=== PATIENT | male | born 1935 | race Caucasian/White ===

== ENCOUNTER → 2017-04-24 | Outpatient (CLI) | payer OTHER, MEDICARE ==
[~2017-04-24] MED LIST: ASPI325T45 PO; ATOR-14 PO; CHOL100027 PO; CIPR-255 PO; CYAN100T PO; INSDGI SC; KETO2CRE14 TOP; LIRA18IN INJ; LISI2.5T5 PO; METF1000 PO; OMEP20CA59 PO; TRAM-10 PO
[2017-04-24 12:31] LABS: ESTIMATED AVERAGE GLUCOSE 174 mg/dl; HA1C FLAG Normal (Normal)
[2017-04-24 12:44] LABS: BLOOD UREA NITROGEN 27 mg/dl (7-18); BUN/CREATININE RATIO 25.2 (10-20); CALCIUM 9.1 mg/dl (8.5-10.1); CARBON DIOXIDE 25 mmol/L (21-32); CHLORIDE 106 mmol/L (98-107); CREATININE 1.08 mg/dl (0.60-1.40); GLUCOSE,FASTING 133 mg/dl (70-99); POTASSIUM 4.3 mmol/L (3.5-5.1); SODIUM 139 mmol/L (136-145)
[2017-04-24 12:48] LABS: CHOLESTEROL 100 mg/dl (0-200); CHOLESTEROL/HDL RATIO 2.5; HDL CHOLESTEROL 40 mg/dl; LDL CHOLESTEROL CALCULATED 36 mg/dl; TRIGLYCERIDES 122 mg/dl (0-150); VERY LOW DENSITY LIPOPROT CALC 24 mg/dl
== END | disposition home or self-care (01) ==
LOC: C.LABPBG 09:49
PROVIDERS: ATTEND Internal Medicine Endocrinology, Diabetes & Metabolism
DX: E11.40 Type 2 diabetes mellitus with diabetic neuropathy, unspecified (principal); E11.22 Type 2 diabetes mellitus with diabetic chronic kidney disease; N18.3 Chronic kidney disease, stage 3 (moderate); Z79.4 Long term (current) use of insulin; E78.5 Hyperlipidemia, unspecified; I12.9 Hypertensive chronic kidney disease with stage 1 through stage 4 chronic kidney disease, or unspecified chronic kidney disease; E87.5 Hyperkalemia

== ENCOUNTER → 2017-07-26 | Outpatient (CLI) | payer OTHER, MEDICARE ==
[2017-07-26 13:10] LABS: HEMOGLOBIN A1C 8.9 % (4.5-5.6)
[2017-07-26 13:14] LABS: BLOOD UREA NITROGEN 16 mg/dl (7-18); CALCIUM 9.1 mg/dl (8.5-10.1); CARBON DIOXIDE 25 mmol/L (21-32); CREATININE 1.15 mg/dl (0.60-1.40); GLUCOSE 133 mg/dl (70-99); POTASSIUM 4.6 mmol/L (3.5-5.1); SODIUM 137 mmol/L (136-145)
== END | disposition home or self-care (01) ==
LOC: C.LABPBG 09:24
PROVIDERS: ATTEND Nurse Practitioner Family
DX: E11.22 Type 2 diabetes mellitus with diabetic chronic kidney disease (principal); N18.3 Chronic kidney disease, stage 3 (moderate); Z79.4 Long term (current) use of insulin; E78.5 Hyperlipidemia, unspecified; I12.9 Hypertensive chronic kidney disease with stage 1 through stage 4 chronic kidney disease, or unspecified chronic kidney disease

== ENCOUNTER → 2018-01-09 | Outpatient (CLI) | payer OTHER, MEDICARE ==
[~2018-01-09] MED LIST changes: +ASPECOTC PO; -ASPI325T45 PO; +LISI-1116 PO; -LISI2.5T5 PO
[2018-01-09 14:15] LABS: BLOOD UREA NITROGEN 17 mg/dl (7-18); CALCIUM 8.7 mg/dl (8.5-10.1); CARBON DIOXIDE 25 mmol/L (21-32); CREATININE 1.09 mg/dl (0.60-1.40); GLUCOSE 116 mg/dl (70-99); POTASSIUM 4.6 mmol/L (3.5-5.1); SODIUM 136 mmol/L (136-145)
[2018-01-09 14:27] LABS: HEMOGLOBIN A1C 8.3 % (4.5-5.6)
== END | disposition home or self-care (01) ==
LOC: C.LABPBG 09:00
PROVIDERS: ATTEND Internal Medicine Endocrinology, Diabetes & Metabolism
DX: E11.40 Type 2 diabetes mellitus with diabetic neuropathy, unspecified (principal)

== ENCOUNTER 2020-11-22 17:30 | Inpatient (IN) ==
[2020-11-22] MEDS ORDERED: ONDANSETRON INJ 2 MG/ML 2 ML VIAL IV STA (18:03)
[2020-11-22] MEDS ORDERED: SODIUM CHLORIDE 0.9% 1000ML 500 ML IV ONE (18:03)
[2020-11-22] MEDS ORDERED: HYDROmorphone INJ 0.5 MG/0.5 ML SYR IV STA (18:03)
--- NOTE | 2020-11-22 18:07 | Emergency Department Note ---
Impression & Plan Severe back pain, Bilateral leg weakness, Failure of outpatient treatment ED Provider Note NAME: PRICE DICKENS AGE: 85 SEX: M : 1935 ARRIVES VIA: Walk-In INFORMANT: [Patient][family] ED PROVIDER(S): [Russ Garcia MD] CHIEF COMPLAINT: Back pain HISTORY OF PRESENT ILLNESS: The patient is a 85-year-old male with chronic back pain. The patient states that about 2 and half weeks ago, he was walking with his walker when he developed severe lower back pain that caused him to fall down the stairs. Since this time frame, he has not been able to use his walker. He states that his legs are too weak to support his weight. He has been in a wheelchair. He has a hard time getting to the bathroom even. The patient states that his legs feel numb and he admits that he is having increased urinary frequency although there is no burning. No abdominal pain. Patient states that lying down causes his back pain to worsen and cause pain radiating down the right leg. There has been no cough or fever. No chest pain or shortness of breath. He did see his doctor's office yesterday, they recommended outpatient x-rays however, the patient could not tolerate lying down for the films. REVIEW OF SYSTEMS: See HPI for pertinent positives and negatives. A total of ten systems were reviewed and were otherwise negative. PMHx/PSHx: See Below SOCIAL HISTORY: See Below. PHYSICAL EXAM: GENERAL: Patient is in no acute distress. HEENT: No acute trauma, normocephalic atraumatic, mucous membranes moist, no nasal congestion, no scleral icterus. NECK: No stridor, no adenopathy, no meningismus, trachea is midline. LUNGS: Clear to auscultation bilaterally, no wheeze, no rhonchi, breath sounds equal. HEART: 2/6 systolic murmur, regular rate and rhythm. ABDOMEN: Soft, nontender, bowel sounds positive, no hernias, no peritonitis. Some mild abdominal distention noted. EXTREMITIES: No cyanosis, moderate bilateral pedal edema, full range of motion o f all the joints without pain or difficulty, no signs for acute trauma. NEUROLOGIC: Oriented x 3. The patient does have decent strength with dorsi flexion and plantar flexion of his feet bilaterally. He cannot lift either leg off the bed and uses his arms to cause knee flexion. He has no reflexes to the patellar or Achilles tendon. SKIN: No rash, no jaundice, no diaphoresis. DIFFERENTIAL DIAGNOSIS: Spinal stenosis, lumbar or thoracic fracture, nerve impingement, disc her niation, malignancy, epidural hematoma, cauda equina syndrome, sciatica, urinary retention, among others. EMERGENCY DEPARTMENT COURSE/PROCEDURES: MEDICAL DECISION MAKING: There is no leukocytosis. The patient is anemic but he has a history of the same. There is a normal platelet count. No significant electrolyte abnormality or kidney failure. No concerning liver enzyme elevation. Urinalysis does not show infection. Covid testing returned negative. The patient unfortunately, was in too much pain to undergo his CT imaging. He refused the studies despite the pain medication given. He was able to undergo a bedside lumbar spine se siddhartha. There was significant arthritis seen per my review. There was some slippage of L4 on L5 anteriorly. There was a potential compression fracture of L1 and L2. On exam, the patient's legs were weak bilaterally. He did seem uncomfortable especially, when we tried to lay him flat. The patient received IV saline, he was given IV Dilaudid for pain. He received IV Zofran. The patient requires a hospital stay. He is no longer able to function at home. He cannot walk on his own. This has been going on for weeks. He will likely require orthopedic/spine consults. He is going to require pain management. He is going to require imaging, possibly under sedation through anesthesia. At th is point, the cause for his severe back pain is not completely clear, further work-up in the hospital is warranted. I spoke with case management, I talked to the patient about his findings, the on-call hospitalist was consulted. Past Med/Surg History Medical History Arthritis BPH associated with nocturia Carotid artery stenosis Chronic lumbar pain GERD without esophagitis Hearing difficulty Hematuria High prostate specific antigen (PSA) (~12/2018) History of amputation of finger (~2002) History of neck pain Hyperlipidemia Hypertension Lumbar back pain Pancreatic lesion 03/31/2020-2.1 x 1.0 x 1.7 cm bilobed cystic lesion of the pancreatic body/tail junction demonstrates mild marginal calcifications with a thin central enhancing septation. Differential considerations would include a mucinous cystadenoma versus complex singular or two subadjacent IPMN's. 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 neuropathy & tingling in hands Surgical History Amputation finger 2003 History of carpal tunnel release 2007 History of hernia repair 2003 History of neck surgery [id number] Family History Grandfather (Maternal) Stomach cancer Aunt , This was who raised me, I do not know my mother & father Stomach cancer MATERNAL Brother , 50's of an [facility] Myocardial infarction Alcohol abuse Diabetes Mother Heart disease Diabetes Gallbladder disease Kidney stones Denies family history of Ovarian cancer Prostate cancer Breast cancer Colorectal cancer Social History Smoking Status: Never smoker Tobacco Type: Cigarettes Age Started Using Tobacco: 16; Age Quit Using Tobacco: 29; packs per day: 10; Years Smoked: 13; Second Hand Exposure: No; Do You Dip or Chew Tobacco: No; Hx Alcohol Use: No Hx Substance Use: No Preferred Language: Turkish Communication Ability: Effective Visual Impairment: No Limitations Hearing Ability: Hard of Hearing Delinquency Prevention Social Worker Required: No Beliefs That Will Affect Care: None marital status: / marital status details: PASSED IN 2016 D/T LUNG CANCER Current Living Situation: Alone current occupational status: retired Other Information That Helps Us Care for You: No Feels Safe at Home: Yes Safety Concerns: Feels Safe At This Time Childhood Exposure to Second-Hand Smoke: Yes Diet Comment: regular caffeine: Yes (coffee about 5 times a day) during the past year weight has: remained stable Dental Care, Regularly: Yes Physical Activity Frequency: Does not Exercise Physical Activity Frequency Comment: EXERCISE LIMITED BY PHYSICAL CONDITION Seatbelt Use: always Sunscreen Use: No Assistive Devices: Glasses, Hearing Aid - Left and Hearing Aid - Right Assistive Devices Comment: glasses and hearing aids at bedside. batteries replaced Allergies Allergies Allergy/AdvReac Type Severity Reaction Status Date / Time codeine AdvReac Unknown severe Verified 11/22/20 17:55 vomiting Home Meds Home Medications Medication Instructions Recorded Confirmed tamsulosin 0.4 mg capsule 0.4 mg PO BID cap 02/09/20 11/22/20 cholecalciferol (vitamin D3) 50 2,000 unit PO DAILY tab 07/26/20 11/22/20 mcg (2,000 unit) tablet insulin glargine [Basaglar KwikPen 30 unit SQ DAILY 11/22/20 11/22/20 U-100 Insulin] Previous Rx's Medication Instructions Recorded blood-glucose meter #1 ea 06/11/19 atorvastatin 10 mg tablet 10 mg PO DAILY #90 tab 04/14/20 lancets 33 gauge #100 ea 04/21/20 metformin 1,000 mg tablet 1,000 mg PO BID #180 tab 07/06/20 blood-glucose meter #1 ea 07/26/20 omeprazole 20 mg capsule,delayed 20 mg PO DAILY #90 cap 08/17/20 release cyanocobalamin (vitamin B-12) 1,000 mcg PO DAILY #90 tab 09/05/20 1,000 mcg tablet pen needle, diabetic 32 gauge x #100 ea 11/01/20" lisinopril 2.5 mg tablet 2.5 mg PO DAILY #90 tab 11/16/20 Results & Data (ED) Vital Signs Vital Signs - 24 hr 11/22/20 17:34 11/22/20 19:00 11/22/20 19:05 Temperature 36.8 C Temperature Source Temporal Artery Scan Pulse Rate 65 69 72 Pulse Rate from SpO2 Sensor Respiratory Rate 18 22 21 Respiratory Effort / Characteristics Non-Labored Spontaneous Respiratory Depth Normal Respiratory Pattern Regular Blood Pressure 185/78 H 188/96 H Blood Pressure Mean 113 126 Blood Pressure Position Sitting Pulse Oximetry 99 96 95 Oxygen Delivery Method Room Air Sepsis Recent Fever Within 48 Hours No Sepsis New/Unexplained Change in Mental Status N/A Sepsis Action Taken by Nursing No Action Required 11/22/20 19:32 11/22/20 20:00 11/22/20 20:49 Temperature Temperature Source Pulse Rate 63 60 71 Pulse Rate from SpO2 Sensor Respiratory Rate 12 14 17 Respiratory Effort / Characteristics Respiratory Depth Respiratory Pattern Blood Pressure 140/87 Blood Pressure Mean 104 Blood Pressure Position Pulse Oximetry 95 Oxygen Delivery Method Sepsis Recent Fever Within 48 Hours Sepsis New/Unexplained Change in Mental Status Sepsis Action Taken by Nursing 11/22/20 20:58 11/22/20 21:00 11/22/20 21:01 Temperature Temperature Source Pulse Rate 57 L 56 L Pulse Rate from SpO2 Sensor 56 L 58 L Respiratory Rate 14 12 Respiratory Effort / Characteristics Respiratory Depth Respiratory Pattern Blood Pressure 197/71 H Blood Pressure Mean 113 Blood Pressure Position Pulse Oximetry 95 96 96 Oxygen Delivery Method Room Air Sepsis Recent Fever Within 48 Hours Sepsis New/Unexplained Change in Mental Status Sepsis Action Taken by Nursing 11/22/20 21:02 11/22/20 21:30 11/22/20 22:00 Temperature Temperature Source Pulse Rate 60 74 58 L Pulse Rate from SpO2 Sensor 60 65 60 Respiratory Rate 12 14 16 Respiratory Effort / Characteristics Respiratory Depth Respiratory Pattern Blood Pressure Blood Pressure Mean Blood Pressure Position Pulse Oximetry 92 92 93 Oxygen Delivery Method Sepsis Recent Fever Within 48 Hours Sepsis New/Unexplained Change in Mental Status Sepsis Action Taken by Nursing 11/22/20 22:01 11/22/20 22:30 11/22/20 22:34 Temperature Temperature Source Pulse Rate 64 70 61 Pulse Rate from SpO2 Sensor 65 62 Respiratory Rate 18 8 L 15 Respiratory Effort / Characteristics Respiratory Depth Respiratory Pattern Blood Pressure 211/91 H 153/89 H Blood Pressure Mean 131 110 Blood Pressure Position Pulse Oximetry 90 95 Oxygen Delivery Method Sepsis Recent Fever Within 48 Hours Sepsis New/Unexplained Change in Mental Status Sepsis Action Taken by Nursing 11/22/20 22:35 Temperature Temperature Source Pulse Rate 70 Pulse Rate from SpO2 Sensor Respiratory Rate 17 Respiratory Effort / Characteristics Respiratory Depth Respiratory Pattern Blood Pressure Blood Pressure Mean Blood Pressure Position Pulse Oximetry Oxygen Delivery Method Sepsis Recent Fever Within 48 Hours Sepsis New/Unexplained Change in Mental Status Sepsis Action Taken by [facility] Medications Current Medication List: was personally reviewed by me Laboratory Data Attestation: I reviewed the patient's lab results. Result diagrams: 11/22/20 18:29 11/22/20 18:29 Lab Results 11/22/20 11/22/20 11/22/20 Range/Units 18:29 18:29 19:05 WBC 4.09 L (4.8-10.8) K/uL RBC 3.93 L (4.7-6.1) M/uL Hgb 11.5 L (14.0-18.0) g/dL Hct 34.2 L (42-52) % MCV 87.0 (80-100) fL MCH 29.3 (25-34) pg MCHC 33.6 (32-36) g/dL RDW Std Deviation 42.3 (36.4-46.3) fL RDW Coeff of Addis 13.2 (11.5-14.5) % Plt Count 220 (130-400) K/uL MPV 9.0 (7.4-10.4) fL Immature Gran % (Auto) 1.5 % Neut % (Auto) 59.9 % Lymph % (Auto) 22.0 % Sully % (Auto) 13.0 % Eos % (Auto) 3.4 % Baso % (Auto) 0.2 % Neut # (Auto) 2.45 (1.4-6.5) K/uL Lymph # (Auto) 0.90 L (1.2-3.4) K/uL Sully # (Auto) 0.53 (0.11-0.59) K/uL Eos # (Auto) 0.14 (0-0.5) K/uL Baso # (Auto) 0.01 (0-0.2) K/uL Immature Gran # (Auto) 0.06 H (0.00-0.02) K/uL Sodium 138 (136-145) mmol/L Potassium 4.3 (3.5-5.1) mmol/L Chloride 106 (98-107) mmol/L Carbon Dioxide 28 (21-32) mmol/L Anion Gap 4.0 (3-11) BUN 16 (7-18) mg/dl Creatinine 0.77 (0.6-1.4) mg/dl Est Cr Clr Drug Dosing Not Reportable Est GFR ( Amer) 97.3 ml/min Est GFR (Non-Af Amer) 83.9 ml/min BUN/Creatinine Ratio 21.1 H (10-20) Glucose 120 H (70-99) mg/dl Calcium 8.9 (8.5-10.1) mg/dl Magnesium 1.8 (1.8-2.4) mg/dl Total Bilirubin 0.4 (0.2-1) mg/dl AST 19 (15-37) U/L ALT 25 (12-78) U/L Alkaline Phosphatase 97 (45-117) U/L Total Protein 7.0 (6.4-8.2) gm/dl Albumin 3.6 (3.4-5.0) gm/dl Globulin 3.4 (2.5-4.0) gm/dl Albumin/Globulin Ratio 1.1 (0.9-2) Urine Color Yellow Urine Appearance Clear (Clear) Urine pH 6.5 (4.5-7.5) Ur Specific [place] 1.020 (1.000-1.030) Urine Protein Negative (Negative) Urine Glucose (UA) Negative (Negative) Urine Ketones Negative (Negative) Urine Blood Negative (Negative) Urine Nitrite Negative (Negative) Urine Bilirubin Negative (Negative) Urine Urobilinogen Negative (Negative) Ur Leukocyte Esterase Trace H (Negative) Urine RBC 0-4 (0-4) /hpf Urine WBC 0-5 (0-5) /hpf Ur Epithelial Cells 0-5 (0-5) /lpf Urine Bacteria Negative (Negative) COVID-19 Eval Order SARS-CoV-2 (PCR) (Negative) 11/22/20 11/22/20 Range/Units 19:45 19:45 WBC (4.8-10.8) K/uL RBC (4.7-6.1) M/uL Hgb (14.0-18.0) g/dL Hct (42-52) % MCV (80-100) fL MCH (25-34) pg MCHC (32-36) g/dL RDW Std Deviation (36.4-46.3) fL RDW Coeff of Addis (11.5-14.5) % Plt Count (130-400) K/uL MPV (7.4-10.4) fL Immature Gran % (Auto) % Neut % (Auto) % Lymph % (Auto) % Sully % (Auto) % Eos % (Auto) % Baso % (Auto) % Neut # (Auto) (1.4-6.5) K/uL Lymph # (Auto) (1.2-3.4) K/uL Sully # (Auto) (0.11-0.59) K/uL Eos # (Auto) (0-0.5) K/uL Baso # (Auto) (0-0.2) K/uL Immature Gran # (Auto) (0.00-0.02) K/uL Sodium (136-145) mmol/L Potassium (3.5-5.1) mmol/L Chloride (98-107) mmol/L Carbon Dioxide (21-32) mmol/L Anion Gap (3-11) BUN (7-18) mg/dl Creatinine (0.6-1.4) mg/dl Est Cr Clr Drug Dosing Est GFR ( Amer) ml/min Est GFR (Non-Af Amer) ml/min BUN/Creatinine Ratio (10-20) Glucose (70-99) mg/dl Calcium (8.5-10.1) mg/dl Magnesium (1.8-2.4) mg/dl Total Bilirubin (0.2-1) mg/dl AST (15-37) U/L ALT (12-78) U/L Alkaline Phosphatase (45-117) U/L Total Protein (6.4-8.2) gm/dl Albumin (3.4-5.0) gm/dl Globulin (2.5-4.0) gm/dl Albumin/Globulin Ratio (0.9-2) Urine Color Urine Appearance (Clear) Urine pH (4.5-7.5) Ur Specific [place] (1.000-1.030) Urine Protein (Negative) Urine Glucose (UA) (Negative) Urine Ketones (Negative) Urine Blood (Negative) Urine Nitrite (Negative) Urine Bilirubin (Negative) Urine Urobilinogen (Negative) Ur Leukocyte Esterase (Negative) Urine RBC (0-4) /hpf Urine WBC (0-5) /hpf Ur Epithelial Cells (0-5) /lpf Urine Bacteria (Negative) COVID-19 Eval Order Covid19 at [facility] SARS-CoV-2 (PCR) NEGATIVE (Negative) Administered Medications Discontinued Medications Hydromorphone HCl (Hydromorphone Inj 0.5 Mg/0.5 Ml Syr) 0.5 mg IV NOW STA Stop: 11/22/20 18:04 Last Admin: 11/22/20 18:41 Dose: 0.5 mg Documented by: [id number] Hydromorphone HCl (Hydromorphone Inj 0.5 Mg/0.5 Ml Syr) 0.5 mg IV Q30M PRN PRN Reason: Pain Stop: 12/06/20 18:02 Last Admin: 11/22/20 21:47 Dose: 0.5 mg Documented by: [id number] Admin: 11/22/20 20:14 Dose: 0.5 mg Documented by: [id number] Admin: 11/22/20 19:39 Dose: 0.5 mg Documented by: [id number] Sodium Chloride (Nss 1000ml) 500 mls @ 999 mls/hr IV .Q31M ONE Stop: 11/22/20 18:33 Last Infusion: 11/22/20 19:18 Dose: 0 mls/hr Documented by: [id number] Admin: 11/22/20 18:46 Dose: 999 mls/hr Documented by: [id number] Ondansetron HCl (Ondansetron Inj 2 Mg/Ml 2 Ml Vial) 4 mg IV NOW STA Stop: 11/22/20 18:04 Last Admin: 11/22/20 18:41 Dose: 4 mg Documented by: [id number] Imaging Data Attestation: I personally reviewed and interpreted this imaging study as follows: My Impression: Portable lumbar spine series: There is some slippage of L4 on L5 anteriorly. There is significant spurring and arthritis. There is a potential compression fracture of L1 and L2. Discharge Plan Visit Data Chief Complaint: Back Injury/Pain Stated Complaint: SEVERE BACK PAIN & LACK OF MOVEMENT ED Provider: Russ Garcia Discharge Problem: Severe back pain, Bilateral leg weakness, Failure of outpatient treatment Patient Disposition: Admitted As Inpatient Condition: Fair Discharge Instructions Interventions: ED Discharge Assessment Last Done: 11/22/20 23:07
[2020-11-22 18:50] LABS: Basophils # (auto) 0.01 K/uL (0-0.2); Basophils % (auto) 0.2 %; Eosinophils # (auto) 0.14 K/uL (0-0.5); Eosinophils % (auto) 3.4 %; Hematocrit (blood only) 34.2 % (42-52); Hemoglobin 11.5 g/dL (14.0-18.0); Immature Granulocytes # (auto) 0.06 K/uL (0.00-0.02); Immature Granulocytes % (auto) 1.5 %; Mean Corpuscular Hemoglobin 29.3 pg (25-34); Mean Corpuscular Hgb Conc 33.6 g/dL (32-36); Monocytes # (auto) 0.53 K/uL (0.11-0.59); Neutrophils # (auto) 2.45 K/uL (1.4-6.5); Neutrophils % (auto) 59.9 %; Platelet Count 220 K/uL (130-400); RDW Coefficient of Variation 13.2 % (11.5-14.5); RDW Standard Deviation 42.3 fL (36.4-46.3); Red Blood Count 3.93 M/uL (4.7-6.1); White Blood Count 4.09 K/uL (4.8-10.8)
[2020-11-22 19:08] LABS: Alanine Aminotransferase 25 U/L (12-78); Albumin Level 3.6 gm/dl (3.4-5.0); Aspartate Aminotransferase 19 U/L (15-37); BUN Creatinine Ratio 21.1 (10-20); Blood Urea Nitrogen 16 mg/dl (7-18); Calcium 8.9 mg/dl (8.5-10.1); Carbon Dioxide 28 mmol/L (21-32); Chloride 106 mmol/L (98-107); Est GFR (African American) 97.3 ml/min; Est GFR (Non-African American) 83.9 ml/min; Glucose 120 mg/dl (70-99); Magnesium 1.8 mg/dl (1.8-2.4); Potassium 4.3 mmol/L (3.5-5.1); Sodium 138 mmol/L (136-145)
[2020-11-22 19:10] LABS: Albumin Globulin Ratio 1.1 (0.9-2); Alkaline Phosphatase 97 U/L (45-117); Bilirubin,Total 0.4 mg/dl (0.2-1); Globulin 3.4 gm/dl (2.5-4.0)
[2020-11-22 19:26] LABS: Appearance Urine Clear (Clear); Bilirubin Urine Negative (Negative); Blood Urine Negative (Negative); Color Urine Yellow; Glucose Urine UA Negative (Negative); Ketones Urine Negative (Negative); Leukocyte Esterase Urine Trace (Negative); Nitrite Urine Negative (Negative); Protein Urine Negative (Negative); Urobilinogen Urine Negative (Negative); pH Urine 6.5 (4.5-7.5)
[2020-11-22] MEDS: HYDROmorphone INJ 0.5 MG/0.5 ML SYR IV PRN ×3 (19:39→21:47)
[2020-11-22 20:15] LABS: Bacteria Urine Negative (Negative); Epithelial Cell Urine 0-5 /lpf (0-5); RBC Urine 0-4 /hpf (0-4); WBC Urine 0-5 /hpf (0-5)
--- NOTE | 2020-11-22 22:39 | History & Physical Report ---
Date of Service November 22, 2020 Assessment & Plan (1) Severe back pain: Acute worsening of chronic low back pain- Patient unable to lay flat for imaging in the emergency department, even after administration of IV Dilaudid Admit for pain control Consult pain management. Patient may require sedation to undergo appropriate imaging. Acetaminophen 650 mg p.o. every 6 hours as needed mild pain or fever Dilaudid 0.25 mg IV every 3 hours as needed moderate pain Dilaudid 0.5 mg IV every 3 hours as needed severe pain [place] 5/325, 1 p.o. every 4 as needed moderate pain [place] 5/325, 2 p.o. every 4 hours as needed severe pain Present on Admission?: Yes (2) Type 2 diabetes mellitus with diabetic neuropathy: Hold Metformin Continue Lantus insulin 30 units subcu daily Placed on Accu-Cheks before meals and at bedtime with NovoLog coverage per scale Present on Admission?: Yes (3) Hypertension: Hold lisinopril Present on Admission?: Yes (4) Hyperlipidemia: Continue atorvastatin 10 mg daily Present on Admission?: Yes (5) GERD without esophagitis: Continue omeprazole 40 mg daily Present on Admission?: Yes (6) BPH associated with nocturia: Continue tamsulosin 0.4 mg twice daily Present on Admission?: Yes History of Present Illness Chief Complaint: The patient presents to the emergency department with acute worsening of chronic low back pain, that initially caused him to fall about 2 weeks or so ago, and then worsened considerably today, that he presents to the ED for further assessment Primary Care Provider: Caroline Damon DO The patient is an 85-year-old male with a past medical history including carotid artery stenosis, pancreatic lesion, diabetes mellitus type 2 with diabetic neuropathy, renal cyst, prostate cancer, hypertension, hyperlipidemia, GERD without esophagitis, and chronic lumbar pain. The patient's pain has become so severe when lying down, that he is not able to sleep in the supine position. He was unable to lay flat for x-rays in the emergency department due to his the severity of the pain. The patient will be admitted for pain control, and may require sedation with anesthesia to perform appropriate imaging testing. He did have imaging testing ordered by his outpatient physician, but was unable to tolerate that as well Allergies Allergy/AdvReac Type Severity Reaction Status Date / Time codeine AdvReac Unknown severe Verified 11/22/20 17:55 vomiting Home Medications Medication Instructions Recorded Confirmed Type blood-glucose meter #1 ea 06/11/19 11/21/20 Rx tamsulosin 0.4 mg capsule 0.4 mg PO BID cap 02/09/20 11/22/20 History atorvastatin 10 mg tablet 10 mg PO DAILY #90 tab 04/14/20 11/22/20 Rx lancets 33 gauge #100 ea 04/21/20 11/21/20 Rx metformin 1,000 mg tablet 1,000 mg PO BID #180 tab 07/06/20 11/22/20 Rx blood-glucose meter #1 ea 07/26/20 11/21/20 Rx cholecalciferol (vitamin D3) 50 2,000 unit PO DAILY tab 07/26/20 11/22/20 History mcg (2,000 unit) tablet omeprazole 20 mg capsule,delayed 20 mg PO DAILY #90 cap 08/17/20 11/22/20 Rx release cyanocobalamin (vitamin B-12) 1,000 mcg PO DAILY #90 tab 09/05/20 11/22/20 Rx 1,000 mcg tablet pen needle, diabetic 32 gauge x #100 ea 11/01/20 11/21/20 Rx 5/32" lisinopril 2.5 mg tablet 2.5 mg PO DAILY #90 tab 11/16/20 11/22/20 Rx insulin glargine [Basaglar KwikPen 30 unit SQ DAILY 11/22/20 11/22/20 History U-100 Insulin] Past Med/Surg History Medical History Arthritis BPH associated with nocturia Carotid artery stenosis Chronic lumbar pain GERD without esophagitis Hearing difficulty Hematuria High prostate specific antigen (PSA) (~12/2018) History of amputation of finger (~2002) History of neck pain Hyperlipidemia Hypertension Lumbar back pain Pancreatic lesion 03/31/2020-2.1 x 1.0 x 1.7 cm bilobed cystic lesion of the pancreatic body/tail junction demonstrates mild marginal calcifications with a thin central enhancing septation. Differential considerations would include a mucinous cystadenoma versus complex singular or two subadjacent IPMN's. 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 neuropathy & tingling in hands Surgical History Amputation finger 2002 History of carpal tunnel release 2006 History of hernia repair 2002 History of neck surgery [id number] Family History Grandfather (Maternal) Stomach cancer Aunt , This was who raised me, I do not know my mother & father Stomach cancer MATERNAL Brother , 50's of an [place] Myocardial infarction Alcohol abuse Diabetes Mother Heart disease Diabetes Gallbladder disease Kidney stones Denies family history of Ovarian cancer Prostate cancer Breast cancer Colorectal cancer Social History Smoking Status: Never smoker Tobacco Type: Cigarettes Age Started Using Tobacco: 16; Age Quit Using Tobacco: 29; packs per day: 10; Years Smoked: 13; Second Hand Exposure: No; Do You Dip or Chew Tobacco: No; Hx Alcohol Use: No Hx Substance Use: No Preferred Language: Cambodian Communication Ability: Effective Visual Impairment: No Limitations Hearing Ability: Hard of Hearing Affiliate Marketing Coordinator Required: No Beliefs That Will Affect Care: None marital status: / marital status details: PASSED IN 2016 D/T LUNG CANCER Current Living Situation: Alone current occupational status: retired Other Information That Helps Us Care for You: No Feels Safe at Home: Yes Safety Concerns: Feels Safe At This Time Childhood Exposure to Second-Hand Smoke: Yes Diet Comment: regular caffeine: Yes (coffee about 5 times a day) during the past year weight has: remained stable Dental Care, Regularly: Yes Physical Activity Frequency: Does not Exercise Physical Activity Frequency Comment: EXERCISE LIMITED BY PHYSICAL CONDITION Seatbelt Use: always Sunscreen Use: No Assistive Devices: Glasses, Hearing Aid - Left and Hearing Aid - Right Assistive Devices Comment: glasses and hearing aids at bedside. batteries replaced Review of Systems Review of Systems: The patient denies chest pain, palpitations, shortness of breath, dyspnea on exertion, cough, lower extremity swelling, sore throat, fevers, chills, sweats, nausea, vomiting, diarrhea , constipation, abdominal pain, pelvic pain, blood in urine or stool, dysuria, urinary frequency or urgency, lightheadedness, dizziness, headache, memory loss, loss of consciousness, rash, abnormal bruising or bleeding, focal or generalized weakness, numbness or tingling in arms, generalized arthralgias or myalgias, neck pain, or night sweats. The review of systems is otherwise negative other than for that already noted above, and at least 10 systems have been reviewed. Physical Exam Physical Exam: The patient is awake, alert and oriented 3, normocephalic and atraumatic, sitting upright on the edge of the bed and in no acute distress. HEENT--PERRL, EOMI, mucous membranes and oropharynx dry. Neck--supple. No JVD. No bruits. Thyroid normal, trachea midline, no adenopathy. Heart--normal S1 and S2. No murmurs, rubs or gallops. Lungs--clear bilaterally, no respiratory distress, no accessory muscle use. Abdomen--normal bowel sounds and soft. Nontender. Nondistended Extremities--no cyanosis or clubbing. No edema. Dermatologic--skin is mildly dry Neurologic--cranial nerves II through XII grossly intact. Rheumatologic--limited due to back pain Psychiatric--normal affect. Results & Data Results & Data ([facility]) Vital Signs (Past 12 Hours) Vital Signs Temp Pulse Resp BP Pulse Ox 11/22/20 22:30 70 8 L 11/22/20 22:01 64 18 211/91 H 90 11/22/20 22:00 58 L 16 93 11/22/20 21:30 74 14 92 11/22/20 21:02 60 12 92 11/22/20 21:01 56 L 12 197/71 H 96 11/22/20 21:00 57 L 14 96 11/22/20 20:58 95 11/22/20 20:49 71 17 140/87 11/22/20 20:00 60 14 11/22/20 19:32 63 12 95 11/22/20 19:05 72 21 95 11/22/20 19:00 69 22 188/96 H 96 11/22/20 17:34 98.2 F 65 18 185/78 H 99 Laboratory Results Laboratory Results WBC 4.09 K/uL (4.8-10.8) L 11/22/20 18:29 RBC 3.93 M/uL (4.7-6.1) L 11/22/20 18:29 Hgb 11.5 g/dL (14.0-18.0) L 11/22/20 18: Hct 34.2 % (42-52) L 11/22/20: MCV 87.0 fL (80-100) 11/22/20 18: MCH 29.3 pg (25-34) 11/22/20: MCHC 33.6 g/dL (32-36) 11/22/20: RDW Std Deviation 42.3 fL (36.4-46.3) 11/22/20 18: RDW Coeff of [place] 13.2 % (11.5-14.5) 11/22/20 Plt Count 220 K/uL (130-400) 11/22/20 MPV 9.0 fL (7.4-10.4) 11/22/20 Immature Gran % (Auto) 1.5 % 11/22/20: Neut % (Auto) 59.9 % 11/22/20: Lymph % (Auto) 22.0 % 11/22/20: [place] % (Auto) 13.0 % 11/22/20: Eos % (Auto) 3.4 % 11/22/20: Baso % (Auto) 0.2 % 11/22/20 Neut # (Auto) 2.45 K/uL (1.4-6.5) 11/22/20: Lymph # (Auto) 0.90 K/uL (1.2-3.4) L 11/22/20: [place] # (Auto) 0.53 K/uL (0.11-0.59) 11/22/20: Eos # (Auto) 0.14 K/uL (0-0.5) 11/22/20: Baso # (Auto) 0.01 K/uL (0-0.2) 11/22/20: Immature Gran # (Auto) 0.06 K/uL (0.00-0.02) H 11/22/20 18: Sodium 138 mmol/L (136-145) 11/22/20 18: Potassium 4.3 mmol/L (3.5-5.1) 11/22/20 18: Chloride 106 mmol/L (98-107) 11/22/20 18: Carbon Dioxide 28 mmol/L (21-32) 11/22/20 18: Anion Gap 4.0 (3-11) 11/22/20 18: BUN 16 mg/dl (7-18) 11/22/20 18: Creatinine 0.77 mg/dl (0.6-1.4) 11/22/20: Est Cr Clr Drug Dosing Not Reportable 11/22/20 18: Est GFR ( Amer) 97.3 ml/min 11/22/20 18: Est GFR (Non-Af Amer) 83.9 ml/min 11/22/20 18 BUN/Creatinine Ratio 21.1 (10-20) H 11/22/20 18: Glucose 120 mg/dl (70-99) H 11/22/20 18: Calcium 8.9 mg/dl (8.5-10.1) 11/22/20: Magnesium 1.8 mg/dl (1.8-2.4) 11/22/20: Total Bilirubin 0.4 mg/dl (0.2-1) 11/22/20 18: AST 19 U/L (15-37) 11/22/20: ALT 25 U/L (12-78) 11/22/20 18: Alkaline Phosphatase 97 U/L (45-117) 11/22/20: Total Protein 7.0 gm/dl (6.4-8.2) 11/22/20: Albumin 3.6 gm/dl (3.4-5.0) 11/22/20: Globulin 3.4 gm/dl (2.5-4.0) 11/22/20: Albumin/Globulin Ratio 1.1 (0.9-2) 11/22/20: Urine Color Yellow 11/22/20 19:05 Urine Appearance Clear (Clear) 11/22/20 19: Urine pH 6.5 (4.5-7.5) 11/22/20 19:05 Ur Specific [place] 1.020 (1.000-1.030) 11/22/20 19:05 Urine Protein Negative (Negative) 11/22/20 19:05 Urine Glucose (UA) Negative (Negative) 11/22/20 19:05 Urine Ketones Negative (Negative) 11/22/20 19:05 Urine Blood Negative (Negative) 11/22/20 19:05 Urine Nitrite Negative (Negative) 11/22/20 19:05 Urine Bilirubin Negative (Negative) 11/22/20 19:05 Urine Urobilinogen Negative (Negative) 11/22/20 19:05 Ur Leukocyte Esterase Trace (Negative) H 11/22/20 19:05 Urine RBC 0-4 /hpf (0-4) 11/22/20 19:05 Urine WBC 0-5 /hpf (0-5) 11/22/20 19:05 Ur Epithelial Cells 0-5 /lpf (0-5) 11/22/20 19:05 Urine Bacteria Negative (Negative) 11/22/20 19:05 COVID-19 Eval Order Covid19 at [facility] 11/22/20 19:45 SARS-CoV-2 (PCR) NEGATIVE (Negative) 11/22/20 19:45 Code Status & VTE Plan Code Status Full code VTE Prophylaxis Plan VTE Prophylaxis will be ordered: Yes PG Care Time/CCT Total # of Minutes Spent Total Time Spent with Patient: Total time spent is greater than 50% in coordination of care (as documented) at patient's floor/unit and/or counseling patient: Coding Level of Care Code 32642 Initial Inpt Care Lvl 3 Diagnoses Severe back pain M54.9 Type 2 diabetes mellitus with diabetic neuropathy E11.40 Hypertension I10 Hyperlipidemia E78.5 GERD without esophagitis K21.9 BPH associated with nocturia N40.1; R35.1
[2020-11-23] MEDS ORDERED: GLUCAGON FOR INJ 1 MG VIAL SQ PRN (00:13)
[2020-11-23] MEDS ORDERED: GLUCOSE 40% GEL 15 GM TUBE PO PRN (00:13)
[2020-11-23] MEDS ORDERED: GLUCOSE 10 TABS/TUBE PO PRN (00:13)
[2020-11-23] MEDS ORDERED: HYDROmorphone INJ 0.5 MG/0.5 ML SYR IV PRN (00:13)
[2020-11-23] MEDS ORDERED: CARBOHYDRATES FOR HYPOGLYCEMIA PO PRN (00:13)
[2020-11-23] MEDS ORDERED: DEXTROSE 50% 50 ML SYRINGE IV PRN (00:13)
[2020-11-23] MEDS ORDERED: HYDROCODONE/ACETAMOPHEN 5/325MG TAB PO PRN (01:23)
[2020-11-23] MEDS: TAMSULOSIN HCL 0.4 MG CAP PO SCH ×4 (01:34→21:36)
[2020-11-23] MEDS: HYDROCODONE/ACETAMOPHEN 5/325MG TAB PO PRN ×2 (03:06→09:16)
[2020-11-23 05:47] LABS: Basophils # (auto) 0.01 K/uL (0-0.2); Basophils % (auto) 0.3 %; Eosinophils # (auto) 0.13 K/uL (0-0.5); Eosinophils % (auto) 3.6 %; Hematocrit (blood only) 34.2 % (42-52); Hemoglobin 11.2 g/dL (14.0-18.0); Immature Granulocytes # (auto) 0.04 K/uL (0.00-0.02); Immature Granulocytes % (auto) 1.1 %; Lymphocytes # (auto) 0.67 K/uL (1.2-3.4); Lymphocytes % (auto) 18.5 %; Mean Corpuscular Hemoglobin 29.1 pg (25-34); Mean Corpuscular Hgb Conc 32.7 g/dL (32-36); Mean Corpuscular Volume 88.8 fL (80-100); Mean Platelet Volume 8.6 fL (7.4-10.4); Monocytes # (auto) 0.51 K/uL (0.11-0.59); Neutrophils # (auto) 2.27 K/uL (1.4-6.5); Neutrophils % (auto) 62.5 %; Platelet Count 211 K/uL (130-400); RDW Coefficient of Variation 13.3 % (11.5-14.5); RDW Standard Deviation 43.1 fL (36.4-46.3); Red Blood Count 3.85 M/uL (4.7-6.1); White Blood Count 3.63 K/uL (4.8-10.8)
[2020-11-23 05:59] LABS: Partial Thromboplastin Time 25.4 Seconds (21.0-31.0); Prothrombin Time 10.2 Seconds (9.0-12.0)
[2020-11-23 06:06] LABS: Estimated Average Glucose 154 mg/dl
[2020-11-23 06:30] LABS: Albumin Level 3.4 gm/dl (3.4-5.0); BUN Creatinine Ratio 22.9 (10-20); Calcium 8.7 mg/dl (8.5-10.1); Creatinine Clr Calc Pharmacy 90.3 ml/min; Est GFR (African American) 106.3 ml/min; Est GFR (Non-African American) 91.7 ml/min; Magnesium 1.7 mg/dl (1.8-2.4)
[2020-11-23 06:34] LABS: Albumin Globulin Ratio 1.1 (0.9-2); Bilirubin,Total 0.5 mg/dl (0.2-1); Total Protein 6.4 gm/dl (6.4-8.2)
[2020-11-23] MEDS: HYDROmorphone INJ 0.5 MG/0.5 ML SYR IV PRN (07:51)
--- NOTE | 2020-11-23 07:52 | XRay Report ---
XR lumbar spine 2-3V CLINICAL HISTORY: Back pain COMPARISON STUDY: 11/16/2012 FINDINGS: The study was performed in a portable fashion. There is a minimal spinal curvature convex t o the right. This may be positional. No definite acute fractures are visualized. Minor superior endpl ate deformities at the L1 and L2 levels are statistically chronic There are moderate multilevel degen erative changes. There is a stable grade 1 spondylolisthesis of L5 on S1. IMPRESSION: 1. Technically limited portable study 2. No definite acute fractures 3. Moderate multilevel degenerative change 4. Stable grade 1 spondylolisthesis of L4 on L5 5. Mild superior endplate deformities at the L1 and L2 levels, likely chronic. ACT 112: Negative or not required by law. Electronically signed by: Kamar Hilario M.D. 11/23/2020 7:51 AM
--- NOTE | 2020-11-23 08:20 | Pain Management Consultation ---
Date of Consultation November 23, 2020 Assessment & Plan (1) Severe back pain: Recommend Lumbar MRI under sedation as the patient is unable to lay flat due to increased pain I have added Lidocaine patch onto his current regimen Continue Hydrocodone PRN breakthrough pain Consider oral steroids pending lumbar MRI results (2) Bilateral leg weakness: History of Present Illness Attending Physician: Manny Hawkins, History of Present Illness Mr. Neely is an 85-year-old male that has been admitted to the [facility] for intractable low back pain and lower extremity weakness. States that low back pain originated 20 years ago when he jumped out of a plane and to the parachute pulled his back. Over the last several weeks he has been experiencing lower extremity weakness and falling frequently. About 3 weeks ago he did have a fall that worsened to the low back pain. Pain is mostly located along the right low back. He denies any radicular symptoms. Pain is slightly relieved with sitting up and increased with laying supine or walking. He has been unable to have further imaging than an x-ray as he has not been able to lay supine. He was using a cane to help with ambulation until 3 weeks ago when the pain worsened. He has been using a walker or wheelchair at home. To lift up his legs he needs to pull his socks. He does report mild pain relief with the hydrocodone 5/325 mg 2 tablets that he took this morning. He has been working towards laying supine and has only been able to get to 45 degrees. No bowel/bladder incontinence, saddle anesthesia, foot drop. Pain Assessment Full Body Front + Back: 1. [facility] Combined Pain Scale: 7-Severe - Pain prevents productive activity. Impossible to tolerate. Allergies Allergy/AdvReac Type Severity Reaction Status Date / Time codeine AdvReac Unknown severe Verified 11/22/20 17:55 vomiting Home Medications Medication Instructions Recorded Confirmed Type blood-glucose meter #1 ea 06/11/19 11/21/20 Rx tamsulosin 0.4 mg capsule 0.4 mg PO BID cap 02/09/20 11/22/20 History atorvastatin 10 mg tablet 10 mg PO DAILY #90 tab 04/14/20 11/22/20 Rx lancets 33 gauge #100 ea 04/21/20 11/21/20 Rx metformin 1,000 mg tablet 1,000 mg PO BID #180 tab 07/06/20 11/22/20 Rx blood-glucose meter #1 ea 07/26/20 11/21/20 Rx cholecalciferol (vitamin D3) 50 2,000 unit PO DAILY tab 07/26/20 11/22/20 History mcg (2,000 unit) tablet omeprazole 20 mg capsule,delayed 20 mg PO DAILY #90 cap 08/17/20 11/22/20 Rx release cyanocobalamin (vitamin B-12) 1,000 mcg PO DAILY #90 tab 09/05/20 11/22/20 Rx 1,000 mcg tablet pen needle, diabetic 32 gauge x #100 ea 11/01/20 11/21/20 Rx 32" lisinopril 2.5 mg tablet 2.5 mg PO DAILY #90 tab 11/16/20 11/22/20 Rx insulin glargine [Basaglar KwikPen 30 unit SQ DAILY 11/22/20 11/22/20 History U-100 Insulin] Patient History Medical History Arthritis BPH associated with nocturia Carotid artery stenosis Chronic lumbar pain GERD without esophagitis Hearing difficulty Hematuria High prostate specific antigen (PSA) (~12/2018) History of amputation of finger (~2002) History of neck pain Hyperlipidemia Hypertension Lumbar back pain Pancreatic lesion 03/31/2020-2.1 x 1.0 x 1.7 cm bilobed cystic lesion of the pancreatic body/tail junction demonstrates mild marginal calcifications with a thin central enhancing septation. Differential considerations would include a mucinous cystadenoma versus complex singular or two subadjacent IPMN's. 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 neuropathy & tingling in hands Surgical History Amputation finger 2002 History of carpal tunnel release 2007 History of hernia repair 2003 History of neck surgery [id number] Family History Grandfather (Maternal) Stomach cancer Aunt , This was who raised me, I do not know my mother & father Stomach cancer MATERNAL Brother , 50's of an [place] Myocardial infarction Alcohol abuse Diabetes Mother Heart disease Diabetes Gallbladder disease Kidney stones Denies family history of Ovarian cancer Prostate cancer Breast cancer Colorectal cancer Social History Smoking Status: Never smoker Tobacco Type: Cigarettes Age Started Using Tobacco: 16; Age Quit Using Tobacco: 29; packs per day: 10; Years Smoked: 13; Second Hand Exposure: No; Do You Dip or Chew Tobacco: No; Hx Alcohol Use: No Hx Substance Use: No Preferred Language: Czech Communication Ability: Effective Visual Impairment: No Limitations Hearing Ability: Hard of Hearing Assistant Corporate Secretary Required: No Beliefs That Will Affect Care: None marital status: / marital status details: PASSED IN 2016 D/T LUNG CANCER Current Living Situation: Alone current occupational status: retired Other Information That Helps Us Care for You: No Feels Safe at Home: Yes Safety Concerns: Feels Safe At This Time Childhood Exposure to Second-Hand Smoke: Yes Diet Comment: regular caffeine: Yes (coffee about 5 times a day) during the past year weight has: remained stable Dental Care, Regularly: Yes Physical Activity Frequency: Does not Exercise Physical Activity Frequency Comment: EXERCISE LIMITED BY PHYSICAL CONDITION Seatbelt Use: always Sunscreen Use: No Assistive Devices: Hearing Aid - Bilateral and Wheelchair Assistive Devices Comment: glasses and hearing aids at bedside. batteries replaced Physical Exam Physical Exam: GENERAL: Speech and cognition is intact. Mood and affect is appropriate. Appears in moderate pain with movement. HEAD: Normocephalic; atraumatic. EYES: No conjunctival injection. EOM intact. ENT: No external ear discharge or lesions. No rhinorrhea or epistaxis. Dry oral mucosa. CHEST: Regular chest respiration and excursion. EXTREMITIES: There is 2/5 strength with hip flexion, hip extension, knee flexion and knee extension. There is 4/5 dorsiflexion and plantarflexion. Negative straight leg raise. BACK: Loss of lumbar lordosis. There is mild tenderness along the lumbosacral junction. There is no facet joint tenderness. There is moderate tenderness along the right SI joint. Patient is wearing a back brace. No myofascial spasm or trigger points noted. NEURO: CN II-XII grossly intact with no focal deficits noted. Normal gait. SKIN: No lesions, erythema, or rashes noted. Results ([facility]) Diagnostic Review MRI Findings: Most recent lumbar MRI is 12/06/2012 that shows degenerative disc disease, facet arthropathy, spondylolisthesis of L4 on L5, and moderate stenosis at L3-L4 and L4-L5
[2020-11-23] MEDS: INSULIN ASPART 100 UNITS/ML 3 ML PEN SC SCH ×4 (09:02→21:36)
[2020-11-23] MEDS: INSULIN GLARGINE SOLOSTAR 100 UNITS/ML 3 ML PEN SQ SCH (09:03)
[2020-11-23] MEDS: lisinopril 2.5 MG TAB PO SCH (09:09)
[2020-11-23] MEDS: PANTOprazole 40 MG TAB PO SCH (09:09)
[2020-11-23] MEDS: CYANOCOBALAMIN 500 MCG TABLET (VITAMIN B-12) PO SCH (09:09)
[2020-11-23] MEDS: CHOLECALCIFEROL 1,000 UNITS 25 MCG TAB PO SCH (09:10)
[2020-11-23] MEDS: ATORVASTATIN 10 MG TAB PO SCH (09:10)
[2020-11-23] MEDS: LIDOCAINE 5% 1 PATCH TD SCH (10:18)
[2020-11-23] MEDS ORDERED: diazePAM 5 MG TABLET PO PRN (12:29)
[2020-11-23] MEDS ORDERED: dexAMETHasone 8 MG in SYRINGE 0 ML IV ONE (13:00)
[2020-11-23] MEDS: MAGNESIUM OXIDE 400 MG TAB PO SCH (13:13)
--- NOTE | 2020-11-23 14:34 | Hospitalist Progress Note ---
Date of Service November 23, 2020 Assessment & Plan (1) Severe back pain: * Acute on chronic * Given trauma (fall down the steps) which has exacerbated his pain, ideally would like an MRI. Patient refusing (due to claustrophobia) despite premedication with Valium. CT scan ordered. If inconclusive, can consider anesthesia consult for conscious sedation for MRI * Pain management consulted. Appreciate their recommendations * Continue [place] with Dilaudid for breakthrough pain. Given radicular symptoms, will add steroids. Will give IV Decadron today followed by prednisone daily to start tomorrow * Consult PT/OT * Plan of care discussed with Dr. Hawkins. Further orders as warranted. (2) Hypomagnesemia: * Supplement with oral Mag-Ox (3) Type 2 diabetes mellitus with diabetic neuropathy: * Metformin held upfront. We will resume this as no contraindication. CT scan ordered without contrast * Continue Lantus at 30 units * Continue sliding scale with increased correction dosing (4) Hypertension: * Resume home lisinopril as prior to hospitalization * Blood pressure has been labile. May need continued up titration in his lisinopril. Accelerated BP may have been related to back pain/uncontrolled pain. We will continue to monitor (5) Hyperlipidemia: * Continue atorvastatin 10 mg daily (6) GERD without esophagitis: * Continue omeprazole 40 mg daily (7) BPH associated with nocturia: * Continue tamsulosin 0.4 mg twice daily Admission and Anticipated Discharge Date Admission Date: November 22, 2020 Subjective Patient seen on daily rounds today. He is an 85-year-old white male with a PMHx of chronic lumbago, HTN, HLD, H/O prostate CA, known pancreatic lesion, insulin- dependent diabetes mellitus with diabetic neuropathy. He was admitted overnight with intractable low back pain and radiculopathy. Patient with chronic lumbago. Approximately 2 weeks ago, fell down 13 steps as he claims his "back caught while lifting his leg" ambulation. Was unable to stand following this incident. Did not lose consciousness. Back pain has been severe since. Using [id number] analgesics without improvement. X-ray done yesterday showing no acute pathology. Patient unable to actively flex legs or ambulate indepe ndently which prompted his admission. Pain Mgmt on board for pain control. Currently on [place], Dilaudid and lidoderm patch (as per pain mgmt) - no pain at rest. does have continued pain with ambulation. No current adverse reaction to pain regimen. Review of Systems Respiratory: no chest congestion Cardiovascular: no chest pain, no dyspnea and no edema Gastrointestinal: no abdominal pain, no nausea, no vomiting and no fecal incontinence Genitourinary: no urinary incontinence Musculoskeletal: + back pain and + radicular pain Ambulatory dysfunction Neurologic: + gait abnormality, + localized weakness (Bilateral legs), + numbness (Right > Left leg) and + radiating pain (Right leg); no loss of sensation and no paresthesia (Denies saddle anesthesia) Physical Exam Constitutional: Patient resting comfortably in his hospital bed. Excessively somnolent but arousable. Does not appear ill or toxic. In no acute distress. Respiratory: Breathing comfortably on ambient air. Good air exchange thro ughout. CTA without W/R/R Cardiovascular: RRR, no murmur, no edema Gastrointestinal (Abdomen): normal bowel sounds, soft, nontender, no hepatosplenomegaly Musculoskeletal: Patient examined while sitting at the side of the bed. Unable to actively flex legs to maneuver them over the bedside but was able to passively do this. No gross deformity noted. No tenderness at either SI joint. Tenderness noted in the posterior sacral region. Active flexion of the bilateral hips is limited but passive flexion intact. Does have reproduced paresthesias down the right leg with passive flexion. Peripheral pulses intact. Results & Data Results & Data ([facility]) Vital Signs (Past 12 Hours) Vital Signs Temp Pulse Resp BP Pulse Ox 11/23/20 05:35 36.5 C 70 16 136/74 95 Laboratory Results 11/23/20 05:37 11/23/20 05:37 Diagnostic Findings MRI ordered; however, patient refusing due to claustrophobia. Trial of sedation with Valium prior to procedure. Patient still refused. Will attempt CT PG Care Time/CCT Total # of Minutes Spent Total Time Spent with Patient: Total time spent is greater than 50% in coordination of care (as documented) at patient's floor/unit and/or counseling patient: 45 min Coding Level of Care Code 61070 Subseq Hosp Care Lvl 2 History Expanded Problem Focused Exam Expanded Problem Focused Medical Decision Making Moderate Complexity Diagnoses Severe back pain M54.9 Hypomagnesemia E83.42 Type 2 diabetes mellitus with diabetic neuropathy E11.40 Diabetes mellitus predatory animal exterminator insulin use: unspecified alf insulin use status Hypertension I10 Hypertension type: essential hypertension Hyperlipidemia E78.5 Hyperlipidemia type: unspecified GERD without esophagitis K21.9 BPH associated with nocturia N40.1; R35.1 (1) Type 2 diabetes mellitus with diabetic neuropathy Diabetes mellitus alf insulin use: unspecified predatory animal exterminator insulin use status Qualified Code(s): E11.40 - Type 2 diabetes mellitus with diabetic neuropathy, unspecified (2) Hyperlipidemia Hyperlipidemia type: unspecified Qualified Code(s): E78.5 - Hyperlipidemia, unspecified (3) Hypertension Hypertension type: essential hypertension Qualified Code(s): I10 - Essential (primary) hypertension
[2020-11-23] MEDS ORDERED: HYDROmorphone INJ 1 MG/ML SYRINGE IV ONE (15:33)
--- NOTE | 2020-11-23 16:02 | CT Scan Report ---
CT lumbar spine wo con CT DOSE: 635.31 mGy.cm CLINICAL HISTORY: low back pain- post traumatic TECHNIQUE: Helical images were acquired in transverse plane. Reformatted sagittal and coronal images were reviewed. A dose lowering technique was utilized adhering to the principles of ALARA. CONTRAST: No contrast was administered COMPARISON STUDY: X-ray study dated 11/22/2020, MRI dated 12/06/2012 FINDINGS: L1-2 level: There is a mild circumferential disc bulge. There are endplate erosive changes, likely on a discogenic basis. There is no evidence for significant spinal or foraminal stenosis L2-3 level: There is a circumferential disc bulge. There is ligamentous hypertrophy. There is moderat e to severe spinal stenosis. There are endplate erosive changes, likely on a discogenic basis. L3-4 level: There is a circumferential disc bulge. There is moderate to severe spinal stenosis. There is ligament hypertrophy. There are endplate erosive changes likely discogenic basis. L4-5 level: There is a grade 1 spondylolisthesis of L4 and L5. There are endplate erosive changes. Th ere is moderate spinal stenosis. There is facet joint arthropathy. L5-S1 level: There is minimal retrolisthesis of L5 on S1. There are degenerative changes within the d isc. There is no evidence of significant spinal stenosis. There is mild foraminal narrowing. No acute vertebral body fractures are visualized. There is an age-indeterminate right L1 transverse p rocess fracture. There is no evidence for a paraspinal hematoma.. The bones are osteopenic. IMPRESSION: 1. No acute vertebral body fractures or traumatic subluxations identified 2. Age-indeterminate right L1 transverse process fracture 3. Advanced multilevel spondylytic changes with multilevel spinal stenosis 4. Multilevel endplate erosive change, likely on a degenerative discogenic basis. ACT 112: Negative or not required by law. Electronically signed by: Kamar Hilario M.D. 11/23/2020 4:01 PM
[2020-11-23] MEDS: metFORMIN HCL 500 MG TAB PO SCH (18:15)
[2020-11-24 06:23] LABS: Basophils # (auto) 0.01 K/uL (0-0.2); Basophils % (auto) 0.2 %; Eosinophils # (auto) 0.01 K/uL (0-0.5); Eosinophils % (auto) 0.2 %; Hematocrit (blood only) 36.3 % (42-52); Hemoglobin 11.8 g/dL (14.0-18.0); Immature Granulocytes # (auto) 0.08 K/uL (0.00-0.02); Immature Granulocytes % (auto) 1.6 %; Lymphocytes # (auto) 1.14 K/uL (1.2-3.4); Lymphocytes % (auto) 22.7 %; Mean Corpuscular Hemoglobin 28.7 pg (25-34); Mean Corpuscular Hgb Conc 32.5 g/dL (32-36); Mean Corpuscular Volume 88.3 fL (80-100); Mean Platelet Volume 9.4 fL (7.4-10.4); Monocytes # (auto) 0.56 K/uL (0.11-0.59); Monocytes % (auto) 11.1 %; Neutrophils # (auto) 3.23 K/uL (1.4-6.5); Neutrophils % (auto) 64.2 %; Platelet Count 282 K/uL (130-400); RDW Coefficient of Variation 13.3 % (11.5-14.5); RDW Standard Deviation 42.7 fL (36.4-46.3); Red Blood Count 4.11 M/uL (4.7-6.1); White Blood Count 5.03 K/uL (4.8-10.8)
[2020-11-24 06:34] LABS: Partial Thromboplastin Time 25.1 Seconds (21.0-31.0); Prothrombin Time 9.9 Seconds (9.0-12.0)
[2020-11-24 06:56] LABS: Albumin Level 3.7 gm/dl (3.4-5.0); BUN Creatinine Ratio 23.1 (10-20); Calcium 9.5 mg/dl (8.5-10.1); Creatinine Clr Calc Pharmacy 64.3 ml/min; Est GFR (African American) 92.5 ml/min; Est GFR (Non-African American) 79.8 ml/min; Potassium 4.4 mmol/L (3.5-5.1)
[2020-11-24 06:57] LABS: Bilirubin,Total 0.4 mg/dl (0.2-1); Globulin 3.7 gm/dl (2.5-4.0); Total Protein 7.4 gm/dl (6.4-8.2)
[2020-11-24] MEDS: HYDROmorphone INJ 0.5 MG/0.5 ML SYR IV PRN (07:19)
[2020-11-24] MEDS: metFORMIN HCL 500 MG TAB PO SCH ×2 (07:25→16:23)
[2020-11-24] MEDS ORDERED: lisinopril 2.5 MG TAB PO SCH (09:00)
[2020-11-24] MEDS: lisinopril 2.5 MG TAB PO SCH (09:21)
[2020-11-24] MEDS: CHOLECALCIFEROL 1,000 UNITS 25 MCG TAB PO SCH (09:21)
[2020-11-24] MEDS: MAGNESIUM OXIDE 400 MG TAB PO SCH (09:21)
[2020-11-24] MEDS: TAMSULOSIN HCL 0.4 MG CAP PO SCH ×2 (09:21→21:12)
[2020-11-24] MEDS: ATORVASTATIN 10 MG TAB PO SCH (09:21)
[2020-11-24] MEDS: PANTOprazole 40 MG TAB PO SCH (09:21)
[2020-11-24] MEDS: predniSONE 20 MG TAB PO SCH (09:21)
[2020-11-24] MEDS: INSULIN ASPART 100 UNITS/ML 3 ML PEN SC SCH ×4 (09:24→21:12)
[2020-11-24] MEDS: INSULIN GLARGINE SOLOSTAR 100 UNITS/ML 3 ML PEN SQ SCH (09:26)
[2020-11-24] MEDS: LIDOCAINE 5% 1 PATCH TD SCH (09:30)
[2020-11-24] MEDS ORDERED: HYDROCODONE/ACETAMOPHEN 5/325MG TAB PO PRN (10:05)
--- NOTE | 2020-11-24 10:17 | Hospitalist Progress Note ---
Date of Service November 24, 2020 Assessment & Plan (1) Bulging lumbar disc: * MRI initially ordered; however, patient refused given his severe claustrophobia. CT done showing multilevel bulging discs. Consult Ortho/Spine. appreciate recommendations (2) Severe back pain: * Acute on chronic with radiculopathy * overall, pain significantly improved * PT/OT assessment pending- appreciate recommendations to help with disposition planning. Patient resides in a 2 story home with all accommodations on the first floor; however, does have 1 stop going into the home and 3 steps into the kitchen. Lengthy D/W patient regarding safety in d/c planning and that he needs to be able to safely ambulate independently (using an assistive device) and walk up and down at least 3 steps. I did discuss possible placement to SNF for acute rehab/strength training, which patient is extremely reluctant about. Also, briefly D/W daughter yesterday. * Patient agreeable to consider pending PT/OT assessment. * need to find a pain regimen that works for patient in controlling his pain. Was on Tramadol as an OP (so he claims). Nothing reported in the PDMP. Adjusted pain medications orders to use norco 5/325 1 tab for pain 1-5 and 2 tabs for pain 6-10. Encouraged use of dilaudid for breakthough pain only. Will uptitrate pain regimen in this in ineffective. * continue prednisone (with plan for 40mg daily x total of 5 days) (3) Accelerated essential hypertension: * on lisinopril as prior to hospitalization; however, only on 2.5mg which is likely for nephro-protection and NOT for BP control * Pt has been >/=148 systolic. Given his chronic comorbidities (DM, HLD), will increase lisinopril to 10mg for added BP control (4) Hypomagnesemia: * replaced and resolved. * continue supplemenation x7 days (5) Type 2 diabetes mellitus with diabetic neuropathy: * on metformin as prior to hospitalization * on lantus. Increase to 36U for added glycemic control * A1C 7.0 * hyperglycemia likely prednisone induced * Continue sliding scale with increased correction dosing (6) Hypertension: * see above (7) Hyperlipidemia: * Continue atorvastatin 10 mg daily (8) GERD without esophagitis: * Continue omeprazole 40 mg daily (9) BPH associated with nocturia: * Continue tamsulosin 0.4 mg twice daily Admission and Anticipated Discharge Date Admission Date: November 22, 2020 Subjective Patient seen on daily rounds today. Overall, his pain is better. Seems like the radiculopathy has resolved with the addition of steroids; however, still with right sided low back pain. Is controlled but still using dilaudid. Has yet to be assessed by PT. Again, live alone in a 2 story home with all accommodations on the first floor. He does have 3 steps to get into the kitchen. Reluctant for placement to SNF. Denies F/C, CP, SOB, abd pain, N/V, GI/ symptoms. Nursing voices no c/c. Review of Systems Constitutional: no fever, no chills and no sweats Respiratory: no cough and no dyspnea Cardiovascular: no chest pain, no dyspnea and no edema Gastrointestinal: no abdominal pain, no nausea and no vomiting Genitourinary: no dysuria and no urinary frequency Musculoskeletal: + back pain (improving) and + muscle weakness (B/L legs); no radicular pain (resolved) Physical Exam Constitutional: sitting at bedside. A&O, NAD. Respiratory: CTA without W/R/R Cardiovascular: RRR without M/G/R Gastrointestinal (Abdomen): normal bowel sounds, soft, nontender, no hepatosplenomegaly Musculoskeletal: still with tenderness in the right lumbosacral region. Today, is able to actively flex hips (lift legs). Did not attempt to stand patient along given fall risk Results & Data Results & Data ([facility]) Vital Signs (Past 12 Hours) Vital Signs Temp Pulse Resp BP Pulse Ox 11/24/20 07:09 36.7 C 72 18 143/68 H 99 11/23/20 22:31 36.7 C 77 18 149/68 H 95 Laboratory Results 11/24/20 05:29 11/24/20 05:[address] of the lumbar spine: IMPRESSION: 1. No acute vertebral body fractures or traumatic subluxations identified 2. Age-indeterminate right L1 transverse process fracture 3. Advanced multilevel spondylytic changes with multilevel spinal stenosis 4. Multilevel endplate erosive change, likely on a degenerative discogenic basis. 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: unspecified snf insulin use status Hypertension I10 Hypertension type: essential hypertension Hyperlipidemia E78.5 Hyperlipidemia type: unspecified GERD without esophagitis K21.9 BPH associated with nocturia N40.1; R35.1 (1) Type 2 diabetes mellitus with diabetic neuropathy Diabetes mellitus snf insulin use: unspecified snf insulin use status Qualified Code(s): E11.40 - Type 2 diabetes mellitus with diabetic neuropathy, unspecified (2) Hyperlipidemia Hyperlipidemia type: unspecified Qualified Code(s): E78.5 - Hyperlipidemia, unspecified (3) Hypertension Hypertension type: essential hypertension Qualified Code(s): I10 - Essential (primary) hypertension
--- NOTE | 2020-11-24 10:24 | Pain Management Progress Note ---
Date of Service November 24, 2020 Assessment & Plan Admission and Anticipated Discharge Date Admission Date: November 22, 2020 Continue with oral steroids. Recommend physical therapy work on leg strengthening. Will sign off on the patient. Please call with any questions or concerns. Subjective Mr. Neely is an 85 year old male that has been admitted for intractable low back pain, leg weakness, and frequent falls. He refused a lumbar MRI as there is significant pain with laying supine. He was agreeable to a lumbar CT and was able to tolerate. The pain remains in the right low back. No radiation of pain. He is reporting moderate pain relief with the Hydrocodone and IV Dilaudid for breakthrough. He will have physical therapy come to the home three days a week to focus on leg strengthening. His pain has slightly improved since yesterday. Physical Exam Physical Exam: GENERAL: This is an 85 year old male that does not appear in any acute distress. HEAD/FACE: Normocephalic and atraumatic. EYES: No drainage or conjunctival injection. ENT: Nose without bleeding or discharge. Oral mucosa moist. NECK: Full ROM without apparent pain. No swelling or masses noted. RESPIRATORY: Patient with unlabored breathing. No signs of respiratory distress. CHEST/AXILLA: Chest movement symmetrical. No deformities noted. ABDOMEN/GI: No distension BACK: Able to make better movements without assistance compared to yesterday. SKIN: [place], warm and dry. No rash noted. MS/EXTREMITY: No swelling, no deformities. NEURO: Alert and appears oriented. Speech is fluent. Cranial Nerves are grossly intact. PSYCH: Alert, pleasant, affect is calm
[2020-11-24] MEDS: CYANOCOBALAMIN 500 MCG TABLET (VITAMIN B-12) PO SCH (10:30)
[2020-11-24] MEDS: lisinopril 10 MG TAB PO SCH (12:09)
[2020-11-24] MEDS: HYDROCODONE/ACETAMOPHEN 5/325MG TAB PO PRN (15:27)
[2020-11-25] MEDS: HYDROCODONE/ACETAMOPHEN 5/325MG TAB PO PRN ×2 (02:48→08:53)
[2020-11-25] MEDS: HYDROmorphone INJ 0.5 MG/0.5 ML SYR IV PRN ×3 (03:32→23:24)
[2020-11-25 06:42] LABS: Basophils # (auto) 0.02 K/uL (0-0.2); Basophils % (auto) 0.3 %; Eosinophils # (auto) 0.05 K/uL (0-0.5); Eosinophils % (auto) 0.7 %; Hematocrit (blood only) 36.6 % (42-52); Hemoglobin 12.1 g/dL (14.0-18.0); Immature Granulocytes # (auto) 0.14 K/uL (0.00-0.02); Immature Granulocytes % (auto) 1.9 %; Lymphocytes # (auto) 1.69 K/uL (1.2-3.4); Lymphocytes % (auto) 22.7 %; Mean Corpuscular Hemoglobin 29.2 pg (25-34); Mean Corpuscular Hgb Conc 33.1 g/dL (32-36); Mean Corpuscular Volume 88.4 fL (80-100); Mean Platelet Volume 9.2 fL (7.4-10.4); Monocytes # (auto) 0.96 K/uL (0.11-0.59); Monocytes % (auto) 12.9 %; Neutrophils # (auto) 4.57 K/uL (1.4-6.5); Neutrophils % (auto) 61.5 %; Platelet Count 303 K/uL (130-400); RDW Coefficient of Variation 13.5 % (11.5-14.5); RDW Standard Deviation 43.5 fL (36.4-46.3); Red Blood Count 4.14 M/uL (4.7-6.1); White Blood Count 7.43 K/uL (4.8-10.8)
[2020-11-25 06:56] LABS: Partial Thromboplastin Ratio 0.9; Partial Thromboplastin Time 23.7 Seconds (21.0-31.0); Prothrombin Time 9.8 Seconds (9.0-12.0)
[2020-11-25 07:21] LABS: Albumin Level 3.9 gm/dl (3.4-5.0); BUN Creatinine Ratio 28.2 (10-20); Calcium 9.5 mg/dl (8.5-10.1); Creatinine Clr Calc Pharmacy 53.8 ml/min; Est GFR (African American) 76.6 ml/min; Est GFR (Non-African American) 66.1 ml/min; Magnesium 2.1 mg/dl (1.8-2.4)
[2020-11-25 07:23] LABS: Albumin Globulin Ratio 1.2 (0.9-2); Bilirubin,Total 0.4 mg/dl (0.2-1); Globulin 3.2 gm/dl (2.5-4.0); Total Protein 7.1 gm/dl (6.4-8.2)
[2020-11-25] MEDS: CYANOCOBALAMIN 500 MCG TABLET (VITAMIN B-12) PO SCH (08:38)
[2020-11-25] MEDS: MAGNESIUM OXIDE 400 MG TAB PO SCH (08:38)
[2020-11-25] MEDS: lisinopril 10 MG TAB PO SCH (08:38)
[2020-11-25] MEDS: TAMSULOSIN HCL 0.4 MG CAP PO SCH ×2 (08:38→20:13)
[2020-11-25] MEDS: PANTOprazole 40 MG TAB PO SCH (08:38)
[2020-11-25] MEDS: ATORVASTATIN 10 MG TAB PO SCH (08:38)
[2020-11-25] MEDS: metFORMIN HCL 500 MG TAB PO SCH ×2 (08:38→18:16)
[2020-11-25] MEDS: predniSONE 20 MG TAB PO SCH (08:38)
[2020-11-25] MEDS: CHOLECALCIFEROL 1,000 UNITS 25 MCG TAB PO SCH (08:38)
[2020-11-25] MEDS: LIDOCAINE 5% 1 PATCH TD SCH (08:41)
[2020-11-25] MEDS: INSULIN GLARGINE SOLOSTAR 100 UNITS/ML 3 ML PEN SQ SCH (08:43)
[2020-11-25] MEDS: INSULIN ASPART 100 UNITS/ML 3 ML PEN SC SCH ×4 (08:46→20:28)
--- NOTE | 2020-11-25 12:59 | Hospitalist Progress Note ---
Date of Service November 25, 2020 Assessment & Plan (1) Severe back pain: * Continue 5-day course of prednisone for radicular symptoms. Radiculopathy seems to have improved; however, still with persistent low back pain * Severity of symptoms seems to wax and wane. Currently uncontrolled with N orco. Will transition to Percocet with continue Dilaudid for breakthrough pain. Continue Lidoderm patch * Given severity of pain, patient having ambulatory dysfunctionsee below (2) Bulging lumbar disc: * Dr. Connolly on board for comanagement. Appreciate recommendations. We will proceed with MRI with conscious sedation. (3) Ambulatory dysfunction: * Lengthy discussion with patient and his daughter regarding my concerns for safety. Patient lives alone. He has 3 steps leading into the kitchen. He is an extremely high fall risk to discharge in his current condition. It appears as if most of his issues are chronic; however, there is an acute component. The fall that occurred 2 weeks prior to hospitalization has only since intensified his pain. He has been unable to ambulate since. This has only led to further deconditioning. CT imaging showed no evidence of obvious fracture. MRI orderedsee above * Patient and daughter refusing skilled nurse met placement for rehab. Agreeable to [facility]. Case management on board. (4) Accelerated essential hypertension: * Lisinopril has been increased to 10 mg daily * Continue blood pressure monitoring (5) Hypomagnesemia: * replaced and resolved. * continue supplemenation x7 days (6) Type 2 diabetes mellitus with diabetic neuropathy: * BS acceptable (7) Hypertension: * see above (8) Hyperlipidemia: * Continue atorvastatin 10 mg daily (9) GERD without esophagitis: * Continue omeprazole 40 mg daily (10) BPH associated with nocturia: * Continue tamsulosin 0.4 mg twice daily Admission and Anticipated Discharge Date Admission Date: November 22, 2020 Subjective Patient seen on daily rounds today. Seen by Ortho/Spine today who agrees that M RI may be beneficial (was not done previously d/t patient refusal given his severe claustrophobia). Pain at rest is completely controlled; however, still having severe pain with any and all movement. [place] seems to be ineffective. Received Dilaudid this am which did lessen his pain to a 2/10 (was 8/10 with 10mg of Hydrocodone). Seen by pain mgmt today. NO further recommendations. Attempted to stand with therapy today and "legs got weak" and he was lowered to the ground. No injuries reported. PT/OT have documented that he is able to be D/C'ed to home with home PT/OT; however, patient lives alone. As previously mentioned, does have a 2 story home wit all accommodations on the first floor bu t dose have 3 steps to get into his kitchen. Family is in the process of installing a floor to floor lift. Daughter willing to stay with him during the day but unable at night. Attempting to find help for the overnight hours. 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 Review of Systems Constitutional: no fever and no chills Cardiovascular: no chest pain, no dyspnea, no palpitations and no edema Gastrointestinal: no abdominal pain, no nausea and no vomiting Genitourinary: no dysuria, no nocturia and no hematuria Musculoskeletal: + back pain and + limited range of motion Neurologic: + gait abnormality, + unsteadiness, + falls and + localized weakness; no tingling Physical Exam Constitutional: sitting comfortably at bedside. A&O. NAD Respiratory: normal respiratory effort, lungs clear to auscultation Cardiovascular: RRR, no murmur, no edema Gastrointestinal (Abdomen): normal bowel sounds, soft, nontender, no hepatosplenomegaly Musculoskeletal: no reproducible pain noted upon palpitation. Today his weakness seems to be slightly worse than yesterday. Was able to actively flex at the hip but unable today. Does have pain reproduced in the lower back with flexion of the right leg. Peripheral pulses are intact. Skin: Patient with some small skin breakdown in the right gluteal cleft near the coccyx. Linear excoriations noted without surrounding erythema. No drainage. Less than a stage I Results & Data Results & Data ([facility]) Vital Signs (Past 12 Hours) Vital Signs Temp Pulse Resp BP Pulse Ox 11/25/20 07:31 36.6 C 79 16 143/66 H 97 Laboratory Results 11/25/20 06:18 11/25/20 06:18 PG Care Time/CCT Total # of Minutes Spent Total Time Spent with Patient: Total time spent is greater than 50% in coordination of care (as documented) at patient's floor/unit and/or counseling patient: Coding [place] [address] Subseq Hosp Care Lv 3 Patient Type Established History Detailed Exam Detailed Medical Decision Making Moderate Complexity Diagnoses Severe back pain M54.9 Bulging lumbar disc M51.26 Ambulatory dysfunction R26.2 Accelerated essential hypertension I10 Hypomagnesemia E83.42 Type 2 diabetes mellitus with diabetic neuropathy E11.40 Diabetes mellitus prison insulin use: 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 Hypertension I10 Hypertension type: essential hypertension Hyperlipidemia E78.5 Hyperlipidemia type: unspecified GERD without esophagitis K21.9 BPH associated with nocturia N40.1; R35.1 Time Spent (min) 60 (1) Type 2 diabetes mellitus with diabetic neuropathy Diabetes mellitus prison insulin use: unspecified prison insulin use status Qualified Code(s): E11.40 - Type 2 diabetes mellitus with diabetic neuropathy, unspecified (2) Hyperlipidemia Hyperlipidemia type: unspecified Qualified Code(s): E78.5 - Hyperlipidemia, unspecified (3) Hypertension Hypertension type: essential hypertension Qualified Code(s): I10 - Essential (primary) hypertension
--- NOTE | 2020-11-25 13:33 | Orthopedic Consultation ---
Date of Consultation November 25, 2020 Assessment & Plan (1) Neurogenic claudication due to lumbar spinal stenosis: At the opportunity review the patient's CAT scan is as well as his x-rays. Demonstrate spondylolisthesis L4-5 with significant multilevel spondylosis. CAT scan does demonstrate severe spinal stenosis from L2-L5 with marked facet hypertrophy as well as intermittent neural foraminal disease. I had a lengthy session with the with the patient regarding his clinical presentation and imaging. I would very much like to obtain an MRI of lumbar spine for further definitive findings particularly regarding attention to the right nerve roots. He states he is willing to have an MRI as long as he is undergoing sedation. We will try to have this arranged. This would allow us to make further recommendations. Patient understands and agrees. Present on Admission?: Yes History of Present Illness Reason for Consultation: Back pain with leg weakness Attending Physician: Manny Hawkins, DO History of Present Illness This is a very pleasant 85-year-old male presents with marked decline in status. He is noted significant weakness of specifically affecting the right lower extremity the past 3 weeks. He denies any specific trauma fall or event. He states prior to this time he has had a steady decline in status over the past several years requiring a walker to ambulate. He does live alone and seems to be able to manage his activities well until this recent onset of weakness. He does describe shooting pain involving the right buttock down the anterior lateral right thigh but does not extend below the knee. Left lower extremity is weak but to lesser degree and without pain. Denies any loss of bowel bladder function. He has been able to manage himself at home transferring into a wheelchair. Allergies Allergy/AdvReac Type Severity Reaction Status Date / Time codeine AdvReac Unknown severe Verified 11/22/20 17:55 vomiting Home Medications Medication Instructions Recorded Confirmed Type blood-glucose meter #1 ea 06/11/19 11/21/20 Rx tamsulosin 0.4 mg capsule 0.4 mg PO BID cap 02/09/20 11/22/20 History atorvastatin 10 mg tablet 10 mg PO DAILY #90 tab 04/14/20 11/22/20 Rx lancets 33 gauge #100 ea 04/21/20 11/21/20 Rx metformin 1,000 mg tablet 1,000 mg PO BID #180 tab 07/06/20 11/22/20 Rx blood-glucose meter #1 ea 07/26/20 11/21/20 Rx cholecalciferol (vitamin D3) 50 2,000 unit PO DAILY tab 07/26/20 11/22/20 History mcg (2,000 unit) tablet omeprazole 20 mg capsule,delayed 20 mg PO DAILY #90 cap 08/17/20 11/22/20 Rx release cyanocobalamin (vitamin B-12) 1,000 mcg PO DAILY #90 tab 09/05/20 11/22/20 Rx 1,000 mcg tablet pen needle, diabetic 32 gauge x #100 ea 11/01/20 11/21/20 Rx 5/32" lisinopril 2.5 mg tablet 2.5 mg PO DAILY #90 tab 11/16/20 11/22/20 Rx insulin glargine [Basaglar KwikPen 30 unit SQ DAILY 11/22/20 11/22/20 History U-100 Insulin] miscellaneous medical supply #1 ea 11/23/20 11/23/20 Rx Patient History Medical History (Updated 11/25/20 @ 13:32 by Garrett Connolly DO) Arthritis BPH associated with nocturia Bulging lumbar disc Carotid artery stenosis Chronic lumbar pain GERD without esophagitis Hearing difficulty Hematuria High prostate specific antigen (PSA) (~12/2018) History of amputation of finger (~2002) History of neck pain Hyperlipidemia Hypertension Lumbar back pain Pancreatic lesion 03/31/2020-2.1 x 1.0 x 1.7 cm bilobed cystic lesion of the pancreatic body/tail junction demonstrates mild marginal calcifications with a thin central enhancing septation. Differential considerations would include a mucinous cystadenoma versus complex singular or two subadjacent IPMN's. 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 neuropathy & tingling in hands Surgical History Amputation finger 2002 History of carpal tunnel release 2007 History of hernia repair 2003 History of neck surgery [id number] Family History Grandfather (Maternal) Stomach cancer Aunt , This was who raised me, I do not know my mother & father Stomach cancer MATERNAL Brother , 50's of an [place] Myocardial infarction Alcohol abuse Diabetes Mother Heart disease Diabetes Gallbladder disease Kidney stones Denies family history of Ovarian cancer Prostate cancer Breast cancer Colorectal cancer Social History Smoking Status: Never smoker Tobacco Type: Cigarettes Age Started Using Tobacco: 16; Age Quit Using Tobacco: 29; packs per day: 10; Years Smoked: 13; Second Hand Exposure: No; Do You Dip or Chew Tobacco: No; Hx Alcohol Use: No Hx Substance Use: No Preferred Language: Grenadian Communication Ability: Effective Visual Impairment: No Limitations Hearing Ability: Hard of Hearing 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 Clerical Required: No Beliefs That Will Affect Care: None marital status: / marital status details: PASSED IN 2016 D/T LUNG CANCER Current Living Situation: Alone current occupational status: retired Other Information That Helps Us Care for You: No Feels Safe at Home: Yes Safety Concerns: Feels Safe At This Time Childhood Exposure to Second-Hand Smoke: Yes Diet Comment: regular caffeine: Yes (coffee about 5 times a day) during the past year weight has: remained stable Dental Care, Regularly: Yes Physical Activity Frequency: Does not Exercise Physical Activity Frequency Comment: EXERCISE LIMITED BY PHYSICAL CONDITION Seatbelt Use: always Sunscreen Use: No Assistive Devices: Denture - Upper, Denture - Lower and Glasses Assistive Devices Comment: glasses and hearing aids at bedside. batteries replaced Physical Exam Physical Exam: On exam he does exhibit good strength testing the upper extremities. Is able to sit up on the side of the bed on his own volition. He does demonstrate significant deficits to the right lower extremity with quadriceps plantar flexion dorsiflexion at a 3+/5. Left lower extremity is a 4/5 the detailed testing appears to have sensory intact. There is tension signs with straight leg raising on the right none on the left. Results & Data ([facility]) Vital Signs (Past 12 Hours) Vital Signs Temp Pulse Resp BP Pulse Ox 11/25/20 07:31 36.6 C 79 16 143/66 H 97
[2020-11-25] MEDS: oxyCODONE/ACETAMINOPHEN 5mg/325mg TAB PO PRN (20:13)
[2020-11-26] MEDS: oxyCODONE/ACETAMINOPHEN 5mg/325mg TAB PO PRN ×3 (01:58→20:54)
[2020-11-26] MEDS ORDERED: SODIUM CHLORIDE 0.9% 1000ML 500 ML IV ONE (07:28)
[2020-11-26] MEDS: HYDROmorphone INJ 0.5 MG/0.5 ML SYR IV PRN (08:31)
[2020-11-26] MEDS: CHOLECALCIFEROL 1,000 UNITS 25 MCG TAB PO SCH (08:34)
[2020-11-26] MEDS: TAMSULOSIN HCL 0.4 MG CAP PO SCH ×2 (08:34→20:23)
[2020-11-26] MEDS: ATORVASTATIN 10 MG TAB PO SCH (08:34)
[2020-11-26] MEDS: metFORMIN HCL 500 MG TAB PO SCH ×2 (08:34→17:00)
[2020-11-26] MEDS: CYANOCOBALAMIN 500 MCG TABLET (VITAMIN B-12) PO SCH (08:34)
[2020-11-26] MEDS: LIDOCAINE 5% 1 PATCH TD SCH (08:35)
[2020-11-26] MEDS: PANTOprazole 40 MG TAB PO SCH (08:35)
[2020-11-26] MEDS: MAGNESIUM OXIDE 400 MG TAB PO SCH (08:35)
[2020-11-26] MEDS: INSULIN GLARGINE SOLOSTAR 100 UNITS/ML 3 ML PEN SQ SCH (08:36)
[2020-11-26] MEDS: predniSONE 20 MG TAB PO SCH (08:38)
[2020-11-26] MEDS: INSULIN ASPART 100 UNITS/ML 3 ML PEN SC SCH ×4 (08:40→20:23)
[2020-11-26] MEDS: fentaNYL 25 MCG/HR TDSY TD SCH (11:55)
--- NOTE | 2020-11-26 12:47 | Hospitalist Progress Note ---
Date of Service November 26, 2020 Assessment & Plan (1) Hypotension: * asymptomatic. * Treated with NSS fluid bolus. Since resolved. 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 Will withhold this for now. * BP has since improved (and is actually slightly high as of right now- 170's systolic). * Will continue to monitor * pain regimen being adjusted (see below). Dilaudid stopped * would need to consider withholding flomax is persistent; however, FU BP stable (actually high) at 170's systolic (2) Severe back pain: * ? Neurogenic claudication due to severe lumbar spinal stenosis * At this point, pain remains uncontrolled with oral percocet and lidoderm patch requiring continued use of IV dilaudid. 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 This is presumably the best option as patient does not necessarily have pain when resting still/without movement; however, with little movement (such as sitting up in bed) the pain intensifies. * can titrate the fentanyl patch accordingly. I have started him on 25mcg given the patient (rather than 12.5mcg) as he has been IV dilaudid/percocet * plan is for hopeful D/C to [facility] if they will accept him, otherwise will strongly need to consider SNF (which patient currently refuses this). Case mgmt on board. I have reached out to case mgmt. Awaiting approval. (3) Bulging lumbar disc: * Dr. Connolly on board for comanagement. Appreciate recommendations. We will proceed with MRI with conscious sedation but unfortunately can not be performed until Saturday (4) Ambulatory dysfunction: * Lengthy discussion with patient and his daughter regarding my concerns for safety. Patient lives alone. He has 3 steps leading into the kitchen. He is an extremely high fall risk to discharge in his current condition. It appears as if most of his issues are chronic; however, there is an acute component. The fall that occurred 2 weeks prior to hospitalization has only since intensified his pain. He has been unable to ambulate since. This has only led to further deconditioning. CT imaging showed no evidence of obvious fracture. MRI orderedsee above * Patient and daughter refusing skilled nurse met placement for rehab. [facility]. Case management on board. (5) Accelerated essential hypertension: * patient actually hypotensive this am. * Lisinopril initially increased; however, patient intolerant. May be in part from the IV dilaudid. Patient previously on Lisinopril 2.5mg. Will hold this for now. (6) Hypomagnesemia: * replaced and resolved. * continue supplemenation x7 days (7) Type 2 diabetes mellitus with diabetic neuropathy: * BS acceptable * continue Lantus/Log with close BS monitoring. (8) Hypertension: * see above (9) Hyperlipidemia: * Continue atorvastatin 10 mg daily (10) GERD without esophagitis: * Continue omeprazole 40 mg daily (11) BPH associated with nocturia: * Continue tamsulosin 0.4 mg twice daily Admission and Anticipated Discharge Date Admission Date: November 22, 2020 Subjective Patient seen on daily rounds today. Still having significant amounts of pain. Issue that he is noticing is that he doesn't seem to have pain without movement. He then attempts therapy, or even getting out to the chair/bedside, and then the pain intensifies. He is then unable to get pain control despite the percocet- then requiring dilaudid. Did have Percocet in the overnight hours (~0100). When he awoke this am, was having pain so intense (10/10). When nursing staff assessed him, he was moderately hypotensive (82/45). His BP had actually been running high since admission (211/91 initially, then primarily 150's systolic). He takes Lisinopril 2.5mg daily (which was thought to be a nephroprotective dose given his underlying DM) and does have a documented h/o HTN- was not on any other meds for. His Lisinopril was subsequently increased to 10mg (TX dose for HTN). He denied symptoms associated with hypotensive episode (dizziness, lightheadedness, CP, palpitations). I was notified by nursing staff. I held his pain medications and ordered a fluid bolus. His BP responded and in FU was 170/77. Pain uncontrolled with percocet/lidoderm patch/perdnisone (although the radicular pain that he was having upfront has since resolved with prednisone). He has had pain mgmt on board (who has since signed off) and Ortho/spine given a n abnormal CT showing multiple dice bulge with intermittent neural foraminal disease and marked facet hypertrophy. MRI ordered initially but patient refused despite being ordered valium. Ortho/Spine recommend MRI with conscious sedation. This was ordered but unfortionately can not be facilitated until Saturday (per anesthesia team). Ortho considering Neurogenic Claudication. Unfortunately, given degree of pain- this has been affecting patient's ability to ambulate. He lives alone. PT/OT have been working with patient. He is an unsafe D/C to home given his inability to independently perform ADL's. He is agreeable to [facility]. Case mgmt is on board to help facilitate. Review of Systems Review of Systems: + Right lower back pain/right hip pain. Denies fevers, chills, dizziness/lightheadedness/near syncope/syncope, headache, nasal congestion, sore throat, cough, chest pain, shortness of breath, abdominal pain, nausea, vomiting, GI/ symptomatology. Physical Exam Physical Exam: Constitutional: sitting comfortably at bedside. A&O. NAD Respiratory: normal respiratory effort, lungs clear to auscultation Cardiovascular: RRR, no murmur, no edema Gastrointestinal: normal bowel sounds, soft, nontender, no hepatosplenomegaly Musculoskeletal: no reproducible pain noted upon palpitation. Unable to actively flex at the hip joint bilaterally. does have pain reproduced in the lower back with flexion of the right leg. Peripheral pulses are intact. Results & Data Results & Data ([facility]) Vital Signs (Past 12 Hours) Vital Signs Temp Pulse Resp BP BP Pulse Ox 11/26/20 07:12 36.5 C 90 16 82/45 L 68/51 L 96 PG Care Time/CCT Total # of Minutes Spent Total Time Spent with Patient: Total time spent is greater than 50% in coordination of care (as documented) at patient's floor/unit and/or counseling patient: 60 min C[place] [address] Subseq Hosp Care Lvl 2 Patient Type Established History Expanded Problem Focused Exam Expanded Problem Focused Medical Decision Making Moderate Complexity Diagnoses Hypotension I95.2 Hypotension type: hypotension due to drug Severe back pain M54.9 Bulging lumbar disc M51.26 Ambulatory dysfunction R26.2 Accelerated essential hypertension I10 Hypomagnesemia E83.42 Type 2 diabetes mellitus with diabetic neuropathy E11.40 Diabetes mellitus nursing home insulin use: unspecified student teacher insulin use status Hypertension I10 Hypertension type: essential hypertension Hyperlipidemia E78.5 Hyperlipidemia type: unspecified GERD without esophagitis K21.9 BPH associated with nocturia N40.1; R35.1 Time Spent (min) 60 (1) Type 2 diabetes mellitus with diabetic neuropathy Diabetes mellitus student teacher insulin use: unspecified student teacher insulin use status Qualified Code(s): E11.40 - Type 2 diabetes mellitus with diabetic neuropathy, unspecified (2) Hyperlipidemia Hyperlipidemia type: unspecified Qualified Code(s): E78.5 - Hyperlipidemia, unspecified (3) Hypertension Hypertension type: essential hypertension Qualified Code(s): I10 - Essential (primary) hypertension (4) Hypotension Hypotension type: hypotension due to drug Qualified Code(s): I95.2 - Hypotension due to drugs
[2020-11-26] MEDS: CHECK fentaNYL PATCH PLACEMENT SCH ×2 (17:00→23:39)
[2020-11-27] MEDS: oxyCODONE/ACETAMINOPHEN 5mg/325mg TAB PO PRN ×3 (02:36→20:06)
[2020-11-27] MEDS: CHOLECALCIFEROL 1,000 UNITS 25 MCG TAB PO SCH (08:41)
[2020-11-27] MEDS: ATORVASTATIN 10 MG TAB PO SCH (08:41)
[2020-11-27] MEDS: CHECK fentaNYL PATCH PLACEMENT SCH ×3 (08:41→23:38)
[2020-11-27] MEDS: CYANOCOBALAMIN 500 MCG TABLET (VITAMIN B-12) PO SCH (08:41)
[2020-11-27] MEDS: predniSONE 20 MG TAB PO SCH (08:41)
[2020-11-27] MEDS: INSULIN GLARGINE SOLOSTAR 100 UNITS/ML 3 ML PEN SQ SCH (08:42)
[2020-11-27] MEDS: metFORMIN HCL 500 MG TAB PO SCH ×2 (08:42→17:28)
[2020-11-27] MEDS: TAMSULOSIN HCL 0.4 MG CAP PO SCH ×2 (08:42→20:07)
[2020-11-27] MEDS: PANTOprazole 40 MG TAB PO SCH (08:42)
[2020-11-27] MEDS: MAGNESIUM OXIDE 400 MG TAB PO SCH (08:42)
[2020-11-27] MEDS: LIDOCAINE 5% 1 PATCH TD SCH (08:43)
[2020-11-27] MEDS: MENTHOL-ZINC OXIDE 360 APPLN/120 GM TUBE EXT SCH (08:43)
[2020-11-27] MEDS: INSULIN ASPART 100 UNITS/ML 3 ML PEN SC SCH ×4 (08:44→21:07)
--- NOTE | 2020-11-27 10:15 | Hospitalist Progress Note ---
Date of Service November 27, 2020 Assessment & Plan (1) Hypotension: * Resolved with discontinuation of the Diladud. * Continue to hold Lisinopril (2) Severe back pain: * ? Neurogenic claudication due to severe lumbar spinal stenosis * for MRI of the Lumbar spine tomorrow with conscious sedation (Ortho on board-- appreciate recommendations) * Still with some pain today; however, overall improved with fentanyl. Continue this. Will uptitrate if needed * plan is for D/C (likely tomorrow after MRI) to [facility] for inpatient PT/OT. Case mgmt on board. (3) Bulging lumbar disc: * Dr. Connolly on board for comanagement. Appreciate recommendations. We will proceed with MRI with conscious sedation but unfortunately can not be performed until Saturday (4) Ambulatory dysfunction: * Lengthy discussion with patient and his daughter regarding my concerns for safety. Patient lives alone. He has 3 steps leading into the kitchen. He is an extremely high fall risk to discharge in his current condition. It appears as if most of his issues are chronic; however, there is an acute component. The fall that occurred 2 weeks prior to hospitalization has only since intensified his pain. He has been unable to ambulate since. This has only led to further deconditioning. CT imaging showed no evidence of obvious fracture. MRI orderedsee above * Patient and daughter refusing SNF for rehab. [facility]. Case management on board. (5) Hypomagnesemia: * replaced and resolved. * continue supplemenation x7 days (6) Type 2 diabetes mellitus with diabetic neuropathy: * BS acceptable * continue Lantus/Log with close BS monitoring. (7) Hypertension: * patient actually had a hypotensive episode (related to Dilaudid). Since resolved. * lisinopril remains on hold (8) Hyperlipidemia: * Continue atorvastatin 10 mg daily (9) GERD without esophagitis: * Continue omeprazole 40 mg daily (10) BPH associated with nocturia: * Continue tamsulosin 0.4 mg twice daily Admission and Anticipated Discharge Date Admission Date: November 22, 2020 Subjective Patient seen on daily rounds today. Started on a Fentanyl patch yesterday. Reports pain is significantly improved with this; however, still requiring prn Percocet. Pain is tolerable- at it's worst a 4/10. Is moving his bowel/bladder without difficulty. Denies D/C, CP, SOB, abd pain, N/V. Nursing reports that patient was able to transfer this am with less pain; however, still required great assistance. No further episodes of hypotension sice dilaudid discontinued. Lisinopril remains on hold. For MRI of the lumbar spine tomorrow with conscious sedation. Case mgmt on board with plan for D/C tomorrow to [facility] after MRI. Review of Systems Review of Systems: Denies F/C, CP, SOB, abd pain, N/V, abd pain, GI/ symptoms Physical Exam Physical Exam: Genl: sitting upright at the bedside. In NAD. A&O. Appears comfortable. Heart: RRR without M/G/R Lungs: CTA without W/R/R Abd: normaoctive x4, soft and NT M/S: appears very comfortable at rest at the bedside. No tenderness upon palpation of the lower lumbar region. Still with reproduced pain with flexion of the right leg at the hip (elicits pain in the lower pain). Ext: no c/c/e Results & Data Results & Data ([facility]) Vital Signs (Past 12 Hours) Vital Signs Temp Pulse Resp BP Pulse Ox 11/27/20 07:13 36.6 C 87 16 108/67 95 PG Care Time/CCT Total # of Minutes Spent Total Time Spent with Patient: Total time spent is greater than 50% in coordination of care (as documented) at patient's floor/unit and/or counseling patient: 30 Coding [place] [address] Subseq Hosp Care Lvl 1 Patient Type Established History Problem Focused Exam Problem Focused Medical Decision Making Low Complexity Diagnoses Hypotension I95.2 Hypotension type: hypotension due to drug Severe back pain M54.9 Bulging lumbar disc M51.26 Ambulatory dysfunction R26.2 Hypomagnesemia E83.42 Type 2 diabetes mellitus with diabetic neuropathy E11.40 Diabetes mellitus skilled nursing insulin use: 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 Hypertension I10 Hypertension type: essential hypertension Hyperlipidemia E78.5 Hyperlipidemia type: unspecified GERD without esophagitis K21.9 BPH associated with nocturia N40.1; R35.1 Time Spent (min) 30 (1) Type 2 diabetes mellitus with diabetic neuropathy Diabetes mellitus skilled nursing insulin use: 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 Qualified Code(s): E11.40 - Type 2 diabetes mellitus with diabetic neuropathy, unspecified (2) Hyperlipidemia Hyperlipidemia type: unspecified Qualified Code(s): E78.5 - Hyperlipidemia, unspecified (3) Hypertension Hypertension type: essential hypertension Qualified Code(s): I10 - Essential (primary) hypertension (4) Hypotension Hypotension type: hypotension due to drug Qualified Code(s): I95.2 - Hypo tension due to drugs
[2020-11-27] MEDS: DOCUSATE SODIUM 100 MG CAP PO SCH (20:07)
[2020-11-27] MEDS ORDERED: KETOROLAC TROMETHAMINE 15 MG/ML VIAL IV ONE (23:30)
[2020-11-27] MEDS: ACETAMINOPHEN 1,000 MG/100 ML VIAL IV PRN (23:38)
[2020-11-27] MEDS ORDERED: Nursing to Pharmacy Communication SCH (23:45)
[2020-11-28] MEDS: INSULIN ASPART 100 UNITS/ML 3 ML PEN SC SCH ×5 (00:02→20:55)
[2020-11-28] MEDS: CHECK fentaNYL PATCH PLACEMENT SCH ×3 (08:54→23:32)
[2020-11-28] MEDS: ACETAMINOPHEN 1,000 MG/100 ML VIAL IV PRN ×2 (09:00→20:01)
[2020-11-28] MEDS: DOCUSATE SODIUM 100 MG CAP PO SCH ×2 (09:04→20:05)
[2020-11-28] MEDS: CHOLECALCIFEROL 1,000 UNITS 25 MCG TAB PO SCH (09:04)
[2020-11-28] MEDS: TAMSULOSIN HCL 0.4 MG CAP PO SCH ×2 (09:05→20:04)
[2020-11-28] MEDS: MAGNESIUM OXIDE 400 MG TAB PO SCH (09:05)
[2020-11-28] MEDS: PANTOprazole 40 MG TAB PO SCH (09:05)
[2020-11-28] MEDS: LIDOCAINE 5% 1 PATCH TD SCH (09:05)
[2020-11-28] MEDS: predniSONE 20 MG TAB PO SCH (09:05)
[2020-11-28] MEDS: ATORVASTATIN 10 MG TAB PO SCH (09:05)
[2020-11-28] MEDS: CYANOCOBALAMIN 500 MCG TABLET (VITAMIN B-12) PO SCH (09:05)
[2020-11-28] MEDS: INSULIN GLARGINE SOLOSTAR 100 UNITS/ML 3 ML PEN SQ SCH (09:06)
[2020-11-28] MEDS: metFORMIN HCL 500 MG TAB PO SCH ×2 (09:08→16:32)
--- NOTE | 2020-11-28 11:01 | Hospitalist Progress Note ---
Date of Service November 28, 2020 Assessment & Plan (1) Neurogenic claudication due to lumbar spinal stenosis: Mr. Onofre is an 85 year old male with a history of Type 2 DM, Hypertension, Dyslipidemia, and Lumbar Spinal Stenosis with Ambulatory Dysfunction secondary to progressive right leg weakness and a fall about 3 weeks ago. -- Dr. Connolly is co-managing this patient. -- MRI of L-spine will be done today. -- CT Scan and X-ray of lumbar spine demonstrate spondylolisthesis L4-5 with significant multilevel spondylosis. CAT scan does demonstrate severe spinal stenosis from L2-L5 marked facet hypertrophy,intermittent neural foraminal disease. -- Pain is controlled currently. -- Continue Fentanyl patch, Lidocaine patch, Oxycodone as needed. -- Patient refusing SNF for rehab. Agreeable to [facility]. -- Case management on board. (2) Ambulatory dysfunction: -- As outlined above. (3) Hypotension: -- Resolved after Dilaudid was discontinued. (4) Hypertension: -- Continue Lisinopril 2.5 daily. (5) Type 2 diabetes mellitus: -- Patient is currently NPO for his MRI with sedation. -- Insulin held this morning. -- BSG 84 mg/dl this morning. -- Continue Insulin Glargine 30 units SQ daily. -- Metformin is currently on hold. Admission and Anticipated Discharge Date Admission Date: November 22, 2020 Daughter Brenda cell phone [phone] Subjective Mr. Neely states his pain is tolerable, he rates his back pain at 3/10 currently. Patient denies any radiating pain into his legs. He is unable to stand up. He is upset because he is NPO for an MRI today that will be done with sedation. Insulin held this morning. Patient offers no other complaints. Review of Systems Review of Systems: All systems reviewed & are unremarkable except as noted in Subjective Physical Exam Physical Exam: GENERAL: Patient is sitting at the bedside. HEENT: Head is atraumatic, normocephalic. EOM's intact. Facies symmetric. No perioral cyanosis. NECK: No JVD. JVP is not elevated. CHEST/LUNGS: Clear to auscultation throughout all lung pham. No wheezes, rales, or crackles. CVS: S1 and S2 are regular without obvious murmurs, gallops, or rubs. PMI is nondisplaced. No lifts, heaves, or thrills. No abdominal aortic or renal bruits. ABDOMINAL EXAM: Bowel sounds are present. No masses, organomegaly, or tenderness. EXTREMITIES: No clubbing or cyanosis. No edema. Intact radial pulses bilaterally. NEUROLOGIC EXAM: Patient is awake, alert, and oriented. Answers questions appropriately. Speech is clear. Gait pattern was not assessed. MRI of L-Spine is pending. Results & Data Results & Data ([facility]) Vital Signs (Past 12 Hours) Vital Signs Temp Pulse Resp BP Pulse Ox 11/28/20 07:16 36.5 C 72 16 142/63 H 98 Laboratory Results Laboratory Results - last 24 hr 11/27/20 11/27/20 11/27/20 11:56 17:12 21:02 POC Glucose 88 207 H 125 H 11/27/20 11/28/20 23:58 05:59 POC Glucose 99 84 Medications Administered Medications blood-glucose meter #1 ea 06/11/19 [Rx Confirmed 11/21/20] tamsulosin 0.4 mg capsule 0.4 mg PO BID cap 02/09/20 [History Confirmed 11/22/20] atorvastatin 10 mg tablet 10 mg PO DAILY #90 tab 04/14/20 [Rx Confirmed 11/22/20] lancets 33 gauge #100 ea 04/21/20 [Rx Confirmed 11/21/20] metformin 1,000 mg tablet 1,000 mg PO BID #180 tab 07/06/20 [Rx Confirmed 11/22/20] blood-glucose meter #1 ea 07/26/20 [Rx Confirmed 11/21/20] cholecalciferol (vitamin D3) 50 mcg (2,000 unit) tablet 2,000 unit PO DAILY tab 07/26/20 [History Confirmed 11/22/20] omeprazole 20 mg capsule,delayed release 20 mg PO DAILY #90 cap 08/17/20 [Rx Confirmed 11/22/20] cyanocobalamin (vitamin B-12) 1,000 mcg tablet 1,000 mcg PO DAILY #90 tab 09/05/20 [Rx Confirmed 11/22/20] pen needle, diabetic 32 gauge x 5/32" #100 ea 11/01/20 [Rx Confirmed 11/21/20] lisinopril 2.5 mg tablet 2.5 mg PO DAILY #90 tab 11/16/20 [Rx Confirmed 11/22/20] insulin glargine [Basaglar KwikPen U-100 Insulin] 30 unit SQ DAILY 11/22/20 [History Confirmed 11/22/20] miscellaneous medical supply #1 ea 11/23/20 [Rx Confirmed 11/23/20] Home Medications Atorvastatin Calcium (Atorvastatin 10 Mg Tab) 10 mg PO DAILY [facility] Stop: 12/23/20 08:59 Last Admin: 11/28/20 09:05 Dose: 10 mg Documented by: Calamine/Phenol (Menthol-Zinc Oxide 360 Appln/120 Gm Tube) 1 appln EXT UD [facility] Stop: 12/25/20 12:59 Last Admin: 11/27/20 08:43 Dose: 1 appln Documented by: Cyanocobalamin (Cyanocobalamin 500 Mcg Tablet (Vitamin B-12)) 1,000 mcg PO DAILY [facility] Stop: 12/23/20 08:59 Last Admin: 11/28/20 09:05 Dose: 1,000 mcg Documented by: Dextrose (Dextrose 50% 50 Ml Syringe) 25 - 50 ml IV UD PRN; Protocol PRN Reason: Hypoglycemia Protocol Stop: 12/23/20 00:12 Diazepam (Diazepam 5 Mg Tablet) 5 mg PO ONE PRN PRN Reason: prior to MRI Docusate Sodium (Docusate Sodium 100 Mg Cap) 100 mg PO BID [facility] Stop: 12/27/20 20:59 Last Admin: 11/28/20 09:04 Dose: 100 mg Documented by: Fentanyl (Fentanyl 25 Mcg/Hr Tdsy) 25 mcg TD Q3D [facility] Stop: 12/10/20 11:59 Last Admin: 11/26/20 11:55 Dose: 25 mcg Documented by: Glucagon (Glucagon For Inj 1 Mg Vial) 1 mg SQ UD PRN; Protocol PRN Reason: Hypoglycemia Protocol Stop: 12/23/20 00:12 Glucose (Glucose 10 Tabs/Tube) 4 - 8 tabs PO UD PRN; Protocol PRN Reason: Hypoglycemia Protocol Stop: 12/23/20 00:12 Glucose (Glucose 40% Gel 15 Gm Tube) 15 - 30 gm PO UD PRN; Protocol PRN Reason: Hypoglycemia Protocol Stop: 12/23/20 00:12 Acetaminophen (Ofirmev) 1,000 mg in 100 mls @ 400 mls/hr IV Q8H PRN PRN Reason: Pain Stop: 11/30/20 23:29 Last Infusion: 11/28/20 09:15 Dose: Infused Documented by: Insulin Aspart (Insulin Aspart 100 Units/Ml 3 Ml Pen) 0 units SC Q6 [facility] Stop: 12/28/20 00:00 Last Admin: 11/28/20 06:13 Dose: Not Given Documented by: Insulin Glargine (Insulin Glargine Solostar 100 Units/Ml 3 Ml Pen) 36 units SQ DAILY [facility] Stop: 12/25/20 08:59 Last Admin: 11/28/20 09:06 Dose: Not Given Documented by: Lidocaine (Lidocaine 5% 1 Patch) 1 patch TD [facility] Stop: 12/23/20 08:59 Last Admin: 11/28/20 09:05 Dose: 1 patch Documented by: Magnesium Oxide (Magnesium Oxide 400 Mg Tab) 400 mg PO QAM [facility] Stop: 12/23/20 12:59 Last Admin: 11/28/20 09:05 Dose: 400 mg Documented by: Metformin HCl (Metformin Hcl 500 Mg Tab) 1,000 mg PO BIDM [facility] Stop: 12/23/20 16:59 Last Admin: 11/28/20 09:08 Dose: Not Given Documented by: Miscellaneous (Carbohydrates For Hypoglycemia ) 15 - 30 gm PO UD PRN PRN Reason: Hypoglycemia Protocol Stop: 12/23/20 00:12 Miscellaneous (Remove Lidoderm Patch) 1 ea N/A DAILY@2100 [facility] Stop: 12/23/20 20:59 Last Admin: 11/27/20 20:07 Dose: 1 ea Documented by: Miscellaneous (Fentanyl Patch Remove & Waste) 1 ea N/A Q3D [facility] Stop: 12/26/20 11:58 Last Admin: 11/26/20 11:55 Dose: Not Given Documented by: Miscellaneous (Check Fentanyl Patch Placement) 1 ea N/A QS [facility] Stop: 12/26/20 15:59 Last Admin: 11/28/20 08:54 Dose: 1 ea Documented by: Oxycodone/Acetaminophen (Oxycodone/Acetaminophen 5mg/325mg Tab) 1 tab PO Q6H PRN PRN Reason: Pain Stop: 12/09/20 12:46 Last Admin: 11/27/20 20:06 Dose: 1 tab Documented by: Pantoprazole Sodium (Pantoprazole 40 Mg Tab) 40 mg PO DAILY [facility] Stop: 12/23/20 08:59 Last Admin: 11/28/20 09:05 Dose: 40 mg Documented by: Prednisone (Prednisone 20 Mg Tab) 40 mg PO DAILY [facility] Stop: 11/28/20 23:59 Last Admin: 11/28/20 09:05 Dose: 40 mg Documented by: Tamsulosin HCl (Tamsulosin Hcl 0.4 Mg Cap) 0.4 mg PO BID [facility] Stop: 12/23/20 00:12 Last Admin: 11/28/20 09:05 Dose: 0.4 mg Documented by: Vitamin D (Cholecalciferol 1,000 Units 25 Mcg Tab) 2,000 units PO DAILY [facility] Stop: 12/23/20 08:59 Last Admin: 11/28/20 09:04 Dose: 2,000 units Documented by: PG Care Time/CCT Total # of Minutes Spent Total Time Spent with Patient: Total time spent is greater than 50% in coordination of care (as documented) at patient's floor/unit and/or counseling patient:30 Coding Level of Care Code 96883 Subseq Hosp Care Lvl 3 Diagnoses Neurogenic claudication due to lumbar spinal stenosis M48.062 Ambulatory dysfunction R26.2 Hypotension I95.2 Hypotension type: hypotension due to drug Hypertension I10 Hypertension type: essential hypertension Type 2 diabetes mellitus E11.9 Time Spent (min) 45 (1) Hypertension Hypertension type: essential hypertension Qualified Code(s): I10 - Essential (primary) hypertension (2) Hypotension Hypotension type: hypotension due to drug Qualified Code(s): I95.2 - Hypotension due to drugs
[2020-11-28] MEDS ORDERED: MIDAZOLAM HCL 1 MG/ML 2ML VIAL ONE ×2 (11:36)
--- NOTE | 2020-11-28 11:41 | Anesthesiology Consultation ---
Date of Service November 28, 2020 Assessment & Plan (1) Encounter for pre-operative examination: Chart Review Chart Review: Acceptable Risk for Surgery and Patient NOT seen in Pre Admission Testing Consults Requested none History Surgery Operation Date: 11/28/20 12:00 Proposed Procedures p MRI with Anesthesia Sedation - Garrett Cnonolly DO Height/Weight Height: 5 ft 9 in Weight: 84.8 kg Allergies Allergy/AdvReac Type Severity Reaction Status Date / Time codeine AdvReac Unknown severe Verified 11/22/20 17:55 vomiting Medications Home Medications Medication Instructions Recorded Confirmed Last Taken blood-glucose meter #1 ea 06/11/19 11/21/20 Unknown tamsulosin 0.4 mg capsule 0.4 mg PO BID cap 02/09/20 11/22/20 Unknown atorvastatin 10 mg tablet 10 mg PO DAILY #90 tab 04/14/20 11/22/20 Unknown lancets 33 gauge #100 ea 04/21/20 11/21/20 Unknown metformin 1,000 mg tablet 1,000 mg PO BID #180 tab 07/06/20 11/22/20 Unknown blood-glucose meter #1 ea 07/26/20 11/21/20 Unknown cholecalciferol (vitamin D3) 50 2,000 unit PO DAILY tab 07/26/20 11/22/20 Unknown mcg (2,000 unit) tablet omeprazole 20 mg capsule,delayed 20 mg PO DAILY #90 cap 08/17/20 11/22/20 Unknown release cyanocobalamin (vitamin B-12) 1,000 mcg PO DAILY #90 tab 09/05/20 11/22/20 Unknown 1,000 mcg tablet pen needle, diabetic 32 gauge x #100 ea 11/01/20 11/21/20 Unknown 5/32" lisinopril 2.5 mg tablet 2.5 mg PO DAILY #90 tab 11/16/20 11/22/20 Unknown insulin glargine [Basaglar KwikPen 30 unit SQ DAILY 11/22/20 11/22/20 Unknown U-100 Insulin] miscellaneous medical supply #1 ea 11/23/20 11/23/20 Unknown Active Medications Generic Name Dose Route Start Last Admin Trade Name Freq PRN Reason Stop Dose Admin Atorvastatin Calcium 10 mg 11/23/20 09:00 11/28/20 09:05 Atorvastatin 10 Mg Tab PO 12/23/20 08:59 10 mg DAILY [facility] Administration Calamine/Phenol 1 appln 11/25/20 13:00 11/27/20 08:43 Menthol-Zinc Oxide 360 Appln/120 Gm Tube EXT 12/25/20 12:59 1 appln UD [facility] Administration Cyanocobalamin 1,000 mcg 11/23/20 09:00 11/28/20 09:05 Cyanocobalamin 500 Mcg Tablet (Vitamin B-12) PO 12/23/20 08:59 1,000 mcg DAILY [facility] Administration Docusate Sodium 100 mg 11/27/20 21:00 11/28/20 09:04 Docusate Sodium 100 Mg Cap PO 12/27/20 20:59 100 mg BID [facility] Administration Fentanyl 25 mcg 11/26/20 12:00 11/26/20 11:55 Fentanyl 25 Mcg/Hr Tdsy TD 12/10/20 11:59 25 mcg Q3D [facility] Administration Acetaminophen 1,000 mg in 100 mls @ 400 mls/hr 11/27/20 23:30 11/28/20 09:15 Ofirmev IV 11/30/20 23:29 Infused Q8H PRN Infusion Pain Insulin Aspart 0 units 11/28/20 00:00 11/28/20 06:13 Insulin Aspart 100 Units/Ml 3 Ml Pen SC 12/28/20 00:00 Not Given Q6 [facility] Insulin Glargine 36 units 11/25/20 09:00 11/28/20 09:06 Insulin Glargine Solostar 100 Units/Ml 3 Ml Pen SQ 12/25/20 08:59 Not Given DAILY [facility] Lidocaine 1 patch 11/23/20 09:00 11/28/20 09:05 Lidocaine 5% 1 Patch TD 12/23/20 08:59 1 patch QAM [facility] Administration Magnesium Oxide 400 mg 11/23/20 13:00 11/28/20 09:05 Magnesium Oxide 400 Mg Tab PO 12/23/20 12:59 400 mg QAM [facility] Administration Metformin HCl 1,000 mg 11/23/20 17:00 11/28/20 09:08 Metformin Hcl 500 Mg Tab PO 12/23/20 16:59 Not Given BIDM [facility] Miscellaneous 1 ea 11/23/20 21:00 11/27/20 20:07 Remove Lidoderm Patch N/A 12/23/20 20:59 1 ea DAILY@2100 [facility] Administration Miscellaneous 1 ea 11/26/20 11:59 11/26/20 11:55 Fentanyl Patch Remove & Waste N/A 12/26/20 11:58 Not Given Q3D [facility] Miscellaneous 1 ea 11/26/20 16:00 11/28/20 08:54 Check Fentanyl Patch Placement N/A 12/26/20 15:59 1 ea QS [facility] Administration Oxycodone/Acetaminophen 1 tab 11/25/20 12:47 11/27/20 20:06 Oxycodone/Acetaminophen 5mg/325mg Tab PO 12/09/20 12:46 1 tab Q6H PRN Administration Pain Pantoprazole Sodium 40 mg 11/23/20 09:00 11/28/20 09:05 Pantoprazole 40 Mg Tab PO 12/23/20 08:59 40 mg DAILY [facility] Administration Prednisone 40 mg 11/24/20 09:00 11/28/20 09:05 Prednisone 20 Mg Tab PO 11/28/20 23:59 40 mg DAILY [facility] Administration Tamsulosin HCl 0.4 mg 11/23/20 00:13 11/28/20 09:05 Tamsulosin Hcl 0.4 Mg Cap PO 12/23/20 00:12 0.4 mg BID [facility] Administration Vitamin D 2,000 units 11/23/20 09:00 11/28/20 09:04 Cholecalciferol 1,000 Units 25 Mcg Tab PO 12/23/20 08:59 2,000 units DAILY [facility] Administration NPO Date Last Intake of Fluids: 11/27/20 Time Last Intake of Fluids: 23:50 Date Last Intake of Solids: 11/27/20 Time Last Intake of Solids: 23:45 Past Medical History Medical History Arthritis BPH associated with nocturia Bulging lumbar disc Carotid artery stenosis Chronic lumbar pain GERD without esophagitis Hearing difficulty Hematuria High prostate specific antigen (PSA) (~12/2018) History of amputation of finger (~2002) History of neck pain Hyperlipidemia Hypertension Lumbar back pain Pancreatic lesion 03/31/2020-2.1 x 1.0 x 1.7 cm bilobed cystic lesion of the pancreatic body/tail junction demonstrates mild marginal calcifications with a thin central enhancing septation. Differential considerations would include a mucinous cystadenoma versus complex singular or two subadjacent IPMN's. 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 neuropathy & tingling in hands Past Family History Family History Grandfather (Maternal) Stomach cancer Aunt , This was who raised me, I do not know my mother & father Stomach cancer MATERNAL Brother , 50's of an [place] Myocardial infarction Alcohol abuse Diabetes Mother Heart disease Diabetes Gallbladder disease Kidney stones Denies family history of Ovarian cancer Prostate cancer Breast cancer Colorectal cancer Past Surgical History Surgical History Amputation finger 2002 History of carpal tunnel release 2006 History of hernia repair 2003 History of neck surgery History of PONV No Hx of PONV and No Hx of Motion Sickness Social History Smoking Status: Never smoker Do You Dip or Chew Tobacco: No Hx Alcohol Use: No Hx Substance Use: No substance use type: does not use Physical Exam Vital Signs Last Vital Signs Temp 36.5 C 11/28/20 07:16 Pulse 72 11/28/20 07:16 Resp 16 11/28/20 07:16 BP 142/63 H 11/28/20 07:16 Pulse Ox 98 11/28/20 07:16 Testing Laboratory Results 11/25/20 06:18 11/25/20 06:18 PT 9.8 Seconds (9.0-12.0) 11/25/20 06:18 INR 1.0 (0.9-1.1) 11/25/20 06:18 APTT 23.7 Seconds (21.0-31.0) 11/25/20 06:18 Hemoglobin A1c 7.0 % (4.5-5.6) H 11/23/20 05:37 Urine Color Yellow 11/22/20 19:05 Urine Appearance Clear (Clear) 11/22/20 19:05 Urine pH 6.5 (4.5-7.5) 11/22/20 19:05 Ur Specific [place] 1.020 (1.000-1.030) 11/22/20 19:05 Urine Protein Negative (Negative) 11/22/20 19:05 Urine Glucose (UA) Negative (Negative) 11/22/20 19:05 Urine Ketones Negative (Negative) 11/22/20 19:05 Urine Nitrite Negative (Negative) 11/22/20 19:05 Ur Leukocyte Esterase Trace (Negative) H 11/22/20 19:05 Urine RBC 0-4 /hpf (0-4) 11/22/20 19:05 Urine WBC 0-5 /hpf (0-5) 11/22/20 19:05 Ur Epithelial Cells 0-5 /lpf (0-5) 11/22/20 19:05 11/28/20 11/27/20 05:59 23:58 POC Glucose 84 99
[2020-11-28] MEDS ORDERED: LABETALOL HCL IV 5 MG/ML 20ML IV PRN (12:55)
[2020-11-28] MEDS ORDERED: PHENYLEPHRINE 100MCG/ML 5ML SYR IV PRN (12:55)
[2020-11-28] MEDS ORDERED: ATROPINE SULFATE 0.1 MG/ML 10ML SYR IV PRN (12:55)
[2020-11-28] MEDS ORDERED: fentaNYL citrate 100 MCG/2 ML VIAL IV PRN (12:55)
[2020-11-28] MEDS ORDERED: ONDANSETRON INJ 2 MG/ML 2 ML VIAL IV PRN (12:55)
[2020-11-28] MEDS ORDERED: ePHEDrine sulfate 50 MG/ML AMP IV PRN (12:55)
[2020-11-28] MEDS ORDERED: ESMOLOL HCL INJ 10 MG/ML 10ML VIAL IV ONE (13:01)
--- NOTE | 2020-11-28 13:25 | Magnetic Resonance Report ---
MR lumbar spine wo con CLINICAL HISTORY: back pain leg weakness, with sedation TRAUMA TECHNIQUE: Sagittal and axial T1, T2 and STIR images were obtained. COMPARISON STUDY: CT scan dated 11/23/2020 OBSERVATIONS: There is endplate marrow edema at the L2-3 level with marked increased T2 signal involving the disc. L1-2: There is circumferential disc bulge with mild spinal stenosis. There is no significant foramina l narrowing L2-3: There is endplate marrow edema and increased T2 signal within the disc. There is a diffuse circ umferential disc bulge and left posterocentral disc protrusion. There is moderate to severe spinal st enosis. Discitis and osteomyelitis is favored, although severe degenerative changes with cystic degen eration of the disc erosive endplate changes could appear similar L3-4: There is a circumferential disc bulge and moderate to severe spinal stenosis. There is facet samuel int arthropathy. There is mild bilateral foraminal narrowing L4-5: There is a grade 1 spinal listhesis of L4 and L5. There is a circumferential disc bulge. There is moderate spinal stenosis. The facet joint arthropathy. Is mild bilateral foraminal narrowing L5-S1: There is a small central disc osteophyte complex. There is minimal effacement the anterior the maru sac. There is no significant foraminal narrowing. There is mild bilateral foraminal narrowing The conus medullaris and cauda equina appear normal. IMPRESSION: 1. L2-3 endplate marrow edema with increased T2 signal within the disc. Diagnostic considerations inc lude discitis osteomyelitis versus severe degenerative changes with cystic degeneration of the disc w ith degenerative endplate marrow edema. It should be noted that on the CT scan performed 11/23/2020, t here was gas present within the L2-3 disc. While this finding usually confirms the diagnosis of degen erative disease, there have been case reports of gas within the disc in the presence of a discitis an d osteomyelitis. Clinical correlation and/or biopsy recommended in follow-up 2. Disc bulge and left posterior central disc protrusion at the L2-3 level. Moderate to severe spinal stenosis 3. Moderate to severe spinal stenosis at the L3-4 level. 4. Moderate spinal stenosis the L4-5 level. 5. Mild multilevel foraminal narrowing ACT 112: Negative or not required by law. Electronically signed by: Kamar Hilario M.D. 11/28/2020 1:23 PM
[2020-11-28] MEDS ORDERED: METOPROLOL TARTRATE 1 MG/ML VIAL IV STA ×2 (13:29→13:58)
[2020-11-28] MEDS ORDERED: METOPROLOL TARTRATE 1 MG/ML VIAL IV ONE (13:30)
[2020-11-28] MEDS: METOPROLOL TARTRATE 1 MG/ML VIAL IV STA ×2 (13:32→14:40)
--- NOTE | 2020-11-28 14:09 | Anesthesiology Progress Note ---
Date of Service November 28, 2020 Anesthesia Post Procedure Vital Signs Vital Signs: Temp Pulse Pulse Pulse Resp BP BP 11/28/20 14:00 36.0 C L 132 H 82 22 125/74 11/28/20 13:50 70 15 11/28/20 13:40 132 H 17 11/28/20 13:32 140 H 127/80 11/28/20 13:30 140 H 14 11/28/20 13:20 154 H 23 11/28/20 13:11 36.0 C L 121 H 13 11/28/20 07:16 36.5 C 72 16 142/63 H 11/27/20 22:55 36.8 C 78 18 125/58 L 11/27/20 15:03 36.7 C 83 16 128/63 BP Pulse Ox 11/28/20 14:00 131/78 99 11/28/20 13:50 129/78 100 11/28/20 13:40 125/74 100 11/28/20 13:32 11/28/20 13:30 127/80 100 11/28/20 13:20 128/82 99 11/28/20 13:11 115/70 99 11/28/20 07:16 98 11/27/20 22:55 98 11/27/20 15:03 94 Pain Intensity Lower Back: Pain Intensity: 7 Right Posterior Hip: Pain Intensity: 4 Transfer of Care Handoff Completed per policy Notes Mental Status: alert / awake / arousable and participated in evaluation Patient Amnestic to Procedure: Yes Nausea / Vomiting: adequately controlled Pain: adequately controlled Airway Patency, RR, SpO2: stable & adequate BP & HR: stable & adequate Hydration State: stable & adequate Anesthetic Complications: no major complications apparent and Pt Satisfied with anesthetic care Notes: Patient became tachycardic mid MRI. He was given esmolol and after MRI taken to PACU for recovery. Patient was conversant and expressed desire to void. Primary team was called and ECG was done (sinus tach). He was given 2.5mg IV metoprolol and eventually his HR returned to normal (70's) and he voided and was much more comfortable. Primary team OK with taking him back to 3E.
[2020-11-28] MEDS ORDERED: Nursing to Pharmacy Communication SCH (16:30)
[2020-11-28] MEDS: oxyCODONE/ACETAMINOPHEN 5mg/325mg TAB PO PRN ×2 (18:00→23:32)
[2020-11-29] MEDS: oxyCODONE/ACETAMINOPHEN 5mg/325mg TAB PO PRN (06:22)
[2020-11-29] MEDS: LIDOCAINE 5% 1 PATCH TD SCH (07:46)
[2020-11-29] MEDS: CHECK fentaNYL PATCH PLACEMENT SCH ×2 (07:48→17:54)
[2020-11-29] MEDS ORDERED: oxyCODONE HCL IR 5 MG TAB (IMMEDIATE RELEASE) PO PRN ×2 (08:05→18:00)
[2020-11-29] MEDS ORDERED: Nursing to Pharmacy Communication SCH ×2 (08:15→19:30)
[2020-11-29] MEDS: metFORMIN HCL 500 MG TAB PO SCH ×2 (08:58→18:44)
[2020-11-29] MEDS: TAMSULOSIN HCL 0.4 MG CAP PO SCH ×2 (08:58→21:34)
[2020-11-29] MEDS: CHOLECALCIFEROL 1,000 UNITS 25 MCG TAB PO SCH (08:59)
[2020-11-29] MEDS: MAGNESIUM OXIDE 400 MG TAB PO SCH (08:59)
[2020-11-29] MEDS: ATORVASTATIN 10 MG TAB PO SCH (08:59)
[2020-11-29] MEDS: DOCUSATE SODIUM 100 MG CAP PO SCH ×2 (08:59→21:33)
[2020-11-29] MEDS: CYANOCOBALAMIN 500 MCG TABLET (VITAMIN B-12) PO SCH (08:59)
[2020-11-29] MEDS: PANTOprazole 40 MG TAB PO SCH (09:00)
[2020-11-29] MEDS ORDERED: INSULIN GLARGINE SOLOSTAR 100 UNITS/ML 3 ML PEN SC ONE (09:24)
--- NOTE | 2020-11-29 09:35 | Orthopedic Progress Note ---
Date of Service November 29, 2020 Assessment & Plan (1) Neurogenic claudication due to lumbar spinal stenosis: Admission and Anticipated Discharge Date Admission Date: November 22, 2020 At length yesterday with the patient regarding his MRI findings and clinical presentation. I suspect his strength deficits are entirely related to the severe spinal stenosis he has developed L2-L3. He may have concomitant endplate fracture as well as advanced degenerative change. I do not suspect this is osteomyelitis. We discussed surgical intervention. At this time it would require lumbar decompression and fusion L2-L3. I will acknowledge adjacent level stenosis and arthritis however it pales in comparison to the severe disease L2-L3. He would like to proceed with surgery. Risk benefits pros cons and alternatives were outlined in detail. Risk include but not limited to anesthesia blindness stroke paralysis nerve damage blood loss requiring transfusion infection requiring reoperation benefits of the marked improvement of his pain and with time in rehab improvement of his lower extremity strength. Patient understands and agrees. We will try to perform surgery soon as possible in light of his neurologic deficits. Subjective Back pain with leg pain and lower extremity weakness. Physical Exam Physical Exam: On exam he is able to sit up in the bedside. Is unable to stand secondary to extreme quadricep deficit right greater than left. He has pain shooting into his right buttock. He has no significant back pain to percussion or exam. He does demonstrate 3/5 right and left quadriceps with 4 - plantar flexion dorsiflexion. Sensory is diminished. Results & Data ([facility]) Vital Signs (Past 12 Hours) Vital Signs Temp Pulse Resp BP BP Pulse Ox 11/29/20 07:23 36.5 C 72 18 138/73 98 11/29/20 04:03 36.6 C 68 18 110/57 L 99 11/28/20 23:21 36.8 C 74 18 131/57 L 97
[2020-11-29] MEDS: INSULIN GLARGINE SOLOSTAR 100 UNITS/ML 3 ML PEN SQ SCH (10:23)
[2020-11-29] MEDS: INSULIN ASPART 100 UNITS/ML 3 ML PEN SC SCH ×5 (10:24→21:25)
--- NOTE | 2020-11-29 10:25 | Hospitalist Progress Note ---
Date of Service November 29, 2020 Assessment & Plan (1) Neurogenic claudication due to lumbar spinal stenosis: Mr. Onofre is an 85 year old male with a history of Type 2 DM, Hypertension, Dyslipidemia, and Lumbar Spinal Stenosis with Ambulatory Dysfunction secondary to progressive right leg weakness secondary to severe spinal stenosis at the level of L2-L3. -- MRI of L-spine 11/28/20 shows severe spinal stenosis at L2-L3. -- Dr. Connolly is taking to the OR today. -- Pain is controlled currently. -- Continue Fentanyl patch, Lidocaine patch, Oxycodone as needed. -- Patient is agreeable to [facility] following this surgery/hospitalization. -- Case management is involved with this patient. (2) Ambulatory dysfunction: -- As outlined above. -- MRI of L-spine 11/28/20 shows severe spinal stenosis at L2-L3. -- Dr. Connolly is taking to the OR today. (3) Hypotension: -- Resolved after Dilaudid was discontinued. (4) Hypertension: -- Continue Lisinopril 2.5 daily. (5) Type 2 diabetes mellitus: -- Patient is currently NPO for surgery today. -- Insulin held this morning. -- Metformin is currently on hold. -- Continue to monitor blood sugars. Admission and Anticipated Discharge Date Admission Date: November 22, 2020 Supervising Physician Co-Signing Physician Notes Attending attestation - Pt seen and examined, chart reviewed thoroughly. I agree w/ the perkins components of Mr Carreno's documentation. I was STAT paged by nursing staff following Mr Neely's surgery today. This was about 1730. After arriving from the PACU the patient was quite agitated, taking his clothes off, trying to get out of bed, etc. Upon arrival multiple staff members were present in the room. He was sitting on the side of the bed trying to drink a coffee. He was confused. He has severe hearing impairment. I had ordered 2.5mg of haldol IM x 1 STAT when the nurses first called me about his agitation. He received this about 5-10 min prior to my visit. Patient denied any pain in any location during my visit. BSG was apparently 120s down in PACU about 1 hour prior. Exam - gen - confused, mildly agitated, would be awake then fall asleep upright in the bed neck - no JVD heart - RRR, s1 s2 lungs - CTA b/l abd - soft NT musculo - blood-soaked dressings in place over lumbar spine region with drain; lipoma present right flank ext - no edema, pulses 2+ b/l neuro - moves all 4 limbs skin - fentanyl patch in place A/P: Toxic encephalopathy post-operatively. General anesthesia, perioperative steroids, fentanyl IV, fentanyl patch, etc all can contribute to his current state. Neuro exam - although limited because of his agitation - grossly normal. s/p haldol 2.5mg IM x 1 with good results. plan - * stop fentanyl patch; this is a new medication for him as of this admission (placed 11/26) * use PO tramadol as first line for pain, followed by oxycodone prn, followed by IV pain meds * stop IV ativan * stop vistaril, benadryl, phenergan, etc * avoid general use of benzos * haldol 1mg po x 1 at HS prn for severe, ongoing delirium/agitation * labs in am Recommended to staff that he be put on continuous pulse oximetry for the night. If he has apneas, VS instability, etc - transfer to telemetry. Avni Zhou MD Subjective Patient continues to have weakness of his right leg, and cannot stand up or walk. MRI yesterday showed severe lumbar spinal stenosis at the level L2-L3. Dr. Connolly taking him to the OR today. Review of Systems Review of Systems: All systems reviewed & are unremarkable except as noted in Subjective Physical Exam Physical Exam: GENERAL: Patient is sitting at the bedside. HEENT: Head is atraumatic, normocephalic. EOM's intact. Facies symmetric. No perioral cyanosis. NECK: No JVD. JVP is not elevated. CHEST/LUNGS: Clear to auscultation throughout all lung pham. No wheezes, rales, or crackles. CVS: S1 and S2 are regular without obvious murmurs, gallops, or rubs. PMI is nondisplaced. No lifts, heaves, or thrills. No abdominal aortic or renal bruits. ABDOMINAL EXAM: Bowel sounds are present. No masses, organomegaly, or tenderness. EXTREMITIES: No clubbing or cyanosis. No edema. Intact radial pulses bilaterally. NEUROLOGIC EXAM: Patient is awake, alert, and oriented. Answers questions appropriately. Speech is clear. Gait pattern was not assessed. MRI of L-Spine 11/28/20: There is endplate marrow edema at the L2-3 level with marked increased T2 signal involving the disc. L1-2: There is circumferential disc bulge with mild spinal stenosis. There is no significant foraminal narrowing L2-3: There is endplate marrow edema and increased T2 signal within the disc. There is a diffuse circumferential disc bulge and left posterocentral disc protrusion. There is moderate to severe spinal stenosis. Discitis and osteomyelitis is favored, although severe degenerative changes with cystic degeneration of the disc erosive endplate changes could appear similar L3-4: There is a circumferential disc bulge and moderate to severe spinal stenosis. There is facet joint arthropathy. There is mild bilateral foraminal narrowing L4-5: There is a grade 1 spinal listhesis of L4 and L5. There is a circu mferential disc bulge. There is moderate spinal stenosis. The facet joint arthropathy. Is mild bilateral foraminal narrowing L5-S1: There is a small central disc osteophyte complex. There is minimal e ffacement the anterior thecal sac. There is no significant foraminal narrowing. There is mild bilateral foraminal narrowing The conus medullaris and cauda equina appear normal. IMPRESSION: 1. L2-3 endplate marrow edema with increased T2 signal within the disc. Diagnostic considerations include discitis osteomyelitis versus severe degenerative changes with cystic degeneration of the disc with degenerative endplate marrow edema. It should be noted that on the CT scan performed 11/23/2020, there was gas present within the L2-3 disc. While this finding usually confirms the diagnosis of degenerative disease, there have been case reports of gas within the disc in the presence of a discitis and osteomyelitis. Clinical correlation and/or biopsy recommended in follow-up 2. Disc bulge and left posterior central disc protrusion at the L2-3 level. Moderate to severe spinal stenosis 3. Moderate to severe spinal stenosis at the L3-4 level. 4. Moderate spinal stenosis the L4-5 level. 5. Mild multilevel foraminal narrowing Results & Data Results & Data ([facility]) Vital Signs (Past 12 Hours) Vital Signs Temp Pulse Resp BP BP Pulse Ox 11/29/20 07:23 36.5 C 72 18 138/73 98 11/29/20 04:03 36.6 C 68 18 110/57 L 99 06/28/21 23:21 36.8 C 74 18 131/57 L 97 Laboratory Results Laboratory Results - last 24 hr 11/28/20 11/28/20 11/28/20 13:15 16:30 20:35 ESR POC Glucose 127 H 221 H 182 H C-Reactive Protein 11/29/20 11/29/20 11/29/20 05:46 05:46 08:53 ESR 10 POC Glucose 131 H C-Reactive Protein 0.82 H Diagnostic Findings MRI as described above. Medications Administered Medications blood-glucose meter #1 ea 06/11/19 [Rx Confirmed 11/21/20] tamsulosin 0.4 mg capsule 0.4 mg PO BID cap 02/09/20 [History Confirmed 11/22/20] atorvastatin 10 mg tablet 10 mg PO DAILY #90 tab 04/14/20 [Rx Confirmed 11/22/20] lancets 33 gauge #100 ea 04/21/20 [Rx Confirmed 11/21/20] metformin 1,000 mg tablet 1,000 mg PO BID #180 tab 07/06/20 [Rx Confirmed 11/22/20] blood-glucose meter #1 ea 07/26/20 [Rx Confirmed 11/21/20] cholecalciferol (vitamin D3) 50 mcg (2,000 unit) tablet 2,000 unit PO DAILY tab 07/26/20 [History Confirmed 11/22/20] omeprazole 20 mg capsule,delayed release 20 mg PO DAILY #90 cap 08/17/20 [Rx Co nfirmed 11/22/20] cyanocobalamin (vitamin B-12) 1,000 mcg tablet 1,000 mcg PO DAILY #90 tab 09/05/20 [Rx Confirmed 11/22/20] pen needle, diabetic 32 gauge x 5/32" #100 ea 11/01/20 [Rx Confirmed 11/21/20] lisinopril 2.5 mg tablet 2.5 mg PO DAILY #90 tab 11/16/20 [Rx Confirmed 11/22/20] insulin glargine [Basaglar KwikPen U-100 Insulin] 30 unit SQ DAILY 11/22/20 [History Confirmed 11/22/20] miscellaneous medical supply #1 ea 11/23/20 [Rx Confirmed 11/23/20] Home Medications Atorvastatin Calcium (Atorvastatin 10 Mg Tab) 10 mg PO DAILY ROCKY Stop: 07/23/21 08:59 Last Admin: 11/29/20 08:59 Dose: 10 mg Documented by: Calamine/Phenol (Menthol-Zinc Oxide 360 Appln/120 Gm Tube) 1 appln EXT UD ROCKY Stop: 12/25/20 12:59 Last Admin: 11/27/20 08:43 Dose: 1 appln Documented by: Cyanocobalamin (Cyanocobalamin 500 Mcg Tablet (Vitamin B-12)) 1,000 mcg PO DAILY ROCKY Stop: 12/23/20 08:59 Last Admin: 11/29/20 08:59 Dose: 1,000 mcg Documented by: Dextrose (Dextrose 50% 50 Ml Syringe) 25 - 50 ml IV UD PRN; Protocol PRN Reason: Hypoglycemia Protocol Stop: 12/23/20 00:12 Diazepam (Diazepam 5 Mg Tablet) 5 mg PO ONE PRN PRN Reason: prior to MRI Docusate Sodium (Docusate Sodium 100 Mg Cap) 100 mg PO BID ROCKY Stop: 12/27/20 20:59 Last Admin: 11/29/20 08:59 Dose: 100 mg Documented by: Fentanyl (Fentanyl 25 Mcg/Hr Tdsy) 25 mcg TD Q3D ROCKY Stop: 12/10/20 11:59 Last Admin: 11/26/20 11:55 Dose: 25 mcg Documented by: Glucagon (Glucagon For Inj 1 Mg Vial) 1 mg SQ UD PRN; Protocol PRN Reason: Hypoglycemia Protocol Stop: 12/23/20 00:12 Glucose (Glucose 10 Tabs/Tube) 4 - 8 tabs PO UD PRN; Protocol PRN Reason: Hypoglycemia Protocol Stop: 12/23/20 00:12 Glucose (Glucose 40% Gel 15 Gm Tube) 15 - 30 gm PO UD PRN; Protocol PRN Reason: Hypoglycemia Protocol Stop: 12/23/20 00:12 Acetaminophen (Ofirmev) 1,000 mg in 100 mls @ 400 mls/hr IV Q8H PRN PRN Reason: Pain Stop: 11/30/20 23:29 Last Infusion: 11/28/20 20:59 Dose: Infused Documented by: Insulin Aspart (Insulin Aspart 100 Units/Ml 3 Ml Pen) 0 units SC Q6 ROCKY Stop: 12/29/20 08:14 Last Admin: 11/29/20 10:24 Dose: Not Given Documented by: Insulin Glargine (Insulin Glargine Solostar 100 Units/Ml 3 Ml Pen) 36 units SQ DAILY [facility] Stop: 12/25/20 08:59 Last Admin: 11/29/20 10:23 Dose: Not Given Documented by: Lidocaine (Lidocaine 5% 1 Patch) 1 patch TD QAM [facility] Stop: 12/23/20 08:59 Last Admin: 11/29/20 07:46 Dose: 1 patch Documented by: Magnesium Oxide (Magnesium Oxide 400 Mg Tab) 400 mg PO QAM [facility] Stop: 12/23/20 12:59 Last Admin: 11/29/20 08:59 Dose: 400 mg Documented by: Metformin HCl (Metformin Hcl 500 Mg Tab) 1,000 mg PO BIDM [facility] Stop: 12/23/20 16:59 Last Admin: 11/29/20 08:58 Dose: 1,000 mg Documented by: Miscellaneous (Carbohydrates For Hypoglycemia ) 15 - 30 gm PO UD PRN PRN Reason: Hypoglycemia Protocol Stop: 12/23/20 00:12 Miscellaneous (Remove Lidoderm Patch) 1 ea N/A DAILY@2100 [facility] Stop: 12/23/20 20:59 Last Admin: 11/28/20 20:04 Dose: 1 ea Documented by: Miscellaneous (Fentanyl Patch Remove & Waste) 1 ea N/A Q3D [facility] Stop: 12/26/20 11:58 Last Admin: 11/26/20 11:55 Dose: Not Given Documented by: Miscellaneous (Check Fentanyl Patch Placement) 1 ea N/A QS [facility] Stop: 12/26/20 15:59 Last Admin: 11/29/20 07:48 Dose: 1 ea Documented by: Oxycodone HCl (Oxycodone Hcl Ir 5 Mg Tab (Immediate Release)) 10 mg PO Q6H PRN PRN Reason: Moderate Pain Stop: 12/13/20 08:04 Pantoprazole Sodium (Pantoprazole 40 Mg Tab) 40 mg PO DAILY [facility] Stop: 12/23/20 08:59 Last Admin: 11/29/20 09:00 Dose: 40 mg Documented by: Tamsulosin HCl (Tamsulosin Hcl 0.4 Mg Cap) 0.4 mg PO BID [facility] Stop: 12/23/20 00:12 Last Admin: 11/29/20 08:58 Dose: 0.4 mg Documented by: Vitamin D (Cholecalciferol 1,000 Units 25 Mcg Tab) 2,000 units PO DAILY ROCKY Stop: 12/23/20 08:59 Last Admin: 11/29/20 08:59 Dose: 2,000 units Documented by: PG Care Time/CCT Total # of Minutes Spent Total Time Spent with Patient: Total time spent is greater than 50% in coordination of care (as documented) at patient's floor/unit and/or counseling patient:30 Coding Level of Care Code 97409 Subseq Hosp Care Lvl 3 Diagnoses Neurogenic claudication due to lumbar spinal stenosis M48.062 Ambulatory dysfunction R26.2 Hypotension I95.2 Hypotension type: hypotension due to drug Hypertension I10 Hypertension type: essential hypertension Type 2 diabetes mellitus E11.9 Time Spent (min) 40 (1) Hypertension Hypertension type: essential hypertension Qualified Code(s): I10 - Essential (primary) hypertension (2) Hypotension Hypotension type: hypotension due to drug Qualified Code(s): I95.2 - Hypotension due to drugs
[2020-11-29] MEDS ORDERED: PROPOFOL IV EMULSION 10 MG/ML 20 ML VIAL IV ONE (12:18)
[2020-11-29] MEDS ORDERED: fentaNYL citrate 100 MCG/2 ML VIAL ONE ×2 (12:18)
[2020-11-29] MEDS ORDERED: DEXAMETHASONE SOD INJ 4 MG/ML VIAL ONE (12:18)
[2020-11-29] MEDS ORDERED: ONDANSETRON INJ 2 MG/ML 2 ML VIAL ONE (12:18)
[2020-11-29] MEDS ORDERED: LIDOCAINE 2% 2 ML VIAL/AMP(20MG/ML) INFIL ONE (12:18)
[2020-11-29] MEDS ORDERED: ROCURONIUM BROMIDE 10 MG/ML 5 ML VIAL IV ONE (12:18)
[2020-11-29] MEDS ORDERED: SUGAMMADEX SODIUM 200 MG/2 ML VIAL IV ONE (12:22)
[2020-11-29] MEDS: fentaNYL 25 MCG/HR TDSY TD SCH (12:25)
[2020-11-29] MEDS ORDERED: BUPIVACAINE/EPINEPHRINE 0.5% MPF 1:200,000 30 ML VIAL ONE (13:02)
--- NOTE | 2020-11-29 13:10 | History & Physical Bridge Note ---
Date of Service November 29, 2020 History & Physical Bridge Note I have examined the patient, reviewed the History & Physical and in the interval since the performance of the History & Physical I have noted the following changes of clinical significance: no changes noted Lumbar decompression fusion L2-L3
--- NOTE | 2020-11-29 13:31 | Anesthesiology Consultation ---
Date of Service November 29, 2020 The patient had an MRI yesterday and was noted to become tachycardic. He has since converted back to normal sinus rhythm. Assessment & Plan (1) Encounter for pre-operative examination: Chart Review Chart Review: Acceptable Risk for Surgery and Patient NOT seen in Pre Admission Testing Consults Requested none History Surgery Operation Date: 11/28/20 12:00 Proposed Procedures p MRI with Anesthesia Sedation - Garrett Connolly DO Operation Date: 11/29/20 09:45 Proposed Procedures p L2-L3 Lumbar Decompression Fusion - Garrett Connolly DO Height/Weight Height: 5 ft 9 in Weight: 84.8 kg Allergies Allergy/AdvReac Type Severity Reaction Status Date / Time codeine AdvReac Unknown severe Verified 11/22/20 17:55 vomiting Medications Home Medications Medication Instructions Recorded Confirmed Last Taken blood-glucose meter #1 ea 06/11/19 11/21/20 Unknown tamsulosin 0.4 mg capsule 0.4 mg PO BID cap 02/09/20 11/22/20 Unknown atorvastatin 10 mg tablet 10 mg PO DAILY #90 tab 04/14/20 11/22/20 Unknown lancets 33 gauge #100 ea 04/21/20 11/21/20 Unknown metformin 1,000 mg tablet 1,000 mg PO BID #180 tab 07/06/20 11/22/20 Unknown blood-glucose meter #1 ea 07/26/20 11/21/20 Unknown cholecalciferol (vitamin D3) 50 2,000 unit PO DAILY tab 07/26/20 11/22/20 Unknown mcg (2,000 unit) tablet omeprazole 20 mg capsule,delayed 20 mg PO DAILY #90 cap 08/17/20 11/22/20 Unknown release cyanocobalamin (vitamin B-12) 1,000 mcg PO DAILY #90 tab 09/05/20 11/22/20 Unknown 1,000 mcg tablet pen needle, diabetic 32 gauge x #100 ea 11/01/20 11/21/20 Unknown 32" lisinopril 2.5 mg tablet 2.5 mg PO DAILY #90 tab 11/16/20 11/22/20 Unknown insulin glargine [Basaglar KwikPen 30 unit SQ DAILY 11/22/20 11/22/20 Unknown U-100 Insulin] miscellaneous medical supply #1 ea 11/23/20 11/23/20 Unknown Active Medications Generic Name Dose Route Start Last Admin Trade Name Zohaib PRN Reason Stop Dose Admin Atorvastatin Calcium 10 mg 11/23/20 09:00 11/29/20 08:59 Atorvastatin 10 Mg Tab PO 12/23/20 08:59 10 mg DAILY ROCKY Administration Calamine/Phenol 1 appln 11/25/20 13:00 11/27/20 08:43 Menthol-Zinc Oxide 360 Appln/120 Gm Tube EXT 12/25/20 12:59 1 appln UD ROCKY Administration Cyanocobalamin 1,000 mcg 11/23/20 09:00 11/29/20 08:59 Cyanocobalamin 500 Mcg Tablet (Vitamin B-12) PO 12/23/20 08:59 1,000 mcg DAILY ROCKY Administration Docusate Sodium 100 mg 11/27/20 21:00 11/29/20 08:59 Docusate Sodium 100 Mg Cap PO 12/27/20 20:59 100 mg BID ROCKY Administration Fentanyl 25 mcg 11/26/20 12:00 11/29/20 12:25 Fentanyl 25 Mcg/Hr Tdsy TD 12/10/20 11:59 25 mcg Q3D ROCKY Administration Acetaminophen 1,000 mg in 100 mls @ 400 mls/hr 11/27/20 23:30 11/28/20 20:59 Ofirmev IV 11/30/20 23:29 Infused Q8H PRN Infusion Pain Insulin Aspart 0 units 11/29/20 08:15 11/29/20 12:16 Insulin Aspart 100 Units/Ml 3 Ml Pen SC 12/29/20 08:14 Not Given Q6 ROCKY Insulin Glargine 36 units 11/25/20 09:00 11/29/20 10:23 Insulin Glargine Solostar 100 Units/Ml 3 Ml Pen SQ 12/25/20 08:59 Not Given DAILY ROCKY Lidocaine 1 patch 11/23/20 09:00 11/29/20 07:46 Lidocaine 5% 1 Patch TD 12/23/20 08:59 1 patch QAM ROCKY Administration Magnesium Oxide 400 mg 11/23/20 13:00 11/29/20 08:59 Magnesium Oxide 400 Mg Tab PO 12/23/20 12:59 400 mg QAM ROCKY Administration Metformin HCl 1,000 mg 11/23/20 17:00 11/29/20 08:58 Metformin Hcl 500 Mg Tab PO 12/23/20 16:59 1,000 mg BIDM ROCKY Administration Miscellaneous 1 ea 11/23/20 21:00 11/28/20 20:04 Remove Lidoderm Patch N/A 12/23/20 20:59 1 ea DAILY@2100 ROCKY Administration Miscellaneous 1 ea 11/26/20 11:59 11/29/20 12:16 Fentanyl Patch Remove & Waste N/A 12/26/20 11:58 1 ea Q3D ROCKY Administration Miscellaneous 1 ea 11/26/20 16:00 11/29/20 07:48 Check Fentanyl Patch Placement N/A 12/26/20 15:59 1 ea QS ROCKY Administration Oxycodone HCl 10 mg 11/29/20 08:05 11/29/20 11:03 Oxycodone Hcl Ir 5 Mg Tab (Immediate Release) PO 12/13/20 08:04 10 mg Q6H PRN Administration Moderate Pain Pantoprazole Sodium 40 mg 11/23/20 09:00 11/29/20 09:00 Pantoprazole 40 Mg Tab PO 12/23/20 08:59 40 mg DAILY ROCKY Administration Tamsulosin HCl 0.4 mg 11/23/20 00:13 11/29/20 08:58 Tamsulosin Hcl 0.4 Mg Cap PO 12/23/20 00:12 0.4 mg BID ROCKY Administration Vitamin D 2,000 units 11/23/20 09:00 11/29/20 08:59 Cholecalciferol 1,000 Units 25 Mcg Tab PO 12/23/20 08:59 2,000 units DAILY ROCKY Administration NPO Date Last Intake of Fluids: 11/29/20 Time Last Intake of Fluids: 11:03 Last Intake of Fluids Comment: sip with med Date Last Intake of Solids: 11/28/20 Time Last Intake of Solids: 18:00 Past Medical History Medical History (Updated 11/29/20 @ 13:30 by Chaparro Easley MD) Anemia Arthritis BPH associated with nocturia Bulging lumbar disc Carotid artery stenosis Chronic lumbar pain GERD without esophagitis Hearing difficulty Hematuria High prostate specific antigen (PSA) (~12/2018) History of amputation of finger (~2002) History of neck pain Hyperlipidemia Hypertension Lumbar back pain Pancreatic lesion 03/31/2020-2.1 x 1.0 x 1.7 cm bilobed cystic lesion of the pancreatic body/tail junction demonstrates mild marginal calcifications with a thin central enhancing septation. Differential considerations would include a mucinous cystadenoma versus complex singular or two subadjacent IPMN's. 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 neuropathy & tingling in hands Past Family History Family History Grandfather (Maternal) Stomach cancer Aunt , This was who raised me, I do not know my mother & father Stomach cancer MATERNAL Brother , 50's of an CA Myocardial infarction Alcohol abuse Diabetes Mother Heart disease Diabetes Gallbladder disease Kidney stones Denies family history of Ovarian cancer Prostate cancer Breast cancer Colorectal cancer Past Surgical History Surgical History Amputation finger 2002 History of carpal tunnel release 2007 History of hernia repair 2002 History of neck surgery [id number] Social History Smoking Status: Never smoker Do You Dip or Chew Tobacco: No Hx Alcohol Use: No Hx Substance Use: No substance use type: does not use Physical Exam Vital Signs Last Vital Signs Temp 36.4 C L 11/29/20 12:36 Pulse 64 11/29/20 12:36 Resp 18 11/29/20 12:36 BP 122/49 L 11/29/20 12:36 Pulse Ox 99 11/29/20 12:36 Testing Laboratory Results 11/25/20 06:18 11/25/20 06:18 PT 9.8 Seconds (9.0-12.0) 11/25/20 06:18 INR 1.0 (0.9-1.1) 11/25/20 06:18 APTT 23.7 Seconds (21.0-31.0) 11/25/20 06:18 Hemoglobin A1c 7.0 % (4.5-5.6) H 11/23/20 05:37 Urine Color Yellow 11/22/20 19:05 Urine Appearance Clear (Clear) 11/22/20 19:05 Urine pH 6.5 (4.5-7.5) 11/22/20 19:05 Ur Specific [place] 1.020 (1.000-1.030) 11/22/20 19:05 Urine Protein Negative (Negative) 11/22/20 19:05 Urine Glucose (UA) Negative (Negative) 11/22/20 19:05 Urine Ketones Negative (Negative) 11/22/20 19:05 Urine Nitrite Negative (Negative) 11/22/20 19:05 Ur Leukocyte Esterase Trace (Negative) H 11/22/20 19:05 Urine RBC 0-4 /hpf (0-4) 11/22/20 19:05 Urine WBC 0-5 /hpf (0-5) 11/22/20 19:05 Ur Epithelial Cells 0-5 /lpf (0-5) 11/22/20 19:05 11/29/20 11/29/20 12:13 08:53 POC Glucose 116 H 131 H Electrocardiogram Date: 11/29/20 Findings: + NSR @ (80)
[2020-11-29] MEDS ORDERED: LABETALOL HCL IV 5 MG/ML 20ML IV PRN (13:37)
[2020-11-29] MEDS ORDERED: PHENYLEPHRINE 100MCG/ML 5ML SYR IV PRN (13:37)
[2020-11-29] MEDS ORDERED: ATROPINE SULFATE 0.1 MG/ML 10ML SYR IV PRN (13:37)
[2020-11-29] MEDS ORDERED: ONDANSETRON INJ 2 MG/ML 2 ML VIAL IV PRN ×2 (13:37→18:00)
[2020-11-29] MEDS ORDERED: ePHEDrine sulfate 50 MG/ML AMP IV PRN (13:37)
[2020-11-29] MEDS ORDERED: FLOSEAL HEMOSTATIC MATRIX 10ML TOP ONE (14:39)
[2020-11-29] MEDS ORDERED: PHENYLEPHRINE 100MCG/ML 5ML SYR ONE (14:39)
--- NOTE | 2020-11-29 15:20 | Operative Report ---
Post Operative Report Pre & Post Diagnosis Operation Date: 11/28/20 12:00 <No data on this case meets the specified criteria> Operation Date: 11/29/20 09:45 Pre-Op Diagnosis: Neurogenic Claudication due to Lumbar Spinal Stenosis Post-Op Diagnosis: Neurogenic Claudication due to Lumbar Spinal Stenosis I identified the patient and participated in the time-out.: Yes Procedure Operation Date: 11/28/20 12:00 <No data on this case meets the specified criteria> Operation Date: 11/29/20 09:45 Actual Procedures #1 lumbar decompression with bilateral medial facetectomies and foraminotomies L1-2 and L2-3. #2 posterior spinal fusion L2-3. #3 placement posterior instrumentation L2-3. #4 interbody fusion L2-3. #5 placement of peek cage 10 x 26 mm at L2-3. #6 placement locally harvested morselized autograft in the posterior gutters. #7 placement infuse collagen sponge bone mass graft in the posterior lateral gutters and I factor in the interbody space. Surgeon Garrett Connolly, DO Furnace Filler Jessica Garcia Estimated Blood Loss 100 Findings Consistent with Post-Op Diagnosis Specimens Culture from the L to L3 disc space Indications This is a C 85-year-old male who presents with marked decline in neurologic status and MRI was obtained demonstrating severe stenosis L2-L3 subsequently elected to undergo urgent decompression fusion. Description of Procedure Patient met with identified informed consent obtained. Patient was then taken to the operative suite underwent a patient placed in a prone position the [place] table top Steven frame. All bony prominences well-padded eyes inspected to ensure no external pressure placed upon the. This point the lumbar spine was prepped and draped in a sterile fashion. Sharp dissection with the assistance of Bovie cautery from down to and exposing the lamina and transverse processes of L2 and L3. From caudal to cephalad fashion complete laminectomy of L2 partial laminectomy L1 was performed including bilateral medial facetectomies and foraminotomies addressing severe spinal stenosis. Pedicle screws then placed in L2 and L3 bilaterally with assistance of fluoroscopy and the proper sized obed placed. By way of a transforaminal approach and left pleat discectomy of L2-3 was performed. No noted no evidence of any purulence within the disc space. Cultures were obtained within the L2-L3 disc space. There is evidence of eroded inferior endplate of L2. These fragments were removed. I placed I factor and a 10 x 26 mm peek cage filled with more I factor within the disc base of L2-L3. The rods were then locked in final position bilaterally. The transverse processes of L2 and L3 burred to subcortical bleeding bone. Infuse collagen sponge master graft and local autograft was placed in the posterior gutters. 15 round NAYANA drain inserted. The incision was then closed with 1 Vicryl the fascia 2-0 Vicryl subcutaneously and 4 Monocryl for final skin closure. Steri-Strips dressings placed. Patient will continue PACU stable condition. Please note spinal cord monitoring was utilized at the procedure no changes noted. Lastly Jessica Garcia was present at the procedure involved in patient positioning complex portions of the surgery. I attest to the content of the Intraoperative Record and any orders documented therein. Any exceptions are noted below.
--- NOTE | 2020-11-29 15:35 | Fluoroscopy Report ---
FL lumbar spine 2-3V CLINICAL HISTORY: L2-3 DECOMPRESSION/FUSION/INTERBODY COMPARISON STUDY: Lumbar spine MRI November 28, 2020. FLUOROSCOPY TIME: 20 seconds. FLUOROSCOPIC IMAGES: 3 FINDINGS: Exact localization is difficult given partial visualization of the lumbar spine. These imag es demonstrate a discectomy with posterior decompression and bilateral pedicle screw fusion, likely a t the L2 and L3 levels. IMPRESSION: Fluoroscopy provided during L2-L3 discectomy, posterior decompression and bilateral pedi alicia screw fusion. ACT 112: Negative or not required by law. Electronically signed by: Terell Guardado M.D. 11/29/2020 3:34 PM
[2020-11-29] MEDS: fentaNYL citrate 100 MCG/2 ML VIAL IV PRN ×2 (15:47→15:50)
[2020-11-29] MEDS ORDERED: METOPROLOL TARTRATE 1 MG/ML VIAL IV ONE ×2 (15:51→16:02)
[2020-11-29] MEDS ORDERED: HYDROmorphone INJ 1 MG/ML SYRINGE ONE (15:52)
--- NOTE | 2020-11-29 15:57 | Electrocardiogram Report ---
Test Reason : Blood Pressure : / mmHG Vent. Rate : 149 BPM Atrial Rate : 149 BPM P-R Int : 172 ms QRS Dur : 084 ms QT Int : 256 ms P-R-T Axes : 000 015 268 degrees QTc Int : 403 ms Poor data quality, interpretation may be adversely affected Low right atrial tachycardia with Fusion complexes ST depression, consider subendocardial injury Nonspecific T wave abnormality Abnormal ECG When compared with ECG of 05-DEC-2012 07:48, Fusion complexes are now Present Vent. rate has increased BY [address] now depressed in Anterolateral leads Confirmed by Cristhian Harrison ([id number]) on 11/29/2020 3:57:36 PM Referred By: Caroline Damon Confirmed By:Cristhian Harrison
[2020-11-29] MEDS ORDERED: MEPERIDINE HCL 50 MG/ML CARP ONE (16:00)
--- NOTE | 2020-11-29 16:35 | Anesthesiology Progress Note ---
Date of Service November 29, 2020 Anesthesia Post Procedure Vital Signs Vital Signs: Temp Pulse Pulse Pulse Resp BP BP 11/29/20 16:30 67 12 11/29/20 16:20 67 15 11/29/20 16:10 70 12 11/29/20 16:03 81 134/72 11/29/20 16:00 104 H 17 11/29/20 15:53 131 H 178/132 H 11/29/20 15:50 131 H 29 H 11/29/20 15:40 119 H 21 11/29/20 15:31 36.1 C L 115 H 22 11/29/20 12:36 36.4 C L 64 18 122/49 L 11/29/20 07:23 36.5 C 72 18 11/29/20 04:03 36.6 C 68 18 110/57 L 11/28/20 23:21 36.8 C 74 18 131/57 L 11/28/20 20:36 36.8 C 74 18 134/64 11/28/20 17:10 36.7 C 74 18 BP Pulse Ox 11/29/20 16:30 123/59 L 98 11/29/20 16:20 111/58 L 98 11/29/20 16:10 111/52 L 94 11/29/20 16:03 11/29/20 16:00 143/75 H 98 11/29/20 15:53 11/29/20 15:50 180/92 H 98 11/29/20 15:40 157/117 H 100 11/29/20 15:31 92 11/29/20 12:36 99 11/29/20 07:23 138/73 98 11/29/20 04:03 99 11/28/20 23:21 97 11/28/20 20:36 100 11/28/20 17:10 116/51 L 97 Pain Intensity Lower Back: Pain Intensity: 7 Right Posterior Hip: Pain Intensity: 8 Transfer of Care Handoff Completed per policy Notes Mental Status: alert / awake / arousable and participated in evaluation Patient Amnestic to Procedure: Yes Nausea / Vomiting: adequately controlled Pain: adequately controlled Airway Patency, RR, SpO2: stable & adequate BP & HR: stable & adequate Hydration State: stable & adequate Anesthetic Complications: no major complications apparent
[2020-11-29] MEDS ORDERED: MEPERIDINE HCL 25 MG/ML CARP/VIAL IV ONE (16:49)
[2020-11-29] MEDS ORDERED: METOPROLOL TARTRATE 1 MG/ML VIAL IV PRN (16:50)
[2020-11-29] MEDS ORDERED: HYDROmorphone INJ 0.5 MG/0.5 ML SYR IV STA (16:51)
--- NOTE | 2020-11-29 16:56 | Anesthesiology Progress Note ---
Date of Service November 29, 2020 Anesthesia Post Procedure Vital Signs Vital Signs: Temp Pulse Pulse Pulse Resp BP BP 11/29/20 16:40 36.4 C L 69 12 11/29/20 16:30 67 12 11/29/20 16:20 67 15 11/29/20 16:10 70 12 11/29/20 16:03 81 134/72 11/29/20 16:00 104 H 17 11/29/20 15:53 131 H 178/132 H 11/29/20 15:50 131 H 29 H 11/29/20 15:40 119 H 21 11/29/20 15:31 36.1 C L 115 H 22 11/29/20 12:36 36.4 C L 64 18 122/49 L 11/29/20 07:23 36.5 C 72 18 11/29/20 04:03 36.6 C 68 18 110/57 L 11/28/20 23:21 36.8 C 74 18 131/57 L 11/28/20 20:36 36.8 C 74 18 134/64 11/28/20 17:10 36.7 C 74 18 BP Pulse Ox 11/29/20 16:40 114/58 L 97 11/29/20 16:30 123/59 L 98 11/29/20 16:20 111/58 L 98 11/29/20 16:10 111/52 L 94 11/29/20 16:03 11/29/20 16:00 143/75 H 98 11/29/20 15:53 11/29/20 15:50 180/92 H 98 11/29/20 15:40 157/117 H 100 11/29/20 15:31 92 11/29/20 12:36 99 11/29/20 07:23 138/73 98 11/29/20 04:03 99 11/28/20 23:21 97 11/28/20 20:36 100 11/28/20 17:10 116/51 L 97 Pain Intensity Lower Back: Pain Intensity: 1 Right Posterior Hip: Pain Intensity: 2 Transfer of Care Handoff Completed per policy Notes Mental Status: alert / awake / arousable and see notes below Patient Amnestic to Procedure: Yes Nausea / Vomiting: adequately controlled Pain: adequately controlled and see Notes below Airway Patency, RR, SpO2: stable & adequate BP & HR: stable & adequate Hydration State: stable & adequate Anesthetic Complications: no major complications apparent and Pt Satisfied with anesthetic care Notes: The patient was noted to be sedated but arousable preoperatively. He answered questions when woken but would then close his eyes. He tolerated the surgery well and was extubated without incident. However upon arrival to the PACU, the patient was agitated and trying to get out of bed. Several nurses had to hold him down to prevent him from getting out of the bed. He shouted "let me go" as well as several profanities. He was able to state his name when asked. The patient was given metoprolol for tachycardia as well as Diluadid and Demerol for pain control. He calmed down and is now resting comfortably. His vital signs are stable. He will have continuos pulse oximetry on the floor.
[2020-11-29] MEDS ORDERED: HALOPERIDOL LACTATE 5 MG/ML 1 ML VIAL IM STA (17:42)
[2020-11-29] MEDS ORDERED: HALOPERIDOL LACTATE 5 MG/ML 1 ML VIAL ONE (17:44)
[2020-11-29] MEDS ORDERED: DO NOT ADMINISTER FLU VACCINE PRN (18:00)
[2020-11-29] MEDS ORDERED: diphenhydrAMINE Capsule 25 MG CAP PO PRN (18:00)
[2020-11-29] MEDS ORDERED: ONDANSETRON 4 MG OD TAB PO PRN (18:00)
[2020-11-29] MEDS ORDERED: LORazepam 0.5 MG/1 ML VIAL IV PRN (18:00)
[2020-11-29] MEDS ORDERED: PROMETHAZINE HCL 12.5 MG in SODIUM CHLORIDE 0.9% 50 ML IV PRN (18:00)
[2020-11-29] MEDS ORDERED: DO NOT ADMINISTER PNEUMOCOCCAL VACCINE PRN (18:00)
[2020-11-29] MEDS ORDERED: HYDROmorphone INJ 0.5 MG/0.5 ML SYR IV PRN (18:00)
[2020-11-29] MEDS ORDERED: METOCLOPRAMIDE HCL INJ 5 MG/ML 2 ML VIAL IV PRN (18:00)
[2020-11-29] MEDS ORDERED: FAMOTIDINE 20 MG TAB PO PRN (18:00)
[2020-11-29] MEDS ORDERED: hydrOXYzine HCl 25 MG TAB PO PRN (18:00)
[2020-11-29] MEDS ORDERED: MAGNESIUM HYDROXIDE SUSP 30 ML UDC PO PRN (18:00)
[2020-11-29] MEDS ORDERED: LORazepam 0.5 MG TAB PO PRN (18:00)
[2020-11-29] MEDS ORDERED: NALOXONE HCL 0.4 MG/1 ML VIAL/CARP IV PRN (18:00)
[2020-11-29] MEDS ORDERED: ALUMINUM/MAGNESIUM SUSP 30 ML UDC PO PRN (18:00)
[2020-11-29] MEDS ORDERED: HYDROmorphone INJ 1 MG/ML SYRINGE IV PRN (18:00)
[2020-11-29] MEDS ORDERED: SOD PHOSPHATE/SOD BIPHOSPHATE ENEMA 132 ML BTL PR PRN (18:00)
[2020-11-29] MEDS: SODIUM CHLORIDE 0.9% 1000ML 1,000 ML IV SCH (19:07)
[2020-11-29] MEDS: ACETAMINOPHEN 1,000 MG/100 ML VIAL IV PRN ×2 (21:24→21:33)
[2020-11-29] MEDS: traMADol HCL 50 MG TABLET PO PRN (21:33)
[2020-11-29] MEDS: DOCUSATE SODIUM/SENNA 50/8.6MG TAB PO SCH (21:34)
[2020-11-29] MEDS: ceFAZolin 2000MG 2,000 MG/15 ML SYR IV SCH (21:35)
[2020-11-30] MEDS ORDERED: Nursing to Pharmacy Communication SCH (04:30)
[2020-11-30] MEDS: SODIUM CHLORIDE 0.9% 1000ML 1,000 ML IV SCH (04:48)
[2020-11-30] MEDS: POLYETHYLENE (MIRALAX) 17 GM PACK PO SCH ×3 (05:32→17:52)
[2020-11-30] MEDS: ceFAZolin 2000MG 2,000 MG/15 ML SYR IV SCH (05:34)
[2020-11-30 06:11] LABS: Basophils # (auto) 0.01 K/uL (0-0.2); Basophils % (auto) 0.1 %; Hematocrit (blood only) 32.2 % (42-52); Hemoglobin 10.6 g/dL (14.0-18.0); Immature Granulocytes # (auto) 0.11 K/uL (0.00-0.02); Immature Granulocytes % (auto) 1.2 %; Lymphocytes # (auto) 0.73 K/uL (1.2-3.4); Lymphocytes % (auto) 7.9 %; Mean Corpuscular Hgb Conc 32.9 g/dL (32-36); Mean Corpuscular Volume 88.2 fL (80-100); Mean Platelet Volume 9.2 fL (7.4-10.4); Monocytes % (auto) 15.2 %; Neutrophils # (auto) 6.95 K/uL (1.4-6.5); Neutrophils % (auto) 75.6 %; Platelet Count 227 K/uL (130-400); RDW Coefficient of Variation 13.6 % (11.5-14.5); RDW Standard Deviation 43.7 fL (36.4-46.3); Red Blood Count 3.65 M/uL (4.7-6.1)
[2020-11-30 06:31] LABS: BUN Creatinine Ratio 23.2 (10-20); Calcium 8.5 mg/dl (8.5-10.1); Creatinine Clr Calc Pharmacy 53.8 ml/min; Est GFR (African American) 76.6 ml/min; Est GFR (Non-African American) 66.1 ml/min; Potassium 4.6 mmol/L (3.5-5.1)
[2020-11-30] MEDS: DOCUSATE SODIUM 100 MG CAP PO SCH ×2 (08:37→20:25)
[2020-11-30] MEDS: CYANOCOBALAMIN 500 MCG TABLET (VITAMIN B-12) PO SCH (08:37)
[2020-11-30] MEDS: MAGNESIUM OXIDE 400 MG TAB PO SCH (08:37)
[2020-11-30] MEDS: ATORVASTATIN 10 MG TAB PO SCH (08:37)
[2020-11-30] MEDS: TAMSULOSIN HCL 0.4 MG CAP PO SCH ×2 (08:37→20:25)
[2020-11-30] MEDS: PANTOprazole 40 MG TAB PO SCH (08:37)
[2020-11-30] MEDS: CHOLECALCIFEROL 1,000 UNITS 25 MCG TAB PO SCH (08:38)
[2020-11-30] MEDS: LIDOCAINE 5% 1 PATCH TD SCH ×2 (08:38→08:46)
[2020-11-30] MEDS: INSULIN ASPART 100 UNITS/ML 3 ML PEN SC SCH ×4 (08:40→20:53)
--- NOTE | 2020-11-30 09:31 | Hospitalist Progress Note ---
Date of Service November 30, 2020 Assessment & Plan (1) Neurogenic claudication due to lumbar spinal stenosis: Mr. Onofre is an 85 year old male with a history of Type 2 DM, Hypertension, Dyslipidemia, and Lumbar Spinal Stenosis who is now POD#1 from L2-L3 Decompression and Fusion. Following his surgery yesterday, patient became quite agitated and this was likely the result of medications, anesthesia, postoperative state, and his underlying vascular dementia. Fentanyl patch was discontinued, and several other medications which can cause [employer] side effects were discontinued as well. Patient received a dose of IM Haldol 2.5 mg yesterday and took oral Haldol 5 mg at bedtime. He states that he slept off and on overnight, but is feeling well today. -- Patient has improved strength and use of bilateral legs. -- Surgical pain is controlled currently. -- Tramadol first-line agent to treat surgical pain due to patient being agitated post-operatively -- Patient is agreeable to [facility] following this surgery/hospitalization. -- Case management is involved with this patient. (2) Ambulatory dysfunction: -- As outlined above. -- This should improve following spine surgery considering that his RLE strength has improved. (3) Hypotension: -- Resolved after Dilaudid was discontinued. (4) Hypertension: Blood pressure is controlled. -- Continue Lisinopril 2.5 daily. (5) Type 2 diabetes mellitus: -- Continue Insulin as ordered. -- Metformin is currently on hold. -- Continue to monitor blood sugars. Admission and Anticipated Discharge Date Admission Date: November 22, 2020 Supervising Physician Co-Signing Physician Notes Attending Attestation - Chart reviewed in detail, care plan d/w VITALY Carreno. I agree w/ the perkins components of his documentation. Notable additions - Mild acute blood loss anemia - 1.5gm drop from yesterday am. Trend. Hyperglycemia - likely 2nd to perioperative decadron and stress of surgery. Add lantus 10 units BID. Tighten novolog correction & carb coverage. Post-op toxic encephalopathy much improved today by report. Vitals/labs acceptable today. Avni Zhou MD Subjective Mr. Neely is now POD#1 from lumbar decompression and fusion. Following his surgery yesterday, patient became quite agitated and this was likely the result of medications, anesthesia, postoperative state, and his underlying vascular dementia. Fentanyl patch was discontinued, and several other medications which can cause [employer] side effects were discontinued as well. Patient received a dose of IM Haldol 2.5 mg yesterday and took oral Haldol 5 mg at bedtime. He states that he slept off and on overnight, but is feeling well today. He does recall being agitated following surgery yesterday. At this point, the patient is looking forward to going home. Patient is able to move his legs, and his right leg is not nearly as weak as it was. Patient denies any fecal incontinence. He does have a Crowley catheter in place. Review of Systems Review of Systems: All systems reviewed & are unremarkable except as noted in Subjective Physical Exam Physical Exam: GENERAL: Patient is sitting at the bedside. HEENT: Head is atraumatic, normocephalic. EOM's intact. Facies symmetric. No perioral cyanosis. NECK: No JVD. JVP is not elevated. CHEST/LUNGS: Clear to auscultation throughout all lung pham. No wheezes, rales, or crackles. CVS: S1 and S2 are regular without obvious murmurs, gallops, or rubs. PMI is nondisplaced. No lifts, heaves, or thrills. No abdominal aortic or renal bruits. ABDOMINAL EXAM: Bowel sounds are present. No masses, organomegaly, or tenderness. EXTREMITIES: No clubbing or cyanosis. No edema. Intact radial pulses bilaterally. NEUROLOGIC EXAM: Patient is awake, alert, and interactive. Answers questions appropriately. Affect is at baseline. Speech is clear. Normal movement in bilateral lower extremities. Surgical incision is dressed. Surgical drain in place with approximately 10 cc of bloody fluid. Results & Data Results & Data ([facility]) Vital Signs (Past 12 Hours) Vital Signs Temp Pulse Pulse Resp BP Pulse Ox 11/30/20 08:10 89 117/64 98 11/30/20 07:35 36.8 C 87 15 93/49 L 96 11/30/20 03:15 36.5 C 87 18 160/67 H 95 11/29/20 21:40 36.6 C 71 16 166/83 H 99 Laboratory Results Laboratory Results - last 24 hr 11/29/20 11/29/20 11/29/20 10:35 10:35 12:13 WBC RBC Hgb Hct MCV MCH MCHC RDW Std Deviation RDW Coeff of Addis Plt Count MPV Immature Gran % (Auto) Neut % (Auto) Lymph % (Auto) Cowley % (Auto) Eos % (Auto) Baso % (Auto) Neut # (Auto) Lymph # (Auto) Cowley # (Auto) Eos # (Auto) Baso # (Auto) Immature Gran # (Auto) Sodium Potassium Chloride Carbon Dioxide Anion Gap BUN Creatinine Est Cr Clr Drug Dosing Est GFR ( Amer) Est GFR (Non-Af Amer) BUN/Creatinine Ratio Glucose POC Glucose 116 H Calcium COVID-19 Eval Order Covid19 at [facility] SARS-CoV-2 (PCR) NEGATIVE 11/29/20 11/29/20 11/29/20 14:34 16:30 19:12 WBC RBC Hgb Hct MCV MCH MCHC RDW Std Deviation RDW Coeff of Addis Plt Count MPV Immature Gran % (Auto) Neut % (Auto) Lymph % (Auto) Cowley % (Auto) Eos % (Auto) Baso % (Auto) Neut # (Auto) Lymph # (Auto) Cowley # (Auto) Eos # (Auto) Baso # (Auto) Immature Gran # (Auto) Sodium Potassium Chloride Carbon Dioxide Anion Gap BUN Creatinine Est Cr Clr Drug Dosing Est GFR ( Amer) Est GFR (Non-Af Amer) BUN/Creatinine Ratio Glucose POC Glucose 117 H 155 H 209 H Calcium COVID-19 Eval Order SARS-CoV-2 (PCR) 11/29/20 11/30/20 11/30/20 20:31 05:46 05:46 WBC 9.20 RBC 3.65 L Hgb 10.6 L Hct 32.2 L MCV 88.2 MCH 29.0 MCHC 32.9 RDW Std Deviation 43.7 RDW Coeff of Addis 13.6 Plt Count 227 MPV 9.2 Immature Gran % (Auto) 1.2 Neut % (Auto) 75.6 Lymph % (Auto) 7.9 Cowley % (Auto) 15.2 Eos % (Auto) 0.0 Baso % (Auto) 0.1 Neut # (Auto) 6.95 H Lymph # (Auto) 0.73 L Cowley # (Auto) 1.40 H Eos # (Auto) 0.00 Baso # (Auto) 0.01 Immature Gran # (Auto) 0.11 H Sodium 131 L Potassium 4.6 Chloride 100 Carbon Dioxide 29 Anion Gap 2.0 L BUN 24 H Creatinine 1.04 Est Cr Clr Drug Dosing 53.8 Est GFR ( Amer) 76.6 Est GFR (Non-Af Amer) 66.1 BUN/Creatinine Ratio 23.2 H Glucose 227 H POC Glucose 199 H Calcium 8.5 COVID-19 Eval Order SARS-CoV-2 (PCR) 11/30/20 08:02 WBC RBC Hgb Hct MCV MCH MCHC RDW Std Deviation RDW Coeff of Addis Plt Count MPV Immature Gran % (Auto) Neut % (Auto) Lymph % (Auto) Cowley % (Auto) Eos % (Auto) Baso % (Auto) Neut # (Auto) Lymph # (Auto) Cowley # (Auto) Eos # (Auto) Baso # (Auto) Immature Gran # (Auto) Sodium Potassium Chloride Carbon Dioxide Anion Gap BUN Creatinine Est Cr Clr Drug Dosing Est GFR ( Amer) Est GFR (Non-Af Amer) BUN/Creatinine Ratio Glucose POC Glucose 265 H Calcium COVID-19 Eval Order SARS-CoV-2 (PCR) Diagnostic Findings FLUOROSCOPY L-SPINE 11/29/20: -- Exact localization is difficult given partial visualization of the lumbar spine. -- These images demonstrate a discectomy with posterior decompression and bilateral pedicle screw fusion, likely at the L2 and L3 levels. IMPRESSION: -- Fluoroscopy provided during L2-L3 discectomy, posterior decompression and bilateral pedicle screw fusion. Medications Administered Medications blood-glucose meter #1 ea 06/11/19 [Rx Confirmed 11/21/20] tamsulosin 0.4 mg capsule 0.4 mg PO BID cap 02/09/20 [History Confirmed 11/22/20] atorvastatin 10 mg tablet 10 mg PO DAILY #90 tab 04/14/20 [Rx Confirmed 11/22/20] lancets 33 gauge #100 ea 04/21/20 [Rx Confirmed 11/21/20] metformin 1,000 mg tablet 1,000 mg PO BID #180 tab 07/06/20 [Rx Confirmed 11/22/20] blood-glucose meter #1 ea 07/26/20 [Rx Confirmed 11/21/20] cholecalciferol (vitamin D3) 50 mcg (2,000 unit) tablet 2,000 unit PO DAILY tab 07/26/20 [History Confirmed 11/22/20] omeprazole 20 mg capsule,delayed release 20 mg PO DAILY #90 cap 08/17/20 [Rx Confirmed 11/22/20] cyanocobalamin (vitamin B-12) 1,000 mcg tablet 1,000 mcg PO DAILY #90 tab 09/05/20 [Rx Confirmed 11/22/20] pen needle, diabetic 32 gauge x 32" #100 ea 11/01/20 [Rx Confirmed 11/21/20] lisinopril 2.5 mg tablet 2.5 mg PO DAILY #90 tab 11/16/20 [Rx Confirmed 11/22/20] insulin glargine [Basaglar KwikPen U-100 Insulin] 30 unit SQ DAILY 11/22/20 [History Confirmed 11/22/20] miscellaneous medical supply #1 ea 11/23/20 [Rx Confirmed 11/23/20] Home Medications Acetaminophen (Acetaminophen 500 Mg Tab) 1,000 mg PO Q8H PRN PRN Reason: MILD Pain Scale 1,2,3 & Pre PT Stop: 12/29/20 17:59 Al Hydrox/Mg Hydrox/Simethicone (Aluminum/Magnesium Susp 30 Ml Udc) 30 ml PO Q6H PRN PRN Reason: Dyspepsia Stop: 12/29/20 17:59 Atorvastatin Calcium (Atorvastatin 10 Mg Tab) 10 mg PO DAILY ROCKY Stop: 12/23/20 08:59 Last Admin: 11/30/20 08:37 Dose: 10 mg Documented by: Bisacodyl (Bisacodyl 10 Mg Supp) 10 mg IL DAILY PRN PRN Reason: Constipation Stop: 12/31/20 07:59 Calamine/Phenol (Menthol-Zinc Oxide 360 Appln/120 Gm Tube) 1 appln EXT UD ROCKY Stop: 12/25/20 12:59 Last Admin: 11/27/20 08:43 Dose: 1 appln Documented by: Cyanocobalamin (Cyanocobalamin 500 Mcg Tablet (Vitamin B-12)) 1,000 mcg PO DAILY ROCKY Stop: 12/23/20 08:59 Last Admin: 11/30/20 08:37 Dose: 1,000 mcg Documented by: Dextrose (Dextrose 50% 50 Ml Syringe) 25 - 50 ml IV UD PRN; Protocol PRN Reason: Hypoglycemia Protocol Stop: 12/23/20 00:12 Docusate Sodium (Docusate Sodium 100 Mg Cap) 100 mg PO BID ROCKY Stop: 12/27/20 20:59 Last Admin: 11/30/20 08:37 Dose: 100 mg Documented by: Famotidine (Famotidine 20 Mg Tab) 20 mg PO Q12H PRN PRN Reason: Dyspepsia Stop: 12/29/20 17:59 Glucagon (Glucagon For Inj 1 Mg Vial) 1 mg SQ UD PRN; Protocol PRN Reason: Hypoglycemia Protocol Stop: 12/23/20 00:12 Glucose (Glucose 10 Tabs/Tube) 4 - 8 tabs PO UD PRN; Protocol PRN Reason: Hypoglycemia Protocol Stop: 12/23/20 00:12 Glucose (Glucose 40% Gel 15 Gm Tube) 15 - 30 gm PO UD PRN; Protocol PRN Reason: Hypoglycemia Protocol Stop: 12/23/20 00:12 Haloperidol (Haloperidol 1 Mg Tab) 1 mg PO HS PRN PRN Reason: delirium/agitation Stop: 12/29/20 20:55 Hydromorphone HCl (Hydromorphone Inj 0.5 Mg/0.5 Ml Syr) 0.5 mg IV Q3H PRN PRN Reason: MOD pain (scale 4-6) & Pre PT Stop: 12/13/20 17:59 Hydromorphone HCl (Hydromorphone Inj 1 Mg/Ml Syringe) 1 mg IV Q3H PRN PRN Reason: severe pain (scale 7-10) Stop: 12/13/20 17:59 Acetaminophen (Ofirmev) 1,000 mg in 100 mls @ 400 mls/hr IV Q8H PRN PRN Reason: Pain Rating 1-3 & Pre PT Stop: 11/30/20 15:21 Last Infusion: 11/29/20 22:02 Dose: Infused Documented by: Influenza Virus Vaccine Quadrival (Do Not Administer Flu Vaccine) 1 ea N/A PRN PRN PRN Reason: Notification Stop: 12/29/20 17:59 Insulin Aspart (Insulin Aspart 100 Units/Ml 3 Ml Pen) 0 units SC ACHS [facility] Stop: 12/29/20 20:59 Last Admin: 11/30/20 08:40 Dose: 5 units Documented by: Lidocaine (Lidocaine 5% 1 Patch) 1 patch TD QAM [facility] Stop: 12/23/20 08:59 Last Admin: 11/30/20 08:46 Dose: Not Given Documented by: Magnesium Hydroxide (Magnesium Hydroxide Susp 30 Ml Udc) 30 ml PO Q24H PRN PRN Reason: Constipation Stop: 12/29/20 17:59 Magnesium Oxide (Magnesium Oxide 400 Mg Tab) 400 mg PO QAM [facility] Stop: 12/23/20 12:59 Last Admin: 11/30/20 08:37 Dose: 400 mg Documented by: Metformin HCl (Metformin Hcl 500 Mg Tab) 1,000 mg PO BIDM [facility] Stop: 12/23/20 16:59 Last Admin: 11/29/20 18:44 Dose: Not Given Documented by: Miscellaneous (Carbohydrates For Hypoglycemia ) 15 - 30 gm PO UD PRN PRN Reason: Hypoglycemia Protocol Stop: 12/23/20 00:12 Miscellaneous (Remove Lidoderm Patch) 1 ea N/A DAILY@2100 [facility] Stop: 12/23/20 20:59 Last Admin: 11/29/20 21:34 Dose: 1 ea Documented by: Naloxone HCl (Naloxone Hcl 0.4 Mg/1 Ml Vial/Carp) 0.1 mg IV Q5M PRN PRN Reason: Oversedation/respiratory dep Stop: 12/29/20 17:59 Ondansetron HCl (Ondansetron Inj 2 Mg/Ml 2 Ml Vial) 4 mg IV Q6H PRN PRN Reason: Nausea &/or Vomiting Stop: 12/29/20 17:59 Ondansetron HCl (Ondansetron 4 Mg Od Tab) 4 mg PO Q6H PRN PRN Reason: Nausea Stop: 12/29/20 17:59 Oxycodone HCl (Oxycodone Hcl Ir 5 Mg Tab (Immediate Release)) 5 - 10 mg PO Q4H PRN PRN Reason: Pain & Pre PT Stop: 12/13/20 17:59 Pantoprazole Sodium (Pantoprazole 40 Mg Tab) 40 mg PO DAILY [facility] Stop: 12/23/20 08:59 Last Admin: 11/30/20 08:37 Dose: 40 mg Documented by: Pneumococcal Polyvalent Vaccine (Do Not Administer Pneumococcal Vaccine) 1 ea N/A PRN PRN PRN Reason: Notification Stop: 12/29/20 17:59 Polyethylene Glycol (Polyethylene (Miralax) 17 Gm Pack) 17 gm PO Q6 ROCKY Stop: 12/30/20 05:59 Last Admin: 11/30/20 05:32 Dose: 17 gm Documented by: Senna/Docusate Sodium (Docusate Sodium/Senna 50/8.6mg Tab) 2 tab PO HS ROCKY Stop: 12/29/20 20:59 Last Admin: 11/29/20 21:34 Dose: 2 tab Documented by: Sodium Biphosphate/Sodium Phosphate (Sod Phosphate/Sod Biphosphate Enema 132 Ml Btl) 132 ml IL ONE PRN PRN Reason: Constipation Stop: 12/29/20 17:59 Tamsulosin HCl (Tamsulosin Hcl 0.4 Mg Cap) 0.4 mg PO BID ROCKY Stop: 12/23/20 00:12 Last Admin: 11/30/20 08:37 Dose: 0.4 mg Documented by: Tramadol HCl (Tramadol Hcl 50 Mg Tablet) 50 - 100 mg PO Q4H PRN PRN Reason: Moderate-Severe pain & Pre PT Stop: 12/29/20 17:59 Last Admin: 11/29/20 21:33 Dose: 100 mg Documented by: Vitamin D (Cholecalciferol 1,000 Units 25 Mcg Tab) 2,000 units PO DAILY ROCKY Stop: 12/23/20 08:59 Last Admin: 11/30/20 08:38 Dose: 2,000 units Documented by: PG Care Time/CCT Total # of Minutes Spent Total Time Spent with Patient: Total time spent is greater than 50% in coordination of care (as documented) at patient's floor/unit and/or counseling patient:25 Coding Level of Care Code 07335 Subseq [facility] 3 Diagnoses Neurogenic claudication due to lumbar spinal stenosis M48.062 Ambulatory dysfunction R26.2 Hypotension I95.2 Hypotension type: hypotension due to drug Hypertension I10 Hypertension type: essential hypertension Type 2 diabetes mellitus E11.9 Time Spent (min) 30 (1) Hypertension Hypertension type: essential hypertension Qualified Code(s): I10 - Essential (primary) hypertension (2) Hypotension Hypotension type: hypotension due to drug Qualified Code(s): I95.2 - Hypotension due to drugs
--- NOTE | 2020-11-30 10:17 | Orthopedic Progress Note ---
Date of Service November 30, 2020 Assessment & Plan (1) Neurogenic claudication due to lumbar spinal stenosis: Admission and Anticipated Discharge Date Admission Date: November 22, 2020 We will initiate physical therapy today monitor his NAYANA output hopefully discharge to rehab in the next few days. Subjective Patient denies any still significant back or leg pain. Physical Exam Physical Exam: On physical exam he is sitting up at the side of the bed. He has continued deficits to quadricep strength bilaterally perhaps a bit improved today. He has not yet ambulated. Results & Data ([facility]) Vital Signs (Past 12 Hours) Vital Signs Temp Pulse Pulse Resp BP Pulse Ox 11/30/20 08:10 89 117/64 98 11/30/20 07:35 36.8 C 87 15 93/49 L 96 11/30/20 03:15 36.5 C 87 18 160/67 H 95
[2020-11-30] MEDS: traMADol HCL 50 MG TABLET PO PRN (18:14)
[2020-11-30] MEDS: DOCUSATE SODIUM/SENNA 50/8.6MG TAB PO SCH (20:24)
[2020-11-30] MEDS: INSULIN GLARGINE SOLOSTAR 100 UNITS/ML 3 ML PEN SC SCH (20:54)
[2020-12-01] MEDS: POLYETHYLENE (MIRALAX) 17 GM PACK PO SCH ×5 (00:10→23:07)
[2020-12-01] MEDS: haloperidoL 1 MG TAB PO PRN (03:29)
[2020-12-01] MEDS ORDERED: bisacodyL 10 MG SUPP PR PRN (08:00)
--- NOTE | 2020-12-01 08:26 | Orthopedic Progress Note ---
Date of Service December 01, 2020 Assessment & Plan (1) Neurogenic claudication due to lumbar spinal stenosis: Patient will continue with physical therapy. Continue with pain control. He is orthopedically stable for discharge to [facility] when medically stable. Admission and Anticipated Discharge Date Admission Date: November 22, 2020 Supervising Physician Co-Signing Physician Notes Dr. Garrett Connolly Subjective Patient is postoperative day two TLIF of L2-3. He is a bit combative this morning. He removed part of his NAYANA drain with a pair of nail clippers. Nurse remove the rest of the tubing without incident. He states he has no lower extremity pain. Has modest back pain. Yesterday in physical therapy he was ambulating roughly 8 feet. Review of Systems Review of Systems: All systems reviewed & are unremarkable except as noted in HPI & below Physical Exam Physical Exam: Sitting on the edge of the bed in no acute distress Dressing is clean, dry, intact Results & Data ([facility]) Vital Signs (Past 12 Hours) Vital Signs Temp Pulse Resp BP Pulse Ox 11/30/20 22:54 36.7 C 90 16 103/57 L 97
--- NOTE | 2020-12-01 09:03 | Electrocardiogram Report ---
Test Reason : Blood Pressure : / mmHG Vent. Rate : 076 BPM Atrial Rate : 076 BPM P-R Int : 156 ms QRS Dur : 094 ms QT Int : 390 ms P-R-T Axes : 035 027 003 degrees QTc Int : 438 ms Poor data quality, interpretation may be adversely affected Normal sinus rhythm Normal ECG When compared with ECG of 28-NOV-2020 13:26, (unconfirmed) Fusion complexes are no longer Present Vent. rate has decreased BY [address] less depressed in Anterior leads Nonspecific T wave abnormality no longer evident in Lateral leads Confirmed by Cristhian Harrison ([id number]) on 12/01/2020 9:02:46 AM Referred By: Caroline Damon Confirmed By:Cristhian Harrison
[2020-12-01] MEDS: INSULIN ASPART 100 UNITS/ML 3 ML PEN SC SCH ×4 (09:49→20:57)
[2020-12-01] MEDS: INSULIN GLARGINE SOLOSTAR 100 UNITS/ML 3 ML PEN SC SCH ×2 (09:50→20:57)
[2020-12-01] MEDS: CYANOCOBALAMIN 500 MCG TABLET (VITAMIN B-12) PO SCH (09:57)
[2020-12-01] MEDS: DOCUSATE SODIUM 100 MG CAP PO SCH ×2 (09:57→20:39)
[2020-12-01] MEDS: TAMSULOSIN HCL 0.4 MG CAP PO SCH ×2 (09:58→20:38)
[2020-12-01] MEDS: PANTOprazole 40 MG TAB PO SCH (09:58)
[2020-12-01] MEDS: CHOLECALCIFEROL 1,000 UNITS 25 MCG TAB PO SCH (09:58)
[2020-12-01] MEDS: ATORVASTATIN 10 MG TAB PO SCH (09:59)
[2020-12-01] MEDS: LIDOCAINE 5% 1 PATCH TD SCH (09:59)
[2020-12-01] MEDS: MAGNESIUM OXIDE 400 MG TAB PO SCH (09:59)
[2020-12-01] MEDS: ACETAMINOPHEN 500 MG TAB PO PRN (11:36)
[2020-12-01] MEDS: DOCUSATE SODIUM/SENNA 50/8.6MG TAB PO SCH (20:38)
--- NOTE | 2020-12-01 23:01 | Hospitalist Progress Note ---
Date of Service December 01, 2020 Assessment & Plan (1) Neurogenic claudication due to lumbar spinal stenosis: POD #2 s/p -- #1 lumbar decompression with bilateral medial facetectomies and foraminotomies L1-2 and L2-3. #2 posterior spinal fusion L2-3. #3 placement posterior instrumentation L2-3. #4 interbody fusion L2-3. #5 placement of peek cage 10 x 26 mm at L2-3. #6 placement locally harvested morselized autograft in the posterior gutters. #7 placement infuse collagen sponge bone mass graft in the posterior lateral gutters and I factor in the interbody space. Performed by Dr John Connolly. By report his LE weakness has improved following his surgery. Patient's post-op course complicated by severe encephalopathy (toxic & metabolic, hyperglycemia, constipation). (2) Ambulatory dysfunction: 2nd to severe lumbar spinal stenosis s/p surgical intervention, POD #2. Check B12 level to be complete. PT, OT. Needs rehab following this admission. (3) Hypertension: Cont to hold lisinopril. Flomax BID is for BPH. (4) Type 2 diabetes mellitus: Most recent Hb A1c was 7%. Metformin on hold. BSGs have been high and labile - suspect 2nd to perioperative stress, perioperative steroids, etc. Increase lantus to 15 units BID. Adjust novolog. (5) Encephalopathy acute: Started in the PACU post-surgery. Toxic from anesthesia, pain meds, etc. Patient, however, with ongoing delirium - much worse at night. Check B12 level in am. TSH level wnl. Consider u/a - r/o UTI. Haldol 1mg po hs prn. Agents that can make delirium worse such as benzos, anti-histamines, etc all d/c earlier this week. Will stop IV dilaudid 1mg dose. Ok with 0.5 mg dose prn. Would d/c oxycodone - this can make delirium worse. Would d/c tramadol. (6) GERD without esophagitis: Cont PPI once daily. (7) BPH associated with nocturia: Crowley now out. Remains on flomax BID. Prior h/o prostate cancer. (8) Snoring: Suspected NNEKA. Start NC O2 2 liters at HS. (9) Acute blood loss anemia: 1.5gm drop post-back surgery. repeat CBC am for stability. (10) Hyponatremia: repeat BMP am Admission and Anticipated Discharge Date Admission Date: November 22, 2020 Subjective patient resting in bed during my visit. he had just finished his meal - ate about 50% per staff. sitter at bedside. sitter states that he had mainly been fairly calm during the afternoon. falls asleep easily. during sleep he snores and has apneas. easily arousable. he stated he was in the hospital "because of my back - I had surgery" and could tell me what he had done for a living (lived and worked in [place], [place]), where he lives currently ([place]), etc. staff report, however, that he had severe sundowning last night. haldol 1mg po x 1 was given for such. patient had large BM earlier today. Review of Systems Respiratory: no cough and no dyspnea Cardiovascular: no chest pain Gastrointestinal: no abdominal pain, no nausea and no vomiting Musculoskeletal: + back pain Neurologic: + localized weakness (legs -- but improved ) Physical Exam Constitutional: + altered mental status (mild); no acute distress ENMT: external ear and nose normal, oropharynx normal Respiratory: normal respiratory effort, lungs clear to auscultation Cardiovascular: Rate/Rhythm: regular rate and regular rhythm Heart Sounds: normal S1 and normal S2; no murmur Vessels: posterior tibial pulses present and dorsalis pedis pulses present; no JVD Extremities: + edema (trace b/l ) Gastrointestinal (Abdomen): normal bowel sounds, soft, nontender, no hepatosplenomegaly Inspection/Auscultation: + abdomen distended (mild) Skin: + pallor Neurologic: strength about 4/5 b/l legs Psychiatric: Orientation: alert, oriented to person and oriented to place; + not oriented to time Results & Data Results & Data ([facility]) Vital Signs (Past 12 Hours) Vital Signs Temp Pulse Pulse Resp BP Pulse Ox 12/01/20 22:34 36.8 C 92 H 16 106/64 97 12/01/20 19:00 36.7 C 81 16 138/66 99 12/01/20 15:05 36.7 C 92 H 22 145/62 H 100 Laboratory Results Laboratory Results - last 24 hr 12/01/20 12/01/20 12/01/20 08:13 12:07 17:11 POC Glucose 196 H 222 H 211 H 12/01/20 20:53 POC Glucose 254 H PG Care Time/CCT Total # of Minutes Spent Total Time Spent with Patient: Total time spent is greater than 50% in coordination of care (as documented) at patient's floor/unit and/or counseling patient: Coding Level of Care Code 46162 Subseq Hosp Care Lvl 3 Diagnoses Neurogenic claudication due to lumbar spinal stenosis M48.062 Ambulatory dysfunction R26.2 Hypertension I10 Hypertension type: essential hypertension Type 2 diabetes mellitus E11.9 Encephalopathy acute G93.40 GERD without esophagitis K21.9 BPH associated with nocturia N40.1; R35.1 Snoring R06.83 Acute blood loss anemia D62 Hyponatremia E87.1 (1) Hypertension Hypertension type: essential hypertension Qualified Code(s): I10 - Essential (primary) hypertension
[2020-12-01] MEDS ORDERED: HYDROCODONE/ACETAMOPHEN 5/325MG TAB PO PRN (23:07)
--- NOTE | 2020-12-02 01:11 | Communication Note ---
Date of Service: December 02, 2020 Night team was paged by nursing regarding a swollen area to the right of patient's incision. Nurse reported no prior documentation of this mass. Patient was delirious and unable to provide any meaningful history - although he did report tenderness when it was palpated. The overlying erythema is thought to be from a previously placed topical lidocaine patch; it was not warm to the touch. The area is 12cm in diameter. I suspect this is a lipoma, but if it is in fact new (ie appearing after surgical procedure) there could be concern for a communication between mass and central spinal canal -- ie a collective of spinal fluid. I will hold off on ordering any imaging at this time - I recommend this be revisited with Dr. Connolly in the morning.
[2020-12-02] MEDS: POLYETHYLENE (MIRALAX) 17 GM PACK PO SCH ×3 (05:07→17:53)
[2020-12-02] MEDS: ACETAMINOPHEN 500 MG TAB PO PRN ×3 (05:13→19:58)
[2020-12-02 07:46] LABS: Hematocrit (blood only) 31.9 % (42-52); Hemoglobin 10.5 g/dL (14.0-18.0); Mean Corpuscular Hemoglobin 28.9 pg (25-34); Mean Corpuscular Hgb Conc 32.9 g/dL (32-36); Mean Corpuscular Volume 87.9 fL (80-100); Mean Platelet Volume 9.2 fL (7.4-10.4); Platelet Count 214 K/uL (130-400); RDW Coefficient of Variation 13.9 % (11.5-14.5); Red Blood Count 3.63 M/uL (4.7-6.1); White Blood Count 7.61 K/uL (4.8-10.8)
[2020-12-02 08:33] LABS: BUN Creatinine Ratio 20.2 (10-20); Creatinine Clr Calc Pharmacy 71.8 ml/min; Est GFR (African American) 96.7 ml/min; Est GFR (Non-African American) 83.5 ml/min; Magnesium 2.1 mg/dl (1.8-2.4); Potassium 4.2 mmol/L (3.5-5.1)
[2020-12-02] MEDS: PANTOprazole 40 MG TAB PO SCH (08:44)
[2020-12-02] MEDS: MAGNESIUM OXIDE 400 MG TAB PO SCH (08:44)
[2020-12-02] MEDS: TAMSULOSIN HCL 0.4 MG CAP PO SCH ×2 (08:44→19:59)
[2020-12-02] MEDS: CYANOCOBALAMIN 500 MCG TABLET (VITAMIN B-12) PO SCH (08:45)
[2020-12-02] MEDS: DOCUSATE SODIUM 100 MG CAP PO SCH ×2 (08:45→19:37)
[2020-12-02] MEDS: CHOLECALCIFEROL 1,000 UNITS 25 MCG TAB PO SCH (08:45)
[2020-12-02] MEDS: ATORVASTATIN 10 MG TAB PO SCH (08:46)
[2020-12-02] MEDS: LIDOCAINE 5% 1 PATCH TD SCH (08:47)
[2020-12-02] MEDS: INSULIN ASPART 100 UNITS/ML 3 ML PEN SC SCH ×4 (08:50→21:12)
[2020-12-02] MEDS ORDERED: INSULIN GLARGINE SOLOSTAR 100 UNITS/ML 3 ML PEN SC SCH (09:00)
[2020-12-02] MEDS: DOCUSATE SODIUM/SENNA 50/8.6MG TAB PO SCH (19:59)
--- NOTE | 2020-12-02 20:38 | Hospitalist Progress Note ---
Date of Service December 02, 2020 Assessment & Plan (1) Neurogenic claudication due to lumbar spinal stenosis: POD #3 s/p -- #1 lumbar decompression with bilateral medial facetectomies and foraminotomies L1-2 and L2-3. #2 posterior spinal fusion L2-3. #3 placement posterior instrumentation L2-3. #4 interbody fusion L2-3. #5 placement of peek cage 10 x 26 mm at L2-3. #6 placement locally harvested morselized autograft in the posterior gutters. #7 placement infuse collagen sponge bone mass graft in the posterior lateral gutters and I factor in the interbody space. Performed by Dr John Connolly. LE weakness has improved following his surgery. Patient's post-op course complicated by severe encephalopathy (toxic & metabolic, hyperglycemia, constipation all were factors). He continues with what sounds like neuropathic pain of legs. Will start gabapentin 100mg HS and titrate slowly as he is sensitive to meds (and given his recent severe encephalopathy). (2) Ambulatory dysfunction: 2nd to severe lumbar spinal stenosis s/p surgical intervention, POD #3. Leg weakness and walking are improving. Needs rehab to ensure full recovery. [facility] has accepted patient. B12 level wnl Continue PT, OT. (3) Encephalopathy acute: Started in the PACU post-surgery. Toxic from anesthesia, pain meds, steroids, etc. Had ongoing delirium - much worse at night - for the last 3 days. Finally improving with cutting back pain meds and other offending agents. AVOID benzos. Haldol 1mg HS prn. B12 level wnl. TSH wnl. No evidence of stroke process on examination. No evidence of an obvious infectious process. Have stopped all narcotics except norco prn. (4) Hypertension: Cont to hold lisinopril. Flomax BID is for BPH. (5) Type 2 diabetes mellitus: Most recent Hb A1c was 7%. Metformin on hold. BSGs have been high and labile - suspect 2nd to perioperative stress, perioperative steroids, etc. Now improved. Lower lantus to 12 units BID. Adjust novolog. (6) GERD without esophagitis: Cont PPI once daily. (7) BPH associated with nocturia: Crowley now out. Remains on flomax BID. Prior h/o prostate cancer. Voiding fine. (8) Snoring: Suspected NNEKA. He has had numerous episodes of witnessed apnea with sleeping. Started NC O2 2 liters at HS. Needs formal sleep study post-d/c. suspect this is long-standing. (9) Acute blood loss anemia: 1.5gm drop post-back surgery. CBC today acceptable. (10) Hyponatremia: pt appears euvolemic on exam. mild SIADH / reset osmostat post-surgery? would not hydrate at this time. serial BMPs. if any worsening - check serum osm, urine osm, urine Na. (11) Constipation: resolved cut back miralax to bid dosing (was on q6h) stop colace cont senna (12) Pancreatic lesion: seen on prior imaging needs repeat imaging studies this FALL (13) DVT prophylaxis: scds are we far out enough from surgery to start chemical DVT proph? daughter updated extensively by phone this evening Admission and Anticipated Discharge Date Admission Date: November 22, 2020 Subjective patient had better night last night was taken off 1:1 observation by a sitter this am as he has been alert, oriented, cooperative, and not agitated during my visit he was sitting in the chair answered all orientation questions correctly remote and recent recall back to normal - he knows he was admitted because of his back and that he had had surgery c/o b/l leg pain, worse on right neuropathic -stabbing, toothache like; comes/goes; no paresthesias eating well drinking well no other new issues Review of Systems Respiratory: no dyspnea and no dyspnea on exertion Cardiovascular: no chest pain Gastrointestinal: no abdominal pain, no nausea, no vomiting and no constipation Physical Exam Constitutional: no acute distress and no altered mental status ENMT: external ear and nose normal, oropharynx normal Respiratory: normal respiratory effort, lungs clear to auscultation Cardiovascular: Rate/Rhythm: regular rate and regular rhythm Heart Sounds: normal S1 and normal S2; no murmur Vessels: posterior tibial pulses present and dorsalis pedis pulses present; no JVD Extremities: no edema Gastrointestinal (Abdomen): normal bowel sounds, soft, nontender, no hepatosplenomegaly Skin: + pallor lipoma - right flank - unchanged; dressings intact midline lumbar region Neurologic: moves all extremities (Strength b/l legs 5/5 ); no focal motor deficits Psychiatric: Orientation: alert, oriented to person, oriented to place and oriented to time Results & Data Results & Data ([facility]) Vital Signs (Past 12 Hours) Vital Signs Temp Pulse Resp BP Pulse Ox 12/02/20 16:09 36.6 C 71 18 141/65 H 95 Laboratory Results Laboratory Results - last 24 hr 12/01/20 12/02/20 12/02/20 20:53 07:34 07:34 WBC 7.61 RBC 3.63 L Hgb 10.5 L Hct 31.9 L MCV 87.9 MCH 28.9 MCHC 32.9 RDW Std Deviation 45.0 RDW Coeff of Addis 13.9 Plt Count 214 MPV 9.2 Sodium Potassium Chloride Carbon Dioxide Anion Gap BUN Creatinine Est Cr Clr Drug Dosing Est GFR ( Amer) Est GFR (Non-Af Amer) BUN/Creatinine Ratio Glucose POC Glucose 254 H Calcium Magnesium Vitamin B12 1685 H 12/02/20 12/02/20 12/02/20 07:34 08:05 12:12 WBC RBC Hgb Hct MCV MCH MCHC RDW Std Deviation RDW Coeff of Addis Plt Count MPV Sodium 132 L Potassium 4.2 Chloride 100 Carbon Dioxide 26 Anion Gap 6.0 BUN 16 Creatinine 0.78 Est Cr Clr Drug Dosing 71.8 Est GFR ( Amer) 96.7 Est GFR (Non-Af Amer) 83.5 BUN/Creatinine Ratio 20.2 H Glucose 145 H POC Glucose 154 H 132 H Calcium 9.0 Magnesium 2.1 Vitamin B12 12/02/20 12/02/20 17:01 20:29 WBC RBC Hgb Hct MCV MCH MCHC RDW Std Deviation RDW Coeff of Addis Plt Count MPV Sodium Potassium Chloride Carbon Dioxide Anion Gap BUN Creatinine Est Cr Clr Drug Dosing Est GFR ( Amer) Est GFR (Non-Af Amer) BUN/Creatinine Ratio Glucose POC Glucose 123 H 155 H Calcium Magnesium Vitamin B12 PG Care Time/CCT Total # of Minutes Spent Total Time Spent with Patient: Total time spent is greater than 50% in coordi nation of care (as documented) at patient's floor/unit and/or counseling patient: Coding Level of Care Code 15164 Subseq Hosp Care Lvl 3 Diagnoses Neurogenic claudication due to lumbar spinal stenosis M48.062 Ambulatory dysfunction R26.2 Encephalopathy acute G93.40 Hypertension I10 Hypertension type: essential hypertension Type 2 diabetes mellitus E11.9 GERD without esophagitis K21.9 BPH associated with nocturia N40.1; R35.1 Snoring R06.83 Acute blood loss anemia D62 Hyponatremia E87.1 Constipation K59.00 Pancreatic lesion K86.9 DVT prophylaxis Z29.9 (1) Hypertension Hypertension type: essential hypertension Qualified Code(s): I10 - Essential (primary) hypertension
[2020-12-02] MEDS: INSULIN GLARGINE SOLOSTAR 100 UNITS/ML 3 ML PEN SC SCH (21:12)
[2020-12-02] MEDS: GABAPENTIN 100 MG CAP PO SCH (21:41)
[2020-12-02] MEDS: MENTHOL-ZINC OXIDE 360 APPLN/120 GM TUBE EXT SCH (23:16)
[2020-12-03] MEDS: ACETAMINOPHEN 500 MG TAB PO PRN ×2 (06:16→13:07)
[2020-12-03 06:24] LABS: BUN Creatinine Ratio 20.2 (10-20); Creatinine Clr Calc Pharmacy 77.7 ml/min; Est GFR (Non-African American) 86.3 ml/min; Potassium 3.9 mmol/L (3.5-5.1)
[2020-12-03] MEDS: INSULIN ASPART 100 UNITS/ML 3 ML PEN SC SCH ×4 (09:19→20:33)
[2020-12-03] MEDS: MAGNESIUM OXIDE 400 MG TAB PO SCH (09:25)
[2020-12-03] MEDS: CYANOCOBALAMIN 500 MCG TABLET (VITAMIN B-12) PO SCH (09:25)
[2020-12-03] MEDS: CHOLECALCIFEROL 1,000 UNITS 25 MCG TAB PO SCH (09:26)
[2020-12-03] MEDS: PANTOprazole 40 MG TAB PO SCH (09:26)
[2020-12-03] MEDS: TAMSULOSIN HCL 0.4 MG CAP PO SCH ×2 (09:26→20:11)
[2020-12-03] MEDS: ATORVASTATIN 10 MG TAB PO SCH (09:26)
[2020-12-03] MEDS: POLYETHYLENE (MIRALAX) 17 GM PACK PO SCH ×2 (09:27→19:57)
[2020-12-03] MEDS: LIDOCAINE 5% 1 PATCH TD SCH (09:28)
[2020-12-03] MEDS: INSULIN GLARGINE SOLOSTAR 100 UNITS/ML 3 ML PEN SC SCH ×2 (09:29→20:34)
--- NOTE | 2020-12-03 10:38 | Orthopedic Progress Note ---
Date of Service December 03, 2020 Assessment & Plan (1) Neurogenic claudication due to lumbar spinal stenosis: Admission and Anticipated Discharge Date Admission Date: November 22, 2020 This time we will continue with physical therapy and hopefully will make it to rehab this weekend. Subjective Patient's back pain is controlled he feels his leg symptoms are improved. Physical Exam Physical Exam: On exam he is at the chair in the bedside. He demonstrates a 4/5 right quadriceps which is improvement. Results & Data ([facility]) Vital Signs (Past 12 Hours) Vital Signs Temp Pulse Resp BP Pulse Ox 12/03/20 07:47 36.6 C 86 20 101/64 98
--- NOTE | 2020-12-03 15:20 | Hospitalist Progress Note ---
Date of Service December 03, 2020 Assessment & Plan (1) Neurogenic claudication due to lumbar spinal stenosis: POD #4 s/p -- #1 lumbar decompression with bilateral medial facetectomies and foraminotomies L1-2 and L2-3. #2 posterior spinal fusion L2-3. #3 placement posterior instrumentation L2-3. #4 interbody fusion L2-3. #5 placement of peek cage 10 x 26 mm at L2-3. #6 placement locally harvested morselized autograft in the posterior gutters. #7 placement infuse collagen sponge bone mass graft in the posterior lateral gutters and I factor in the interbody space. Performed by Dr John Connolly. LE weakness has improved following his surgery. Still has some pain in anterior thighs Patient's post-op course complicated by severe encephalopathy (toxic & metabolic, hyperglycemia, constipation all were factors). All now much improved He continues with what sounds like neuropathic pain of legs. Improved with starting gabapentin cont gabapentin 100mg HS and titrate slowly as he is sensitive to meds (and given his recent severe encephalopathy). dc hydrocodone to avoid encephalopathy -make APAP 1000mg po tid scheduled (2) Ambulatory dysfunction: 2nd to severe lumbar spinal stenosis s/p surgical intervention, POD #4. Leg weakness and walking are improving. Needs rehab to ensure full recovery. [facility] has accepted patient. B12 level wnl Continue PT, OT. (3) Encephalopathy acute: Started in the PACU post-surgery. Toxic from anesthesia, pain meds, steroids, etc. Had ongoing delirium - much worse at night - for 3 days. Finally improving with cutting back pain meds and other offending agents. Much improved still with occasional confusion on 7/3 Moving bowels, eating and drinking, avoiding opioids-dc hydrocodone AVOID benzos. Haldol 1mg HS prn. B12 level wnl. TSH wnl. No evidence of stroke process on examination. No evidence of an obvious infectious process. (4) Hypertension: Cont to hold lisinopril. Flomax BID is for BPH. BPs controlled (5) Type 2 diabetes mellitus: Most recent Hb A1c was 7%. Metformin on hold. BSGs have been high and labile - suspect 2nd to perioperative stress, pe rioperative steroids, etc. Now improved. Lower lantus to 12 units BID.Now glucose controlled Adjust novolog prn (6) GERD without esophagitis: Cont PPI once daily. (7) BPH associated with nocturia: Crowley now out. Remains on flomax BID. Prior h/o prostate cancer. Voiding fine. (8) Snoring: Suspected NNEKA. He has had numerous episodes of witnessed apnea with sleeping. Started NC O2 2 liters at HS. Needs formal sleep study post-d/c. suspect this is long-standing. Daughter reports he will most likely never be compliant with CPAP even if recommended (9) Acute blood loss anemia: 1.5gm drop post-back surgery. CBC stable (10) Hyponatremia: pt appears euvolemic on exam. mild SIADH / reset osmostat post-surgery? would not hydrate at this time. serial BMPs. if any worsening - check serum osm, urine osm, urine Na. (11) Constipation: resolved cont senna (12) Pancreatic lesion: seen on prior imaging needs repeat imaging studies this FALL (13) DVT prophylaxis: scds are we far out enough from surgery to start chemical DVT proph? daughter updated extensively at bedside Dispo-plan for dc to [facility] likely tomorrow Admission and Anticipated Discharge Date Admission Date: November 22, 2020 Subjective Pt feels pain is improved today. Daughter with pt at bedside and reports still some waxing and waning delirium, thought he was "in the terminal" today. But seems clear with me and knows plan for tomorrow and recalls what Dr. Connolly told him about his care. Denies SOB or CP. Is eating and drinking. Had large BM and some incontinence with it. Review of Systems Review of Systems: All systems reviewed & are unremarkable except as noted in HPI & below Physical Exam Constitutional: WD/WN, vitals as above Eyes: + anicteric sclerae Neck: trachea midline, no thyromegaly Respiratory: normal respiratory effort, lungs clear to auscultation Cardiovascular: Rate/Rhythm: regular rate and regular rhythm Heart Sounds: no murmur Extremities: + edema (trace pitting edema legs to knees bilat) Chest (Breasts): Chest: normal inspection of chest Gastrointestinal (Abdomen): normal bowel sounds, soft, nontender, no hepatosplenomegaly Musculoskeletal: Extremities: extremities normal to inspection; no cyanosis and no clubbing Skin: no rashes, warm and dry Neurologic: moves all extremities and awake; no focal motor deficits Results & Data Results & Data ([facility]) Vital Signs (Past 12 Hours) Vital Signs Temp Pulse Resp BP Pulse Ox 12/03/20 07:47 36.6 C 86 20 101/64 98 Laboratory Results 12/03/20 12/03/20 12/03/20 Range/Units 12:04 07:50 05:34 Sodium 131 L (136-145) mmol/L Potassium 3.9 (3.5-5.1) mmol/L Chloride 100 (98-107) mmol/L Carbon Dioxide 26 (21-32) mmol/L Anion Gap 5.0 (3-11) BUN 14 (7-18) mg/dl Creatinine 0.72 (0.6-1.4) mg/dl Est Cr Clr Drug Dosing 77.7 ml/min Est GFR ( Amer) 100.0 ml/min Est GFR (Non-Af Amer) 86.3 ml/min BUN/Creatinine Ratio 20.2 H (10-20) Glucose 101 H (70-99) mg/dl POC Glucose 213 H 111 H (70-99) mg/dl Calcium 9.0 (8.5-10.1) mg/dl 12/02/20 12/02/20 Range/Units 20:29 17:01 Sodium (136-145) mmol/L Potassium (3.5-5.1) mmol/L Chloride (98-107) mmol/L Carbon Dioxide (21-32) mmol/L Anion Gap (3-11) BUN (7-18) mg/dl Creatinine (0.6-1.4) mg/dl Est Cr Clr Drug Dosing ml/min Est GFR ( Amer) ml/min Est GFR (Non-Af Amer) ml/min BUN/Creatinine Ratio (10-20) Glucose (70-99) mg/dl POC Glucose 155 H 123 H (70-99) mg/dl Calcium (8.5-10.1) mg/dl PG Care Time/CCT Total # of Minutes Spent Total Time Spent with Patient: Total time spent is greater than 50% in coordination of care (as documented) at patient's floor/unit and/or counseling patient: Coding Level of Care Code 94491 Subseq Hosp Care Lvl 2 Diagnoses Neurogenic claudication due to lumbar spinal stenosis M48.062 Ambulatory dysfunction R26.2 Encephalopathy acute G93.40 Hypertension I10 Hypertension type: essential hypertension Type 2 diabetes mellitus E11.9 GERD without esophagitis K21.9 BPH associated with nocturia N40.1; R35.1 Snoring R06.83 Acute blood loss anemia D62 Hyponatremia E87.1 Constipation K59.00 Pancreatic lesion K86.9 DVT prophylaxis Z29.9 (1) Hypertension Hypertension type: essential hypertension Qualified Code(s): I10 - Essential (primary) hypertension
[2020-12-03] MEDS: ACETAMINOPHEN 500 MG TAB PO SCH ×2 (18:08→23:01)
[2020-12-03] MEDS: DOCUSATE SODIUM/SENNA 50/8.6MG TAB PO SCH (19:57)
[2020-12-03] MEDS ORDERED: Nursing to Pharmacy Communication SCH (20:00)
[2020-12-03] MEDS: GABAPENTIN 100 MG CAP PO SCH (20:11)
[2020-12-03] MEDS: haloperidoL 1 MG TAB PO PRN (23:00)
[2020-12-04] MEDS ORDERED: KETOROLAC TROMETHAMINE 15 MG/ML VIAL IV ONE (03:18)
[2020-12-04] MEDS ORDERED: MELATONIN 3 MG TAB PO PRN (03:20)
[2020-12-04] MEDS ORDERED: KETOROLAC TROMETHAMINE 10 MG TABLET PO STA (03:22)
[2020-12-04 06:34] VITALS: TEMP 97.5; O2SAT 99
[2020-12-04] MEDS: ACETAMINOPHEN 500 MG TAB PO SCH (08:46)
[2020-12-04] MEDS: CYANOCOBALAMIN 500 MCG TABLET (VITAMIN B-12) PO SCH (08:46)
[2020-12-04] MEDS: TAMSULOSIN HCL 0.4 MG CAP PO SCH (08:46)
[2020-12-04] MEDS: PANTOprazole 40 MG TAB PO SCH (08:47)
[2020-12-04] MEDS: LIDOCAINE 5% 1 PATCH TD SCH (08:47)
[2020-12-04] MEDS: CHOLECALCIFEROL 1,000 UNITS 25 MCG TAB PO SCH (08:47)
[2020-12-04] MEDS: MAGNESIUM OXIDE 400 MG TAB PO SCH (08:47)
[2020-12-04] MEDS: ATORVASTATIN 10 MG TAB PO SCH (08:49)
[2020-12-04] MEDS: INSULIN GLARGINE SOLOSTAR 100 UNITS/ML 3 ML PEN SC SCH (08:49)
[2020-12-04] MEDS: INSULIN ASPART 100 UNITS/ML 3 ML PEN SC SCH ×2 (08:51→12:49)
--- NOTE | 2020-12-04 10:12 | Discharge Summary ---
Date of Service December 04, 2020 Admission HPI Per Admitting Provider The patient is an 85-year-old male with a past medical history including carotid artery stenosis, pancreatic lesion, diabetes mellitus type 2 with diabetic neuropathy, renal cyst, prostate cancer, hypertension, hyperlipidemia, GERD without esophagitis, and chronic lumbar pain. The patient's pain has become so severe when lying down, that he is not able to sleep in the supine position. He was unable to lay flat for x-rays in the emergency department due to his the severity of the pain. The patient will be admitted for pain control, and may require sedation with anesthesia to perform appropriate imaging testing. He did have imaging testing ordered by his outpatient physician, but was unable to tolerate that as well Principal Diagnosis Severe neurogenic claudication with lumbar spinal stenosis, status post lumbar decompression and fusion, toxic encephalopathy Discharge Exam Constitutional WD/WN, vitals as above Eyes + anicteric sclerae Neck trachea midline, no thyromegaly Respiratory normal respiratory effort, lungs clear to auscultation Cardiovascular Rate/Rhythm: regular rate and regular rhythm Heart Sounds: no murmur Extremities: + edema (trace pitting edema legs to knees bilat) Chest (Breasts) Chest: normal inspection of chest Gastrointestinal (Abdomen) normal bowel sounds, soft, nontender, no hepatosplenomegaly Musculoskeletal Extremities: extremities normal to inspection; no cyanosis and no clubbing Skin no rashes, warm and dry Neurologic moves all extremities; no focal motor deficits Sleeps deeply, but does wake up with loud verbal stimulus and answers all questions appropriately, but then falls back asleep quite easily Discharge Data Allergies Allergy/AdvReac Type Severity Reaction Status Date / Time codeine AdvReac Unknown severe Verified 11/22/20 17:55 vomiting Consultations 11/22/20 21:17 ED Decision to Admit Stat 11/23/20 01:24 Consult Pain Management Routine 11/25/20 08:02 Consult Orthopedic Surgery Routine 11/25/20 12:43 Consult Anesthesiology Routine 11/25/20 13:34 Consult Anesthesiology Routine Procedures Performed Operation Date: 11/28/20 12:00 <No data on this case meets the specified criteria> Operation Date: 11/29/20 09:45 Actual Procedures p L2-L3 Decompression Fusion, Spinal Cord Monitoring(Not Applicable) - Garrett Connolly DO Ordered Studies 11/23/20 15:00 CT lumbar spine wo con Urgent 11/28/20 09:00 MR lumbar spine wo con Routine 11/29/20 13:00 FL lumbar spine 2-3V Routine Lumbar Spine X-Ray 11/22/20 21:43 XR lumbar spine 2-3V CLINICAL HISTORY: Back pain COMPARISON STUDY: 11/16/2012 FINDINGS: The study was performed in a portable fashion. There is a minimal spinal curvature convex to the right. This may be positional. No definite acute fractures are visualized. Minor superior endplate deformities at the L1 and L2 levels are statistically chronic There are moderate multilevel degenerative changes. There is a stable grade 1 spondylolisthesis of L5 on S1. IMPRESSION: 1. Technically limited portable study 2. No definite acute fractures 3. Moderate multilevel degenerative change 4. Stable grade 1 spondylolisthesis of L4 on L5 5. Mild superior endplate deformities at the L1 and L2 levels, likely chronic. ACT 112: Negative or not required by law. Electronically signed by: Kamar Hilario M.D. 11/23/2020 7:[address] 11/23/20 15:00 CT lumbar spine wo con CT DOSE: 635.31 mGy.cm CLINICAL HISTORY: low back pain- post traumatic TECHNIQUE: Helical images were acquired in transverse plane. Reformatted sa gittal and coronal images were reviewed. A dose lowering technique was utilized adhering to the principles of ALARA. CONTRAST: No contrast was administered COMPARISON STUDY: X-ray study dated 11/22/2020, MRI dated 12/06/2012 FINDINGS: L1-2 level: There is a mild circumferential disc bulge. There are endplate erosive changes, likely on a discogenic basis. There is no evidence for significant spinal or foraminal stenosis L2-3 level: There is a circumferential disc bulge. There is ligamentous hypertrophy. There is moderate to severe spinal stenosis. There are endplate erosive changes, likely on a discogenic basis. L3-4 level: There is a circumferential disc bulge. There is moderate to severe spinal stenosis. There is ligament hypertrophy. There are endplate erosive changes likely discogenic basis. L4-5 level: There is a grade 1 spondylolisthesis of L4 and L5. There are endplate erosive changes. There is moderate spinal stenosis. There is facet joint arthropathy. L5-S1 level: There is minimal retrolisthesis of L5 on S1. There are degenerative changes within the disc. There is no evidence of significant spinal stenosis. There is mild foraminal narrowing. No acute vertebral body fractures are visualized. There is an age-indeterminate right L1 transverse process fracture. There is no evidence for a paraspinal hematoma.. The bones are osteopenic. IMPRESSION: 1. No acute vertebral body fractures or traumatic subluxations identified 2. Age-indeterminate right L1 transverse process fracture 3. Advanced multilevel spondylytic changes with multilevel spinal stenosis 4. Multilevel endplate erosive change, likely on a degenerative discogenic basis. ACT 112: Negative or not required by law. Electronically signed by: Kamar Hilario M.D. 11/23/2020 4:01 PM Lumbar Spine MRI 11/28/20 09:00 MR lumbar spine wo con CLINICAL HISTORY: back pain leg weakness, with sedation TRAUMA TECHNIQUE: Sagittal and axial T1, T2 and STIR images were obtained. COMPARISON STUDY: CT scan dated 11/23/2020 OBSERVATIONS: There is endplate marrow edema at the L2-3 level with marked increased T2 signal involving the disc. L1-2: There is circumferential disc bulge with mild spinal stenosis. There is no significant foraminal narrowing L2-3: There is endplate marrow edema and increased T2 signal within the disc. There is a diffuse circumferential disc bulge and left posterocentral disc protrusion. There is moderate to severe spinal stenosis. Discitis and osteomyelitis is favored, although severe degenerative changes with cystic deg eneration of the disc erosive endplate changes could appear similar L3-4: There is a circumferential disc bulge and moderate to severe spinal stenosis. There is facet joint arthropathy. There is mild bilateral foraminal narrowing L4-5: There is a grade 1 spinal listhesis of L4 and L5. There is a circumferential disc bulge. There is moderate spinal stenosis. The facet joint arthropathy. Is mild bilateral foraminal narrowing L5-S1: There is a small central disc osteophyte complex. There is minimal effacement the anterior thecal sac. There is no significant foraminal narrowing. There is mild bilateral foraminal narrowing The conus medullaris and cauda equina appear normal. IMPRESSION: 1. L2-3 endplate marrow edema with increased T2 signal within the disc. Diagnostic considerations include discitis osteomyelitis versus severe degenerative changes with cystic degeneration of the disc with degenerative endplate marrow edema. It should be noted that on the CT scan performed 11/24/19, there was gas present within the L2-3 disc. While this finding usually confirms the diagnosis of degenerative disease, there have been case reports of gas within the disc in the presence of a discitis and osteomyelitis. Clinical correlation and/or biopsy recommended in follow-up 2. Disc bulge and left posterior central disc protrusion at the L2-3 level. Moderate to severe spinal stenosis 3. Moderate to severe spinal stenosis at the L3-4 level. 4. Moderate spinal stenosis the L4-5 level. 5. Mild multilevel foraminal narrowing ACT 112: Negative or not required by law. Electronically signed by: Kamar Hilario M.D. 11/28/2020 1:23 PM Lumbar Spine X-Ray 11/29/20 13:00 FL lumbar spine 2-3V CLINICAL HISTORY: L2-3 DECOMPRESSION/FUSION/INTERBODY COMPARISON STUDY: Lumbar spine MRI November 28, 2020. FLUOROSCOPY TIME: 20 seconds. FLUOROSCOPIC IMAGES: 3 FINDINGS: Exact localization is difficult given partial visualization of the lumbar spine. These images demonstrate a discectomy with posterior decompression and bilateral pedicle screw fusion, likely at the L2 and L3 levels. IMPRESSION: Fluoroscopy provided during L2-L3 discectomy, posterior decompression and bilateral pedicle screw fusion. ACT 112: Negative or not required by law. Electronically signed by: Terell Guardado M.D. 11/29/2020 3:34 PM Hospital Course (1) Neurogenic claudication due to lumbar spinal stenosis: POD #5 s/p -- #1 lumbar decompression with bilateral medial facetectomies and foraminotomies L1-2 and L2-3. #2 posterior spinal fusion L2-3. #3 placement posterior instrumentation L2-3. #4 interbody fusion L2-3. #5 placement of peek cage 10 x 26 mm at L2-3. #6 placement locally harvested morselized autograft in the posterior gutters. #7 placement infuse collagen sponge bone mass graft in the posterior lateral gutters and I factor in the interbody space. Performed by Dr John Connolly. LE weakness has improved following his surgery. Still has some pain in anterior thighs Patient's post-op course complicated by severe encephalopathy (toxic & metabolic, hyperglycemia, constipation all were factors). All now much improved He continues with what sounds like neuropathic pain of legs. Improved with starting gabapentin cont gabapentin 100mg HS and titrate slowly as he is sensitive to meds (and given his recent severe encephalopathy). dc hydrocodone to avoid encephalopathy -make APAP 1000mg po tid scheduled Stable for discharge to rehab (2) Ambulatory dysfunction: 2nd to severe lumbar spinal stenosis s/p surgical intervention, POD #5. Leg weakness and walking are improving. Needs rehab to ensure full recovery. [facility] has accepted patient. B12 level wnl Continue PT, OT. (3) Encephalopathy acute: Started in the PACU post-surgery. Toxic from anesthesia, pain meds, steroids, etc. Had ongoing delirium - much worse at night - for 3 days. Finally improving with cutting back pain meds and other offending agents. Moving bowels, eating and drinking, avoiding opioids-dc hydrocodone AVOID benzos. Haldol 1mg HS prn. B12 level wnl. TSH wnl. No evidence of stroke process on examination. No evidence of an obvious infectious process. (4) Hypertension: Discontinue lisinopril For now due to low normal blood pressures status post surgery-could restart down the road if needed Flomax BID is for BPH. BPs controlled (5) Type 2 diabetes mellitus: Most recent Hb A1c was 7%. Metformin on hold But can be restarted upon discharge BSGs have been high and labile - suspect 2nd to perioperative stress, perioperative steroids, etc. Now improved. Lower lantus to 12 units BID.Now glucose controlled Adjust novolog prn (6) GERD without esophagitis: Cont PPI once daily. (7) BPH associated with nocturia: Crowley now out. Remains on flomax BID. Prior h/o prostate cancer. Did require straight catheterization on the night of 12/03 Bladder scan as needed (8) Snoring: Suspected NNEKA.With severe daytime hypersomnia-Does wake up and answers questions appropriately immediately, but falls asleep quite easily. Question if needs mean sleep latency test as well as overnight sleep study Follow-up with sleep medicine as an outpatient if desires He has had numerous episodes of witnessed apnea with sleeping. Started NC O2 2 liters at HS. Needs formal sleep study post-d/c. suspect this is long-standing. Daughter reports he will most likely never be compliant with CPAP even if recommended (9) Acute blood loss anemia: 1.5gm drop post-back surgery. CBC stable (10) Hyponatremia: pt appears euvolemic on exam. mild SIADH / reset osmostat post-surgery? would not hydrate at this time. if any worsening - check serum osm, urine osm, urine Na. (11) Constipation: resolved Finally after fleets enema and many days of MiraLAX and senna (12) Pancreatic lesion: seen on prior imaging needs repeat imaging studies this FALL (13) DVT prophylaxis: scds Dispo-plan for dc to [facility] today Total Time Total Time Spent Total Time Spent (In Minutes): 35 min Total Time Includes: Examination of the Patient, Discharge Planning and Medication Reconciliation Discharge Plan Discharge Items Patient Disposition: Transfer Inpatient Rehab Fac Reason For Visit: INTRACTABLE LOW BACK PAIN Discharge Diagnosis: Lumbar spinal stenosis s/p lumbar decompression and fusion, Toxic encephalopathy Condition on Discharge: Fair Activity: As commented below Non-emergency contact: Primary Care Provider and Surgeon Call non-emergency contact if: you have any medication questions, your symptoms worsen, your pain is not controlled, your wound has increased redness, your wound has increased drainage and your wound pain has increased Follow-up/Referrals: Caroline Damon DO [Primary Care Provider] - Garrett Connolly DO [Surgeon] - Diet: Carb Consistent or DM2 Addtl Attending Provider Instructions: ACTIVITY RECOMMENDATIONS: SELF CARE INSTRUCTIONS AFTER THORACIC/LUMBAR FUSIONS 1. You may walk to your tolerance. It is good exercise for your legs and back. Expect some back and intermittent leg aches and pains. 2. You may perform "counter-top" level activities (make a sandwich, connie with a project, etc.). 3. No bending or lifting of more than 10 pounds or back twisting of any nature (roll like a log when turning in bed). 4. You may ride in a car for 20-30 minutes at a time. No driving until after your first visit with your doctor. 5. Frequent changes of position and restricting sitting to 30 minutes at a time will help limit the amount of back spasms and stiffness you may experience. 6. You may discontinue the use of ambulatory aids (cane, crutches, etc.) once your strength and confidence allow. 7. You may maintenance coordinator the shower and let water strike your incision when you arrive home at least once daily. Do not take a tub bath, sit in a hot tub or go into a swimming pool until after your first recheck in the office. SPECIAL CARE INSTRUCTIONS: VERY IMPORTANT TO READ AND REVIEW A. Your surgical incision has been closed with a cosmetic suture under the skin that will dissolve in about 6 weeks. In 14 days, you can use a pair of clean scissors and cut the suture that is left outside of the skin at the ends of your incision. 1. The small skin tapes can be removed 7 days after surgery if they have not fallen off by that point. 2. You may keep the wound open to air as much as possible to promote healing after post-op day number 5 unless told otherwise by your doctor. 3. If you think the wound looks like it is becoming infected (redness or worsening drainage) and/or you are experiencing fever, chill or worsening back pain and muscle spasms, contact the office so that we may evaluate you as soon as possible. B. Complications are uncommon, but please contact us if you have any signs or symptoms of: 1. wound infection (fever higher than 102.5 degrees F, redness, separation of wound, drainage, or increasing pain from the incision) 2. blood clots in legs (pain, swelling, redness and warmth in legs) 3. urinary tract infection (fever higher than 102.5 degrees F, burning upon urination or increased frequency of urination) 4. nerve problems (inability to walk on your toes or heels, numbness, loss of bowel or bladder control) 5. any other symptoms that concern you C. Please call the office at if you have any concerns or questions about your operation or recovery. D. No smoking! Smoking drastically decreases the chance of a solid fusion. E. Do not take any anti-inflammatory medications (Indocin, Advil, Motrin, Aspirin, Naprosyn, etc.) as these may inhibit the chance of a solid fusion. Tylenol is okay to take for pain. MANAGING PAIN AFTER SPINAL SURGERY 1. Narcotic medication is intended for short-term use and will be provided for surgical pain. Surgical pain usually lasts for a period of 4-6 weeks. Narcotic medication includes Percocet, Vicodin, Darvocet, Tylenol #3 or Lortab. 2. Longer-term pain is more appropriately treated with non-narcotic medication such as Tylenol ES. 3. Muscle spasm is not appropriately treated with narcotics. Muscle relaxers such as Soma, Flexeril or Skelaxin can be used along with Tylenol ES. 4. Remember that we all live with some "aches and pains". This is not unusual or uncommon after an injury or as we get older. a. Back pain is expected and may include muscle spasms for 4 to 6 weeks after surgery. The pain should gradually improve. If the pain worsens for no apparent reason, please contact the office. b. Intermittent leg pain may also be experienced and should not be concerned about unless it worsens for no apparent reason. If so, please contact the office. 5. We will provide appropriate medication within the normal guidelines of their prescribed use. We will also be very cautious and aware of potential abuse and extended duration of patients' medication needs. a. Pain medications are for your comfort and to assist with sleep and rest so that the tissue can heal. They are not provided in order to return to normal activity and should not be used through the day. To do so or worsening pain at night can result from ongoing tissue damage and development of tolerance to the prescribed medicine. 6. Please allow 2-3 days to process refills. Prescriptions will not be mailed but must be picked up at the office. FOLLOW UP VISIT: Keep your scheduled follow-up appointment. Any questions, please call the office at . 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 Patient suffered from significant toxic encephalopathy secondary to anesthesia and postoperative opioid management. This is now mostly resolved. All opioid analgesia should be avoided. Gabapentin is helping at bedtime and could be titrated upward. He also may suffer from obstructive sleep apnea and should have 2 L nasal cannula at nighttime and anytime while he is sleeping. He suffers from severe daytime hypersomnia as well. Pending Studies at Discharge: No Stand-Alone Forms: [facility] Patient informed of condition?: Yes DNR: No Discharge Level of Care: Acute rehab Communicable Disease: No Discharge Prognosis: Improving Lines: None Urinary Catheter: No Medications and DC Order Prescriptions: New acetaminophen 500 mg Tablet 1,000 mg PO Q8H Qty: 60 RF: 0 gabapentin 100 mg Capsule 100 mg PO HS Qty: 30 RF: 0 Lantus Solostar U-100 Insulin 100 unit/mL (3 mL) Insulin Pen 12 unit SC BID Qty: 3 RF: 0 melatonin 3 mg Tablet 3 mg PO HS PRN (Reason: sleep) Qty: 10 RF: 0 lidocaine 5 % Adhesive Patch,Medicated 1 patch transdermal QAM Qty: 1 RF: 0 Continued tamsulosin [Flomax] 0.4 mg capsule 0.4 mg PO BID RF: 0 (DME) blood-glucose meter [OneTouch Ultra2 Meter] Kit See Rx Instructions .ROUTE .MEDSUPPLY Qty: 1 RF: 0 atorvastatin 10 mg tablet 10 mg PO DAILY Qty: 90 RF: 1 (DME) lancets [OneTouch Delica Lancets] [facility] See Rx Instructions .ROUTE .MEDSUPPLY Qty: 100 RF: 2 metformin 1,000 mg tablet 1,000 mg PO BID Qty: 180 RF: 1 omeprazole 20 mg capsule,delayed release(DR/EC) 20 mg PO DAILY Qty: 90 RF: 1 cyanocobalamin (vitamin B-12) 1,000 mcg tablet 1,000 mcg PO DAILY Qty: 90 RF: 3 (DME) pen needle, diabetic [BD Ultra-Fine Joycelyn Pen Needle] 32 gauge x 5/32" needle See Rx Instructions .ROUTE .MEDSUPPLY Qty: 100 RF: 3 (DME) miscellaneous medical supply [facility] See Rx Instructions .ROUTE .MEDSUPPLY Qty: 1 RF: 0 (DME) blood-glucose meter [Prodigy Autocode Monitor Syst] [facility] See Rx Instructions .ROUTE .MEDSUPPLY Qty: 1 RF: 0 cholecalciferol (vitamin D3) 50 mcg (2,000 unit) tablet 2,000 unit PO DAILY RF: 0 Discontinued lisinopril 2.5 mg tablet 2.5 mg PO DAILY Qty: 90 RF: 1 Basaglar KwikPen U-100 Insulin 100 unit/mL (3 mL) insulin pen 30 unit SQ DAILY RF: 0 Discharge Orders: Discharge Order (Routine); Ordered 12/04/20 Ordered By: Carley Harper/Other Patient Handouts: Managing Type 2 Diabetes, A1C Admission Data Admit Date/Time: 11/22/20 22:36 Attending Provider: Carley Hunt Admit Provider: Cuate Cardona Primary Care Provider: Caroline Damon Other Providers: Dorian Buenrostro ; [facility] ; Cuate Cardona ; Garrett Connolly ; Viraj Moreira. Coding Level of Care Code D/C Day Management >30 mins Diagnoses Neurogenic claudication due to lumbar spinal stenosis M48.062 Ambulatory dysfunction R26.2 Encephalopathy acute G93.40 Hypertension I10 Hypertension type: essential hypertension Type 2 diabetes mellitus E11.9 GERD without esophagitis K21.9 BPH associated with nocturia N40.1; R35.1 Snoring R06.83 Acute blood loss anemia D62 Hyponatremia E87.1 Constipation K59.00 Pancreatic lesion K86.9 DVT prophylaxis Z29.9
[2020-12-04 11:13] VITALS: BP 119/70; PULSE 90
== END 2020-12-04 14:04 | DRG 453 ==
LOC: ED 17:30 → SUATTDRO 22:36 → 3E 22:36

== ENCOUNTER 2020-12-06 01:39 | Inpatient (IN) ==
[2020-12-06 02:15] LABS: Hemoglobin 10.6 g/dL (14.0-18.0); Immature Granulocytes # (auto) 0.07 K/uL (0.00-0.02); Immature Granulocytes % (auto) 1.4 %; Mean Corpuscular Hgb Conc 33.1 g/dL (32-36); Mean Corpuscular Volume 87.4 fL (80-100); Mean Platelet Volume 8.6 fL (7.4-10.4); Monocytes # (auto) 0.85 K/uL (0.11-0.59); Neutrophils # (auto) 3.09 K/uL (1.4-6.5); Neutrophils % (auto) 61.6 %; Platelet Count 285 K/uL (130-400); RDW Coefficient of Variation 13.4 % (11.5-14.5); RDW Standard Deviation 43.2 fL (36.4-46.3); Red Blood Count 3.66 M/uL (4.7-6.1); White Blood Count 5.01 K/uL (4.8-10.8)
[2020-12-06 02:16] LABS: Appearance Urine Clear (Clear); Bilirubin Urine Negative (Negative); Blood Urine Negative (Negative); Color Urine Yellow; Glucose Urine UA Negative (Negative); Ketones Urine Negative (Negative); Leukocyte Esterase Urine Negative (Negative); Nitrite Urine Negative (Negative); Protein Urine Negative (Negative); Specific Gravity Urine 1.007 (1.000-1.030); Urobilinogen Urine Negative (Negative); pH Urine 7.5 (4.5-7.5)
[2020-12-06 02:26] LABS: Alanine Aminotransferase 22 U/L (12-78); Albumin Level 2.8 gm/dl (3.4-5.0); Aspartate Aminotransferase 16 U/L (15-37); BUN Creatinine Ratio 15.6 (10-20); Blood Urea Nitrogen 13 mg/dl (7-18); Calcium 8.7 mg/dl (8.5-10.1); Carbon Dioxide 29 mmol/L (21-32); Chloride 105 mmol/L (98-107); Creatinine Clr Calc Pharmacy 72.3 ml/min; Est GFR (African American) 93.4 ml/min; Est GFR (Non-African American) 80.6 ml/min; Glucose 164 mg/dl (70-99); Potassium 4.5 mmol/L (3.5-5.1); Sodium 136 mmol/L (136-145)
[2020-12-06 02:28] LABS: INR 0.9 (0.9-1.1); Partial Thromboplastin Ratio 1.1; Partial Thromboplastin Time 27.7 Seconds (21.0-31.0); Prothrombin Time 9.4 Seconds (9.0-12.0)
[2020-12-06 02:31] LABS: Albumin Globulin Ratio 0.8 (0.9-2); Alkaline Phosphatase 81 U/L (45-117); Bilirubin,Total 0.3 mg/dl (0.2-1); Globulin 3.4 gm/dl (2.5-4.0); Total Protein 6.2 gm/dl (6.4-8.2); Troponin I < 0.015 ng/ml (0-0.045)
[2020-12-06] MEDS ORDERED: SODIUM CHLORIDE 0.9% 500 ML IV ONE ×2 (02:36→04:53)
[2020-12-06] MEDS ORDERED: HYDROmorphone INJ 0.5 MG/0.5 ML SYR IV STA (02:37)
[2020-12-06] MEDS ORDERED: ONDANSETRON INJ 2 MG/ML 2 ML VIAL IV STA (02:37)
[2020-12-06 03:10] LABS: D Dimer 2530 ug/L FEU (0-500)
[2020-12-06] MEDS ORDERED: OPTIRAY 320 125ml IV ONE (03:41)
--- NOTE | 2020-12-06 04:58 | Emergency Department Note ---
Impression & Plan Atrial tachycardia, Acute pain of left hip ED Provider Note NAME: PRICE DICKENS AGE: 85 SEX: M ARRIVES VIA: Ambulance INFORMANT: Patient ED PROVIDER(S): Liset Correa DO CHIEF COMPLAINT: Tachycardia PLAN: [facility] Guarded MEDICAL DECISION MAKING: This is an 85-year-old male patient from [facility] with tachycardia. The patient was just discharged from there after having lumbar decompression and fusion surgery here at this hospital. On routine vitals tonight, the patient was noted to be tachycardic. Patient was also complaining of left hip pain. We did a CT scan of the patient's left hip to rule out an occult fracture and this was negative. Patient was given IV analgesia which did control the discomfort in the hip but patient's heart rate still remained elevated. Patient was treated with IV crystalloid therapy as he did show some clinical signs of dehydration but again his heart rate still remained elevated. Troponin was negative. I did compare this EKG to previous EKGs and the patient's P waves appear to be inverted. Seems to be consistent with some sort of atrial tachycardia. [facility] and [facility] will evaluate for further management Triage Nursing notes reviewed and agree with them. Prior medical records reviewed Vital Signs: reviewed and remarkable for tachycardia Differential diagnosis: Dehydration, pain reaction, PE, primary cardiac dysrhythmia. ER treatment provided: IV normal saline bolus x2 IV Dilaudid Diagnostics interpreted by me: ECG: Sinus tachycardia at a rate of [address] segment elevation. There are P wave inversions in the inferior leads which is new compared to an EKG from November 29, 2020 Cardiac Monitoring: Sinus tachycardia at 156 Laboratory studies: See below Imaging studies: As per stat rad CT left hip: No acute fracture, dislocation or acute bony abnormality CTA chest: No evidence of pulmonary emboli. No acute cardiopulmonary process. 2.5 x 2.9 cm left adrenal nodule. Density measurements are not specific. HPI: 85/M arrives for evaluation of tachycardia. The patient presents here from [facility] for tachycardia. On routine vital signs at 11 PM this evening, the patient's heart rate was 155. The patient was complaining of left hip pain. He did suffer a fall at some point over the past couple of days but did not seek treatment. The patient did not complain of any shortness of breath, chest pain or any other symptoms. ROS: See above HPI for pertinent positives & negatives. A total of 10 systems reviewed and were otherwise negative. PAST MEDICAL HISTORY:See Below PAST SURGICAL HISTORY:See Below FAMILY HISTORY:See Below SOCIAL HISTORY:See Below HOME MEDICATIONS:See list ALLERGIES:See list VITALS:See Below PHYSICAL EXAMINATION: HEENT: Head - normocephalic and atraumatic Pupils are equal, round, and react lorin to light. Extraocular eye muscles are intact, and sclera are anicteric. Nose - moist nasal mucosa without discharge. Mouth - moist buccal mucosa. Oropharynx is nonerythematous and there is no tonsillar exudate or edema noted. Neck: Supple; no cervical lymphadenopathy or nuchal rigidity Heart: Tachycardic rate and regular rhythm. There is a normal S1 and S2 with no murmurs, clicks, or gallops appreciated. Lungs: Clear to auscultation bilaterally with no wheezes, rales, or rhonchi. Abdomen: Soft, completely nontender, nondistended, with good bowel sounds. There are no palpable pulsatile masses or hepatosplenomegaly. There is no guarding, rigidity, or rebound noted. Extremities: No evidence of cyanosis, clubbing, or edema. There are easily palpable peripheral pulses. Skin: warm and dry with good turgor and no rashes. ED COURSE: Times/Reassessments: 0225: The patient was evaluated in room C9. A complete history and physical was performed. An order was placed for continuous cardiac monitoring. The patient was in a sinus tachycardia at 156. Laboratory studies were drawn as above. Patient went for CT scan of the left hip and for a CTA of the chest to rule out PE as a cause of the patient's tachycardia. The patient was bolused with 500 cc of saline. The patient remains tachycardic despite managing his pain and bolusing him with fluid. The patient's heart rate remains elevated and he was bolused with a second bolus of 500 cc of saline. Liset Correa DO Past Med/Surg History Medical History (Updated 12/06/20 @ 07:12 by Liset Correa DO) Anemia Arthritis BPH associated with nocturia Carotid artery stenosis Chronic lumbar pain GERD without esophagitis Hearing difficulty Hematuria High prostate specific antigen (PSA) (~12/2018) History of amputation of finger (~2002) History of neck pain Hyperlipidemia Hypertension Pancreatic lesion 03/31/2020-2.1 x 1.0 x 1.7 cm bilobed cystic lesion of the pancreatic body/tail junction demonstrates mild marginal calcifications with a thin central enhancing septation. Differential considerations would include a mucinous cystadenoma versus complex singular or two subadjacent IPMN's. 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 neuropathy & tingling in hands Surgical History Amputation finger 2002 History of carpal tunnel release 2006 History of hernia repair 2003 History of neck surgery [id number] Family History Grandfather (Maternal) Stomach cancer Aunt , This was who raised me, I do not know my mother & father Stomach cancer MATERNAL Brother , 50's of an [place] Myocardial infarction Alcohol abuse Diabetes Mother Heart disease Diabetes Gallbladder disease Kidney stones Denies family history of Ovarian cancer Prostate cancer Breast cancer Colorectal cancer Social History Smoking Status: Former smoker Tobacco Type: Cigarettes Age Started Using Tobacco: 16; Age Quit Using Tobacco: 29; packs per day: 10; Years Smoked: 13; Second Hand Exposure: No; Hx Alcohol Use: No Hx Substance Use: No Preferred Language: Nepalese Communication Ability: Effective Visual Impairment: No Limitations 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 Airplane Required: No Beliefs That Will Affect Care: None marital status: / marital status details: PASSED IN 2016 D/T LUNG CANCER Current Living Situation: Alone current occupational status: retired Feels Safe at Home: Yes Childhood Exposure to Second-Hand Smoke: Yes Diet Comment: regular caffeine: Yes (coffee about 5 times a day) during the past year weight has: remained stable Dental Care, Regularly: Yes Physical Activity Frequency: Does not Exercise Physical Activity Frequency Comment: EXERCISE LIMITED BY PHYSICAL CONDITION Seatbelt Use: always Sunscreen Use: No Assistive Devices: Glasses, Hearing Aid - Bilateral and Walker Allergies Allergies Allergy/AdvReac Type Severity Reaction Status Date / Time codeine AdvReac Unknown severe Verified 12/06/20 03:13 vomiting Home Meds Home Medications Medication Instructions Recorded Confirmed tamsulosin 0.4 mg capsule 0.4 mg PO BID cap 02/09/20 12/06/20 cholecalciferol (vitamin D3) 50 2,000 unit PO DAILY tab 07/26/20 12/06/20 mcg (2,000 unit) tablet docusate sodium 100 mg PO BID 12/06/20 12/06/20 gabapentin 200 mg PO HS 12/06/20 12/06/20 heparin (bovine) 5,000 unit Q12 12/06/20 12/06/20 insulin regular human [Humulin R 1 sliding scale dose SUBCUT 12/06/20 12/06/20 Regular U-100 Insuln] USEASDIRECTD nystatin 1 applic TOPICAL BID 12/06/20 12/06/20 pantoprazole 40 mg PO DAILY 12/06/20 12/06/20 polyethylene glycol 3350 [Miralax] 17 g PO DAILY PRN 12/06/20 12/06/20 sennosides-docusate sodium 1 tab-cap PO DAILY PRN 12/06/20 12/06/20 [Senokot-S] Previous Rx's Medication Instructions Recorded blood-glucose meter #1 ea 06/11/19 atorvastatin 10 mg tablet 10 mg PO DAILY #90 tab 04/14/20 lancets 33 gauge #100 ea 04/21/20 blood-glucose meter #1 ea 07/26/20 cyanocobalamin (vitamin B-12) 1,000 mcg PO DAILY #90 tab 09/05/20 1,000 mcg tablet pen needle, diabetic 32 gauge x #100 ea 11/01/20" miscellaneous medical supply #1 ea 11/23/20 acetaminophen 1,000 mg PO Q8H #60 tab 12/04/20 insulin glargine [Lantus Solostar 12 unit SC BID #3 ml 12/04/20 U-100 Insulin] lidocaine 1 patch TRANSDERMAL QAM #1 ea 12/04/20 melatonin 3 mg PO HS PRN #10 tab 12/04/20 Results & Data (ED) Vital Signs Vital Signs - 24 hr 12/06/20 01:45 12/06/20 01:48 12/06/20 01:59 Temperature Temperature Source Pulse Rate 157 H 153 H 152 H Pulse Rate from SpO2 Sensor 155 H 155 H 153 H Pulse Rhythm Pulse Strength Respiratory Rate 30 H 24 21 Respiratory Effort / Characteristics Respiratory Depth Respiratory Pattern Blood Pressure 138/90 106/74 Blood Pressure Mean 106 84 Blood Pressure Position Pulse Oximetry 99 98 97 Oxygen Delivery Method Sepsis Recent Fever Within 48 Hours Sepsis New/Unexplained Change in Mental Status Sepsis Action Taken by Nursing 12/06/20 02:00 12/06/20 02:09 12/06/20 02:13 Temperature 37 C Temperature Source Oral Pulse Rate 154 H 160 H 160 H Pulse Rate from SpO2 Sensor 154 H Pulse Rhythm Regular Pulse Strength Normal Respiratory Rate 24 25 H 25 H Respiratory Effort / Characteristics Non-Labored Respiratory Depth Normal Respiratory Pattern Regular Blood Pressure 110/82 138/60 Blood Pressure Mean 91 86 Blood Pressure Position Lying Pulse Oximetry 97 99 98 Oxygen Delivery Method Room Air Room Air Sepsis Recent Fever Within 48 Hours No Sepsis New/Unexplained Change in Mental Status No Sepsis Action Taken by Nursing Physician Notified 12/06/20 02:15 12/06/20 02:16 12/06/20 02:30 Temperature Temperature Source Pulse Rate 155 H 160 H 161 H Pulse Rate from SpO2 Sensor 156 H 157 H 161 H Pulse Rhythm Pulse Strength Respiratory Rate 17 23 23 Respiratory Effort / Characteristics Respiratory Depth Respiratory Pattern Blood Pressure 93/72 L Blood Pressure Mean 79 Blood Pressure Position Pulse Oximetry 98 96 99 Oxygen Delivery Method Sepsis Recent Fever Within 48 Hours Sepsis New/Unexplained Change in Mental Status Sepsis Action Taken by Nursing 12/06/20 02:35 12/06/20 02:45 12/06/20 03:00 Temperature Temperature Source Pulse Rate 157 H 142 H 145 H Pulse Rate from SpO2 Sensor 155 H 142 H 146 H Pulse Rhythm Pulse Strength Respiratory Rate 20 27 H 18 Respiratory Effort / Characteristics Respiratory Depth Respiratory Pattern Blood Pressure 124/81 107/71 107/68 Blood Pressure Mean 95 83 81 Blood Pressure Position Pulse Oximetry 98 92 93 Oxygen Delivery Method Sepsis Recent Fever Within 48 Hours Sepsis New/Unexplained Change in Mental Status Sepsis Action Taken by Nursing 12/06/20 03:34 12/06/20 03:35 12/06/20 03:45 Temperature Temperature Source Pulse Rate 147 H 142 H Pulse Rate from SpO2 Sensor 148 H 147 H 142 H Pulse Rhythm Pulse Strength Respiratory Rate 18 16 Respiratory Effort / Characteristics Respiratory Depth Respiratory Pattern Blood Pressure 138/61 144/90 H Blood Pressure Mean 86 108 Blood Pressure Position Pulse Oximetry 95 86 L 97 Oxygen Delivery Method Sepsis Recent Fever Within 48 Hours Sepsis New/Unexplained Change in Mental Status Sepsis Action Taken by Nursing 12/06/20 04:00 12/06/20 04:15 12/06/20 04:30 Temperature Temperature Source Pulse Rate 143 H 147 H 142 H Pulse Rate from SpO2 Sensor 145 H 147 H 142 H Pulse Rhythm Pulse Strength Respiratory Rate 16 15 16 Respiratory Effort / Characteristics Respiratory Depth Respiratory Pattern Blood Pressure 136/71 124/56 L 129/77 Blood Pressure Mean 92 78 94 Blood Pressure Position Pulse Oximetry 100 97 98 Oxygen Delivery Method Sepsis Recent Fever Within 48 Hours Sepsis New/Unexplained Change in Mental Status Sepsis Action Taken by Nursing 12/06/20 04:45 12/06/20 05:00 12/06/20 05:15 Temperature Temperature Source Pulse Rate 146 H 158 H 156 H Pulse Rate from SpO2 Sensor 146 H 157 H 158 H Pulse Rhythm Pulse Strength Respiratory Rate 16 16 10 L Respiratory Effort / Characteristics Respiratory Depth Respiratory Pattern Blood Pressure 113/63 142/82 H Blood Pressure Mean 79 102 Blood Pressure Position Pulse Oximetry 98 98 100 Oxygen Delivery Method Sepsis Recent Fever Within 48 Hours Sepsis New/Unexplained Change in Mental Status Sepsis Action Taken by Nursing 12/06/20 05:17 12/06/20 05:30 12/06/20 05:45 Temperature Temperature Source Pulse Rate 164 H 150 H 141 H Pulse Rate from SpO2 Sensor 164 H 151 H 141 H Pulse Rhythm Pulse Strength Respiratory Rate 18 9 L 4 L Respiratory Effort / Characteristics Respiratory Depth Respiratory Pattern Blood Pressure 143/80 H 135/69 133/65 Blood Pressure Mean 101 91 87 Blood Pressure Position Pulse Oximetry 100 93 98 Oxygen Delivery Method Sepsis Recent Fever Within 48 Hours Sepsis New/Unexplained Change in Mental Status Sepsis Action Taken by Nursing 12/06/20 05:52 12/06/20 06:00 12/06/20 06:01 Temperature Temperature Source Pulse Rate 145 H 124 H 124 H Pulse Rate from SpO2 Sensor 120 H 121 H Pulse Rhythm Pulse Strength Respiratory Rate 3 L 6 L Respiratory Effort / Characteristics Respiratory Depth Respiratory Pattern Blood Pressure 133/65 84/47 L Blood Pressure Mean 59 Blood Pressure Position Pulse Oximetry 92 96 Oxygen Delivery Method Sepsis Recent Fever Within 48 Hours Sepsis New/Unexplained Change in Mental Status Sepsis Action Taken by Nursing 12/06/20 06:02 12/06/20 06:04 12/06/20 06:10 Temperature Temperature Source Pulse Rate 130 H 128 H 138 H Pulse Rate from SpO2 Sensor 129 H 130 H 135 H Pulse Rhythm Pulse Strength Respiratory Rate 9 L 8 L 16 Respiratory Effort / Characteristics Respiratory Depth Respiratory Pattern Blood Pressure 77/41 L 68/36 L 155/91 H Blood Pressure Mean 53 46 112 Blood Pressure Position Pulse Oximetry 98 96 100 Oxygen Delivery Method Sepsis Recent Fever Within 48 Hours Sepsis New/Unexplained Change in Mental Status Sepsis Action Taken by Nursing 12/06/20 06:15 12/06/20 06:17 12/06/20 06:19 Temperature Temperature Source Pulse Rate 141 H 140 H 142 H Pulse Rate from SpO2 Sensor Pulse Rhythm Pulse Strength Respiratory Rate 23 22 23 Respiratory Effort / Characteristics Respiratory Depth Respiratory Pattern Blood Pressure 161/119 H 166/106 H Blood Pressure Mean 133 126 Blood Pressure Position Pulse Oximetry Oxygen Delivery Method Sepsis Recent Fever Within 48 Hours Sepsis New/Unexplained Change in Mental Status Sepsis Action Taken by Nursing 12/06/20 06:21 12/06/20 06:30 12/06/20 06:31 Temperature Temperature Source Pulse Rate 137 H 128 H 141 H Pulse Rate from SpO2 Sensor Pulse Rhythm Pulse Strength Respiratory Rate 19 17 27 H Respiratory Effort / Characteristics Respiratory Depth Respiratory Pattern Blood Pressure 158/103 H 103/71 Blood Pressure Mean 121 81 Blood Pressure Position Pulse Oximetry Oxygen Delivery Method Sepsis Recent Fever Within 48 Hours Sepsis New/Unexplained Change in Mental Status Sepsis Action Taken by Nursing Laboratory Data Result diagrams: 12/06/20 02:00 12/06/20 02:00 Lab Results 12/06/20 12/06/20 12/06/20 Range/Units 02:00 02:00 02:00 WBC 5.01 (4.8-10.8) K/uL RBC 3.66 L (4.7-6.1) M/uL Hgb 10.6 L (14.0-18.0) g/dL Hct 32.0 L (42-52) % MCV 87.4 (80-100) fL MCH 29.0 (25-34) pg MCHC 33.1 (32-36) g/dL RDW Std Deviation 43.2 (36.4-46.3) fL RDW Coeff of Addis 13.4 (11.5-14.5) % Plt Count 285 (130-400) K/uL MPV 8.6 (7.4-10.4) fL Immature Gran % (Auto) 1.4 % Neut % (Auto) 61.6 % Lymph % (Auto) 18.0 % Morris % (Auto) 17.0 % Eos % (Auto) 2.0 % Baso % (Auto) 0.0 % Neut # (Auto) 3.09 (1.4-6.5) K/uL Lymph # (Auto) 0.90 L (1.2-3.4) K/uL Morris # (Auto) 0.85 H (0.11-0.59) K/uL Eos # (Auto) 0.10 (0-0.5) K/uL Baso # (Auto) 0.00 (0-0.2) K/uL Immature Gran # (Auto) 0.07 H (0.00-0.02) K/uL PT 9.4 (9.0-12.0) Seconds INR 0.9 (0.9-1.1) APTT 27.7 (21.0-31.0) Seconds PTT Ratio 1.1 D-Dimer (0-500) ug/L FEU Sodium 136 (136-145) mmol/L Potassium 4.5 (3.5-5.1) mmol/L Chloride 105 (98-107) mmol/L Carbon Dioxide 29 (21-32) mmol/L Anion Gap 2.0 L (3-11) BUN 13 (7-18) mg/dl Creatinine 0.85 (0.6-1.4) mg/dl Est Cr Clr Drug Dosing 72.3 ml/min Est GFR ( Amer) 93.4 ml/min Est GFR (Non-Af Amer) 80.6 ml/min BUN/Creatinine Ratio 15.6 (10-20) Glucose 164 H (70-99) mg/dl Calcium 8.7 (8.5-10.1) mg/dl Magnesium 2.0 (1.8-2.4) mg/dl Total Bilirubin 0.3 (0.2-1) mg/dl AST 16 (15-37) U/L ALT 22 (12-78) U/L Alkaline Phosphatase 81 (45-117) U/L Troponin I < 0.015 (0-0.045) ng/ml Total Protein 6.2 L (6.4-8.2) gm/dl Albumin 2.8 L (3.4-5.0) gm/dl Globulin 3.4 (2.5-4.0) gm/dl Albumin/Globulin Ratio 0.8 L (0.9-2) Urine Color Urine Appearance (Clear) Urine pH (4.5-7.5) Ur Specific Gruver (1.000-1.030) Urine Protein (Negative) Urine Glucose (UA) (Negative) Urine Ketones (Negative) Urine Blood (Negative) Urine Nitrite (Negative) Urine Bilirubin (Negative) Urine Urobilinogen (Negative) Ur Leukocyte Esterase (Negative) COVID-19 Eval Order SARS-CoV-2 (PCR) (Negative) 12/06/20 12/06/20 12/06/20 Range/Units 02:00 02:00 02:00 WBC (4.8-10.8) K/uL RBC (4.7-6.1) M/uL Hgb (14.0-18.0) g/dL Hct (42-52) % MCV (80-100) fL MCH (25-34) pg MCHC (32-36) g/dL RDW Std Deviation (36.4-46.3) fL RDW Coeff of Addis (11.5-14.5) % Plt Count (130-400) K/uL MPV (7.4-10.4) fL Immature Gran % (Auto) % Neut % (Auto) % Lymph % (Auto) % Morris % (Auto) % Eos % (Auto) % Baso % (Auto) % Neut # (Auto) (1.4-6.5) K/uL Lymph # (Auto) (1.2-3.4) K/uL Morris # (Auto) (0.11-0.59) K/uL Eos # (Auto) (0-0.5) K/uL Baso # (Auto) (0-0.2) K/uL Immature Gran # (Auto) (0.00-0.02) K/uL PT (9.0-12.0) Seconds INR (0.9-1.1) APTT (21.0-31.0) Seconds PTT Ratio D-Dimer 2530 H* (0-500) ug/L FEU Sodium (136-145) mmol/L Potassium (3.5-5.1) mmol/L Chloride (98-107) mmol/L Carbon Dioxide (21-32) mmol/L Anion Gap (3-11) BUN (7-18) mg/dl Creatinine (0.6-1.4) mg/dl Est Cr Clr Drug Dosing ml/min Est GFR ( Amer) ml/min Est GFR (Non-Af Amer) ml/min BUN/Creatinine Ratio (10-20) Glucose (70-99) mg/dl Calcium (8.5-10.1) mg/dl Magnesium (1.8-2.4) mg/dl Total Bilirubin (0.2-1) mg/dl AST (15-37) U/L ALT (12-78) U/L Alkaline Phosphatase (45-117) U/L Troponin I (0-0.045) ng/ml Total Protein (6.4-8.2) gm/dl Albumin (3.4-5.0) gm/dl Globulin (2.5-4.0) gm/dl Albumin/Globulin Ratio (0.9-2) Urine Color Yellow Urine Appearance Clear (Clear) Urine pH 7.5 (4.5-7.5) Ur Specific Gruver 1.007 (1.000-1.030) Urine Protein Negative (Negative) Urine Glucose (UA) Negative (Negative) Urine Ketones Negative (Negative) Urine Blood Negative (Negative) Urine Nitrite Negative (Negative) Urine Bilirubin Negative (Negative) Urine Urobilinogen Negative (Negative) Ur Leukocyte Esterase Negative (Negative) COVID-19 Eval Order Covid19 at [facility] SARS-CoV-2 (PCR) (Negative) 12/06/20 Range/Units 02:00 WBC (4.8-10.8) K/uL RBC (4.7-6.1) M/uL Hgb (14.0-18.0) g/dL Hct (42-52) % MCV (80-100) fL MCH (25-34) pg MCHC (32-36) g/dL RDW Std Deviation (36.4-46.3) fL RDW Coeff of Addis (11.5-14.5) % Plt Count (130-400) K/uL MPV (7.4-10.4) fL Immature Gran % (Auto) % Neut % (Auto) % Lymph % (Auto) % Morris % (Auto) % Eos % (Auto) % Baso % (Auto) % Neut # (Auto) (1.4-6.5) K/uL Lymph # (Auto) (1.2-3.4) K/uL Morris # (Auto) (0.11-0.59) K/uL Eos # (Auto) (0-0.5) K/uL Baso # (Auto) (0-0.2) K/uL Immature Gran # (Auto) (0.00-0.02) K/uL PT (9.0-12.0) Seconds INR (0.9-1.1) APTT (21.0-31.0) Seconds PTT Ratio D-Dimer (0-500) ug/L FEU Sodium (136-145) mmol/L Potassium (3.5-5.1) mmol/L Chloride (98-107) mmol/L Carbon Dioxide (21-32) mmol/L Anion Gap (3-11) BUN (7-18) mg/dl Creatinine (0.6-1.4) mg/dl Est Cr Clr Drug Dosing ml/min Est GFR ( Amer) ml/min Est GFR (Non-Af Amer) ml/min BUN/Creatinine Ratio (10-20) Glucose (70-99) mg/dl Calcium (8.5-10.1) mg/dl Magnesium (1.8-2.4) mg/dl Total Bilirubin (0.2-1) mg/dl AST (15-37) U/L ALT (12-78) U/L Alkaline Phosphatase (45-117) U/L Troponin I (0-0.045) ng/ml Total Protein (6.4-8.2) gm/dl Albumin (3.4-5.0) gm/dl Globulin (2.5-4.0) gm/dl Albumin/Globulin Ratio (0.9-2) Urine Color Urine Appearance (Clear) Urine pH (4.5-7.5) Ur Specific Gruver (1.000-1.030) Urine Protein (Negative) Urine Glucose (UA) (Negative) Urine Ketones (Negative) Urine Blood (Negative) Urine Nitrite (Negative) Urine Bilirubin (Negative) Urine Urobilinogen (Negative) Ur Leukocyte Esterase (Negative) COVID-19 Eval Order SARS-CoV-2 (PCR) NEGATIVE (Negative) Administered Medications Discontinued Medications Hydromorphone HCl (Hydromorphone Inj 0.5 Mg/0.5 Ml Syr) 0.5 mg IV NOW STA Stop: 12/06/20 02:38 Last Admin: 12/06/20 02:43 Dose: 0.5 mg Documented by: [id number] Sodium Chloride (Nss) 500 mls @ 999 mls/hr IV .Q31M ONE Stop: 12/06/20 03:06 Last Infusion: 12/06/20 03:36 Dose: 0 mls/hr Documented by: [id number] Admin: 12/06/20 02:42 Dose: 999 mls/hr Documented by: [id number] Sodium Chloride (Nss) 500 mls @ 999 mls/hr IV .Q31M ONE Stop: 12/06/20 05:23 Last Infusion: 12/06/20 05:36 Dose: 0 mls/hr Documented by: [id number] Admin: 12/06/20 05:00 Dose: 999 mls/hr Documented by: [id number] Ioversol (Optiray 320 125ml) 119 ml IV ONCE ONE Stop: 12/06/20 03:42 Last Admin: 12/06/20 03:42 Dose: 1 ml Documented by: [id number] Metoprolol Tartrate (Metoprolol Tartrate 1 Mg/Ml Vial) 5 mg IV NOW STA Stop: 12/06/20 05:47 Last Admin: 12/06/20 05:52 Dose: 5 mg Documented by: [id number] Metoprolol Tartrate (Metoprolol Tartrate 1 Mg/Ml Vial) Confirm Administered Dose 5 mg IV .STK-MED ONE Stop: 12/06/20 05:49 Last Admin: 12/06/20 05:51 Dose: Not Given Documented by: [id number] Ondansetron HCl (Ondansetron Inj 2 Mg/Ml 2 Ml Vial) 4 mg IV NOW STA Stop: 12/06/20 02:38 Last Admin: 12/06/20 02:42 Dose: 4 mg Documented by: [id number] Discharge Plan Visit Data Chief Complaint: Cardiac Assessment Stated Complaint: TACHYCARDIA ED Provider: Liset Correa Discharge Problem: Atrial tachycardia, Acute pain of left hip Forms Stand Alone Forms: [facility] [employer] Prescriptions Prescriptions: No Action tamsulosin [Flomax] 0.4 mg capsule 0.4 mg PO BID RF: 0 (DME) blood-glucose meter [Punch EntertainmentTouch Ultra2 Meter] Kit See Rx Instructions .ROUTE .MEDSUPPLY Qty: 1 RF: 0 atorvastatin 10 mg tablet 10 mg PO DAILY Qty: 90 RF: 1 (DME) lancets [OneTouch Delica Lancets] [facility] See Rx Instructions .ROUTE .MEDSUPPLY Qty: 100 RF: 2 cyanocobalamin (vitamin B-12) 1,000 mcg tablet 1,000 mcg PO DAILY Qty: 90 RF: 3 (DME) pen needle, diabetic [BD Ultra-Fine Joycelyn Pen Needle] 32 gauge x 5/32" needle See Rx Instructions .ROUTE .MEDSUPPLY Qty: 100 RF: 3 (DME) miscellaneous medical supply Mis See Rx Instructions .ROUTE .MEDSUPPLY Qty: 1 RF: 0 (DME) blood-glucose meter [Hyper Urban Level User Swedeny Autocode Monitor Syst] [facility] See Rx Instructions .ROUTE .MEDSUPPLY Qty: 1 RF: 0 cholecalciferol (vitamin D3) 50 mcg (2,000 unit) tablet 2,000 unit PO DAILY RF: 0 acetaminophen 500 mg Tablet 1,000 mg PO Q8H Qty: 60 RF: 0 Lantus Solostar U-100 Insulin 100 unit/mL (3 mL) Insulin Pen 12 unit SC BID Qty: 3 RF: 0 melatonin 3 mg Tablet 3 mg PO HS PRN (Reason: sleep) Qty: 10 RF: 0 lidocaine 5 % Adhesive Patch,Medicated 1 patch transdermal QAM Qty: 1 RF: 0 polyethylene glycol 3350 [Miralax] 17 gram Powder In Packet 17 g PO DAILY PRN (Reason: Constipation) RF: 0 sennosides-docusate sodium [Senokot-S] 8.6-50 mg Tablet 1 tab-cap PO DAILY PRN (Reason: Constipation) RF: 0 heparin (bovine) 5,000 unit/mL Solution 5,000 unit Q12 RF: 0 pantoprazole 40 mg Tablet,Delayed Release (Dr/Ec) 40 mg PO DAILY RF: 0 Humulin R Regular U-100 Insuln 100 unit/mL Solution 1 sliding scale dose SUBCUT USEASDIRECTD RF: 0 nystatin 100,000 unit/gram Powder 1 applic TOPICAL BID RF: 0 docusate sodium 100 mg Tablet 100 mg PO BID RF: 0 gabapentin 100 mg capsule 200 mg PO HS RF: 0
--- NOTE | 2020-12-06 05:33 | History & Physical Report ---
Date of Service December 06, 2020 Assessment & Plan (1) Atrial tachycardia: 85 yo M Hx lumbar spinal stenosis causing neurogenic claudication s/p lumbar decompression 11/29, ambulatory dysfunction, HTN, GERD, BPH admitted for observation for atrial tachycardia in 140s. Atrial tachycardia: - Noted at [facility] to have tachycardia today which prompted ER visit. - No complaints of SOB, chest pain, cannot feel heart racing. - In ER D-dimer of 2500, CTA Chest STAT Rad negative for PE, patient saturating well on room air. - Troponin negative. Electrolytes normal. - Several gambling monitor strips with P wave inversions; EKG with artifact however with atrial tachycardia. - Of note, last admission on 11/28 had episode of Atrial Tachycardia vs Sinus Tachycardia which did not resolve with esmolol 30mg and Lopressor 2.5mg, but did self-resolve after patient repositioned himself. No other noted tachycardia last admission. - Patient hemodynamically stable at this time. - [employer] for cardiac monitoring. - Looks clinically dry and asking for water; received 1L IVF in ER, will give another 1L bolus. - Lopressor IV 5mg given with significant hypotension 60/40, which rapidly improved to 120/70. Patient's HR normal 70s after this episode - Given recurrence of atrial tachycardia with unclear source will consult Cardiology. Lumbar spinal stenosis and neurogenic claudication s/p lumbar decompression: - Last admitted 11/22 for worsening low back pain and limb weakness. - Underwent lumbar decompression surgery on 11/[address] Connolly with subsequent improvement in his LE weakness and pain. - Continue PT/OT while admitted with eventual d/c back to [facility] to continue rehab. - Continue gabapentin, tylenol for pain. Avoid opiates if possible as patient had metabolic encephalopathy last admission partially contributed to opiates. Hypertension: - History of. Hold lisinopril as patient will be receiving Lopressor for tachycardia. Type 2 diabetes mellitus: - Most recent Hb A1c was 7%. - Hold metformin, resume on d/c. - Lantus 12u BID with SSI. GERD without esophagitis: - Continue PPI once daily. BPH associated with nocturia: - Continue Flomax. Apneic episodes: - Last admission had several witnessed apneic episodes. - Reticent to start CPAP as outpatient. Suspect NNEKA. - Can continue 2LNC qHS. Blood loss anemia: - 1.5gm drop post-back surgery. - Hgb stable today. Code Status: FULL CODE FEN: DM2 diet DVT ppx: Lovenox Dispo: Med Tele History of Present Illness Chief Complaint: tachycardia Primary Care Provider: [facility] 85 yo M Hx HTN, HLD, recent lumbar spinal decompression for lumbar spinal stenosis causing neurogenic claudication, DM2 presented from [facility] for tachycardia. Has had HR greater than 120 for several hours, though no complaints of CP, SOB, palpitations, dizziness, headache, nausea or vomiting. Allergies Allergy/AdvReac Type Severity Reaction Status Date / Time codeine AdvReac Unknown severe Verified 12/06/20 03:13 vomiting Home Medications Medication Instructions Recorded Confirmed Type blood-glucose meter #1 ea 06/11/19 12/06/20 Rx tamsulosin 0.4 mg capsule 0.4 mg PO BID cap 02/09/20 12/06/20 History atorvastatin 10 mg tablet 10 mg PO DAILY #90 tab 04/14/20 12/06/20 Rx lancets 33 gauge #100 ea 04/21/20 12/06/20 Rx blood-glucose meter #1 ea 07/26/20 12/06/20 Rx cholecalciferol (vitamin D3) 50 2,000 unit PO DAILY tab 07/26/20 12/06/20 History mcg (2,000 unit) tablet cyanocobalamin (vitamin B-12) 1,000 mcg PO DAILY #90 tab 09/05/20 12/06/20 Rx 1,000 mcg tablet pen needle, diabetic 32 gauge x #100 ea 11/01/20 12/06/20 Rx 5/32" miscellaneous medical supply #1 ea 11/23/20 12/06/20 Rx acetaminophen 1,000 mg PO Q8H #60 tab 12/04/20 12/06/20 Rx insulin glargine [Lantus Solostar 12 unit SC BID #3 ml 12/04/20 12/06/20 Rx U-100 Insulin] lidocaine 1 patch TRANSDERMAL QAM #1 ea 12/04/20 12/06/20 Rx melatonin 3 mg PO HS PRN #10 tab 12/04/20 12/06/20 Rx docusate sodium 100 mg PO BID 12/06/20 12/06/20 History gabapentin 200 mg PO HS 12/06/20 12/06/20 History heparin (bovine) 5,000 unit Q12 12/06/20 12/06/20 History insulin regular human [Humulin R 1 sliding scale dose SUBCUT 12/06/20 12/06/20 History Regular U-100 Insuln] USEASDIRECTD nystatin 1 applic TOPICAL BID 12/06/20 12/06/20 History pantoprazole 40 mg PO DAILY 12/06/20 12/06/20 History polyethylene glycol 3350 [Miralax] 17 g PO DAILY PRN 12/06/20 12/06/20 History sennosides-docusate sodium 1 tab-cap PO DAILY PRN 12/06/20 12/06/20 History [Senokot-S] Past Med/Surg History Medical History (Updated 12/06/20 @ 07:12 by Liset Correa DO) Anemia Arthritis BPH associated with nocturia Carotid artery stenosis Chronic lumbar pain GERD without esophagitis Hearing difficulty Hematuria High prostate specific antigen (PSA) (~12/2018) History of amputation of finger (~2002) History of neck pain Hyperlipidemia Hypertension Pancreatic lesion 03/31/2020-2.1 x 1.0 x 1.7 cm bilobed cystic lesion of the pancreatic body/tail junction demonstrates mild marginal calcifications with a thin central enhancing septation. Differential considerations would include a mucinous cystadenoma versus complex singular or two subadjacent IPMN's. 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 neuropathy & tingling in hands Surgical History Amputation finger 2002 History of carpal tunnel release 2006 History of hernia repair 2003 History of neck surgery [id number] Family History Grandfather (Maternal) Stomach cancer Aunt , This was who raised me, I do not know my mother & father Stomach cancer MATERNAL Brother , 50's of an [place] Myocardial infarction Alcohol abuse Diabetes Mother Heart disease Diabetes Gallbladder disease Kidney stones Denies family history of Ovarian cancer Prostate cancer Breast cancer Colorectal cancer Social History Smoking Status: Former smoker Tobacco Type: Cigarettes Age Started Using Tobacco: 16; Age Quit Using Tobacco: 29; packs per day: 10; Years Smoked: 13; Smoking End Date: >40yrs; Second Hand Exposure: No; Do You Dip or Chew Tobacco: No; Hx Alcohol Use: No Hx Substance Use: No Preferred Language: Khmer Communication Ability: Effective Visual Impairment: No Limitations Hearing Ability: Hard of Hearing Emergency Department Coordinator Required: No Beliefs That Will Affect Care: None marital status: / marital status details: PASSED IN 2016 D/T LUNG CANCER Current Living Situation: Alone current occupational status: retired Other Information That Helps Us Care for You: No Feels Safe at Home: Yes Safety Concerns: Feels Safe At This Time Childhood Exposure to Second-Hand Smoke: Yes Diet Comment: regular caffeine: Yes (coffee about 5 times a day) during the past year weight has: remained stable Dental Care, Regularly: Yes Physical Activity Frequency: Does not Exercise Physical Activity Frequency Comment: EXERCISE LIMITED BY PHYSICAL CONDITION Seatbelt Use: always Sunscreen Use: No Assistive Devices: Walker Review of Systems Review of Systems: All systems reviewed & are unremarkable except as noted in HPI & below Constitutional: no fever, no chills and no malaise Respiratory: no cough and no dyspnea Cardiovascular: no chest pain, no palpitations and no edema Gastrointestinal: no abdominal pain, no constipation and no diarrhea/loose stools Physical Exam Constitutional: WD/WN, vitals as above Eyes: PERRL, conjunctivae normal, anicteric sclerae ENMT: external ear and nose normal, oropharynx normal Neck: normal visual inspection Respiratory: normal respiratory effort, lungs clear to auscultation Cardiovascular: Rate/Rhythm: regular rhythm and + tachycardic Heart Sounds: no murmur Extremities: no edema Gastrointestinal (Abdomen): normal bowel sounds, soft, nontender, no hepatosplenomegaly Musculoskeletal: no cyanosis or clubbing, extremities motor strength 5/5 Skin: no rashes, warm and dry low back dressing in place, clean dry intact Psychiatric: A+Ox3, euthymic affect Results & Data Results & Data ([facility]) Vital Signs (Past 12 Hours) Vital Signs Temp Pulse Resp BP Pulse Ox 12/06/20 04:30 142 H 16 129/77 98 12/06/20 04:15 147 H 15 124/56 L 97 12/06/20 04:00 143 H 16 136/71 100 12/06/20 03:45 142 H 16 144/90 H 97 12/06/20 03:35 147 H 18 138/61 86 L 12/06/20 03:34 95 12/06/20 03:00 145 H 18 107/68 93 12/06/20 02:45 142 H 27 H 107/71 92 12/06/20 02:35 157 H 20 124/81 98 12/06/20 02:30 161 H 23 93/72 L 99 12/06/20 02:16 160 H 23 96 12/06/20 02:15 155 H 17 98 12/06/20 02:13 37 C 160 H 25 H 138/60 98 12/06/20 02:09 160 H 25 H 99 12/06/20 02:00 154 H 24 110/82 97 12/06/20 01:59 152 H 21 106/74 97 12/06/20 01:48 153 H 24 98 12/06/20 01:45 157 H 30 H 138/90 99 Supervising Physician Co-Signing Physician Notes Patient seen and examined, chart reviewed, case discussed with Dr. Brar and I agree with her assessment and plan as above. Briefly, patient is an 85yo male presenting with atrial tachycardia - HR 150's. Patient had similar episode during previous admission. Administered Metoprolol mg IV in ER which improved HR but caused transient hypotension which with IVF On exam he is afebrile, tachycaric, BP stable Skin - surgical site with dressing in place, c/d/i HEENT - NC/AT, PERRL, Neck supple Heart - +S1/S2, regular, tachycardic, no m/r/g Lungs - CTA Abd - +BS, soft, NT/ND Ext - no edema Labs and images reviewed. Assessment/Plan - -Monitor HR and BP -Consider low dose PO BB -Cardiology consultation appreciated -Remainder of plan as above Resident Activity Tracking Resident Involvement: Resident Care Provided Care Provided: Adult Hospital Medicine
[2020-12-06] MEDS ORDERED: METOPROLOL TARTRATE 1 MG/ML VIAL IV STA (05:46)
[2020-12-06] MEDS ORDERED: METOPROLOL TARTRATE 1 MG/ML VIAL IV ONE (05:48)
--- NOTE | 2020-12-06 07:39 | CT Scan Report ---
LEFT HIP CT CT DOSE: HISTORY: Left hip pain. eval for fracture TECHNIQUE: Multiaxial CT images of the left hip were performed and reformatted in the sagittal and co susana plane without the use of contrast. A dose lowering technique was utilized adhering to the prin ciples of GUILLAUME. COMPARISON: Abdomen and pelvis CT 03/31/2020. FINDINGS: No fracture or dislocation within the visualized pelvis or hips. The sacrum is intact. Subc utaneous edema within the left gluteal region may represent a small soft tissue contusion. No hematom a identified. Colonic diverticulosis. No evidence for acute diverticulitis. Trace gas within the left anterior abdominal wall may be due to prior medication injection. IMPRESSION: No fracture or dislocation within the left hip. ACT 112: Negative or not required by law. Electronically signed by: Chaparro Flowers M.D. 12/06/2020 7:38 AM
[2020-12-06] MEDS ORDERED: DEXTROSE 50% 50 ML SYRINGE IV PRN (09:03)
[2020-12-06] MEDS ORDERED: CARBOHYDRATES FOR HYPOGLYCEMIA PO PRN (09:03)
[2020-12-06] MEDS ORDERED: GLUCOSE 40% GEL 15 GM TUBE PO PRN (09:03)
[2020-12-06] MEDS ORDERED: KETOROLAC TROMETHAMINE 15 MG/ML VIAL IV PRN (09:03)
[2020-12-06] MEDS ORDERED: GLUCAGON FOR INJ 1 MG VIAL SQ PRN (09:03)
[2020-12-06] MEDS ORDERED: DOCUSATE SODIUM/SENNA 50/8.6MG TAB PO PRN (09:03)
[2020-12-06] MEDS ORDERED: POLYETHYLENE (MIRALAX) 17 GM PACK PO PRN (09:03)
[2020-12-06] MEDS ORDERED: MELATONIN 3 MG TAB PO PRN (09:03)
[2020-12-06] MEDS ORDERED: GLUCOSE 10 TABS/TUBE PO PRN (09:03)
[2020-12-06] MEDS ORDERED: LACTATED RINGER'S 1,000 ML IV SCH (09:03)
--- NOTE | 2020-12-06 09:22 | CT Scan Report ---
CT ANGIOGRAM OF THE CHEST CLINICAL HISTORY: PE COMPARISON STUDY: No previous studies for comparison. TECHNIQUE: Following the IV administration of mL of Optiray, CT angiogram of the thorax was performed from the thoracic inlet to the lung bases utilizing the pulmonary embolus protocol. Images are revie wed in the axial, sagittal, and coronal planes. IV contrast was administered without complication. AL P imaging was performed. A dose lowering technique was utilized adhering to the principles of ALARA. CT DOSE: 1377.39 mGy.cm FINDINGS: There is adequate opacification within main pulmonary artery. Evaluation of peripheral branches of th e pulmonary artery is limited due to respiratory motion artifact. No evidence of central pulmonary embolus is seen. No right heart strain or pulmonary artery dilatatio n seen. There is no axillary, supra clavicle or internal mammary lymphadenopathy seen. Mediastinal lymph node s are not enlarged. Visualized portion of thyroid gland shows no evidence of focal lesions. Small hiatal hernia is seen. Heart is normal in size without pericardial effusion. Severe coronary calcifications are seen. There was no evidence of thoracic aortic dilatation. Tracheobronchial tree is patent. No infiltrates or consolidative lesions are seen. Evaluation of pulmonary parenchyma is limited due t o motion artifact. Minimal atelectasis is seen at dependent portions of bilateral lower lobes. No pleural effusions are visualized. Limited evaluation of upper abdominal viscera shows no evidence of acute process. 2.6 cm left adrenal nodule is seen. Evaluation is limited on this nondedicated exam. Evaluation of osseous structures shows multilevel degenerative changes of the spine, most severe with in lower cervical region. IMPRESSION: 1. No evidence of central pulmonary embolus. Limited evaluation of peripheral branches of the pulmon artem artery due to motion artifact. No secondary signs of pulmonary embolus are seen. 2. No large infiltrates or consolidative lesions. 3. Small hiatal hernia. 4. Atherosclerosis. 5. Left adrenal nodule incompletely evaluated on this nondedicated exam. Please correlate above-ment ioned findings with prior history. Further evaluation with CT of the abdomen, adrenal protocol might be considered. ACT 112: Positive. There are findings on this exam that require communication between the performing entity and the patient following Patient Test Result Information Act ([place] Act 112) guidelines. The above report was generated using voice recognition software. It may contain grammatical, syntax o r spelling errors. Electronically signed by: Soraya Hart DO 12/06/2020 9:21 AM
[2020-12-06] MEDS: LIDOCAINE 5% 1 PATCH TD SCH (09:55)
[2020-12-06] MEDS: TAMSULOSIN HCL 0.4 MG CAP PO SCH ×2 (09:56→17:32)
[2020-12-06] MEDS: DOCUSATE SODIUM 100 MG CAP PO SCH ×2 (09:56→20:45)
[2020-12-06] MEDS: PANTOprazole 40 MG TAB PO SCH (09:56)
[2020-12-06] MEDS: ATORVASTATIN 10 MG TAB PO SCH (09:56)
[2020-12-06] MEDS: INSULIN GLARGINE SOLOSTAR 100 UNITS/ML 3 ML PEN SC SCH ×2 (10:01→20:48)
[2020-12-06] MEDS: INSULIN ASPART 100 UNITS/ML 3 ML PEN SC SCH ×4 (10:01→20:48)
[2020-12-06] MEDS: ACETAMINOPHEN 500 MG TAB PO SCH ×2 (12:30→21:35)
--- NOTE | 2020-12-06 16:06 | Billing Data ---
Date of Service December 06, 2020 Coding Level of Care Code 32118 OBS Care - Level 3
--- NOTE | 2020-12-06 18:58 | Cardiology Consultation ---
Date of Consultation December 06, 2020 Assessment & Plan (1) Atrial tachycardia: (2) Hypertension: ASSESSMENT/PLAN: 1. Possible atrial tachycardia (sustained): Had a arrhythmia during November 2020 hospitalization and presented with such today. No obvious cardiac symptoms during these sustained episodes. Will attempt to suppress the arrhythmia with p.o. beta-marion. Could also consider diltiazem if beta-marion is ineffective. Discussed with electrophysiology as well. If rate-controlling medications are not effective in suppressing the arrhythmia, could consider antiarrhythmic therapy versus EP study/ablation if felt to be viable option by EP. For now, metoprolol tartrate 25 mg twice daily. Recommend echocardiogram. 2. Hypertension: Blood pressure has been normotensive to hypertensive. Beta- marion as above. 3. Disposition: Cardiology will continue to follow. Please call with any other questions or concerns. Today's visit was 50 minutes in duration. This time includes greater than 50% [id number] time, counseling patient, coordinating care, reviewing records, r eviewing telemetry, and completing documentation. History of Present Illness Reason for Consultation: paroxysmal atrial tachycardia Requesting Physician: Avni Ramirez MD Attending Physician: Avni Ramirez MD History of Present Illness Mr. Neely is a pleasant 85-year-old gentleman with history significant for atrial tachycardia, hypertension, type 2 diabetes, and lumbar spinal stenosis s/p lumbar spinal decompression November 2020. He was seen today at approximately 1840. He was recently discharged on 12/04/2020 after being admitted for severe neurogenic claudication with lumbar spinal stenosis. He underwent lumbar decompression and fusion in November of 2020. During the hospital stay, he developed encephalopathy and also reportedly had atrial tachycardia which apparently did not respond to intravenous beta-blockers. He was discharged to [facility] and readmitted today after being found to have sustained tachycardia while at [facility]. He recalls being told that his heart rate was in the 150s before presentation today. He denies chest pain, shortness of breath, or palpitations during his tachycardic episode. He denies syncope or near-syncope. He states that he was having difficulty remembering his name, his phone number, or his daughter's phone number during such time. He was found to be in probable atrial tachycardia again today and was given metoprolol 5 mg IV and developed hypotension with reported blood pressure of 60/40mmHg, which rapidly improved to 120/70mmHg. His heart rate then reportedly also return to normal range, into the 70s. Unfortunately, telemetry was not available for review at the time of conversion. Available telemetry only includes sinus rhythm after such episode. He denies bleeding, edema, fevers, chills. Review of systems: As above. Review of systems otherwise negative/unremarkable. Family history: Brother in his 50s with HI. Social history: He quit smoking at the age of 29 after approximately 0.5 pack per day for approximately 13 years. No alcohol or drugs. He has been 4 times. First 3 marriages ended in divorce and his most recent spouse . Two daughters. He lives with his daughter and her family. He was unaccompanied today. Allergies Allergy/AdvReac Type Severity Reaction Status Date / Time codeine AdvReac Unknown severe Verified 12/06/20 03:13 vomiting Home Medications Medication Instructions Recorded Confirmed Type blood-glucose meter #1 ea 06/11/19 12/06/20 Rx tamsulosin 0.4 mg capsule 0.4 mg PO BID cap 02/09/20 12/06/20 History atorvastatin 10 mg tablet 10 mg PO DAILY #90 tab 04/14/20 12/06/20 Rx lancets 33 gauge #100 ea 04/21/20 12/06/20 Rx blood-glucose meter #1 ea 07/26/20 12/06/20 Rx cholecalciferol (vitamin D3) 50 2,000 unit PO DAILY tab 07/26/20 12/06/20 History mcg (2,000 unit) tablet cyanocobalamin (vitamin B-12) 1,000 mcg PO DAILY #90 tab 09/05/20 12/06/20 Rx 1,000 mcg tablet pen needle, diabetic 32 gauge x #100 ea 11/01/20 12/06/20 Rx 5/32" miscellaneous medical supply #1 ea 11/23/20 12/06/20 Rx acetaminophen 1,000 mg PO Q8H #60 tab 12/04/20 12/06/20 Rx insulin glargine [Lantus Solostar 12 unit SC BID #3 ml 12/04/20 12/06/20 Rx U-100 Insulin] lidocaine 1 patch TRANSDERMAL QAM #1 ea 12/04/20 12/06/20 Rx melatonin 3 mg PO HS PRN #10 tab 12/04/20 12/06/20 Rx docusate sodium 100 mg PO BID 12/06/20 12/06/20 History gabapentin 200 mg PO HS 12/06/20 12/06/20 History heparin (bovine) 5,000 unit Q12 12/06/20 12/06/20 History insulin regular human [Humulin R 1 sliding scale dose SUBCUT 12/06/20 12/06/20 History Regular U-100 Insuln] USEASDIRECTD nystatin 1 applic TOPICAL BID 12/06/20 12/06/20 History pantoprazole 40 mg PO DAILY 12/06/20 12/06/20 History polyethylene glycol 3350 [Miralax] 17 g PO DAILY PRN 12/06/20 12/06/20 History sennosides-docusate sodium 1 tab-cap PO DAILY PRN 12/06/20 12/06/20 History [Senokot-S] Patient History Medical History Anemia Arthritis BPH associated with nocturia Carotid artery stenosis Chronic lumbar pain GERD without esophagitis Hearing difficulty Hematuria High prostate specific antigen (PSA) (~12/2018) History of amputation of finger (~2002) History of neck pain Hyperlipidemia Hypertension Pancreatic lesion 03/31/2020-2.1 x 1.0 x 1.7 cm bilobed cystic lesion of the pancreatic body/tail junction demonstrates mild marginal calcifications with a thin central enhancing septation. Differential considerations would include a mucinous cystadenoma versus complex singular or two subadjacent IPMN's. 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 neuropathy & tingling in hands Surgical History Amputation finger 2002 History of carpal tunnel release 2006 History of hernia repair 2002 History of neck surgery [id number] Family History Grandfather (Maternal) Stomach cancer Aunt , This was who raised me, I do not know my mother & father Stomach cancer MATERNAL Brother , 50's of an HI Myocardial infarction Alcohol abuse Diabetes Mother Heart disease Diabetes Gallbladder disease Kidney stones Denies family history of Ovarian cancer Prostate cancer Breast cancer Colorectal cancer Social History Smoking Status: Former smoker Tobacco Type: Cigarettes Age Started Using Tobacco: 16; Age Quit Using Tobacco: 29; packs per day: 10; Years Smoked: 13; Smoking End Date: >40yrs; Second Hand Exposure: No; Do You Dip or Chew Tobacco: No; Hx Alcohol Use: No Hx Substance Use: No Preferred Language: Vietnamese Communication Ability: Effective Visual Impairment: No Limitations Hearing Ability: Hard of Hearing Cold Meat Cook Required: No Beliefs That Will Affect Care: None marital status: / marital status details: PASSED IN 2016 D/T LUNG CANCER Current Living Situation: Alone current occupational status: retired Other Information That Helps Us Care for You: No Feels Safe at Home: Yes Safety Concerns: Feels Safe At This Time Childhood Exposure to Second-Hand Smoke: Yes Diet Comment: regular caffeine: Yes (coffee about 5 times a day) during the past year weight has: remained stable Dental Care, Regularly: Yes Physical Activity Frequency: Does not Exercise Physical Activity Frequency Comment: EXERCISE LIMITED BY PHYSICAL CONDITION Seatbelt Use: always Sunscreen Use: No Assistive Devices: Glasses Physical Exam Physical Exam: Gen.: No acute distress. Alert and oriented x 3. HEENT: Anicteric sclera. Neck: No JVD. Bilateral carotid bruit versus radiation of cardiac murmur. Normal carotid upstrokes bilaterally. Cardiac: PMI was nondisplaced. No ventricular heave. Regular rate and rhythm. Normal S1-S2. 2/6 systolic murmur. No rubs or gallops. Pulmonary: Clear to auscultation bilaterally without wheezes, rales, or rhonchi. Abdomen: Soft, nontender, nondistended, with normoactive bowel sounds. No bruits noted. Extremities: 2+ radial pulses bilaterally. 2+ posterior tibialis pulses bilaterally. No significant pitting edema. No cyanosis. Psychiatric: Affect appears appropriate. Results & Data ([facility]) Vital Signs (Past 12 Hours) Vital Signs Temp Pulse Pulse Resp BP BP Pulse Ox 12/06/20 15:35 36.9 C 75 16 129/55 L 98 12/06/20 14:00 71 12/06/20 12:03 37.4 C 90 20 114/62 99 12/06/20 08:15 89 27 H 132/59 L 98 12/06/20 08:00 70 20 139/61 96 12/06/20 07:45 146 H 27 H 148/85 H 99 12/06/20 07:30 126 H 20 147/96 H 96 12/06/20 07:15 145 H 22 149/101 H 99 12/06/20 07:00 132 H 25 H 153/78 H 97 Laboratory Results Laboratory Results - last 24 hr 12/06/20 12/06/20 12/06/20 02:00 02:00 02:00 WBC 5.01 RBC 3.66 L Hgb 10.6 L Hct 32.0 L MCV 87.4 MCH 29.0 MCHC 33.1 RDW Std Deviation 43.2 RDW Coeff of Addis 13.4 Plt Count 285 MPV 8.6 Immature Gran % (Auto) 1.4 Neut % (Auto) 61.6 Lymph % (Auto) 18.0 [place] % (Auto) 17.0 Eos % (Auto) 2.0 Baso % (Auto) 0.0 Neut # (Auto) 3.09 Lymph # (Auto) 0.90 L [place] # (Auto) 0.85 H Eos # (Auto) 0.10 Baso # (Auto) 0.00 Immature Gran # (Auto) 0.07 H PT 9.4 INR 0.9 APTT 27.7 PTT Ratio 1.1 D-Dimer Sodium 136 Potassium 4.5 Chloride 105 Carbon Dioxide 29 Anion Gap 2.0 L BUN 13 Creatinine 0.85 Est Cr Clr Drug Dosing 72.3 Est GFR ( Amer) 93.4 Est GFR (Non-Af Amer) 80.6 BUN/Creatinine Ratio 15.6 Glucose 164 H POC Glucose Calcium 8.7 Magnesium 2.0 Total Bilirubin 0.3 AST 16 ALT 22 Alkaline Phosphatase 81 Troponin I < 0.015 Total Protein 6.2 L Albumin 2.8 L Globulin 3.4 Albumin/Globulin Ratio 0.8 L Urine Color Urine Appearance Urine pH Ur Specific [place] Urine Protein Urine Glucose (UA) Urine Ketones Urine Blood Urine Nitrite Urine Bilirubin Urine Urobilinogen Ur Leukocyte Esterase COVID-19 Eval Order SARS-CoV-2 (PCR) 12/06/20 12/06/20 12/06/20 02:00 02:00 02:00 WBC RBC Hgb Hct MCV MCH MCHC RDW Std Deviation RDW Coeff of [place] Plt Count MPV Immature Gran % (Auto) Neut % (Auto) Lymph % (Auto) [place] % (Auto) Eos % (Auto) Baso % (Auto) Neut # (Auto) Lymph # (Auto) [place] # (Auto) Eos # (Auto) Baso # (Auto) Immature Gran # (Auto) PT INR APTT PTT Ratio D-Dimer 2530 H* Sodium Potassium Chloride Carbon Dioxide Anion Gap BUN Creatinine Est Cr Clr Drug Dosing Est GFR ( Amer) Est GFR (Non-Af Amer) BUN/Creatinine Ratio Glucose POC Glucose Calcium Magnesium Total Bilirubin AST ALT Alkaline Phosphatase Troponin I Total Protein Albumin Globulin Albumin/Globulin Ratio Urine Color Yellow Urine Appearance Clear Urine pH 7.5 Ur Specific [place] 1.007 Urine Protein Negative Urine Glucose (UA) Negative Urine Ketones Negative Urine Blood Negative Urine Nitrite Negative Urine Bilirubin Negative Urine Urobilinogen Negative Ur Leukocyte Esterase Negative COVID-19 Eval Order Covid19 at [facility] SARS-CoV-2 (PCR) 12/06/20 12/06/20 12/06/20 02:00 09:31 11:44 WBC RBC Hgb Hct MCV MCH MCHC RDW Std Deviation RDW Coeff of [place] Plt Count MPV Immature Gran % (Auto) Neut % (Auto) Lymph % (Auto) [place] % (Auto) Eos % (Auto) Baso % (Auto) Neut # (Auto) Lymph # (Auto) [place] # (Auto) Eos # (Auto) Baso # (Auto) Immature Gran # (Auto) PT INR APTT PTT Ratio D-Dimer Sodium Potassium Chloride Carbon Dioxide Anion Gap BUN Creatinine Est Cr Clr Drug Dosing Est GFR ( Amer) Est GFR (Non-Af Amer) BUN/Creatinine Ratio Glucose POC Glucose 144 H 196 H Calcium Magnesium Total Bilirubin AST ALT Alkaline Phosphatase Troponin I Total Protein Albumin Globulin Albumin/Globulin Ratio Urine Color Urine Appearance Urine pH Ur Specific [place] Urine Protein Urine Glucose (UA) Urine Ketones Urine Blood Urine Nitrite Urine Bilirubin Urine Urobilinogen Ur Leukocyte Esterase COVID-19 Eval Order SARS-CoV-2 (PCR) NEGATIVE 12/06/20 12/06/20 17:26 20:05 WBC RBC Hgb Hct MCV MCH MCHC RDW Std Deviation RDW Coeff of [place] Plt Count MPV Immature Gran % (Auto) Neut % (Auto) Lymph % (Auto) [place] % (Auto) Eos % (Auto) Baso % (Auto) Neut # (Auto) Lymph # (Auto) [place] # (Auto) Eos # (Auto) Baso # (Auto) Immature Gran # (Auto) PT INR APTT PTT Ratio D-Dimer Sodium Potassium Chloride Carbon Dioxide Anion Gap BUN Creatinine Est Cr Clr Drug Dosing Est GFR ( Amer) Est GFR (Non-Af Amer) BUN/Creatinine Ratio Glucose POC Glucose 160 H 189 H Calcium Magnesium Total Bilirubin AST ALT Alkaline Phosphatase Troponin I Total Protein Albumin Globulin Albumin/Globulin Ratio Urine Color Urine Appearance Urine pH Ur Specific [place] Urine Protein Urine Glucose (UA) Urine Ketones Urine Blood Urine Nitrite Urine Bilirubin Urine Urobilinogen Ur Leukocyte Esterase COVID-19 Eval Order SARS-CoV-2 (PCR) Diagnostic Findings Telemetry personally reviewed: Sinus rhythm. Unfortunately, his tachycardic episode was not available for review on telemetry. ECG 12/06/2020 personally reviewed: Possible atrial tachycardia [address] abnormality. CTA chest 12/06/2020: No central PE. No large infiltrates. Small hiatal hernia. Atherosclerosis. Left adrenal nodule incompletely evaluated per Radiology. Medications Administered Current Inpatient Medications Acetaminophen (Acetaminophen 500 Mg Tab) 1,000 mg PO Q8 ROCKY Stop: 01/05/21 11:59 Last Admin: 12/06/20 21:35 Dose: 1,000 mg Documented by: Atorvastatin Calcium (Atorvastatin 10 Mg Tab) 10 mg PO DAILY ROCKY Stop: 01/05/21 09:02 Last Admin: 12/06/20 09:56 Dose: 10 mg Documented by: Dextrose (Dextrose 50% 50 Ml Syringe) 25 - 50 ml IV UD PRN; Protocol PRN Reason: Hypoglycemia Protocol Stop: 01/05/21 09:02 Docusate Sodium (Docusate Sodium 100 Mg Cap) 100 mg PO BID ROCKY Stop: 01/05/21 09:02 Last Admin: 12/06/20 20:45 Dose: 100 mg Documented by: Gabapentin (Gabapentin 100 Mg Cap) 200 mg PO HS ROCKY Stop: 01/05/21 20:59 Last Admin: 12/06/20 20:45 Dose: 200 mg Documented by: Glucagon (Glucagon For Inj 1 Mg Vial) 1 mg SQ UD PRN; Protocol PRN Reason: Hypoglycemia Protocol Stop: 01/05/21 09:02 Glucose (Glucose 10 Tabs/Tube) 4 - 8 tabs PO UD PRN; Protocol PRN Reason: Hypoglycemia Protocol Stop: 01/05/21 09:02 Glucose (Glucose 40% Gel 15 Gm Tube) 15 - 30 gm PO UD PRN; Protocol PRN Reason: Hypoglycemia Protocol Stop: 01/05/21 09:02 Insulin Aspart (Insulin Aspart 100 Units/Ml 3 Ml Pen) 0 units SC ACHS ROCKY Stop: 01/05/21 09:02 Last Admin: 12/06/20 20:48 Dose: 2 units Documented by: Insulin Glargine (Insulin Glargine Solostar 100 Units/Ml 3 Ml Pen) 12 units SC BID ROCKY Stop: 01/05/21 09:02 Last Admin: 12/06/20 20:48 Dose: 12 units Documented by: Ketorolac Tromethamine (Ketorolac Tromethamine 15 Mg/Ml Vial) 15 mg IV Q6H PRN PRN Reason: Pain Stop: 12/11/20 09:02 Lidocaine (Lidocaine 5% 1 Patch) 1 patch TD QAM ROCKY Stop: 01/05/21 09:02 Last Admin: 12/06/20 09:55 Dose: 1 patch Documented by: Melatonin (Melatonin 3 Mg Tab) 3 mg PO HS PRN PRN Reason: sleep Stop: 01/05/21 09:02 Miscellaneous (Carbohydrates For Hypoglycemia ) 15 - 30 gm PO UD PRN PRN Reason: Hypoglycemia Protocol Stop: 01/05/21 09:02 Miscellaneous (Remove Lidoderm Patch) 1 ea N/A DAILY@2100 [facility] Stop: 01/05/21 20:59 Last Admin: 12/06/20 20:46 Dose: 1 ea Documented by: Pantoprazole Sodium (Pantoprazole 40 Mg Tab) 40 mg PO DAILY ROCKY Stop: 01/05/21 09:02 Last Admin: 12/06/20 09:56 Dose: 40 mg Documented by: Polyethylene Glycol (Polyethylene (Miralax) 17 Gm Pack) 17 gm PO DAILY PRN PRN Reason: Constipation Stop: 01/05/21 09:02 Senna/Docusate Sodium (Docusate Sodium/Senna 50/8.6mg Tab) 1 tab PO DAILY PRN PRN Reason: Constipation Stop: 01/05/21 09:02 Tamsulosin HCl (Tamsulosin Hcl 0.4 Mg Cap) 0.4 mg PO BIDPC ROCKY Stop: 01/05/21 09:02 Last Admin: 12/06/20 17:32 Dose: 0.4 mg Documented by: PG Care Time/CCT Total # of Minutes Spent Total Time Spent with Patient: Total time spent is greater than 50% in coordination of care (as documented) at patient's floor/unit and/or counseling patient: Coding Level of Care Code 95336 Office/Outpt Visit, New Diagnoses Atrial tachycardia I47.1 Hypertension I10 Hypertension type: essential hypertension Time Spent (min) 50 (1) Hypertension Hypertension type: essential hypertension Qualified Code(s): I10 - Essential (primary) hypertension
[2020-12-06] MEDS: GABAPENTIN 100 MG CAP PO SCH (20:45)
--- NOTE | 2020-12-07 05:57 | Electrocardiogram Report ---
Test Reason : Blood Pressure : / mmHG Vent. Rate : 157 BPM Atrial Rate : 157 BPM P-R Int : 130 ms QRS Dur : 076 ms QT Int : 242 ms P-R-T Axes : 000 057 011 degrees QTc Int : 391 ms Poor data quality, interpretation may be adversely affected Possible Atrial tachycardia Nonspecific ST abnormality Abnormal ECG When compared with ECG of 29-NOV-2020 13:09, Vent. rate has increased BY 81 BPM Atrial tachycardia has replaced Sinus rhythm Confirmed by Geo Stanton ([id number]) on 12/07/2020 5:56:55 AM Referred By: [facility] Confirmed By:Geo Stanton
[2020-12-07] MEDS: ACETAMINOPHEN 500 MG TAB PO SCH ×3 (06:23→20:59)
[2020-12-07] MEDS: INSULIN ASPART 100 UNITS/ML 3 ML PEN SC SCH ×3 (08:38→21:18)
[2020-12-07] MEDS: INSULIN GLARGINE SOLOSTAR 100 UNITS/ML 3 ML PEN SC SCH ×2 (08:40→21:19)
[2020-12-07] MEDS: LIDOCAINE 5% 1 PATCH TD SCH (08:41)
[2020-12-07] MEDS: DOCUSATE SODIUM 100 MG CAP PO SCH ×2 (08:42→21:14)
[2020-12-07] MEDS: TAMSULOSIN HCL 0.4 MG CAP PO SCH ×2 (08:42→17:12)
[2020-12-07] MEDS: ATORVASTATIN 10 MG TAB PO SCH (08:42)
[2020-12-07] MEDS: PANTOprazole 40 MG TAB PO SCH (08:42)
[2020-12-07] MEDS ORDERED: PHARMACY GLYCEMIC MGMT CONSULT SCH (09:35)
[2020-12-07] MEDS ORDERED: INSULIN GLARGINE SOLOSTAR 100 UNITS/ML 3 ML PEN SC ONE (09:45)
--- NOTE | 2020-12-07 09:45 | Pharmacy Report ---
Pharmacy Glycemic Short Note 2 - Date of Service December 07, 2020 - Glycemic Short BSG Results (Last 24 hours): 12/06/20 12/06/20 12/06/20 11:44 17:26 20:05 POC Glucose 196 H 160 H 189 H 12/07/20 12/07/20 07:04 07:42 POC Glucose 248 H 241 H OUTPATIENT ANTIDIABETIC REGIMEN: * Lantus 12 units SQ BID * Humulin R - 0-12 units sliding scale * Metformin 1g PO BID * A1c 7% 11/23/20 ASSESSMENT: * 85 year old male, s/p lumbar fusion + decompression surgery by Dr Connolly on 11/29, admitted with atrial tachycardia * Type 2 diabetic, hyperglycemic, will increase basal and tighten bolus insulin at this time * NPO, continue to hold metformin PLAN FOR INPATIENT GLYCEMIC CONTROL: * Hold outpatient oral diabetes medications * Basal insulin - increase * Lantus 6 units x1 dose now (in addition to 12 units given this morning) then * Lantus 15 units SQ BID * Bolus insulin - tighten CF/CR * NovoLog per scale ACHS or Q6hrs while NPO * Goal Range: Low 110 mg/dL - High 140 mg/dL * Correction Factor: 18 mg/dL/unit * Nutritional / Prandial insulin per carb ratio of 1 unit per 6 grams CHO consumed PLAN FOR DISCHARGE: * A1c 7% = ok to continue home regimen as long as not having hypoglycemia
--- NOTE | 2020-12-07 10:53 | Hospitalist Progress Note ---
Date of Service December 07, 2020 Assessment & Plan (1) Paroxysmal atrial flutter: Multiple episodes self-terminating today. Short lived therefore will defer to cardiology regarding anticoagulation. Discussed with cardiology and plan on EP study tomorrow. N.p.o. after midnight. (2) Hypertension: Holding lisinopril due to hypotension on admission (3) Acute blood loss anemia: Stable afte- 1.5gm drop post-back surgery. - Hgb stable today. (4) BPH associated with nocturia: - Continue Flomax. (5) Type 2 diabetes mellitus: - Most recent Hb A1c was 7%. - Hold metformin, resume on d/c. - Lantus 12u BID with SSI. (6) DVT prophylaxis: Hold lovenox due to need for EP study Admission and Anticipated Discharge Date Admission Date: December 06, 2020 Subjective Patient seen this morning due to concern of an episode of symptomatic asystole during echocardiogram. Review of telemetry suggestive of a lead coming loose but no true pauses seen. Patient alert to voice when seen but would fall back to sleep easily. No chest pain or shortness of breath. Bigeminy on EKG with effective heart rate [address] Norwood who will review patient and echocardiogram. NPO for possible EP study. Review of Systems Review of Systems: All systems reviewed & are unremarkable except as noted in HPI & below Physical Exam Constitutional: WD/WN, vitals as above Respiratory: normal respiratory effort, lungs clear to auscultation Cardiovascular: RRR, no murmur, no edema Gastrointestinal (Abdomen): normal bowel sounds, soft, nontender, no hepatosplenomegaly Musculoskeletal: no cyanosis or clubbing, extremities motor strength 5/5 Skin: no rashes, warm and dry Neurologic: moves all extremities, awake and + confused Psychiatric: Orientation: alert and oriented to person (self); + not oriented to place (aware he is in hospital) and + not oriented to time Results & Data Results & Data ([place]) Vital Signs (Past 12 Hours) Vital Signs Temp Pulse Pulse Resp BP BP Pulse Ox 12/07/20 09:15 36.6 C 143 H 17 101/65 99 12/07/20 06:36 70 12/07/20 06:31 36.7 C 85 18 151/55 H 96 07/07/21 02:50 193/65 H 12/07/20 02:43 36.7 C 76 18 184/63 H 99 PG Care Time/CCT Total # of Minutes Spent Total Time Spent with Patient: Total time spent is greater than 50% in coordination of care (as documented) at patient's floor/unit and/or counseling patient: Coding Level of Care Code 75007 Subseq Obs Care Lvl 2 Diagnoses Paroxysmal atrial flutter I48.92 Hypertension I10 Hypertension type: essential hypertension Acute blood loss anemia D62 BPH associated with nocturia N40.1; R35.1 Type 2 diabetes mellitus E11.9 DVT prophylaxis Z29.9 (1) Hypertension Hypertension type: essential hypertension Qualified Code(s): I10 - Essential (primary) hypertension
[2020-12-07] MEDS ORDERED: LACTATED RINGER'S 1,000 ML IV SCH (11:00)
[2020-12-07] MEDS ORDERED: INSULIN ASPART 100 UNITS/ML 3 ML PEN SC SCH (12:00)
[2020-12-07 12:03] LABS: BUN Creatinine Ratio 15.8 (10-20); Calcium 8.5 mg/dl (8.5-10.1); Creatinine Clr Calc Pharmacy 86.1 ml/min; Est GFR (African American) 104.3 ml/min
[2020-12-07 12:08] LABS: Troponin I 0.021 ng/ml (0-0.045)
[2020-12-07] MEDS ORDERED: Nursing to Pharmacy Communication SCH (15:45)
[2020-12-07] MEDS: GABAPENTIN 100 MG CAP PO SCH (20:59)
--- NOTE | 2020-12-07 21:53 | XCELERA ---
[id number]
[2020-12-08] MEDS: ACETAMINOPHEN 500 MG TAB PO SCH ×3 (06:21→20:19)
--- NOTE | 2020-12-08 06:29 | Electrocardiogram Report ---
Test Reason : Blood Pressure : / mmHG Vent. Rate : 065 BPM Atrial Rate : 065 BPM P-R Int : 152 ms QRS Dur : 092 ms QT Int : 412 ms P-R-T Axes : 020 005 017 degrees QTc Int : 428 ms Sinus rhythm with frequent Premature ventricular complexes Otherwise normal ECG When compared with ECG of 06-DEC-2020 01:48, Sinus rhythm has replaced atrial tachycardia Vent. rate has decreased BY 92 BPM Premature ventricular complexes are now Present Confirmed by Geo Stanton ([id number]) on 12/08/2020 6:29:34 AM Referred By: [facility] Confirmed By:Geo Stanton
[2020-12-08 07:37] LABS: BUN Creatinine Ratio 12.8 (10-20); Blood Urea Nitrogen 10 mg/dl (7-18); Calcium 9.1 mg/dl (8.5-10.1); Carbon Dioxide 30 mmol/L (21-32); Chloride 100 mmol/L (98-107); Creatinine Clr Calc Pharmacy 75.6 ml/min; Est GFR (African American) 98.9 ml/min; Est GFR (Non-African American) 85.3 ml/min; Glucose 125 mg/dl (70-99); Potassium 4.3 mmol/L (3.5-5.1); Sodium 132 mmol/L (136-145)
[2020-12-08 07:42] LABS: Troponin I < 0.015 ng/ml (0-0.045)
[2020-12-08] MEDS ORDERED: DOCUSATE SODIUM 100 MG CAP PO PRN (08:30)
[2020-12-08] MEDS: LIDOCAINE 5% 1 PATCH TD SCH (08:38)
[2020-12-08] MEDS: TAMSULOSIN HCL 0.4 MG CAP PO SCH ×2 (08:38→19:41)
[2020-12-08] MEDS: INSULIN ASPART 100 UNITS/ML 3 ML PEN SC SCH ×4 (08:38→20:13)
[2020-12-08] MEDS: ATORVASTATIN 10 MG TAB PO SCH (08:38)
[2020-12-08] MEDS: PANTOprazole 40 MG TAB PO SCH (08:38)
[2020-12-08] MEDS: INSULIN GLARGINE SOLOSTAR 100 UNITS/ML 3 ML PEN SC SCH ×2 (08:39→20:14)
--- NOTE | 2020-12-08 11:56 | Pre Anesthesia Assessment ---
Date of Service December 08, 2020 Pre Sedation Assessment Vital Signs Temp Pulse Pulse Resp BP BP Pulse Ox 12/08/20 11:24 36.7 C 147 H 21 97/62 L 98 12/08/20 07:05 76 12/08/20 07:03 36.7 C 76 22 120/77 100 12/08/20 03:32 36.6 C 71 18 127/62 97 12/07/20 23:07 36.9 C 78 19 124/65 97 12/07/20 23:00 84 12/07/20 19:47 37.6 C H 79 18 136/65 95 12/07/20 15:30 36.7 C 74 18 155/66 H 98 Cardiovascular + regular rate and + regular rhythm Respiratory + respiratory effort normal Pre-Sedation Airway Assessment Smoking Status: Former smoker Hx Sleep Apnea: No Hx Difficult Intubation: No Short, Thick Neck: No Thyromental Distance: > or= 3.5 Finger Breadths Oral Cavity: + WNL Mallampati Class: III ASA: ASA3 NPO Status Date of Last Intake of Fluids: 12/07/20 Date of Last Intake of Solid Food: 12/07/20 Procedure Planning Contraindications for Sedation: none Current Medications Reviewed: Yes Notes The planned sedation has been discussed with the patient. Informed Consent was obtained. I have identified the patient, determined the appropriateness of sedation and have assessed the patient immediately prior to the procedure. All medicine(s) and interventions are by my order.
[2020-12-08] MEDS ORDERED: LIDOCAINE 1% LOCAL 20 ML VIAL ONE (11:59)
[2020-12-08] MEDS ORDERED: MIDAZOLAM HCL 5 MG/ML 1 ML VIAL ONE ×2 (12:25→13:16)
[2020-12-08] MEDS ORDERED: fentaNYL citrate 100 MCG/2 ML VIAL ONE ×2 (12:25→13:16)
[2020-12-08] MEDS ORDERED: ISOPROTERENOL HCL 0.2 MG/ML 5 ML AMP IV ONE (14:29)
--- NOTE | 2020-12-08 14:59 | Electrophysiology Report ---
Date of Service December 08, 2020 Electrophysiology Procedure Electrophysiology Procedure Report procedure performed: Ablation of SVT, complete electrophysiologic testing including pacing of the left atrium via the coronary sinus, arrhythmia induction using drug infusion, mapping of tachycardia sites using 3 dimensional electro anatomical mapping, ultrasound-guided vascular access staff attache: Toni Yanes MD indication: The patient is an 85-year-old gentleman admitted to the hospital with episodes of sustained tachycardia. Based on the appearance of his tachycardia was felt to be a good candidate for electrophysiologic testing and possible ablation. Procedure detail: The patient was informed of the risks benefits and alternatives to the intended procedure. He understood which proceed. He was taken to the electrophysiology suite in a fasting state. Conscious sedation was administered per protocol the patient was monitored electrocardiographically throughout today's procedure. The right internal jugular area and right femoral areas were prepped and draped in the usual sterile fashion. These areas were anesthetized using subcutaneous menstruation lidocaine solution. The right internal jugular vein was subsequently accessed using modified Seldinger technique under ultrasound guidance in a venous sheath was placed at the site over a guidewire. The right femoral vein was accessed 3 times using modified Seldinger technique and sheath were placed over guidewires at this site. The sheath was used facilitate passage of the EP catheters to their respective chambers under fluoroscopic guidance. This included right ventricular, coronary sinus and his bundle catheters. Patient's baseline conduction system in tachycardia were characterize. Three-dimensional electroanatomical mapping of the tachycardia was then performed. Once the site of origin was localized, radiofrequency lesions were placed in a temperature limited mode until the tachycardia was no longer inducible. Subsequent attempts at arrhythmia induction were performed using programmed stimulation as well as isoproterenol infusion. At the conclusion of the case the catheters and sheaths were removed. Hemostasis was achieved at the access site using manual pressure. The patient tolerated the procedure well. There were no immediate complications. Findings baseline intracardiac intervals: cycle length in the atrium 794 milliseconds cycle length in the ventricle 795 milliseconds p.r.n. interval 172 milliseconds QRS duration 103 milliseconds QT interval 356 milliseconds AH interval 95 milliseconds HV interval 50 milliseconds additional testing in the baseline state could not be completed this patient had persistent tachycardia. Tachycardia cycle length was 400-425 milliseconds. Ventricular entrainment appear to produce a pseudo VA AV response. The tachycardia often terminated with an atrial signal. Electro anatomical mapping localized the earliest atrial signal to the inferior septal portion of the right atrium. Earliest atrial activation was close to the coronary sinus. Ablation: With 3D electro anatomical mapping radiofrequency lesions were placed with good power and temperature using a 4 millimeter ablation catheter. On several occasions the tachycardia accelerated and then terminated. Multiple lesions were placed in the area of the slow pathway and coronary sinus. Multiple slow junctional beats were also obtained during ablation. At no time was there evidence of retrograde conduction block. Post ablation intervals cycle length in the atrium 631 milliseconds cycle length in the ventricle 630 milliseconds p.r.n. interval 140 milliseconds QRS duration 108 milliseconds QT interval 337 milliseconds AH interval 88 milliseconds HV interval 35 milliseconds av Wenckebach occurred at 380 milliseconds VA Wenckebach occurred at 446 milliseconds The retrograde ventricular refractory period was 331 milliseconds. It should be noted that retrograde conduction was concentric and decremental The AV node effective refractory period post ablation was less than 250 milliseconds there is no discrete lengthening of the AH interval with programmed stimulation. There were no echo beats noted subsequent to ablation. 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 No evidence of accessory pathway conduction At the conclusion of the procedure no evidence of dual AV tamara physiology or echo beats. No inducible tachycardia with either programmed stimulation or burst atrial pacing on or off isoproterenol. Normal conduction intervals subsequent to ablation [facility] Electrophysiology codes EP Procedure 1: Electrophysiology: 01723 EPS and Ablation SVT Procedure 2: Electrophysiology: 84425 3D mapping Procedure 3: Electrophysiology: 00767 Arrhythmia induction Procedure 4: Electrophysiology: 00706-88 Comp EPS w/LA pacing Procedure 5: Electrophysiology: 85926 Drug Stimulation PG Moderate Sedation Codes Moderate Sedation Codes Procedure 1: Sedation/Anesthesia: 98936 Mod Sedation by the same physician;Init15 Min Child Age 5 & Up Procedure 2: Sedation/Anesthesia: 30699 Mod Sedation by the same physician; Ea Aponskjhur17 Minutes
[2020-12-08] MEDS ORDERED: ACETAMINOPHEN 325 MG TAB PO PRN (15:00)
--- NOTE | 2020-12-08 15:00 | Post Anesthesia Assessment ---
Date of Service December 08, 2020 Post Sedation Assessment Vital Signs Temp Pulse Pulse Resp BP BP Pulse Ox 12/08/20 11:24 36.7 C 147 H 21 97/62 L 98 12/08/20 07:05 76 12/08/20 07:03 36.7 C 76 22 120/77 100 12/08/20 03:32 36.6 C 71 18 127/62 97 12/07/20 23:07 36.9 C 78 19 124/65 97 12/07/20 23:00 84 12/07/20 19:47 37.6 C H 79 18 136/65 95 12/07/20 15:30 36.7 C 74 18 155/66 H 98 Recovery Score Activity: Moves 4 extremities Respiration: Deep Breath/Cough Circulation: +/-20% PreAnes Value Consciousness: Fully Awake Oxygen Saturation: > 92% On Room Air Discharge Sedation Level of Care: Fast Track Phase II Post Sedation Plan On clinical assessment, the patient appears to have tolerated the sedation without complications. Patient is recovering as anticipated. Patient will continue to be monitored by nursing and may be discharged when sedation discharge criteria are met per below protocol. Upon Completions of procedure up to 15 minutes continue every 5 minute vital signs and the P.A.R. score; then discharge to a Phase I or Fast Track to Phase II per the following guidelines: * Discharge Patient to appropriate Phase II area if PAR is 8 or greater or return to pre- procedure baseline. The post - procedure orders will be as directed. * If PAR score is less than 8 or not return to pre-procedure baseline then patient will follow Phase I monitoring till PAR is reached for Phase II. The Phase I may be done in procedure room or may call to secure a Phase I area. * If naloxone or flumazenil are used for reversal, hold in Phase I for continued monitoring from when last reversal dose was given for a minimum of 60 minutes or longer pending the nurse and/or physician discretion of patient condition before discharge to Phase II. Please call the Sedation Physician to re-evaluate and complete post-note for discharge to Phase II area. Do NOT discharge from procedure sedation or Phase 1 until post- sedation evaluation note is complete by procedure /sedation MD Sedation Discharge Instructions to be given to the patient at discharge to home.
--- NOTE | 2020-12-08 16:07 | Hospitalist Progress Note ---
Date of Service December 08, 2020 Assessment & Plan (1) Paroxysmal atrial flutter: Multiple episodes self-terminating. Short lived therefore will defer to cardiology regarding anticoagulation. Plan for EP study later today. Patient is currently NPO. Will defer need for ongoing anti-arrythmics to cardiology BB caused hypotension earlier in admission (2) Hypertension: Holding lisinopril due to hypotension on admission (3) Acute blood loss anemia: Stable afte- 1.5gm drop post-back surgery. - Hgb stable. (4) BPH associated with nocturia: - Continue Flomax. (5) Type 2 diabetes mellitus: - Most recent Hb A1c was 7%. - Hold metformin, resume on d/c. - Consult pharmacy for glycemic control (6) DVT prophylaxis: Hold lovenox due to need for EP study Admission and Anticipated Discharge Date Admission Date: December 06, 2020 Subjective Patient in atrial flutter this morning but no chest pain or shortness of breath. Awaiting EP study later in day. No orthopnea, PND, dizziness or palpitations. Review of Systems Review of Systems: All systems reviewed & are unremarkable except as noted in HPI & below Physical Exam Constitutional: WD/WN, vitals as above Respiratory: normal respiratory effort, lungs clear to auscultation Cardiovascular: Rate/Rhythm: regular rhythm and + tachycardic Heart Sounds: no murmur Gastrointestinal (Abdomen): normal bowel sounds, soft, nontender, no hepatosplenomegaly Skin: no rashes, warm and dry Psychiatric: A+Ox3, euthymic affect Results & Data Results & Data ([facility]) Vital Signs (Past 12 Hours) Vital Signs Temp Pulse Pulse Resp BP BP Pulse Ox 12/08/20 15:30 36.7 C 98 H 15 127/72 91 12/08/20 15:20 100 H 20 138/90 98 12/08/20 15:15 95 H 20 150/90 H 98 12/08/20 11:24 36.7 C 147 H 21 97/62 L 98 12/08/20 07:05 76 12/08/20 07:03 36.7 C 76 22 120/77 100 PG Care Time/CCT Total # of Minutes Spent Total Time Spent with Patient: Total time spent is greater than 50% in coordination of care (as documented) at patient's floor/unit and/or counseling patient: Coding Level of Care Code 98925 Subseq Obs Care Lvl 2 Diagnoses Paroxysmal atrial flutter I48.92 Hypertension I10 Hypertension type: essential hypertension Acute blood loss anemia D62 BPH associated with nocturia N40.1; R35.1 Type 2 diabetes mellitus E11.9 DVT prophylaxis Z29.9 (1) Hypertension Hypertension type: essential hypertension Qualified Code(s): I10 - Essential (primary) hypertension
--- NOTE | 2020-12-08 17:14 | Cardiology Progress Note ---
Date of Service December 08, 2020 Assessment & Plan (1) Atrial tachycardia: (2) Hypertension: ASSESSMENT/PLAN: 1. 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 Radiofrequency ablation was performed which appear to terminate the tachycardia and rendered it noninducible. There were no immediate complications associated with the procedure. After being in bed for 4 hours with the right leg straight the patient is allowed to ambulate. Will continue monitoring him on telemetry. Hopefully this obviate the need for any medical therapy and eliminate any recurrences of tachycardia. No indication for anticoagulation. 2. Hypertension: Blood pressure has been normotensive to hypertensive. Consider resumption of lisinopril. 3. Disposition: In the absence of any recurrent tachycardia or complication associated with his procedure, the patient should be safe for discharge from our standpoint tomorrow. Admission and Anticipated Discharge Date Admission Date: December 06, 2020 Subjective this morning the patient not verbalize any specific complaints. He was experiencing tachycardia but did not report palpitations. Review of Systems Review of Systems: Per HPI Physical Exam Physical Exam: alert. Answers questions appropriately. Hard of hearing Respiratory effort normal Cardiac examination revealed tachycardia no evidence of peripheral edema. Results & Data ([facility]) Vital Signs (Past 12 Hours) Vital Signs Temp Pulse Pulse Resp BP BP Pulse Ox 12/08/20 16:15 92 H 16 138/70 12/08/20 15:45 96 H 15 160/81 H 12/08/20 15:33 96 H 12/08/20 15:30 36.7 C 98 H 15 127/72 91 12/08/20 15:20 100 H 20 138/90 98 12/08/20 15:15 95 H 20 150/90 H 98 12/08/20 11:24 36.7 C 147 H 21 97/62 L 98 12/08/20 07:05 76 12/08/20 07:03 36.7 C 76 22 120/77 100 Laboratory Results Abnormal Lab Results 12/07/20 12/07/20 12/08/20 18:18 20:49 06:42 Sodium 132 L Potassium 4.3 Chloride 100 Carbon Dioxide 30 Anion Gap 2.0 L BUN 10 Creatinine 0.74 Est Cr Clr Drug Dosing 75.6 Est GFR ( Amer) 98.9 Est GFR (Non-Af Amer) 85.3 BUN/Creatinine Ratio 12.8 Glucose 125 H POC Glucose 146 H Calcium 9.1 Troponin I < 0.015 < 0.015 12/08/20 12/08/20 12/08/20 06:57 11:02 16:04 Sodium Potassium Chloride Carbon Dioxide Anion Gap BUN Creatinine Est Cr Clr Drug Dosing Est GFR ( Amer) Est GFR (Non-Af Amer) BUN/Creatinine Ratio Glucose POC Glucose 138 H 163 H 152 H Calcium Troponin I PG Care Time/CCT Total # of Minutes Spent Total Time Spent with Patient: Total time spent is greater than 50% in coordination of care (as documented) at patient's floor/unit and/or counseling patient: Coding Level of Care Code 36037 Subseq Hosp Care Lvl 2 Diagnoses Atrial tachycardia I47.1 Hypertension I10 Hypertension type: essential hypertension (1) Hypertension Hypertension type: essential hypertension Qualified Code(s): I10 - Essential (primary) hypertension
[2020-12-08] MEDS: GABAPENTIN 100 MG CAP PO SCH (20:18)
[2020-12-09] MEDS ORDERED: INSULIN ASPART 100 UNITS/ML 3 ML PEN SC SCH (04:05)
[2020-12-09] MEDS: ACETAMINOPHEN 500 MG TAB PO SCH (05:39)
[2020-12-09] MEDS: ATORVASTATIN 10 MG TAB PO SCH (08:51)
[2020-12-09] MEDS: PANTOprazole 40 MG TAB PO SCH (08:52)
[2020-12-09] MEDS: LIDOCAINE 5% 1 PATCH TD SCH (08:52)
[2020-12-09] MEDS: TAMSULOSIN HCL 0.4 MG CAP PO SCH (08:53)
[2020-12-09] MEDS: INSULIN ASPART 100 UNITS/ML 3 ML PEN SC SCH ×2 (09:17→12:24)
[2020-12-09] MEDS: INSULIN GLARGINE SOLOSTAR 100 UNITS/ML 3 ML PEN SC SCH (09:18)
--- NOTE | 2020-12-09 10:10 | Cardiology Progress Note ---
Date of Service December 09, 2020 Assessment & Plan (1) Atrial tachycardia: (2) Hypertension: ASSESSMENT/PLAN: 1. Tachycardia: No recurrence. He appears to have had a successful ablation yesterday. 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 At this point I would feel that he is safe for discharge. He has not required any specific medications for his prior tachycardia. He does not require anticoagulation. Because we used the right femoral vein he should refrain from strenuous activity or lifting greater than 10 lb for another 5 days. He Does not require any specific follow-up in the cardiology clinic in the absence of recurrent symptoms or tachycardia. Admission and Anticipated Discharge Date Admission Date: December 09, 2020 Subjective This morning the patient's primary concern was getting a cup of coffee. He prefers coffee with 4 creams and quite hot. He did not report any symptoms associated with palpitations or tachycardia. He did not report any pain at his right groin access site. He did not appear to have much recollection of yesterday's procedure. He has not been ambulatory. Review of Systems Review of Systems: Per HPI Physical Exam Physical Exam: alert. Answers questions appropriately. Respiratory effort normal Evaluation the right groin access site did not reveal any evidence of hematoma. Right internal jugular access site did not reveal any hematoma or bleeding. Results & Data ([facility]) Vital Signs (Past 12 Hours) Vital Signs Temp Pulse Pulse Resp BP Pulse Ox 12/09/20 03:36 36.4 C L 78 18 149/64 H 100 12/08/20 22:56 36.7 C 83 16 101/57 L 95 12/08/20 22:20 82 Laboratory Results Abnormal Lab Results 12/08/20 12/08/20 12/08/20 11:02 16:04 19:21 POC Glucose 163 H 152 H 166 H 12/08/20 12/09/20 12/09/20 20:16 03:44 07:25 POC Glucose 206 H 188 H 204 H PG Care Time/CCT Total # of Minutes Spent Total Time Spent with Patient: Total time spent is greater than 50% in coordination of care (as documented) at patient's floor/unit and/or counseling patient: Coding Level of Care Code 44679 Subseq Hosp Care Lvl 2 Diagnoses Atrial tachycardia I47.1 Hypertension I10 Hypertension type: essential hypertension (1) Hypertension Hypertension type: essential hypertension Qualified Code(s): I10 - Essential (primary) hypertension
[2020-12-09 11:56] VITALS: BP 144/70; PULSE 79; TEMP 98.1; O2SAT 95
--- NOTE | 2020-12-10 06:03 | Electrocardiogram Report ---
Test Reason : Blood Pressure : / mmHG Vent. Rate : 081 BPM Atrial Rate : 081 BPM P-R Int : 160 ms QRS Dur : 098 ms QT Int : 356 ms P-R-T Axes : 032 028 021 degrees QTc Int : 413 ms Normal sinus rhythm Normal ECG When compared with ECG of 07-DEC-2020 07:14, Premature ventricular complexes are no longer Present Confirmed by Geo Stanton ([id number]) on 12/10/2020 6:03:32 AM Referred By: [facility] Confirmed By:Geo Stanton
--- NOTE | 2020-12-25 00:05 | Discharge Summary ---
Date of Service December 09, 2020 Admission HPI Per Admitting Provider 85 yo M Hx HTN, HLD, recent lumbar spinal decompression for lumbar spinal stenosis causing neurogenic claudication, DM2 presented from [facility] for tachycardia. Has had HR greater than 120 for several hours, though no complaints of CP, SOB, palpitations, dizziness, headache, nausea or vomiting. Admission Exam Per Admitting Provider Constitutional: WD/WN, vitals as above Eyes: PERRL, conjunctivae normal, anicteric sclerae ENMT: external ear and nose normal, oropharynx normal Neck: normal visual inspection Respiratory: normal respiratory effort, lungs clear to auscultation Cardiovascular: Rate/Rhythm: regular rhythm and + tachycardic Heart Sounds: no murmur Extremities: no edema Gastrointestinal (Abdomen): normal bowel sounds, soft, nontender, no hepatosplenomegaly Musculoskeletal: no cyanosis or clubbing, extremities motor strength 5/5 Skin: no rashes, warm and dry low back dressing in place, clean dry intact Psychiatric: A+Ox3, euthymic affect Principal Diagnosis Supraventricular tachycardia Discharge Exam Constitutional WD/WN, vitals as above Eyes + anicteric sclerae Neck trachea midline, no thyromegaly Respiratory normal respiratory effort, lungs clear to auscultation Cardiovascular Rate/Rhythm: regular rate and regular rhythm Heart Sounds: no murmur Extremities: + edema (trace pitting edema legs to knees bilat) Chest (Breasts) Chest: normal inspection of chest Gastrointestinal (Abdomen) normal bowel sounds, soft, nontender, no hepatosplenomegaly Musculoskeletal Extremities: extremities normal to inspection; no cyanosis and no clubbing Skin no rashes, warm and dry Neurologic moves all extremities; no focal motor deficits Discharge Data Allergies Allergy/AdvReac Type Severity Reaction Status Date / Time codeine AdvReac Unknown severe Verified 12/06/20 03:13 vomiting Consultations 12/06/20 04:59 ED Decision to Admit Stat 12/06/20 14:25 Consult Cardiology Routine Procedures Performed Operation Date: 12/08/20 13:00 Actual Procedures p EPS + Ablation for SVT Flutter - Manav Yanes MD s LA Pacing (Add-On) - Manav Yanes MD s Drug Stimulation - Manav Yanes MD s 3D Mapping (Carto) - Manav Yanes MD Ordered Studies 12/06/20 02:36 CT hip LT wo con Urgent IMPRESSION: No fracture or dislocation within the left hip. 12/06/20 03:13 CT angio chest PE protocol Urgent IMPRESSION: 1. No evidence of central pulmonary embolus. Limited evaluation of peripheral branches of the pulmonary artery due to motion artifact. No secondary signs of pulmonary embolus are seen. 2. No large infiltrates or consolidative lesions. 3. Small hiatal hernia. 4. Atherosclerosis. 5. Left adrenal nodule incompletely evaluated on this nondedicated exam. Please correlate above-mentioned findings with prior history. Further evaluation with CT of the abdomen, adrenal protocol might be considered. 12/08/20 07:30 EP Lab Images for PACS ONCE Hospital Course (1) Paroxysmal atrial flutter: Gerardo Neely is an 85-year-old male admission to [facility] from December 062020 due to tachycardia. Serial troponins negative. Transthoracic echocardiogram unremarkable. 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 He was taken to the electrophysiology lab for successful ablation on December 08, 2020. He has had no recurrent episodes after this. No new medications were started. He is medically stable for discharge back to [facility] after recent lumbar decompression surgery. (2) Hypertension: (3) Acute blood loss anemia: (4) BPH associated with nocturia: (5) Type 2 diabetes mellitus: (6) DVT prophylaxis: Total Time Total Time Spent Total Time Spent (In Minutes): 35 Discharge Plan Discharge Items Patient Disposition: Transfer Inpatient Rehab Fac Reason For Visit: TACHYCARDIA Discharge Diagnosis: Supraventricular tachycardia Activity: As commented below Activity Comment: No streneous activitiy for next 5 days due to right femoral vein cath Lifting: No more than 10 pounds Lifting Comment: for 5 days due to right femoral vein catheterization Non-emergency contact: Primary Care Provider Call non-emergency contact if: you have any medication questions and your symptoms worsen Follow-up/Referrals: [facility] [Primary Care Provider] - Diet: Carb Consistent or DM2 and Heart Healthy Addtl Attending Provider Instructions: Gerardo Neely is an 85-year-old male admission to [facility] from December 062020 due to tachycardia. Serial troponins negative. Transthoracic echocardiogram unremarkable. 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 He was taken to the electrophysiology lab for successful ablation on December 08, 2020. He has had no recurrent episodes after this. No new medications were started. He is medically stable for discharge back to [facility] after recent lumbar decompression surgery. Pending Studies at Discharge: No Stand-Alone Forms: My [employer]_, Smoking Cessation Skilled Items Patient informed of condition?: Yes DNR: No Discharge Level of Care: Acute rehab Communicable Disease: No Discharge Prognosis: Stable Lines: None Urinary Catheter: No Medications and DC Order Prescriptions: Continued tamsulosin [Flomax] 0.4 mg capsule 0.4 mg PO BID RF: 0 (DME) blood-glucose meter [Kidosuch Ultra2 Meter] Kit See Rx Instructions .ROUTE .MEDSUPPLY Qty: 1 RF: 0 atorvastatin 10 mg tablet 10 mg PO DAILY Qty: 90 RF: 1 (DME) lancets [Kidosuch Delica Lancets] 33 gauge misc See Rx Instructions .ROUTE .MEDSUPPLY Qty: 100 RF: 2 cyanocobalamin (vitamin B-12) 1,000 mcg tablet 1,000 mcg PO DAILY Qty: 90 RF: 3 (DME) pen needle, diabetic [BD Ultra-Fine Joycelyn Pen Needle] 32 gauge x 5/32" needle See Rx Instructions .ROUTE .MEDSUPPLY Qty: 100 RF: 3 (DME) miscellaneous medical supply Misc See Rx Instructions .ROUTE .MEDSUPPLY Qty: 1 RF: 0 (DME) blood-glucose meter [Parents R People Autocode Monitor Syst] Misc See Rx Instructions .ROUTE .MEDSUPPLY Qty: 1 RF: 0 cholecalciferol (vitamin D3) 50 mcg (2,000 unit) tablet 2,000 unit PO DAILY RF: 0 acetaminophen 500 mg Tablet 1,000 mg PO Q8H Qty: 60 RF: 0 Lantus Solostar U-100 Insulin 100 unit/mL (3 mL) Insulin Pen 12 unit SC BID Qty: 3 RF: 0 melatonin 3 mg Tablet 3 mg PO HS PRN (Reason: sleep) Qty: 10 RF: 0 lidocaine 5 % Adhesive Patch,Medicated 1 patch transdermal QAM Qty: 1 RF: 0 polyethylene glycol 3350 [Miralax] 17 gram Powder In Packet 17 g PO DAILY PRN (Reason: Constipation) RF: 0 sennosides-docusate sodium [Senokot-S] 8.6-50 mg Tablet 1 tab-cap PO DAILY PRN (Reason: Constipation) RF: 0 heparin (bovine) 5,000 unit/mL Solution 5,000 unit Q12 RF: 0 pantoprazole 40 mg Tablet,Delayed Release (Dr/Ec) 40 mg PO DAILY RF: 0 Humulin R Regular U-100 Insuln 100 unit/mL Solution 1 sliding scale dose SUBCUT USEASDIRECTD RF: 0 nystatin 100,000 unit/gram Powder 1 applic TOPICAL BID RF: 0 docusate sodium 100 mg Tablet 100 mg PO BID RF: 0 gabapentin 100 mg capsule 200 mg PO HS RF: 0 Discharge Orders: Discharge Order (Routine); Ordered 12/09/20 Ordered By: Avni Ramirez Admission Data Admit Date/Time: 12/09/20 07:54 Attending Provider: Avni Ramirez Admit Provider: eRnay Daigle [facility] Other Providers: Renay Daigle ; Sharmaine Brar ; Geo Stanton ; Manav Yanes Other Interventions: Discharge Summary Assessment (RN) Last Done: 12/09/20 11:15 Coding Level of Care Code D/C DAY MANAGEMENT >30 MINS Diagnoses Paroxysmal atrial flutter I48.92 Hypertension I10 Hypertension type: essential hypertension Acute blood loss anemia D62 BPH associated with nocturia N40.1; R35.1 Type 2 diabetes mellitus E11.9 DVT prophylaxis Z29.9
== END 2020-12-09 14:55 | DRG 274 ==
LOC: 2N 01:39 → ED 01:39 → SUATTDRO 07:00 → 2N 08:29 → 2S 12-07 07:21
DX: Z79.01 Long term (current) use of anticoagulants; G47.33 Obstructive sleep apnea (adult) (pediatric); M48.062 Spinal stenosis, lumbar region with neurogenic claudication; N40.1 Benign prostatic hyperplasia with lower urinary tract symptoms; Z79.899 Other long term (current) drug therapy; K21.9 Gastro-esophageal reflux disease without esophagitis; E11.9 Type 2 diabetes mellitus without complications; I47.1 Supraventricular tachycardia; E78.5 Hyperlipidemia, unspecified; Z79.1 Long term (current) use of non-steroidal anti-inflammatories (NSAID); I10 Essential (primary) hypertension; Z82.49 Family history of ischemic heart disease and other diseases of the circulatory system; Z79.4 Long term (current) use of insulin; T44.7X5A Adverse effect of beta-adrenoreceptor antagonists, initial encounter; R35.1 Nocturia; D62 Acute posthemorrhagic anemia; Z88.5 Allergy status to narcotic agent; Z98.1 Arthrodesis status; Z87.891 Personal history of nicotine dependence; I95.2 Hypotension due to drugs

== ENCOUNTER 2021-05-23 09:15 | Inpatient (IN) ==
[2021-05-23] MEDS ORDERED: dexAMETHasone**PF** 10 MG/ML VIAL IV ONE (09:55)
[2021-05-23] MEDS ORDERED: SODIUM CHLORIDE 0.9% 500 ML IV ONE (09:55)
[2021-05-23] MEDS ORDERED: RACEPINEPHRINE 2.25% NEBU SOLN 0.5 ML VIAL NEB STA (09:58)
[2021-05-23 10:10] LABS: Eosinophils # (auto) 0.06 K/uL (0-0.5); Hematocrit (blood only) 30.8 % (42-52); Hemoglobin 9.7 g/dL (14.0-18.0); Immature Granulocytes # (auto) 0.04 K/uL (0.00-0.02); Immature Granulocytes % (auto) 0.7 %; Lymphocytes # (auto) 0.63 K/uL (1.2-3.4); Lymphocytes % (auto) 10.2 %; Mean Corpuscular Hemoglobin 27.4 pg (25-34); Mean Corpuscular Hgb Conc 31.5 g/dL (32-36); Mean Platelet Volume 8.8 fL (7.4-10.4); Monocytes # (auto) 1.32 K/uL (0.11-0.59); Monocytes % (auto) 21.5 %; Neutrophils % (auto) 66.6 %; Platelet Count 321 K/uL (130-400); RDW Coefficient of Variation 14.3 % (11.5-14.5); RDW Standard Deviation 45.7 fL (36.4-46.3); Red Blood Count 3.54 M/uL (4.7-6.1); White Blood Count 6.15 K/uL (4.8-10.8)
[2021-05-23 10:18] LABS: Alanine Aminotransferase 16 (12-78); Aspartate Aminotransferase 13 U/L (15-37); BUN Creatinine Ratio 16.8 (10-20); Blood Urea Nitrogen 12 mg/dl (7-18); Calcium 9.3 mg/dl (8.5-10.1); Carbon Dioxide 31 mmol/L (21-32); Chloride 97 mmol/L (98-107); Creatinine Clr Calc Pharmacy 76.7 ml/min; Est GFR (African American) 99.4 ml/min; Est GFR (Non-African American) 85.8 ml/min; Glucose 123 mg/dl (70-99); Lipase 40 U/L (73-393); Magnesium 1.7 mg/dl (1.8-2.4); Potassium 4.4 mmol/L (3.5-5.1); Sodium 132 mmol/L (136-145)
--- NOTE | 2021-05-23 10:21 | Emergency Department Note ---
Impression & Plan Generalized weakness, Stridor, Recurrent falls, Diarrhea ED Provider Note NAME: PRICE DICKENS AGE: 85 SEX: M ARRIVES VIA: Ambulance INFORMANT: Patient, daughter ED PROVIDER(S): Rad Jimenes MD CHIEF COMPLAINT: Weakness, recurrent falls PLAN: Disposition: Admit MEDICAL DECISION MAKING: The patient is a pleasant 85-year-old gentleman with past medical history of hypertension, hyperlipidemia, lumbar stenosis status post decompression, diab etes who presents emergency department for evaluation of ongoing incontinence of stool/diarrhea for the past several days as well as ongoing hoarseness with breathing over the past month or more where he was recently treated for bronchitis but the daughter reports no change in this. The patient is a poor historian but denies any shortness of breath and denies any concerns related to his breathing. There is no report of any fevers, chills, nausea, vomiting. The patient's daughter (POA) at the bedside reports that he patient does have mild dementia and she does not consider him to have the ability to make informed medical decisions. She further adds she is worried about his weakness and freq uent falls where he most recently fell and suffered extensive bruising to his right side. She does confirm that the patient has expressed that he does not want CPR or intubation and so is considered to be DNR/DNI. She understands that if his stridor were to worsen, that his care will be to focus on comfort. On arrival the patient is chronically ill-appearing but no acute distress, afebrile with stable vital signs. He appears clinically dry. He has audible stridor. Lungs with subtle rhonchi bilaterally. EKG without overt acute ischemia. CXR negative for acute cardiopulmonary process. WBC and platelets wnl. H/H similar to prior range of values. Chemistry without acidosis. Lactate wnl. Electrolytes without significant abnormality. LFTs without significant abnormality. Troponin negative/undetectable. BNP wnl. Lipase is not elevated. Procalcitonin is not elevated. Stool PCR negative. Covid-19 PCR negative. Influenza and RSV PCR negative. CT soft tissue neck demonstrates possible nodularity of vocal cords. CT chest with masslike soft tissue thickening of the upper esophageal sphincter with osseous erosion of the cricoid cartilage suspicious for malignancy. Paravertebral edema with mildly prominent right tracheoesophageal LN also seen. Progressive worsened endplate erosion at C6-7 with grade [address] a/p demonstrates prior left adrenal lesion and stable cystic lesion in the pancreatic body/tail. Given the patient's generalize weakness with recurrent falls and no 24 hour home care the patient's daughter agrees with plan for admission. The patient did protest this however he does not exhibit medical decision making capacity as he cannot, even in simple terms, describe our concerns and risk/benefits of treatment options. Case was d/w SHERWIN Braden hospitalist who will evaluate the patient for admission. Triage Nursing notes reviewed and agree them. Prior medical records reviewed Vital Signs: reviewed and remarkable for no significant abnormalities Differential diagnosis: Infection, dehydration, metabolic abnormality, hypo/hyperglycemia, electrolyte disturbance, anemia, hypoxia, cardiac sources, intracerebral event, toxicologic, neurologic, as well as other pathologies. ER treatment provided: See below. Diagnostics interpreted by me: ECG: NSR, 83 bpm, no ectopy, no overt ST elevation or depression. Cardiac Monitoring: An order for continuous cardiac monitoring was placed and demonstrated NSR, 83 bpm, no ectopy. Laboratory studies: See below Imaging studies: See below Consultation(s): Case was d/w SHERWIN Braden hospitalist who will evaluate the patient for admission. HPI: The patient is a pleasant 85-year-old gentleman with past medical history of hypertension, hyperlipidemia, lumbar stenosis status post decompression, diabetes who presents to the emergency department for evaluation of ongoing incontinence of stool/diarrhea for the past several days as well as ongoing hoarseness with breathing over the past month or more where he was recently treated for bronchitis but the daughter reports no change in this. The patient is a poor historian but denies any shortness of breath and denies any concerns related to his breathing. There is no report of any fevers, chills, nausea, vomiting. The patient's daughter (POA) at the bedside reports that he patient does have mild dementia and she does not consider him to have the ability to make informed medical decisions. She further adds she is worried about his weakness and frequent falls where he most recently fell and suffered extensive bruising to his right side. She does confirm that the patient has expressed that he does not want CPR or intubation and so is considered to be DNR/DNI. She under stands that if his stridor were to worsen, that his care will be to focus on comfort. ROS: See above HPI for pertinent positives & negatives. A total of 10 systems reviewed and were otherwise negative. PAST MEDICAL HISTORY:See Below PAST SURGICAL HISTORY:See Below FAMILY HISTORY:See Below SOCIAL HISTORY:See Below HOME MEDICATIONS:See Below ALLERGIES:See Below VITALS:See Below PHYSICAL EXAMINATION: GENERAL: Awake, alert, chronically-appearing, cachectic, in no distress HENT: Normocephalic, atraumatic. Oropharynx with dry mucous membranes and otherwise unremarkable. EYES: Normal conjunctiva. Sclera non-icteric. NECK: Supple. No nuchal rigidity. FROM. No JVD. Stridor. RESPIRATORY: Subtle rhonchi bilaterally. CARDIAC: Regular rate, normal rhythm. Extremities warm and well perfused. Pulses equal. ABDOMEN: Soft, non-distended. No tenderness to palpation. No rebound or guarding. No masses. RECTAL: deferred MUSCULOSKELETAL: Chest examination reveals no tenderness. The back is symmetrical on inspection without obvious abnormality. There is no CVA tender ness to palpation. No joint edema. LOWER EXTREMITIES: Calves are equal size bilaterally and non-tender. No edema. No discoloration. NEURO: Alert to self and place. Confused to situation. No focal sensory or motor deficits noted. 4/5 strength x 4 extremities. SKIN: Sacral superficial skin breakdown. No rash or jaundice noted. Rad Jimenes MD Past Med/Surg History Medical History Anemia Arthritis BPH associated with nocturia Carotid artery stenosis Chronic lumbar pain GERD without esophagitis Hearing difficulty Hematuria High prostate specific antigen (PSA) (~12/2018) History of amputation of finger (~2002) History of neck pain Hyperlipidemia Hypertension Pancreatic lesion 03/31/2020-2.1 x 1.0 x 1.7 cm bilobed cystic lesion of the pancreatic body/tail junction demonstrates mild marginal calcifications with a thin central enhancing septation. Differential considerations would include a mucinous cystadenoma versus complex singular or two subadjacent IPMN's. 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 neuropathy & tingling in hands Surgical History Amputation finger 2002 History of back surgery 11/28/20 History of cardiac radiofrequency ablation 12/08/20 History of carpal tunnel release 2006 History of hernia repair 2002 History of neck surgery [id number] Family History Grandfather (Maternal) Stomach cancer Aunt , This was who raised me, I do not know my mother & father Stomach cancer MATERNAL Brother , 50's of an [place] Myocardial infarction Alcohol abuse Diabetes Mother Heart disease Diabetes Gallbladder disease Kidney stones Denies family history of Ovarian cancer Prostate cancer Breast cancer Colorectal cancer Social History Smoking Status: Former smoker Tobacco Type: Cigarettes Age Started Using Tobacco: 16; Age Quit Using Tobacco: 29; packs per day: 10; Years Smoked: 13; Second Hand Exposure: No; Hx Alcohol Use: No Hx Substance Use: No Preferred Language: Hebrew Communication Ability: Effective Visual Impairment: No Limitations Hearing Ability: Hard of Hearing 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 current occupational status: retired How many Children do You have: 2 Other Information That Helps Us Care for You: No Feels Safe at Home: Yes Safety Concerns: Feels Safe At This Time Childhood Exposure to Second-Hand Smoke: Yes Diet Comment: regular caffeine: Yes (coffee about 5 times a day) during the past year weight has: remained stable Dental Care, Regularly: Yes Physical Activity Frequency: Does not Exercise Physical Activity Frequency Comment: EXERCISE LIMITED BY PHYSICAL CONDITION Seatbelt Use: always Sunscreen Use: No Assistive Devices: Denture - Upper, Denture - Lower, Glasses, Hearing Aid - Bilateral and Oxygen - Continuous Allergies Allergies Allergy/AdvReac Type Severity Reaction Status Date / Time codeine AdvReac Unknown severe Verified 05/23/21 12:08 vomiting Home Meds Home Medications Medication Instructions Recorded Confirmed tamsulosin 0.4 mg capsule (Flomax) 0.4 mg PO QDD cap 01/25/21 05/23/21 atorvastatin 10 mg tablet 10 mg PO QAM 05/23/21 05/23/21 cholecalciferol (vitamin D3) 50 2,000 unit PO QAM 05/23/21 05/23/21 mcg (2,000 unit) tablet cyanocobalamin (vitamin B-12) 1,000 mcg PO QAM 05/23/21 05/23/21 1,000 mcg tablet dextromethorphan HBr 5 mg/5 mL 2.5 mg PO Q4H PRN 05/23/21 05/23/21 oral syrup (Vicks DayQuil Cough) multivitamin with minerals (Men's 1 tab PO QAM 05/23/21 05/23/21 One Daily) omeprazole 20 mg capsule,delayed 20 mg PO QAM 05/23/21 05/23/21 release Previous Rx's Medication Instructions Recorded blood-glucose meter (SociiTouch #1 ea 06/11/19 Ultra2 Meter) lancets 33 gauge (OneTouch Delica #100 ea 04/21/20 Lancets) blood-glucose meter (Prodigy #1 ea 07/26/20 Autocode Monitor Syst) miscellaneous medical supply #1 ea 11/23/20 acetaminophen 500 mg tablet 1,000 mg PO Q8H #60 tab 12/04/20 metformin 1,000 mg tablet 1,000 mg PO BID #180 tab 01/04/21 pen needle, diabetic 32 gauge x #100 ea 04/14/21" (BD Ultra-Fine Joycelyn Pen Needle) insulin glargine 100 unit/mL (3 20 unit SC BID #3 ml 04/24/21 mL) subcutaneous pen (Basaglar KwikPen U-100 Insulin) trazodone 100 mg tablet 100 mg PO DAILY PRN #30 tab 05/05/21 albuterol sulfate 90 mcg/actuation 2 inh INHALATION Q4H PRN #8.5 g 05/09/21 aerosol inhaler gabapentin 100 mg capsule 200 mg PO HS #180 cap 05/17/21 Results & Data (ED) Vital Signs Vital Signs - 24 hr 05/23/21 09:22 05/23/21 09:26 05/23/21 10:00 Temperature 36.4 C L Temperature Source Oral Pulse Rate 85 91 H Pulse Rate [Apical] Pulse Rhythm Regular Pulse Rhythm [Apical] Pulse Strength Normal Respiratory Rate 18 21 Respiratory Effort / Characteristics Non-Labored Spontaneous Respiratory Depth Normal Respiratory Pattern Regular Blood Pressure 98/62 L 133/64 Blood Pressure [Left Arm] Blood Pressure Mean 74 87 Blood Pressure Mean [Left Arm] Blood Pressure Position Sitting Pulse Oximetry 98 95 94 Oxygen Delivery Method Room Air Room Air Nebulizer Oxygen Flow Rate Sepsis Recent Fever Within 48 Hours No Sepsis New/Unexplained Change in Mental Status No Sepsis Action Taken by Nursing No Action Required Pulse Oximetry Post Tiitration 05/23/21 10:43 05/23/21 10:47 05/23/21 11:38 Temperature Temperature Source Pulse Rate 95 H Pulse Rate [Apical] 98 H Pulse Rhythm Pulse Rhythm [Apical] Regular Pulse Strength Respiratory Rate 17 23 Respiratory Effort / Characteristics Respiratory Depth Respiratory Pattern Blood Pressure Blood Pressure [Left Arm] 130/100 Blood Pressure Mean Blood Pressure Mean [Left Arm] 110 Blood Pressure Position Pulse Oximetry 92 96 Oxygen Delivery Method Nasal Cannula Nasal Cannula Oxygen Flow Rate 3 2 Sepsis Recent Fever Within 48 Hours Sepsis New/Unexplained Change in Mental Status Sepsis Action Taken by Nursing Pulse Oximetry Post Tiitration 99 Laboratory Data Attestation: I reviewed the patient's lab results. Result diagrams: 05/23/21 09:30 05/23/21 09:30 Lab Results 05/23/21 05/23/21 05/23/21 Range/Units 09:29 09:30 09:30 WBC 6.15 (4.8-10.8) K/uL RBC 3.54 L (4.7-6.1) M/uL Hgb 9.7 L (14.0-18.0) g/dL Hct 30.8 L (42-52) % MCV 87.0 (80-100) fL MCH 27.4 (25-34) pg MCHC 31.5 L (32-36) g/dL RDW Std Deviation 45.7 (36.4-46.3) fL RDW Coeff of Addis 14.3 (11.5-14.5) % Plt Count 321 (130-400) K/uL MPV 8.8 (7.4-10.4) fL Immature Gran % (Auto) 0.7 % Neut % (Auto) 66.6 % Lymph % (Auto) 10.2 % Ward % (Auto) 21.5 % Eos % (Auto) 1.0 % Baso % (Auto) 0.0 % Neut # (Auto) 4.10 (1.4-6.5) K/uL Lymph # (Auto) 0.63 L (1.2-3.4) K/uL Ward # (Auto) 1.32 H (0.11-0.59) K/uL Eos # (Auto) 0.06 (0-0.5) K/uL Baso # (Auto) 0.00 (0-0.2) K/uL Immature Gran # (Auto) 0.04 H (0.00-0.02) K/uL PT (9.0-12.0) Seconds INR (0.9-1.1) Sodium (136-145) mmol/L Potassium (3.5-5.1) mmol/L Chloride (98-107) mmol/L Carbon Dioxide (21-32) mmol/L Anion Gap (3-11) BUN (7-18) mg/dl Creatinine (0.6-1.4) mg/dl Est Cr Clr Drug Dosing ml/min Est GFR ( Amer) ml/min Est GFR (Non-Af Amer) ml/min BUN/Creatinine Ratio (10-20) Glucose (70-99) mg/dl Lactate (0.4-2.0) mmol/L Calcium (8.5-10.1) mg/dl Phosphorus (2.5-4.9) mg/dl Magnesium (1.8-2.4) mg/dl Total Bilirubin (0.2-1) mg/dl AST (15-37) U/L ALT (12-78) Alkaline Phosphatase (45-117) U/L Troponin I (0-0.045) ng/ml NT-Pro-B Natriuret Pep (0-1800) pg/ml Total Protein (6.4-8.2) gm/dl Albumin (3.4-5.0) gm/dl Globulin (2.5-4.0) gm/dl Albumin/Globulin Ratio (0.9-2) Lipase (73-393) U/L Procalcitonin 0.08 (0-0.5) ng/ml SARS-CoV-2 (PCR) NEGATIVE (Negative) Influenza Type A (PCR) Negative (Neg) Influenza Type B (PCR) Negative (Neg) RSV (RT-PCR) Negative (Neg) 05/23/21 05/23/21 05/23/21 Range/Units 09:30 09:30 10:52 WBC (4.8-10.8) K/uL RBC (4.7-6.1) M/uL Hgb (14.0-18.0) g/dL Hct (42-52) % MCV (80-100) fL MCH (25-34) pg MCHC (32-36) g/dL RDW Std Deviation (36.4-46.3) fL RDW Coeff of Addis (11.5-14.5) % Plt Count (130-400) K/uL MPV (7.4-10.4) fL Immature Gran % (Auto) % Neut % (Auto) % Lymph % (Auto) % Ward % (Auto) % Eos % (Auto) % Baso % (Auto) % Neut # (Auto) (1.4-6.5) K/uL Lymph # (Auto) (1.2-3.4) K/uL Ward # (Auto) (0.11-0.59) K/uL Eos # (Auto) (0-0.5) K/uL Baso # (Auto) (0-0.2) K/uL Immature Gran # (Auto) (0.00-0.02) K/uL PT 10.9 (9.0-12.0) Seconds INR 1.1 (0.9-1.1) Sodium 132 L (136-145) mmol/L Potassium 4.4 (3.5-5.1) mmol/L Chloride 97 L (98-107) mmol/L Carbon Dioxide 31 (21-32) mmol/L Anion Gap 4.0 (3-11) BUN 12 (7-18) mg/dl Creatinine 0.73 (0.6-1.4) mg/dl Est Cr Clr Drug Dosing 76.7 ml/min Est GFR ( Amer) 99.4 ml/min Est GFR (Non-Af Amer) 85.8 ml/min BUN/Creatinine Ratio 16.8 (10-20) Glucose 123 H (70-99) mg/dl Lactate 1.0 (0.4-2.0) mmol/L Calcium 9.3 (8.5-10.1) mg/dl Phosphorus 3.0 (2.5-4.9) mg/dl Magnesium 1.7 L (1.8-2.4) mg/dl Total Bilirubin 1.1 H (0.2-1) mg/dl AST 13 L (15-37) U/L ALT 16 (12-78) Alkaline Phosphatase 82 (45-117) U/L Troponin I < 0.015 (0-0.045) ng/ml NT-Pro-B Natriuret Pep 273 (0-1800) pg/ml Total Protein 6.6 (6.4-8.2) gm/dl Albumin 3.0 L (3.4-5.0) gm/dl Globulin 3.6 (2.5-4.0) gm/dl Albumin/Globulin Ratio 0.8 L (0.9-2) Lipase 40 L (73-393) U/L Procalcitonin (0-0.5) ng/ml SARS-CoV-2 (PCR) (Negative) Influenza Type A (PCR) (Neg) Influenza Type B (PCR) (Neg) RSV (RT-PCR) (Neg) Administered Medications Acetaminophen (Acetaminophen 500 Mg Tab) 1,000 mg PO Q8 ROCKY Stop: 06/22/21 15:59 Last Admin: 05/23/21 20:47 Dose: 1,000 mg Documented by: [id number] Admin: 05/23/21 15:38 Dose: Not Given Documented by: [id number] Gabapentin (Gabapentin 100 Mg Cap) 200 mg PO HS ROCKY Stop: 06/22/21 20:59 Last Admin: 05/23/21 20:45 Dose: 200 mg Documented by: [id number] Discontinued Medications Dexamethasone Sodium Phosphate (DexamethasonePf 10 Mg/Ml Vial) 10 mg IV NOW ONE Stop: 05/23/21 09:56 Last Admin: 05/23/21 10:03 Dose: 10 mg Documented by: [id number] Epinephrine (Racepinephrine 2.25% Nebu Soln 0.5 Ml Vial) 0.5 ml NEB NOW STA Stop: 05/23/21 09:59 Last Admin: 05/23/21 10:03 Dose: 0.5 ml Documented by: [id number] Sodium Chloride (Nss) 500 mls @ 999 mls/hr IV .Q31M ONE Stop: 05/23/21 10:25 Last Infusion: 05/23/21 11:05 Dose: 0 mls/hr Documented by: [id number] Admin: 05/23/21 10:03 Dose: 999 mls/hr Documented by: [id number] Ioversol (Optiray 320 100ml) 94 ml IV ONCE ONE Stop: 05/23/21 10:39 Last Admin: 05/23/21 10:36 Dose: 94 ml Documented by: [id number] Imaging Data Radiologist's Impression: Chest X-Ray 05/23/21 09:53 XR chest 1V portable CLINICAL HISTORY: Chest Pain. COMPARISON STUDY: 05/09/2021 TECHNIQUE: 1 view of the chest FINDINGS: Single frontal view of the chest demonstrates the cardiomediastinal silhouette to be within normal limits. The lungs are clear of alveolar opacities. There is no evidence for pleural effusion. There is no evidence for vascular congestion. There is no acute osseous pathology. IMPRESSION: No acute cardiopulmonary disease. No significant interval change. ACT 112: Negative or not required by law. Electronically signed by: Pasha Loya M.D. 05/23/2021 11:25 AM Soft Tissue Neck CT 05/23/21 10:14 CT soft tissue neck w con CLINICAL HISTORY: stridor . Shortness of breath and wheezing. COMPARISON STUDY: No previous studies for comparison. CT DOSE: 1160.98 mGy.cm TECHNIQUE: Standard CT of the Neck was performed with IV contrast. A dose lowering technique was utilized adhering to the principles of ALARA. Contrast Volume: Optiray 320, 94 ml FINDINGS: Salivary glands: Parotid and submandibular salivary glands are within normal limits. The thyroid gland is also within normal limits. Lymph nodes: There are no pathologically enlarged lymph nodes. There is no evidence for soft tissue mass within the neck bilaterally. Airway: The cervical airway is widely patent. The epiglottis and aryepiglottic folds are normal bilaterally. There is thickening and nodularity of the vocal cords bilaterally. However, no enhancing mass is seen. Direct visualization would be necessary for further evaluation. Vascular structures: There is atherosclerotic calcification present involving the carotid arteries bilaterally. Paranasal sinuses:The imaged paranasal sinuses are clear. Osseous structures: No acute osseous abnormalities are identified. IMPRESSION: Thickening and nodularity of the vocal cords bilaterally. No enhancing mass is seen. Direct visualization would be the study of choice for further evaluation. ACT 112: Positive. There are findings on this exam that require communication between the performing entity and the patient following Patient Test Result Information Act ([place] Act 112) guidelines. Electronically signed by: Pasha Loya M.D. 05/23/2021 10:50 AM Abdomen/Pelvis CT 05/23/21 10:22 CT abd pelvis IV con only CLINICAL HISTORY: diarrhea, abd pain TECHNIQUE: Helical axial images of the abdomen and pelvis were obtained and displayed. Automated dose lowering techniques and/or adjustment according to patient size were utilized for this exam. This exam was performed with intravenous contrast. COMPARISON: Comparison is made to CT abdomen pelvis 03/31/2020 FINDINGS: Lower chest: Bibasilar atelectasis versus scarring is seen. Liver: Unremarkable. No focal lesions are seen. Gallbladder and biliary tree: No calcified gallstones. Normal caliber wall. No intra- or extrahepatic biliary ductal dilation. Pancreas: There is a 2.0 x 1.0 cm cystic mass in the pancreatic tail which is unchanged from 2017. Spleen: Subcentimeter hypodensity in the spleen is too small to characterize. Adrenals: 2.8 x 2.2 cm left adrenal nodule is unchanged from prior exam. Kidneys and ureters: Left lower pole simple cyst is unchanged. Left upper pole exophytic hypodensities too small to characterize but likely represents a cyst. Bladder: Unremarkable. Reproductive organs: Prostatic calcifications are seen which may represent prior hemorrhage or granulomatous disease. Bowel: Unremarkable appearance of the bowel. The appendix is normal. Lymph nodes Retroperitoneal: Unremarkable. Mesenteric: Unremarkable. Pelvic: Unremarkable. Peritoneum: Normal Vessels: Atherosclerotic calcifications are seen. Abdominal wall: Unremarkable. Bones: Degenerative changes in the visualized spine. Posterior fixation hardware is seen at L2-L3. IMPRESSION: 1. No acute abnormalities are seen. 2. Left adrenal lesion is unchanged from 2013, likely benign. 3. Stable cystic lesion in the pancreatic body/tail which may represent IPMN or mucinous cystadenoma. If not previously evaluated, MRCP abdomen can be performed. ACT 112: Negative or not required by law. Electronically signed by: Manny Nguyen M.D. 05/23/2021 10:[address] 05/23/21 10:[address] WITH CONTRAST HISTORY: Acute stridor with shortness of breath stridor, sob TECHNIQUE: Multiaxial CT images of the chest were performed following the IV administration of 94 cc of Optiray. A dose lowering technique was utilized adhering to the principles of ALARA. COMPARISON: CT soft tissue neck and CT abdomen and pelvis studies of same day, CT cervical spine 09/23/2020, CTA chest 12/06/2020 FINDINGS: Limited study secondary to upper extremity positioning. There is no thyroid nodule. Cardiomegaly with extensive coronary artery calcifications. Atherosclerosis of the aorta with patency of the imaged great vessels. Unremarkable unopacified pulmonary artery. No pneumothorax, pleural effusion, airspace consolidation or overt pulmonary edema. Mild dependent subsegmental bibasilar atelectasis. The central airways appear patent. Unchanged 2.8 cm indeterminate left adrenal gland lesion. Partially imaged cystic foci of the pancreatic tail measuring up to 1.3 cm, possibly pharmacy sales representative of sidebranch IPMN's. Unremarkable soft tissues. Cervical spinal fusion hardware. Advanced degenerative changes of the cervical spine. Progressive endplate irregularity/erosions at C6-C7 with 5 mm anterolisthesis, new from the September comparison. There is paravertebral edema with masslike thickening within the distribution of the upper esophageal sphincter. Osseous erosions are noted within the cricoid cartilage. Prominent lymph nodes of the right tracheoesophageal recess measure up to 8 mm. IMPRESSION: 1. Masslike soft tissue thickening of the upper esophageal sphincter is noted with osseous erosions of the cricoid cartilage suspicious for malignancy. These findings are new from 12/06/2020. Additionally, there is paravertebral edema with mildly prominent right tracheoesophageal lymph nodes which may be reactive or metastatic. 2. Progressively worsened endplate erosions at C6-C7 with grade 1 anterolisthesis which is new from 09/23/2020. Follow-up recommended to exclude discitis/osteomyelitis. 3. Additional findings as above. Findings were discussed with Dr. Jimenes on 05/23/2021 at 11:00 AM. ACT 112: Negative or not required by law. Electronically signed by: Edi Gonzalez M.D. 05/23/2021 11:08 AM Discharge Plan Visit Data Chief Complaint: Respiratory Problems Stated Complaint: SOB, ED Provider: Rad Jimenes Discharge Problem: Generalized weakness, Stridor, Recurrent falls, Diarrhea Patient Disposition: Admitted As Inpatient Discharge Instructions Interventions: ED Discharge Assessment Last Done: 05/23/21 14:50 Discharge Problem: Diarrhea Qualifiers: Diarrhea type: unspecified type Qualified Code(s): R19.7 - Diarrhea, unspecified
[2021-05-23 10:24] LABS: Albumin Globulin Ratio 0.8 (0.9-2); Alkaline Phosphatase 82 U/L (45-117); Bilirubin,Total 1.1 mg/dl (0.2-1); Globulin 3.6 gm/dl (2.5-4.0); NT Pro B Type Natriuretic Pept 273 pg/ml (0-1800); Total Protein 6.6 gm/dl (6.4-8.2); Troponin I < 0.015 ng/ml (0-0.045)
[2021-05-23 10:33] LABS: INR 1.1 (0.9-1.1); Prothrombin Time 10.9 Seconds (9.0-12.0)
[2021-05-23] MEDS ORDERED: OPTIRAY 320 100ml IV ONE (10:38)
--- NOTE | 2021-05-23 10:51 | CT Scan Report ---
CT soft tissue neck w con CLINICAL HISTORY: stridor . Shortness of breath and wheezing. COMPARISON STUDY: No previous studies for comparison. CT DOSE: 1160.98 mGy.cm TECHNIQUE: Standard CT of the Neck was performed with IV contrast. A dose lowering technique was ut ilized adhering to the principles of ALARA. Contrast Volume: Optiray 320, 94 ml FINDINGS: Salivary glands: Parotid and submandibular salivary glands are within normal limits. The thyroid gland is also within normal limits. Lymph nodes: There are no pathologically enlarged lymph nodes. There is no evidence for soft tissue mass within the neck bilaterally. Airway: The cervical airway is widely patent. The epiglottis and aryepiglottic folds are normal bila terally. There is thickening and nodularity of the vocal cords bilaterally. However, no enhancing mas s is seen. Direct visualization would be necessary for further evaluation. Vascular structures: There is atherosclerotic calcification present involving the carotid arteries bi laterally. Paranasal sinuses:The imaged paranasal sinuses are clear. Osseous structures: No acute osseous abnormalities are identified. IMPRESSION: Thickening and nodularity of the vocal cords bilaterally. No enhancing mass is seen. Dire ct visualization would be the study of choice for further evaluation. ACT 112: Positive. There are findings on this exam that require communication between the performing entity and the patient following Patient Test Result Information Act ([place] Act 112) guidelines. Electronically signed by: Pasha Loya M.D. 05/23/2021 10:50 AM
--- NOTE | 2021-05-23 10:57 | CT Scan Report ---
CT abd pelvis IV con only CLINICAL HISTORY: diarrhea, abd pain TECHNIQUE: Helical axial images of the abdomen and pelvis were obtained and displayed. Automated dose lowering techniques and/or adjustment according to patient size were utilized for this exam. This e xam was performed with intravenous contrast. COMPARISON: Comparison is made to CT abdomen pelvis 03/31/2020 FINDINGS: Lower chest: Bibasilar atelectasis versus scarring is seen. Liver: Unremarkable. No focal lesions are seen. Gallbladder and biliary tree: No calcified gallstones. Normal caliber wall. No intra- or extrahepatic biliary ductal dilation. Pancreas: There is a 2.0 x 1.0 cm cystic mass in the pancreatic tail which is unchanged from 2017. Spleen: Subcentimeter hypodensity in the spleen is too small to characterize. Adrenals: 2.8 x 2.2 cm left adrenal nodule is unchanged from prior exam. Kidneys and ureters: Left lower pole simple cyst is unchanged. Left upper pole exophytic hypodensitie s too small to characterize but likely represents a cyst. Bladder: Unremarkable. Reproductive organs: Prostatic calcifications are seen which may represent prior hemorrhage or granul omatous disease. Bowel: Unremarkable appearance of the bowel. The appendix is normal. Lymph nodes Retroperitoneal: Unremarkable. Mesenteric: Unremarkable. Pelvic: Unremarkable. Peritoneum: Normal Vessels: Atherosclerotic calcifications are seen. Abdominal wall: Unremarkable. Bones: Degenerative changes in the visualized spine. Posterior fixation hardware is seen at L2-L3. IMPRESSION: 1. No acute abnormalities are seen. 2. Left adrenal lesion is unchanged from 2013, likely benign. 3. Stable cystic lesion in the pancreatic body/tail which may represent IPMN or mucinous cystadenoma . If not previously evaluated, MRCP abdomen can be performed. ACT 112: Negative or not required by law. Electronically signed by: Manny Nguyen M.D. 05/23/2021 10:55 AM
[2021-05-23 11:02] LABS: Influenza A virus by PCR Negative (Neg); Influenza B virus by PCR Negative (Neg); RSV by PCR Negative (Neg); SARS CoV2 RNA(COVID-19) InHosp NEGATIVE (Negative)
--- NOTE | 2021-05-23 11:10 | CT Scan Report ---
CHEST CT WITH CONTRAST HISTORY: Acute stridor with shortness of breath stridor, sob TECHNIQUE: Multiaxial CT images of the chest were performed following the IV administration of 94 cc of Optiray. A dose lowering technique was utilized adhering to the principles of ALARA. COMPARISON: CT soft tissue neck and CT abdomen and pelvis studies of same day, CT cervical spine 09/02, CTA chest 12/06/2020 FINDINGS: Limited study secondary to upper extremity positioning. There is no thyroid nodule. Cardiomegaly with extensive coronary artery calcifications. Atherosclerosis of th e aorta with patency of the imaged great vessels. Unremarkable unopacified pulmonary artery. No pneum othorax, pleural effusion, airspace consolidation or overt pulmonary edema. Mild dependent subsegment al bibasilar atelectasis. The central airways appear patent. Unchanged 2.8 cm indeterminate left adrenal gland lesion. Partially imaged cystic foci of the pancrea tic tail measuring up to 1.3 cm, possibly support representative of sidebranch IPMN's. Unremarkable soft tiss ues. Cervical spinal fusion hardware. Advanced degenerative changes of the cervical spine. Progressiv e endplate irregularity/erosions at C6-C7 with 5 mm anterolisthesis, new from the September comparison. T here is paravertebral edema with masslike thickening within the distribution of the upper esophageal sphincter. Osseous erosions are noted within the cricoid cartilage. Prominent lymph nodes of the righ t tracheoesophageal recess measure up to 8 mm. IMPRESSION: 1. Masslike soft tissue thickening of the upper esophageal sphincter is noted with osseous erosions o f the cricoid cartilage suspicious for malignancy. These findings are new from 12/06/2020. Additionally , there is paravertebral edema with mildly prominent right tracheoesophageal lymph nodes which may be reactive or metastatic. 2. Progressively worsened endplate erosions at C6-C7 with grade 1 anterolisthesis which is new from . Follow-up recommended to exclude discitis/osteomyelitis. 3. Additional findings as above. Findings were discussed with Dr. Jimenes on 05/23/2021 at 11:00 AM. ACT 112: Negative or not required by law. Electronically signed by: Edi Gonzalez M.D. 05/23/2021 11:08 AM
--- NOTE | 2021-05-23 11:26 | XRay Report ---
XR chest 1V portable CLINICAL HISTORY: Chest Pain. COMPARISON STUDY: 05/09/2021 TECHNIQUE: 1 view of the chest FINDINGS: Single frontal view of the chest demonstrates the cardiomediastinal silhouette to be within normal li mits. The lungs are clear of alveolar opacities. There is no evidence for pleural effusion. There is no evidence for vascular congestion. There is no acute osseous pathology. IMPRESSION: No acute cardiopulmonary disease. No significant interval change. ACT 112: Negative or not required by law. Electronically signed by: Pasha Loya M.D. 05/23/2021 11:25 AM
--- NOTE | 2021-05-23 11:54 | History & Physical Report ---
Date of Service May 23, 2021 Assessment & Plan (1) Goals of care, counseling/discussion: Plan: Patient reports not wanting any intervention and any intervention would be mostly futile in addition. Both patient and daughter understand futility of treatment and his main goal is to return home at this time. Unfortunately he lives alone and family unable to be with him / at the current time and need time to arrange this therefore he will be admitted for comfort care with hopeful goal that arrangements can be made to return home with hospice. Comfort care orders placed Morphine for shortness of breath, pain Lorazepam for anxiety Glycopyrrolate, hyoscyamine, atropine for secretions (2) Stridor: Plan: Secondary to mass with cricoid erosion. I did discus his case with Dr Borden from pulmonology to discuss and both agree regarding futility of interventions. Could consider ENT consult for tracheostomy but given patient wishes for comfort this is not advised. Plan: VTE Prophylaxis - None, comfort Diet - clear liquid, if breathing stable and patient wishes to eat can advance diet as tolerated Disposition - observation status (expected stay of 1 midnight) to med/surg Admission and Anticipated Discharge Date Admission Date: May 23, 2021 History of Present Illness Chief Complaint: Stridor, shortness of breath Primary Care Provider: ELIZABETH Guzmán Gerardo Neely is an 85 year old male who presents to the ER via ALS with increasing difficulty breathing over the last 2-3 days with increasing noisy breathing. History mostly taken from his daughter at bedside. She reports progressive decline over the last month but especially worse the last week. Reduced appetite. She found him soiled himself today prompting his ER visit. Increasingly more short of breath with noisy breathing this last week but much worse over the last 2-3 days. In the ER CT showed a masslike soft tissue thickening of upper esophageal sphincter with osseous erosion of the cricoid cartilage suspicious of malignancy with paravertebral edema, progressively worsening endplate erosion at C6-7 with concern for discitis/osteomyelitis. Noticed to have stridor in the ER and treated with racemic epinephrine NEB and steroids without significant improvement. He was referred to medicine for admission and ongoing management of this mass. Allergies Allergy/AdvReac Type Severity Reaction Status Date / Time codeine AdvReac Unknown severe Verified 05/23/21 12:08 vomiting Home Medications Medication Instructions Recorded Confirmed Type blood-glucose meter (OneTouch #1 ea 06/11/19 05/08/21 Rx Ultra2 Meter) lancets 33 gauge (OneTouch Delica #100 ea 04/21/20 05/08/21 Rx Lancets) blood-glucose meter (Prodigy #1 ea 07/26/20 05/08/21 Rx Autocode Monitor Syst) miscellaneous medical supply #1 ea 11/23/20 05/08/21 Rx acetaminophen 500 mg tablet 1,000 mg PO Q8H #60 tab 12/04/20 05/23/21 Rx metformin 1,000 mg tablet 1,000 mg PO BID #180 tab 01/04/21 05/23/21 Rx tamsulosin 0.4 mg capsule (Flomax) 0.4 mg PO QDD cap 01/25/21 05/23/21 History pen needle, diabetic 32 gauge x #100 ea 04/14/21 05/08/21 Rx 5/32" (BD Ultra-Fine Joycelyn Pen Needle) insulin glargine 100 unit/mL (3 20 unit SC BID #3 ml 04/24/21 05/23/21 Rx mL) subcutaneous pen (Basaglar KwikPen U-100 Insulin) trazodone 100 mg tablet 100 mg PO DAILY PRN #30 tab 05/05/21 05/23/21 Rx albuterol sulfate 90 mcg/actuation 2 inh INHALATION Q4H PRN #8.5 g 05/09/21 05/23/21 Rx aerosol inhaler gabapentin 100 mg capsule 200 mg PO HS #180 cap 05/17/21 05/23/21 Rx atorvastatin 10 mg tablet 10 mg PO QAM 05/23/21 05/23/21 History cholecalciferol (vitamin D3) 50 2,000 unit PO QAM 05/23/21 05/23/21 History mcg (2,000 unit) tablet cyanocobalamin (vitamin B-12) 1,000 mcg PO QAM 05/23/21 05/23/21 History 1,000 mcg tablet dextromethorphan HBr 5 mg/5 mL 2.5 mg PO Q4H PRN 05/23/21 05/23/21 History oral syrup (Vicks DayQuil Cough) multivitamin with minerals (Men's 1 tab PO QAM 05/23/21 05/23/21 History One Daily) omeprazole 20 mg capsule,delayed 20 mg PO QAM 05/23/21 05/23/21 History release Past Med/Surg History Medical History Anemia Arthritis BPH associated with nocturia Carotid artery stenosis Chronic lumbar pain GERD without esophagitis Hearing difficulty Hematuria High prostate specific antigen (PSA) (~12/2018) History of amputation of finger (~2002) History of neck pain Hyperlipidemia Hypertension Pancreatic lesion 03/31/2020-2.1 x 1.0 x 1.7 cm bilobed cystic lesion of the pancreatic body/tail junction demonstrates mild marginal calcifications with a thin central enhancing septation. Differential considerations would include a mucinous cystadenoma versus complex singular or two subadjacent IPMN's. 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 neuropathy & tingling in hands Surgical History Amputation finger 2002 History of back surgery 11/28/20 History of cardiac radiofrequency ablation 12/08/20 History of carpal tunnel release 2007 History of hernia repair 2003 History of neck surgery [id number] Family History Grandfather (Maternal) Stomach cancer Aunt , This was who raised me, I do not know my mother & father Stomach cancer MATERNAL Brother , 50's of an [place] Myocardial infarction Alcohol abuse Diabetes Mother Heart disease Diabetes Gallbladder disease Kidney stones Denies family history of Ovarian cancer Prostate cancer Breast cancer Colorectal cancer Social History Smoking Status: Former smoker Tobacco Type: Cigarettes Age Started Using Tobacco: 16; Age Quit Using Tobacco: 29; packs per day: 10; Years Smoked: 13; Second Hand Exposure: No; Hx Alcohol Use: No Hx Substance Use: No Preferred Language: Icelandic Communication Ability: Effective Visual Impairment: No Limitations Hearing Ability: Hard of Hearing Bleacher Pulp Required: No Beliefs That Will Affect Care: None marital status: / marital status details: PASSED IN 2015 D/T LUNG CANCER Current Living Situation: Alone and Family Current Living Situation Comment: Lives home alone. current occupational status: retired How many Children do You have: 2 Other Information That Helps Us Care for You: No Feels Safe at Home: Yes Safety Concerns: Feels Safe At This Time Childhood Exposure to Second-Hand Smoke: Yes Diet Comment: regular caffeine: Yes (coffee about 5 times a day) during the past year weight has: remained stable Dental Care, Regularly: Yes Physical Activity Frequency: Does not Exercise Physical Activity Frequency Comment: EXERCISE LIMITED BY PHYSICAL CONDITION Seatbelt Use: always Sunscreen Use: No Assistive Devices: Denture - Upper, Denture - Lower, Glasses, Hearing Aid - Bilateral and Oxygen - Continuous Review of Systems Review of Systems: All systems reviewed & are unremarkable except as noted in HPI & below Physical Exam Constitutional: + acute distress (respiratory); + not well nourished Eyes: + anicteric sclerae; normal pupil size ENMT: Ears: + hearing impairment Respiratory: + retractions, + uses accessory muscles and + stridor Auscultation: + rhonchi (bilaterally equal) Cardiovascular: RRR, no murmur, no edema Gastrointestinal (Abdomen): normal bowel sounds, soft, nontender, no hepatosplenomegaly Neurologic: moves all extremities and awake; not confused Results & Data Results & Data ([facility]) Vital Signs (Past 12 Hours) Vital Signs Temp Pulse Pulse Resp BP BP Pulse Ox 05/23/21 11:38 98 H 23 130/100 96 05/23/21 10:47 92 05/23/21 10:43 95 H 17 05/23/21 10:00 91 H 21 133/64 94 05/23/21 09:26 95 05/23/21 09:22 36.4 C L 85 18 98/62 L 98 Laboratory Results Abnormal lab results 05/23/21 05/23/21 Range/Units 09:30 09:30 RBC 3.54 L (4.7-6.1) M/uL Hgb 9.7 L (14.0-18.0) g/dL Hct 30.8 L (42-52) % MCHC 31.5 L (32-36) g/dL Lymph # (Auto) 0.63 L (1.2-3.4) K/uL [place] # (Auto) 1.32 H (0.11-0.59) K/uL Immature Gran # (Auto) 0.04 H (0.00-0.02) K/uL Sodium 132 L (136-145) mmol/L Chloride 97 L (98-107) mmol/L Glucose 123 H (70-99) mg/dl Magnesium 1.7 L (1.8-2.4) mg/dl Total Bilirubin 1.1 H (0.2-1) mg/dl AST 13 L (15-37) U/L Albumin 3.0 L (3.4-5.0) gm/dl Albumin/Globulin Ratio 0.8 L (0.9-2) Lipase 40 L (73-393) U/L Diagnostic Findings XR chest 1V portable CLINICAL HISTORY: Chest Pain. COMPARISON STUDY: 05/09/2021 TECHNIQUE: 1 view of the chest FINDINGS: Single frontal view of the chest demonstrates the cardiomediastinal silhouette to be within normal limits. The lungs are clear of alveolar opacities. There is no evidence for pleural effusion. There is no evidence for vascular congestion. There is no acute osseous pathology. IMPRESSION: No acute cardiopulmonary disease. No significant interval change. CHEST CT WITH CONTRAST HISTORY: Acute stridor with shortness of breath stridor, sob TECHNIQUE: Multiaxial CT images of the chest were performed following the IV administration of 94 cc of Optiray. A dose lowering technique was utilized adhering to the principles of ALARA. COMPARISON: CT soft tissue neck and CT abdomen and pelvis studies of same day, CT cervical spine 09/23/2020, CTA chest 12/06/2020 FINDINGS: Limited study secondary to upper extremity positioning. There is no thyroid nodule. Cardiomegaly with extensive coronary artery calcifications. Atherosclerosis of the aorta with patency of the imaged great vessels. Unremarkable unopacified pul monary artery. No pneumothorax, pleural effusion, airspace consolidation or overt pulmonary edema. Mild dependent subsegmental bibasilar atelectasis. The central airways appear patent. Unchanged 2.8 cm indeterminate left adrenal gland lesion. Partially imaged cystic foci of the pancreatic tail measuring up to 1.3 cm, possibly associate financial representative of sidebranch IPMN's. Unremarkable soft tissues. Cervical spinal fusion hardware. Advanced degenerative changes of the cervical spine. Progressive endplate irregularity/erosions at C6-C7 with 5 mm anterolisthesis, new from the September comparison. There is paravertebral edema with masslike thickening within the distribution of the upper esophageal sphincter. Osseous erosions are noted within the cricoid cartilage. Prominent lymph nodes of the right tracheoesophageal recess measure up to 8 mm. IMPRESSION: 1. Masslike soft tissue thickening of the upper esophageal sphincter is noted with osseous erosions of the cricoid cartilage suspicious for malignancy. These findings are new from 12/06/2020. Additionally, there is paravertebral edema with mildly prominent right tracheoesophageal lymph nodes which may be reactive or metastatic. 2. Progressively worsened endplate erosions at C6-C7 with grade 1 anterolisthesis which is new from 09/23/2020. Follow-up recommended to exclude discitis/osteomyelitis. 3. Additional findings as above. CT abd pelvis IV con only CLINICAL HISTORY: diarrhea, abd pain TECHNIQUE: Helical axial images of the abdomen and pelvis were obtained and displayed. Automated dose lowering techniques and/or adjustment according to patient size were utilized for this exam. This exam was performed with intravenous contrast. COMPARISON: Comparison is made to CT abdomen pelvis 03/31/2020 FINDINGS: Lower chest: Bibasilar atelectasis versus scarring is seen. Liver: Unremarkable. No focal lesions are seen. Gallbladder and biliary tree: No calcified gallstones. Normal caliber wall. No intra- or extrahepatic biliary ductal dilation. Pancreas: There is a 2.0 x 1.0 cm cystic mass in the pancreatic tail which is unchanged from 2017. Spleen: Subcentimeter hypodensity in the spleen is too small to characterize. Adrenals: 2.8 x 2.2 cm left adrenal nodule is unchanged from prior exam. Kidneys and ureters: Left lower pole simple cyst is unchanged. Left upper pole exophytic hypodensities too small to characterize but likely represents a cyst. Bladder: Unremarkable. Reproductive organs: Prostatic calcifications are seen which may represent prior hemorrhage or granulomatous disease. Bowel: Unremarkable appearance of the bowel. The appendix is normal. Lymph nodes Retroperitoneal: Unremarkable. Mesenteric: Unremarkable. Pelvic: Unremarkable. Peritoneum: Normal Vessels: Atherosclerotic calcifications are seen. Abdominal wall: Unremarkable. Bones: Degenerative changes in the visualized spine. Posterior fixation hardware is seen at L2-L3. IMPRESSION: 1. No acute abnormalities are seen. 2. Left adrenal lesion is unchanged from 2013, likely benign. 3. Stable cystic lesion in the pancreatic body/tail which may represent IPMN or mucinous cystadenoma. If not previously evaluated, MRCP abdomen can be performed. CT soft tissue neck w con CLINICAL HISTORY: stridor . Shortness of breath and wheezing. COMPARISON STUDY: No previous studies for comparison. CT DOSE: 1160.98 mGy.cm TECHNIQUE: Standard CT of the Neck was performed with IV contrast. A dose lowering technique was utilized adhering to the principles of ALARA. Contrast Volume: Optiray 320, 94 ml FINDINGS: Salivary glands: Parotid and submandibular salivary glands are within normal limits. The thyroid gland is also within normal limits. Lymph nodes: There are no pathologically enlarged lymph nodes. There is no evidence for soft tissue mass within the neck bilaterally. Airway: The cervical airway is widely patent. The epiglottis and aryepiglottic folds are normal bilaterally. There is thickening and nodularity of the vocal cords bilaterally. However, no enhancing mass is seen. Direct visualization would be necessary for further evaluation. Vascular structures: There is atherosclerotic calcification present involving the carotid arteries bilaterally. Paranasal sinuses:The imaged paranasal sinuses are clear. Osseous structures: No acute osseous abnormalities are identified. IMPRESSION: Thickening and nodularity of the vocal cords bilaterally. No enhancing mass is seen. Direct visualization would be the study of choice for further evaluation. Medications Administered ER Medications Given: NSS 500 ml Dexamethasone 10mg IV Racemic Epinephrine 0.5ml ECG Indication: SOB/dyspnea Rate (beats per minute): 92 Rhythm: normal sinus Findings: + nonspecific-ST abn Comparison ECG Date: from (May 09, 2021) Change: no significant change Code Status & VTE Plan Code Status DNR/DNI VTE Prophylaxis Plan VTE Prophylaxis will be ordered: No PG Care Time/CCT Total # of Minutes Spent Total Time Spent with Patient: Total time spent is greater than 50% in coordination of care (as documented) at patient's floor/unit and/or counseling patient: Coding Level of Care Code INT OBSERVATION CARE 70M LVL 3 Diagnoses Stridor R06.1 Goals of care, counseling/discussion Z71.89
[2021-05-23 11:57] LABS: Adenovirus F 40/41 PCR Not Detected (NotDetected); Astrovirus PCR Not Detected (NotDetected); Campylobacter PCR Not Detected (NotDetected); Clostridium diff Toxin A/B PCR Not Detected (NotDetected); Cryptosporidium PCR Not Detected (NotDetected); Cyclospora cayetanensis PCR Not Detected (NotDetected); Entamoeba histolytica PCR Not Detected (NotDetected); Enteroaggregative E.coli(EAEC) Not Detected (NotDetected); Enteropathogenic E.coli (EPEC) Not Detected (NotDetected); Enterotoxigenic E.coli (ETEC) Not Detected (NotDetected); Giardia lamblia PCR Not Detected (NotDetected); Norovirus GI/GII PCR Not Detected (NotDetected); Plesiomonas shigelloides PCR Not Detected (NotDetected); Rotavirus A PCR Not Detected (NotDetected); Salmonella PCR Not Detected (NotDetected); Sapovirus PCR Not Detected (NotDetected); Shiga-like Toxin E.coli (STEC) Not Detected (NotDetected); Shigella/Enteroinvasive E.coli Not Detected (NotDetected); Vibrio cholerae PCR Not Detected (NotDetected); Vibrio species PCR Not Detected (NotDetected); Yersinia enterocolitica PCR Not Detected (NotDetected)
[2021-05-23] MEDS ORDERED: LORazepam 0.5 MG/1 ML VIAL IV PRN (15:28)
[2021-05-23] MEDS ORDERED: MoRPHine SULFATE 2 MG/ML CARP IV PRN (15:28)
[2021-05-23] MEDS ORDERED: ONDANSETRON 4 MG OD TAB SL PRN (15:28)
[2021-05-23] MEDS ORDERED: MoRPHine SULFATE 5 MG/0.25 ML UDP PO PRN (15:28)
[2021-05-23] MEDS ORDERED: ONDANSETRON INJ 2 MG/ML 2 ML VIAL IV PRN (15:28)
[2021-05-23] MEDS ORDERED: ATROPINE SULFATE 1% OP SOLN 5 ML BTL SL PRN (15:28)
[2021-05-23] MEDS ORDERED: traZODone HCL 100 MG TAB PO PRN (15:28)
[2021-05-23] MEDS ORDERED: GLYCOPYRROLATE 0.2 MG/ML VIAL IV PRN (15:28)
[2021-05-23] MEDS: ACETAMINOPHEN 500 MG TAB PO SCH ×2 (15:38→20:47)
[2021-05-23] MEDS: GABAPENTIN 100 MG CAP PO SCH (20:45)
[2021-05-23 21:36] VITALS: BP 160/74; TEMP 98.2
[2021-05-24] MEDS: ACETAMINOPHEN 500 MG TAB PO SCH ×3 (05:25→22:15)
[2021-05-24 12:03] LABS: Appearance Urine Clear (Clear); Bilirubin Urine Negative (Negative); Blood Urine Negative (Negative); Color Urine Yellow; Glucose Urine UA Negative (Negative); Ketones Urine Negative (Negative); Leukocyte Esterase Urine Negative (Negative); Nitrite Urine Negative (Negative); Protein Urine Negative (Negative); Specific Gravity Urine 1.008 (1.000-1.030); Urobilinogen Urine Negative (Negative)
--- NOTE | 2021-05-24 17:51 | Hospitalist Progress Note ---
Date of Service May 24, 2021 Assessment & Plan (1) Goals of care, counseling/discussion: Plan: - On admission - patient reports not wanting any intervention and agree most would be futile. Daughters understanding and focus is comfort -- Patient lives alone and has had numerous falls and they cannot provide 24/7 care. They are working on getting caregivers and referrals sent for hospice. They do not feel they need equipment - Medications ordered for comfort - he report no pain and looks comfortable - Discussed with Dr. Fonseca as familiy was wondering what expectations were and length of time. Obviously not knowing the origin of the tumor it is hard to predict however this appears to have developed rather rapidly over 5 months. Suspicion that maybe 6 weeks? Unfortunately as this mass grows this would lead to full airway obstruction -- Did discuss with patient and he is interested in maybe getting a diagnosis as talking with Oncology there may be some palliative treatments to help control symptoms. Patient would like to see what it would entail to get a diagnosis - Will discuss with ENT to see how we would go about this - he is severely kyphotic so this may be difficult to obtain -- He reports not wanting a trach at this time - Diet as tolerated (2) Stridor: Plan: - Secondary to mass with cricoid erosion. Admitting provider discussed his case with Dr Borden from pulmonology and agree regarding futility of interventions. Plan: Obtaining caregivers/hospice; will discuss with ENT Admission and Anticipated Discharge Date Admission Date: May 23, 2021 Subjective Patient reports no complaints except eagerness to get out of the hospital. Awaiting arrangement of hospice services. Discussed with his daughter Brenda at bedside. Also discussed with Oncology. Patient is sort of interested in getting a definitive diagnosis but wants to know what it would entail. He reports no SOB. Stridor is improving at least right now Review of Systems Review of Systems: All systems reviewed & are unremarkable except as noted in Subjective Physical Exam Physical Exam: PHYSICAL EXAM General Appearance: WDWN in NAD who is A&O x 3; significant kyphosis HEENT: Head is normocephalic/atraumatic; [place] of Hearing; Mucous membranes moist; minimal stridor Neurological: Speech clear Psychiatric: Appropriate mood/affect PG Care Time/CCT Total # of Minutes Spent Total Time Spent with Patient: Total time spent is greater than 50% in coordination of care (as documented) at patient's floor/unit and/or counseling patient: Coding Level of Care Code 16393 Subseq Hosp Care Lvl 3 Diagnoses Goals of care, counseling/discussion Z71.89 Stridor R06.1
[2021-05-24] MEDS: GABAPENTIN 100 MG CAP PO SCH (20:33)
[2021-05-25] MEDS: LORazepam 0.5 MG TAB PO PRN ×3 (02:27→20:15)
[2021-05-25] MEDS: ACETAMINOPHEN 500 MG TAB PO SCH ×3 (05:47→21:40)
--- NOTE | 2021-05-25 06:19 | Electrocardiogram Report ---
Test Reason : Blood Pressure : / mmHG Vent. Rate : 092 BPM Atrial Rate : 092 BPM P-R Int : 172 ms QRS Dur : 092 ms QT Int : 360 ms P-R-T Axes : 050 -08 -02 degrees QTc Int : 445 ms Poor data quality, interpretation may be adversely affected Normal sinus rhythm Nonspecific ST abnormality Abnormal ECG When compared with ECG of 09-MAY-2021 10:53, No significant change was found Confirmed by Geo Stanton ([id number]) on 05/25/2021 6:19:27 AM Referred By: REFERRED SELF Confirmed By:Geo Stanton
[2021-05-25] MEDS: HYOSCYAMINE SULFATE 0.125 MG TAB SL PRN ×2 (10:21→20:15)
[2021-05-25] MEDS: haloperidoL 1 MG TAB PO PRN ×3 (12:05→21:40)
[2021-05-25] MEDS ORDERED: TAMSULOSIN HCL 0.4 MG CAP PO SCH (16:30)
--- NOTE | 2021-05-25 19:42 | Hospitalist Progress Note ---
Date of Service May 25, 2021 Assessment & Plan (1) Goals of care, counseling/discussion: Plan: - On admission - patient reports not wanting any intervention and agree most would be futile. Daughters understanding and focus is comfort -- Patient lives alone and has had numerous falls and they cannot provide 24/7 care. They are working on getting caregivers and referrals sent for hospice (cant start until Saturday/Saturday). They do not feel they need equipment right now - Medications ordered for comfort - he report no pain and looks comfortable physically - Discussed with Dr. Fonseca as family was wondering what expectations were and length of time. Obviously not knowing the origin of the tumor it is hard to predict however this appears to have developed rather rapidly over 5 months. Suspicion that maybe 6 weeks? Unfortunately as this mass grows this would lead to full airway obstruction - He reports not wanting a trach at this time - Diet as tolerated (2) Stridor: Plan: - Secondary to mass with cricoid erosion. Admitting provider discussed his case with Dr Borden from pulmonology and agree regarding futility of interventions. - Can trial Decadron daily to see if this assists Plan: Obtaining caregivers/hospice; - Patient would like to go home and family is really trying to accomodate this. However hospice and caregivers still being arranged - Patient is alert and oriented. However, it is hard to gauge whether he truly comprehends the concerns we discuss with him vs irritability/stubbornness to participate. When he gets irritable he more choices to not answer us. Will have a more involved sit down with him tomorrow to really engage his thought process. I think today's attempts were limited due to him already being agitated for still being here. His one daughter is POA but unless truly without capacity we would have to allow him to make a decision regardless if it is a good one. Would recommend [facility] should he show to have capacity but unwilling to await arrangements. Admission and Anticipated Discharge Date Admission Date: May 24, 2021 Subjective Patient was very impulsive this afternoon. He really would like to go home but family has been having difficulty getting caregivers and express concern for him being at home as they work and cannot supply 24/7 care. He seemed to be very calm with me when I explained we are trying to get these arrangements in place for his safety. He really did not directly interact with me but was calm. He can get easily agitated and irritable. He did not recognize a family member who walked in (I beleive a son-in-law?) granted he was wearing a mask. It is hard to gauge whether he can truly comprehend decisions vs irritable and choosing not to cooperate as he wants to go home. Review of Systems Review of Systems: All systems reviewed & are unremarkable except as noted in Subjective Physical Exam Physical Exam: PHYSICAL EXAM General Appearance: WDWN in NAD however does have loud stridor who is A&O x 3; significant kyphosis HEENT: Head is normocephalic/atraumatic; [place]; Mucous membranes moist; stridor Neurological: Speech clear Psychiatric: Irritable; overstimulated PG Care Time/CCT Total # of Minutes Spent Total Time Spent with Patient: Total time spent is greater than 50% in coordination of care (as documented) at patient's floor/unit and/or counseling patient: Coding Level of Care Code 85980 Subseq Hosp Care Lvl 3 Diagnoses Goals of care, counseling/discussion Z71.89 Stridor R06.1
[2021-05-25] MEDS: GABAPENTIN 100 MG CAP PO SCH (20:15)
[2021-05-25] MEDS ORDERED: LORazepam 0.5 MG/1 ML VIAL IV PRN (23:35)
[2021-05-25] MEDS ORDERED: MoRPHine SULFATE 2 MG/ML CARP IV PRN (23:35)
[2021-05-25] MEDS ORDERED: LORazepam 0.5 MG TAB PO PRN (23:58)
[2021-05-25] MEDS ORDERED: HYDROmorphone HCL 2 MG TAB PO STA (23:58)
[2021-05-25] MEDS ORDERED: MoRPHine SULFATE 5 MG/0.25 ML UDP PO PRN (23:59)
[2021-05-26] MEDS ORDERED: HALOPERIDOL LACTATE 5 MG/ML 1 ML VIAL IM STA
[2021-05-26] MEDS ORDERED: RACEPINEPHRINE 2.25% NEBU SOLN 0.5 ML VIAL NEB STA (01:07)
[2021-05-26 01:36] VITALS: PULSE 95; O2SAT 78
--- NOTE | 2021-05-26 04:06 | Death Pronouncement Note ---
Date of Service May 26, 2021 Pronouncement Note Admission Date Admission Date: May 24, 2021 Date and Time of Date of : 05/26/21 Time of : 03:49 Contributing Factors (1) Goals of care, counseling/discussion: (2) Stridor: Additional Data Confirmation of : no pulse, no respirations, no heart sounds and pupils fixed and dilated Family: contacted Attending/PCP notified?: Yes Attending physician: Manny Hawkins, DO Was code activated?: No Resident Activity Tracking Resident Involvement: Resident Care Provided Care Provided: Adult Hospital Medicine
[2021-05-26] MEDS ORDERED: dexAMETHasone 1 MG TAB PO SCH (09:00)
--- NOTE | 2021-05-26 18:04 | Discharge Summary ---
Date of Service May 26, 2021 Admission HPI Per Admitting Provider Gerardo Neely is an 85 year old male who presents to the ER via ALS with increasing difficulty breathing over the last 2-3 days with increasing noisy breathing. History mostly taken from his daughter at bedside. She reports progressive decline over the last month but especially worse the last week. Reduced appetite. She found him soiled himself today prompting his ER visit. Increasingly more short of breath with noisy breathing this last week but much worse over the last 2-3 days. In the ER CT showed a masslike soft tissue thickening of upper esophageal sphincter with osseous erosion of the cricoid cartilage suspicious of malignancy with paravertebral edema, progressively worsening endplate erosion at C6-7 with concern for discitis/osteomyelitis. Noticed to have stridor in the ER and treated with racemic epinephrine NEB and steroids without significant improvement. He was referred to medicine for admission and ongoing management of this mass. 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 No physical exam was performed for this discharge summary. Discharge Data Allergies Allergy/AdvReac Type Severity Reaction Status Date / Time codeine AdvReac Unknown severe Verified 05/23/21 12:08 vomiting Consultations 05/23/21 11:36 ED Decision to Admit Stat 05/23/21 12:23 Consult Palliative Care Routine Ordered Studies Chest X-Ray 05/23/21 09:53 XR chest 1V portable CLINICAL HISTORY: Chest Pain. COMPARISON STUDY: 05/09/2021 TECHNIQUE: 1 view of the chest FINDINGS: Single frontal view of the chest demonstrates the cardiomediastinal silhouette to be within normal limits. The lungs are clear of alveolar opacities. There is no evidence for pleural effusion. There is no evidence for vascular congestion. There is no acute osseous pathology. IMPRESSION: No acute cardiopulmonary disease. No significant interval change. ACT 112: Negative or not required by law. Electronically signed by: Pasha Loya M.D. 05/23/2021 11:[address] Tissue Neck [address] 05/23/21 10:14 CT soft tissue neck w con CLINICAL HISTORY: stridor . Shortness of breath and wheezing. COMPARISON STUDY: No previous studies for comparison. CT DOSE: 1160.98 mGy.cm TECHNIQUE: Standard CT of the Neck was performed with IV contrast. A dose lowering technique was utilized adhering to the principles of ALARA. Contrast Volume: Optiray 320, 94 ml FINDINGS: Salivary glands: Parotid and submandibular salivary glands are within normal limits. The thyroid gland is also within normal limits. Lymph nodes: There are no pathologically enlarged lymph nodes. There is no evidence for soft tissue mass within the neck bilaterally. Airway: The cervical airway is widely patent. The epiglottis and aryepiglottic folds are normal bilaterally. There is thickening and nodularity of the vocal cords bilaterally. However, no enhancing mass is seen. Direct visualization would be necessary for further evaluation. Vascular structures: There is atherosclerotic calcification present involving the carotid arteries bilaterally. Paranasal sinuses:The imaged paranasal sinuses are clear. Osseous structures: No acute osseous abnormalities are identified. IMPRESSION: Thickening and nodularity of the vocal cords bilaterally. No enhancing mass is seen. Direct visualization would be the study of choice for further evaluation. ACT 112: Positive. There are findings on this exam that require communication between the performing entity and the patient following Patient Test Result Information Act ([place] Act 112) guidelines. Electronically signed by: Pasha Loya M.D. 05/23/2021 10:50 AM Abdomen/Pelvis CT 05/23/21 10:22 CT abd pelvis IV con only CLINICAL HISTORY: diarrhea, abd pain TECHNIQUE: Helical axial images of the abdomen and pelvis were obtained and displayed. Automated dose lowering techniques and/or adjustment according to patient size were utilized for this exam. This exam was performed with intravenous contrast. COMPARISON: Comparison is made to CT abdomen pelvis 03/31/2020 FINDINGS: Lower chest: Bibasilar atelectasis versus scarring is seen. Liver: Unremarkable. No focal lesions are seen. Gallbladder and biliary tree: No calcified gallstones. Normal caliber wall. No intra- or extrahepatic biliary ductal dilation. Pancreas: There is a 2.0 x 1.0 cm cystic mass in the pancreatic tail which is unchanged from 2017. Spleen: Subcentimeter hypodensity in the spleen is too small to characterize. Adrenals: 2.8 x 2.2 cm left adrenal nodule is unchanged from prior exam. Kidneys and ureters: Left lower pole simple cyst is unchanged. Left upper pole exophytic hypodensities too small to characterize but likely represents a cyst. Bladder: Unremarkable. Reproductive organs: Prostatic calcifications are seen which may represent prior hemorrhage or granulomatous disease. Bowel: Unremarkable appearance of the bowel. The appendix is normal. Lymph nodes Retroperitoneal: Unremarkable. Mesenteric: Unremarkable. Pelvic: Unremarkable. Peritoneum: Normal Vessels: Atherosclerotic calcifications are seen. Abdominal wall: Unremarkable. Bones: Degenerative changes in the visualized spine. Posterior fixation hardware is seen at L2-L3. IMPRESSION: 1. No acute abnormalities are seen. 2. Left adrenal lesion is unchanged from 2013, likely benign. 3. Stable cystic lesion in the pancreatic body/tail which may represent IPMN or mucinous cystadenoma. If not previously evaluated, MRCP abdomen can be performed. ACT 112: Negative or not required by law. Electronically signed by: Manny Nguyen M.D. 05/23/2021 10:[address] 05/23/21 10:[address] WITH CONTRAST HISTORY: Acute stridor with shortness of breath stridor, sob TECHNIQUE: Multiaxial CT images of the chest were performed following the IV administration of 94 cc of Optiray. A dose lowering technique was utilized adhering to the principles of ALARA. COMPARISON: CT soft tissue neck and CT abdomen and pelvis studies of same day, CT cervical spine 09/23/2020, CTA chest 12/06/2020 FINDINGS: Limited study secondary to upper extremity positioning. There is no thyroid nodule. Cardiomegaly with extensive coronary artery calcifications. Atherosclerosis of the aorta with patency of the imaged great vessels. Unremarkable unopacified pulmonary artery. No pneumothorax, pleural effusion, airspace consolidation or overt pulmonary edema. Mild dependent subsegmental bibasilar atelectasis. The central airways appear patent. Unchanged 2.8 cm indeterminate left adrenal gland lesion. Partially imaged cystic foci of the pancreatic tail measuring up to 1.3 cm, possibly off premise service representative of sidebranch IPMN's. Unremarkable soft tissues. Cervical spinal fusion hardware. Advanced degenerative changes of the cervical spine. Progressive endplate irregularity/erosions at C6-C7 with 5 mm anterolisthesis, new from the September comparison. There is paravertebral edema with masslike thickening within the distribution of the upper esophageal sphincter. Osseous erosions are noted within the cricoid cartilage. Prominent lymph nodes of the right tracheoesophageal recess measure up to 8 mm. IMPRESSION: 1. Masslike soft tissue thickening of the upper esophageal sphincter is noted with osseous erosions of the cricoid cartilage suspicious for malignancy. These findings are new from 12/06/2020. Additionally, there is paravertebral edema with mildly prominent right tracheoesophageal lymph nodes which may be reactive or metastatic. 2. Progressively worsened endplate erosions at C6-C7 with grade 1 anterolisthesis which is new from 09/23/2020. Follow-up recommended to exclude discitis/osteomyelitis. 3. Additional findings as above. Findings were discussed with Dr. Jimenes on 05/23/2021 at 11:00 AM. ACT 112: Negative or not required by law. Electronically signed by: Edi Gonzalez M.D. 05/23/2021 11:08 AM Hospital Course (1) Goals of care, counseling/discussion: - On admission - patient reports not wanting any intervention and agree most would be futile. Daughters understanding and focus is comfort -- Patient lives alone and has had numerous falls and they cannot provide 24/7 care. They are working on getting caregivers and referrals sent for hospice (cant start until Saturday/Saturday). They do not feel they need equipment right now. They have noticed he has been urinating/deficating himself over this past week and has had nearly daily falls. Suspect possibly related to decline given suspected malignancy. Did not obtain imaging of his head as maybe also some metastasis? - Medications ordered for comfort - he reported no pain and looks comfortable physically even with stridor. Was largely oxygenating appropriately and with unlabored breathing - He reports not wanting a trach at this time and confirmed multiple times with him - He would have periodic episodes of irritation which would cause him to have more labored breathing. Uncertain if agitation was part of brain mets/confusion/normal personality as his main focus was wanting to be at home. 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 Admitting provider discussed his case with Dr Borden from pulmonology and agree regarding futility of interventions. - Can trialed Decadron daily to see if this assists Severe malnutrition in setting of suspected neck cancer - NOTED Did call daughter Brenda as patient overnight. We did try to get him home on hospice however unable to get all the logistics in place prior to him passing. Family was appreciative that he passed comfortably in his sleep with people nearby and was safe. Total Time Total Time Spent Total Time Spent (In Minutes): Spent less than 30 minutes preparing patient for discharge. This includes discussion with patient/family, assessment, intervention, medication reconciliation, and coordination of care. Discharge Plan Discharge Items Patient Disposition: Other Date/Time: 05/26/21 03:49 Supervising Physician Co-Signing Physician Notes Attending note: case reviewed, I did not examine patient as he in his sleep overnight. I agree with summary by Ashley HAIDER. Coding Level of Care Code D/C DAY MANAGEMENT <30 MINS Diagnoses Goals of care, counseling/discussion Z71.89 Stridor R06.1
== END 2021-05-26 05:20 | disposition expired | DRG 607 ==
LOC: ED 09:15 → 3E 09:15 → SUATTDRO 12:21 → 3E 14:50